=== PATIENT | male | born 1945 | race Caucasian/White ===

== ENCOUNTER 2016-10-24 17:18 | Inpatient (IN) | payer MEDICARE, BC ==
--- NOTE | 2016-10-24 18:08 | ED ---
Skin/Abscess/FB HPI - General Source: patient, RN notes reviewed Mode of arrival: wheelchair Limitations: no limitations <Mayito Bowser - Last Filed: 10/24/16 19:24> <Boris Mccoy - Last Filed: 11/11/16 09:13> - General Chief complaint: Skin/Abscess/Foreign Body Stated complaint: foot pain Time Seen by Provider: 10/24/16 17:33 - History of Present Illness Initial comments: 71-year-old male presents emergency Department with chief complaint of left leg swelling, redness and drainage. Patient states his started approximately one week ago and has been getting much worse. He states is a large amount of weeping drainage from his leg and foot. Patient states he is diabetic and does not know his blood sugar. Patient states his heart beating it and he states that he just gas is how much insulin he should give himself. Patient states she 's had a prior amputation to his right leg for some her problems. Patient states he has noticed that his toenail has fallen off. Patient states it is painful to walk on his left foot. Patient states he does have some shortness of breath which is normal for him though he does have a history of CHF. Patient denies any known fever. (Mayito Bowser) - Related Data Home Medications Medication Instructions Recorded Confirmed Aspirin 325 mg PO DAILY 08/28/14 11/01/16 Montelukast [Singulair] 10 mg PO HS 08/28/14 11/01/16 Omeprazole [PriLOSEC] 20 mg PO DAILY 08/28/14 11/01/16 hydrALAZINE HCL [Apresoline] 50 mg PO TID 08/28/14 11/01/16 Carvedilol 12.5 mg PO DAILY 08/23/15 11/01/16 Albuterol Nebulized [Ventolin 2.5 mg INHALATION RT-QID 02/04/16 11/01/16 Nebulized] DULoxetine HCL [Cymbalta] 20 mg PO BID 02/04/16 11/01/16 Arformoterol Tartrate [Brovana] 15 mcg INHALATION RT-BID 10/25/16 11/01/16 Budesonide [Pulmicort] 0.5 mg INHALATION RT-BID 10/25/16 11/01/16 Insulin Aspart [NovoLOG] 5 unit SQ AC-TID 10/25/16 11/01/16 Ipratropium-Albuterol Nebulize 3 ml INHALATION RT-QID PRN 11/01/16 11/01/16 [Duoneb 0.5 mg-3 mg/3 ml Soln] Previous Rx's Medication Instructions Recorded Insulin Glargine [Lantus] 12 unit SQ DAILY #0 08/29/15 Furosemide [Lasix] 40 mg PO BID@0900,1600 #60 tab 02/08/16 Cephalexin [Keflex] 500 mg PO Q12HR #20 cap 10/28/16 INSULIN LISPRO (HumaLOG) [humaLOG] 0 unit SQ ACHS #1 vial 10/28/16 Sodium Bicarbonate Tab 650 mg PO BID tab 10/28/16 amLODIPine [Norvasc] 10 mg PO DAILY #0 11/05/16 traMADol HCL [Ultram] 50 mg PO BID PRN #20 tablet 11/05/16 Allergies Allergy/AdvReac Type Severity Reaction Status Date / Time milk Allergy Rash/Hives Verified 11/01/16 13:38 Penicillins Allergy Rash/Hives Verified 11/01/16 13:38 Review of Systems ROS Other: All systems not noted in ROS Statement are negative. <Mayito Bowser - Last Filed: 10/24/16 19:24> ROS Other: All systems not noted in ROS Statement are negative. <Boris Mccoy - Last Filed: 11/11/16 09:13> ROS Statement: Those systems with pertinent positive or pertinent negative responses have been documented in the HPI. 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 He denies any medical marijuana, marijuana, street drug use. He does drink 2 beers daily. He is currently living alone since his passed in April 2014. There are no pets in the home. He has had no recent travel. 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 Past Drug Use History: None Reported - Past Family History Mother Family Medical History: Cancer Brother(s) Family Medical History: Coronary Artery Disease (CAD) Father Family Medical History: Coronary Artery Disease (CAD) Sister(s) Family Medical History: Cancer Additional Family Medical History / Comment(s): stomach <Mayito Bowser - Last Filed: 10/24/16 19:24> General Exam Limitations: no limitations General appearance: alert, in no apparent distress Head exam: Present: atraumatic, normocephalic, normal inspection Neck exam: Present: normal inspection. Absent: tenderness, meningismus, lymphadenopathy Respiratory exam: Present: normal lung sounds bilaterally. Absent: respiratory distress, wheezes, rales, rhonchi, stridor Cardiovascular Exam: Present: regular rate, normal rhythm, normal heart sounds. Absent: systolic murmur, diastolic murmur, rubs, gallop, clicks Extremities exam: Present: other (Extensive swelling noted the left lower leg with ulcerations, weeping drainage noted there is missing nail the first digit there is warmth and erythema there are faint palpable pulses of the left lower extremity right leg has prior amputation) <Mayito Bowser - Last Filed: 10/24/16 19:24> Medical Decision Making - Lab Data Result diagrams: 10/24/16 18:00 10/24/16 18:00 <Mayito Bowser - Last Filed: 10/24/16 19:24> - Lab Data Result diagrams: 10/28/16 07:51 10/28/16 07:51 <Boris Mccoy - Last Filed: 11/11/16 09:13> - Medical Decision Making I saw this patient in conjunction with the physician materials assistant. I performed independent history and physical exam. Agree with case management. (Boris Mccoy) - Lab Data Lab Results 10/24/16 10/24/16 10/24/16 Range/Units 18:00 18:00 18:00 WBC 5.1 (3.8-10.6) k/uL RBC 3.23 L (4.30-5.90) m/uL Hgb 9.4 L (13.0-17.5) gm/dL Hct 30.1 L (39.0-53.0) % MCV 92.9 (80.0-100.0) fL MCH 29.1 (25.0-35.0) pg MCHC 31.3 (31.0-37.0) g/dL RDW 14.5 (11.5-15.5) % Plt Count 200 (150-450) k/uL Neutrophils % 61 % Lymphocytes % 21 % Monocytes % 8 % Eosinophils % 7 % Basophils % 1 % Neutrophils # 3.1 (1.3-7.7) k/uL Lymphocytes # 1.1 (1.0-4.8) k/uL Monocytes # 0.4 (0-1.0) k/uL Eosinophils # 0.4 (0-0.7) k/uL Basophils # 0.0 (0-0.2) k/uL Hypochromasia Slight Sodium 145 (137-145) mmol/L Potassium 6.1 H (3.5-5.1) mmol/L Chloride 112 H (98-107) mmol/L Carbon Dioxide 19 L (22-30) mmol/L Anion Gap 14 mmol/L BUN 66 H (9-20) mg/dL Creatinine 4.70 H (0.66-1.25) mg/dL Est GFR (MDRD) Af Amer 15 (>60 ml/min/1.73 sqM) Est GFR (MDRD) Non-Af 12 (>60 ml/min/1.73 sqM) Glucose 115 H (74-99) mg/dL Plasma Lactic Acid Rashel (0.7-2.0) mmol/L Calcium 8.1 L (8.4-10.2) mg/dL Total Bilirubin 0.3 (0.2-1.3) mg/dL AST 12 L (17-59) U/L ALT 21 (21-72) U/L Alkaline Phosphatase 82 (38-126) U/L C-Reactive Protein <5.0 (<10.0) mg/L NT-Pro-B Natriuret Pep 8440 pg/mL Total Protein 6.6 (6.3-8.2) g/dL Albumin 3.2 L (3.5-5.0) g/dL 10/24/16 Range/Units 18:00 WBC (3.8-10.6) k/uL RBC (4.30-5.90) m/uL Hgb (13.0-17.5) gm/dL Hct (39.0-53.0) % MCV (80.0-100.0) fL MCH (25.0-35.0) pg MCHC (31.0-37.0) g/dL RDW (11.5-15.5) % Plt Count (150-450) k/uL Neutrophils % % Lymphocytes % % Monocytes % % Eosinophils % % Basophils % % Neutrophils # (1.3-7.7) k/uL Lymphocytes # (1.0-4.8) k/uL Monocytes # (0-1.0) k/uL Eosinophils # (0-0.7) k/uL Basophils # (0-0.2) k/uL Hypochromasia Sodium (137-145) mmol/L Potassium (3.5-5.1) mmol/L Chloride (98-107) mmol/L Carbon Dioxide (22-30) mmol/L Anion Gap mmol/L BUN (9-20) mg/dL Creatinine (0.66-1.25) mg/dL Est GFR (MDRD) Af Amer (>60 ml/min/1.73 sqM) Est GFR (MDRD) Non-Af (>60 ml/min/1.73 sqM) Glucose (74-99) mg/dL Plasma Lactic Acid Rashel 0.8 (0.7-2.0) mmol/L Calcium (8.4-10.2) mg/dL Total Bilirubin (0.2-1.3) mg/dL AST (17-59) U/L ALT (21-72) U/L Alkaline Phosphatase (38-126) U/L C-Reactive Protein (<10.0) mg/L NT-Pro-B Natriuret Pep pg/mL Total Protein (6.3-8.2) g/dL Albumin (3.5-5.0) g/dL 10/24/16 19:23 EKG performed at 19:14 sinus bradycardia with rate of 56, MO 170, QRS duration 86, QT/QTc 464/447 there is no peaked T waves noted (Dedoe,Mayito M) Disposition <Mayito Bowser - Last Filed: 10/24/16 19:24> <Boris Mccoy - Last Filed: 11/11/16 09:13> Clinical Impression: Renal failure, Congestive heart failure, Diabetes mellitus, Pleural effusion, Left leg cellulitis, Foot ulcer, left Disposition: ADMITTED IP TO THIS HOSP Condition: Stable
[2016-10-24 18:24] LABS: Basophils % (A) 1 %; CH 28.8; CHCM 31.1; Eosinophils # (A) 0.4 k/uL (0-0.7); Eosinophils % (A) 7 %; HCT 30.1 % (39.0-53.0); HDW 2.69; HGB 9.4 gm/dL (13.0-17.5); Hypochromasia Slight; Luc # (Auto) 0.13; Luc % (Auto) 3; Lymphocytes # (A) 1.1 k/uL (1.0-4.8); Lymphocytes % (A) 21 %; MCH 29.1 pg (25.0-35.0); MCHC 31.3 g/dL (31.0-37.0); MCV 92.9 fL (80.0-100.0); Mean Platelet Volume 7.5; Monocytes # (A) 0.4 k/uL (0-1.0); Monocytes % (A) 8 %; Neutrophils # (A) 3.1 k/uL (1.3-7.7); Neutrophils % (A) 61 %; RBC 3.23 m/uL (4.30-5.90); RDW 14.5 % (11.5-15.5); WBC 5.1 k/uL (3.8-10.6); WBC (Perox) 5.05
[2016-10-24 18:31] LABS: ALT 21 U/L (21-72); AST 12 U/L (17-59); Alkaline Phosphatase 82 U/L (38-126); Anion Gap 14 mmol/L; Blood Urea Nitrogen 66 mg/dL (9-20); C Reactive Protein <5.0 mg/L (<10.0); Calcium 8.1 mg/dL (8.4-10.2); Carbon Dioxide 19 mmol/L (22-30); Chloride 112 mmol/L (98-107); Glucose 115 mg/dL (74-99); Potassium 6.1 mmol/L (3.5-5.1); Sodium 145 mmol/L (137-145); Total Bilirubin 0.3 mg/dL (0.2-1.3); Total Protein 6.6 g/dL (6.3-8.2)
[2016-10-24 18:46] LABS: Non-African American GFR(MDRD) 12 (>60 ml/min/1.73 sqM)
--- NOTE | 2016-10-24 18:49 | XR ---
EXAMINATION TYPE: XR foot complete LT DATE OF EXAM: 10/24/2016 6:43 PM COMPARISON: NONE HISTORY: Leg and foot weeping bruising and pain TECHNIQUE: 3 view left foot FINDINGS: There is prominent soft tissue swelling. Plantar calcaneal heel spur is present. Structures are osteopenic. Osteopenia makes identification of osteomyelitis more difficult. No obvious destruct key osteomyelitis is not identified. IMPRESSION: 1. Osteopenia. 2. Soft tissue swelling. 3. Obvious osteomyelitis is not identified. 3 phase bone scan can be performed for sufficient clinica l suspicion.
--- NOTE | 2016-10-24 18:50 | XR ---
EXAMINATION TYPE: XR chest 2V DATE OF EXAM: 10/24/2016 6:43 PM COMPARISON: 02/04/2016 INDICATION: Pain, shortness of breath TECHNIQUE: Single frontal view of the chest is obtained. FINDINGS: The heart size is normal. The pulmonary vasculature is prominent. Bilateral pleural effusions are present slightly greater on the right than the left. IMPRESSION: 1. Small bilateral pleural effusions. 2. Prominent pulmonary vascular markings. Consider pulmonary edema within the differential.
[2016-10-24] MEDS ORDERED: SODIUM POLYSTYRENE SULFONATE 15 GM/60 ML BOTTLE PO STA (18:53)
[2016-10-24] MEDS ORDERED: INSULIN REGULAR 100 UNIT/ML VIAL IV ONE (18:53)
[2016-10-24] MEDS ORDERED: FUROSEMIDE 10 MG/ML 4 ML VIAL IV STA (18:54)
[2016-10-24] MEDS ORDERED: SODIUM BICARB 8.4% 50 ML SYR (1 MEQ/ML) IV STA (18:54)
[2016-10-24] MEDS ORDERED: IV VANCOMYCIN PER PHARMACY 1 EACH MISC MISCELLANE PRN (19:02)
[2016-10-24] MEDS ORDERED: MORPHINE SULFATE 4 MG/ML SYRINGE IV PRN (19:25)
[2016-10-24] MEDS ORDERED: NALOXONE 0.4 MG/ML 1 ML VIAL IV PRN (19:25)
[2016-10-24] MEDS ORDERED: ACETAMINOPHEN TAB 325 MG TAB PO PRN (19:25)
[2016-10-24] MEDS ORDERED: ONDANSETRON 4 MG/2 ML VIAL IVP PRN (19:25)
[2016-10-24] MEDS: DEXTROSE 50%-WATER 50 ML SYRINGE IVP STA ×2 (19:53→21:43)
[2016-10-24] MEDS ORDERED: VANCOMYCIN 2,000 MG in SODIUM CHLORIDE 0.9% 500 ML IVPB ONE (20:00)
[2016-10-24] MEDS ORDERED: ALBUTEROL NEBULIZED 2.5 MG/3 ML INHALATION SCH (20:00)
[2016-10-24] MEDS ORDERED: ALBUTEROL NEBULIZED 2.5 MG/3 ML INHALATION PRN (20:18)
[2016-10-24] MEDS: BUDESONIDE 0.5 MG/2 ML NEBU INHALATION SCH (20:35)
[2016-10-24] MEDS: INSULIN LISPRO (humaLOG) 300 UNIT/3 ML VIAL SQ SCH (21:40)
[2016-10-24 21:42] LABS: Glucose,Whole Blood 28 mg/dL (75-99)
--- NOTE | 2016-10-24 21:47 | US ---
EXAMINATION TYPE: US venous doppler duplex LE LT DATE OF EXAM: 10/24/2016 7:56 PM COMPARISON: on PACS CLINICAL HISTORY: Pain. let leg cellulitis/foot ulcer, hyperkalemia, DM, poor historian SIDE PERFORMED: Left VESSELS IMAGED: External Iliac Vein (EIV) Common Femoral Vein Deep Femoral Vein Greater Saphenous Vein * Femoral Vein Popliteal Vein Small Saphenous Vein * Proximal Calf Veins (* superficial vessels) TECHNOLOGIST IMPRESSION: Left Leg: Appears negative for DVT IMPRESSION: 1. Left lower extremity negative for deep venous thrombosis.
[2016-10-24] MEDS: MONTELUKAST 10 MG TAB PO SCH (22:05)
[2016-10-24] MEDS: traMADol 50 MG TAB PO SCH ×2 (22:05→22:28)
[2016-10-24] MEDS: hydrALAZINE HCL 50 MG TAB PO SCH (22:05)
[2016-10-24] MEDS: DULoxetine HCL 20 MG CAPSULE.DR PO SCH (22:05)
[2016-10-24 22:25] LABS: Glucose,Whole Blood 77 mg/dL (75-99)
[2016-10-24 22:26] VITALS: BMI 31.5
[2016-10-25] MEDS: ALPRAZolam 0.25 MG TAB PO SCH ×4 (00:05→22:12)
[2016-10-25 00:25] LABS: Appearance,Urine Clear (Clear); Bilirubin,Urine Negative (Negative); Glucose,Urine (UA) Negative (Negative); Ketones,Urine Negative (Negative); Leukocyte Esterase,Urine Negative (Negative); Mucus,Urine Rare /hpf; Nitrite,Urine Negative (Negative); Particle Count 1321; Protein,Urine 1+ (Negative); RBC,Urine <1 /hpf (0-5); Specific Gravity,Urine 1.006 (1.001-1.035); UA Billing (MACRO vs. MICRO) MICRO; Urobilinogen,Urine <2.0 mg/dL (<2.0); WBC,Urine <1 /hpf (0-5)
[2016-10-25 02:30] LABS: Glucose,Whole Blood 145 mg/dL (75-99)
[2016-10-25 06:37] LABS: Basophils # (A) 0.1 k/uL (0-0.2); Basophils % (A) 1 %; CH 28.3; CHCM 29.5; Eosinophils # (A) 0.2 k/uL (0-0.7); Eosinophils % (A) 3 %; HCT 29.4 % (39.0-53.0); HDW 2.66; HGB 8.9 gm/dL (13.0-17.5); Hypochromasia Marked; Luc # (Auto) 0.12; Luc % (Auto) 2; Lymphocytes # (A) 0.7 k/uL (1.0-4.8); Lymphocytes % (A) 13 %; MCH 29.3 pg (25.0-35.0); MCHC 30.3 g/dL (31.0-37.0); MCV 96.6 fL (80.0-100.0); Mean Platelet Volume 7.4; Monocytes # (A) 0.5 k/uL (0-1.0); Monocytes % (A) 9 %; Neutrophils # (A) 4.1 k/uL (1.3-7.7); Neutrophils % (A) 73 %; RBC 3.04 m/uL (4.30-5.90); RDW 14.6 % (11.5-15.5); WBC 5.6 k/uL (3.8-10.6); WBC (Perox) 6.08
[2016-10-25 06:56] LABS: Calcium 8.1 mg/dL (8.4-10.2); Potassium 5.6 mmol/L (3.5-5.1)
[2016-10-25] MEDS: CARVEDILOL 12.5 MG TAB PO SCH (06:58)
[2016-10-25] MEDS: PANTOPRAZOLE 40 MG TABLET PO SCH (06:58)
[2016-10-25] MEDS: INSULIN LISPRO (humaLOG) 300 UNIT/3 ML VIAL SQ SCH ×4 (07:00→22:07)
[2016-10-25 07:04] LABS: Glucose,Whole Blood 145 mg/dL (75-99)
[2016-10-25] MEDS: ASPIRIN 325 MG TAB PO SCH (08:05)
[2016-10-25] MEDS: INSULIN GLARGINE 100 UNIT/ML 10 ML VIAL SQ SCH (08:05)
[2016-10-25] MEDS: DULoxetine HCL 20 MG CAPSULE.DR PO SCH ×2 (08:05→22:07)
[2016-10-25] MEDS: hydrALAZINE HCL 50 MG TAB PO SCH ×3 (08:05→22:08)
[2016-10-25] MEDS: amLODIPine 5 MG TAB PO SCH (08:06)
[2016-10-25] MEDS: traMADol 50 MG TAB PO SCH ×2 (08:09→22:12)
[2016-10-25] MEDS ORDERED: FUROSEMIDE 40 MG TAB PO SCH (09:00)
[2016-10-25] MEDS: ALBUTEROL NEBULIZED 2.5 MG/3 ML INHALATION SCH ×4 (11:25→20:19)
[2016-10-25] MEDS: BUDESONIDE 0.5 MG/2 ML NEBU INHALATION SCH ×2 (11:25→20:19)
[2016-10-25] MEDS ORDERED: SODIUM POLYSTYRENE SULFONATE 15 GM/60 ML BOTTLE PO STA (11:29)
[2016-10-25 11:34] LABS: Glucose,Whole Blood 73 mg/dL (75-99)
[2016-10-25 13:58] LABS: Hemoglobin A1C 5.3 % (4.2-6.1)
[2016-10-25] MEDS ORDERED: IV VANCOMYCIN PER PHARMACY 1 EACH MISC MISCELLANE PRN (14:38)
--- NOTE | 2016-10-25 15:14 | CONS ---
DATE OF CONSULTATION: 10/25/2016 REASON FOR CONSULT: Renal failure. HISTORY OF PRESENT ILLNESS: Patient is a 71-year-old white male who was admitted to the hospital with complaints of increased left leg swelling. He has had wounds ( ) with weeping and drainage. Patient denies any fever. He denies any nausea or vomiting. He did complain of shortness of breath. He denies any prior history of kidney diseases. PAST MEDICAL HISTORY: Asthma, COPD, type 2 diabetes, hyperlipidemia, hypertension, peripheral vascular disease. CKD is mentioned in his H&P. Medications at home included Lasix, insulin, Norvasc, Cymbalta, Xanax, Singulair, Prilosec, hydralazine, Coreg, aspirin. Allergies include PENICILLIN. PAST SURGICAL HISTORY: Right BKA. Social history is negative for smoking. No history of drug abuse. REVIEW OF SYSTEMS: As per HPI. Other systems negative. On examination, patient is comfortable, awake. He is not in any acute distress. Blood pressure is 148/60, heart rate 70 per minute. He is afebrile. HEENT: Atraumatic, normocephalic. Pupils are equal, round. JVP is not elevated. Lymph nodes are not palpable. Thyroid is not enlarged. Examination of the heart, S1 and S2. Examination of the lung, bilateral breath sounds are heard. Abdomen is soft, nontender. Examination of lower extremities shows significant edema, swelling up to left leg with drainage noted from wounds and patient also has a right BKA. 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 Labs reveal sodium 144, potassium 5.6, BUN 68, serum creatinine 4.6. Hemoglobin at 8.9 g/dL UA shows 1+ protein, otherwise completely unremarkable ASSESSMENT: 1. Chronic kidney disease, NKF stage IV to V, currently with serum creatinine not far from baseline. Etiology is diabetic nephropathy. Patient is supposed to follow up as outpatient. He has been talked to regarding renal replacement therapy which he had declined on his last admission. There is evidence of volume overload. We will continue to diurese him. He does not appear to be significantly uremic at this time. 2. Hyperkalemia associated with advanced renal failure. We will repeat another dose of Kayexalate. 3. Volume overload, switch Lasix to IV. 4. Cellulitis and drainage from wounds on the left lower extremity, maintained on vancomycin. 5. Type 2 diabetes. 6. Hypertension, currently with good control. PLAN: Change Lasix to IV, Kayexalate x1 today, IV diuresis will also help with the hyperkalemia. Repeat labs in the a.m. Continue antibiotics. Thank you for this consultation. Will continue to follow the patient with you during his hospitalization.
[2016-10-25 16:39] LABS: Glucose,Whole Blood 60 mg/dL (75-99)
[2016-10-25 17:13] LABS: Glucose,Whole Blood 70 mg/dL (75-99)
--- NOTE | 2016-10-25 17:24 | HP ---
DATE OF ADMISSION: 10/24/2016 CHIEF COMPLAINT: Left lower extremity cellulitis and oozing. HISTORY OF PRESENT ILLNESS: This is a 71-year-old gentleman who has multiple medical conditions including type 2 diabetes, chronic kidney disease stage IV to V, peripheral vascular disease and hypertension comes in the hospital with recent onset worsening of his left lower extremity wound. Patient stated that over the last few days, patient noted that he had increased swelling, erythema and tenderness in that area. Patient also noted significant oozing and some blood discharge from that wound. Of note, the patient has had a history of a right BKA in the past. The patient denies having any fevers, chills, nausea, vomiting. Patient does complain of some difficulty in breathing. Patient apparently has been offered renal replacement therapy in the past. However, declined it. Past medical history includes asthma, COPD, type 2 diabetes, hypertension, dyslipidemia, CKD stage IV. MEDICATIONS INCLUDE: 1. Lasix. 2. Insulin. 3. Norvasc. 4. Cymbalta. 5. Xanax. 6. Singulair. 7. Prilosec. 8. Hydralazine. 9. Coreg. 10. Aspirin. Medication doses were appropriately reviewed and reconciled on admission. ALLERGIES: PENICILLIN. PAST SURGICAL HISTORY: Right BKA. SOCIAL HISTORY: Denies alcohol, illicit drug use, smoking history. REVIEW OF SYSTEMS: Fourteen-point review of system was done; none pertinent other than was mentioned in HPI. FAMILY HISTORY: Not pertinent to the current admission. PHYSICAL EXAM: Vital signs include a temperature 97.5, heart rate 60, respiratory rate 17, blood pressure 126/66, saturating 95% on 2 liters supplemental oxygen. GENERAL: Alert, oriented x3. Neck is supple. No JVD. LUNGS: Good air movement, trace crackles at the bases. HEART: S1, S2 are regular rate and rhythm. No murmurs appreciated. ABDOMEN: Soft, nontender, no organomegaly. Lower extremities: BKA is noted on the right, on the left there is some edema with associated erythema and multiple open sores with serosanguineous discharge below the knee. Neurologic exam no focal motor or sensory deficits noted. Laboratory data include hemoglobin 8.9, hematocrit 29.4, white count 5.6, platelets of 176. Sodium 144, potassium 5.6, chloride 113, bicarb 20. BUN 68, creatinine of 4.60. ASSESSMENT AND PLAN: 1. Left lower extremity cellulitis. 2. Hyperkalemia. 3. Chronic kidney disease stage IV to V. 4. Non-anion gap metabolic acidosis secondary to above. 5. Diabetes mellitus, type II. 6. Anemia of chronic disease. 7. Hypertension. 8. Peripheral arterial disease. 9. Chronic asthma. 10. Peripheral neuropathy. PLAN: Patient was evaluated by nephrology. Patient's blood pressure is appropriate. Medication reconciled. We will have infectious disease on consult as patient may need a chronic wound care on discharge. Vancomycin will be continued. A Doppler study was ordered by my recommendation on admission. The patient appears to be negative for it. Continue ongoing care including Lasix 40 mg IV 12 hours. Monitor urine output. DVT prophylaxis with heparin subcu 5000 q.12 hours will be started.
[2016-10-25] MEDS: HEPARIN SODIUM,PORCINE 5,000 UNIT/ML 1 ML VIAL SQ SCH ×2 (17:34→23:21)
[2016-10-25 20:28] LABS: Glucose,Whole Blood 91 mg/dL (75-99)
[2016-10-25] MEDS: FORMOTEROL FUMARATE 20 MCG/2 ML NEBU INHALATION SCH (22:06)
[2016-10-25] MEDS: MONTELUKAST 10 MG TAB PO SCH (22:08)
[2016-10-25] MEDS: FUROSEMIDE 10 MG/ML 4 ML VIAL IV SCH (22:13)
[2016-10-26] MEDS: FORMOTEROL FUMARATE 20 MCG/2 ML NEBU INHALATION SCH ×2 (04:52→11:11)
[2016-10-26 05:50] LABS: Glucose,Whole Blood 60 mg/dL (75-99)
[2016-10-26] MEDS ORDERED: VANCOMYCIN TROUGH DUE 1 EACH MISC MISCELLANE ONE (06:00)
[2016-10-26 06:20] LABS: Glucose,Whole Blood 76 mg/dL (75-99)
[2016-10-26] MEDS: INSULIN LISPRO (humaLOG) 300 UNIT/3 ML VIAL SQ SCH ×4 (06:49→21:32)
[2016-10-26] MEDS: PANTOPRAZOLE 40 MG TABLET PO SCH (06:50)
[2016-10-26] MEDS: CARVEDILOL 12.5 MG TAB PO SCH (06:50)
[2016-10-26] MEDS: BUDESONIDE 0.5 MG/2 ML NEBU INHALATION SCH ×2 (07:18→19:13)
[2016-10-26] MEDS: ALBUTEROL NEBULIZED 2.5 MG/3 ML INHALATION SCH ×4 (07:18→19:13)
[2016-10-26 07:25] LABS: Basophils # (A) 0.1 k/uL (0-0.2); Basophils % (A) 1 %; CH 28.7; CHCM 30.1; Eosinophils # (A) 0.3 k/uL (0-0.7); Eosinophils % (A) 7 %; HCT 28.3 % (39.0-53.0); HDW 2.75; HGB 8.5 gm/dL (13.0-17.5); Hypochromasia Marked; Luc # (Auto) 0.07; Luc % (Auto) 1; Lymphocytes % (A) 19 %; MCH 28.9 pg (25.0-35.0); MCHC 30.1 g/dL (31.0-37.0); MCV 96.2 fL (80.0-100.0); Mean Platelet Volume 8.5; Monocytes # (A) 0.4 k/uL (0-1.0); Monocytes % (A) 9 %; Neutrophils # (A) 3.1 k/uL (1.3-7.7); Neutrophils % (A) 63 %; RBC 2.94 m/uL (4.30-5.90); RDW 14.7 % (11.5-15.5); WBC 4.9 k/uL (3.8-10.6); WBC (Perox) 5.18
[2016-10-26 07:41] LABS: Calcium 8.1 mg/dL (8.4-10.2); Potassium 4.6 mmol/L (3.5-5.1); Total Bilirubin 0.3 mg/dL (0.2-1.3); Total Protein 6.1 g/dL (6.3-8.2)
[2016-10-26] MEDS: FUROSEMIDE 10 MG/ML 4 ML VIAL IV SCH ×2 (08:45→21:19)
[2016-10-26] MEDS: HEPARIN SODIUM,PORCINE 5,000 UNIT/ML 1 ML VIAL SQ SCH ×3 (08:51→17:10)
[2016-10-26] MEDS: amLODIPine 5 MG TAB PO SCH (08:52)
[2016-10-26] MEDS: DULoxetine HCL 20 MG CAPSULE.DR PO SCH ×2 (08:52→21:18)
[2016-10-26] MEDS: hydrALAZINE HCL 50 MG TAB PO SCH ×3 (08:52→21:18)
[2016-10-26] MEDS: ASPIRIN 325 MG TAB PO SCH (08:52)
[2016-10-26] MEDS: INSULIN GLARGINE 100 UNIT/ML 10 ML VIAL SQ SCH (08:53)
[2016-10-26] MEDS: traMADol 50 MG TAB PO SCH ×2 (08:54→21:18)
[2016-10-26] MEDS ORDERED: VANCOMYCIN 2,000 MG in SODIUM CHLORIDE 0.9% 500 ML IVPB ONE (09:30)
[2016-10-26] MEDS: ALPRAZolam 0.25 MG TAB PO SCH ×3 (10:00→21:10)
[2016-10-26 11:58] LABS: Glucose,Whole Blood 90 mg/dL (75-99)
[2016-10-26] MEDS ORDERED: SILVER sulfADIAZINE Cream 400 GM 1 APPLIC APPLIC TOPICAL SCH (12:45)
[2016-10-26] MEDS: ceFAZolin 2 GM in SODIUM CHLORIDE 0.9% 100 ML IVPB SCH (14:46)
--- NOTE | 2016-10-26 16:20 | P.PN ---
Subjective 71-year-old is low for cellulitis and worsening pain with an MRI of the lower extremity. Patient has a history of stage IV to 5 chronic kidney disease. Patient apparently was offered a renal replacement therapy in the past, and refused at that time. Patient comes in the hospital was started on IV antibiotics. Patient is somewhat improved. Does have any chest pain, dizziness, nausea, vomiting. Objective - Vital Signs Vital signs: Vital Signs Temp 96.1 F L 10/26/16 15:00 Pulse 64 10/26/16 15:23 Resp 20 10/26/16 15:00 BP 152/70 10/26/16 15:00 Pulse Ox 96 10/26/16 15:00 Intake & Output 10/25/16 10/26/16 10/26/16 18:59 06:59 18:59 Intake Total 440 100 480 Output Total 600 150 Balance -160 -50 480 Weight 105.5 kg 106 kg Intake: IV 100 0.9 @10 mls/hr 100 Oral 440 480 Output: Urine 600 150 Other: Voiding Method Urinal Urinal Bedpan Urinal - Exam Gen. appearance patient is lying alert to time and place Lungs good air entry clear to auscultation Heart S1-S2 heard regular rate Abdomen is soft nontender no organomegaly Lower extremities left lower extremity appears slightly improved. Does have associated erythema however there is multiple areas with the previous bullae better option. Right BKA noted. Neurologically no deficits noted from baseline. - Labs CBC & Chem 7: 10/26/16 06:49 10/26/16 06:49 Labs: Abnormal Lab Results - Last 24 Hours (Table) 10/25/16 10/25/16 10/26/16 Range/Units 16:35 16:52 05:49 RBC (4.30-5.90) m/uL Hgb (13.0-17.5) gm/dL Hct (39.0-53.0) % MCHC (31.0-37.0) g/dL Chloride (98-107) mmol/L BUN (9-20) mg/dL Creatinine (0.66-1.25) mg/dL POC Glucose (mg/dL) 60 L 70 L 60 L (75-99) mg/dL Calcium (8.4-10.2) mg/dL AST (17-59) U/L Total Protein (6.3-8.2) g/dL Albumin (3.5-5.0) g/dL 10/26/16 10/26/16 Range/Units 06:49 06:49 RBC 2.94 L (4.30-5.90) m/uL Hgb 8.5 L (13.0-17.5) gm/dL Hct 28.3 L (39.0-53.0) % MCHC 30.1 L (31.0-37.0) g/dL Chloride 110 H (98-107) mmol/L BUN 64 H (9-20) mg/dL Creatinine 4.82 H (0.66-1.25) mg/dL POC Glucose (mg/dL) (75-99) mg/dL Calcium 8.1 L (8.4-10.2) mg/dL AST 10 L (17-59) U/L Total Protein 6.1 L (6.3-8.2) g/dL Albumin 2.8 L (3.5-5.0) g/dL Assessment and Plan Plan: #1 left lower x-ray cellulitis #2 hyperkalemia that is improved #3 CK D stage IV #4 non-anion gap metabolic acidosis #5 diabetes mellitus type 2 #6. Arterial disease #7 history of hypertension #8 anemia of chronic disease #9 peripheral neuropathy Plan Continue ongoing care. Continue IV vancomycin. Appreciate ID recommendations. Recommended Aquasol and thereafter to wrap the leg. Silvadene could be used on the base ulcer at the foot.
[2016-10-26 17:03] LABS: Glucose,Whole Blood 64 mg/dL (75-99)
[2016-10-26 17:23] LABS: Glucose,Whole Blood 70 mg/dL (75-99)
--- NOTE | 2016-10-26 17:29 | CONS ---
DATE OF CONSULTATION: 10/26/2016 REASON FOR CONSULTATION: Left leg wound and cellulitis. HISTORY OF PRESENT ILLNESS: The patient is a 71-year-old male who presented to the [facility] ER on 10/24/2016 with chief complaints of the left leg swelling and redness and drainage, apparently has been going on for about a week and has been getting worse, therefore, he presented to the hospital. The patient has been complaining of some dull pain to which 2 to 3 out of 10 and no radiation. The patient did have an open wound and drainage from it. The patient denies any significant high-grade fever, rigors or chills. Subsequently, has been evaluated by the ER physician. The patient did have a left lower extremity Doppler that was negative for DVT. The patient has been diagnosed with left lower extremity cellulitis. He was started on vancomycin. However, the patient did have a chronic renal insufficiency with a Stage IV with a creatinine clearance of about 15. I was asked to see the patient for further recommendation regarding antibiotic therapy. REVIEW OF SYSTEMS: CONSTITUTIONAL: Positive for weakness. EYES: No complaint. ENT: No complaint. RESPIRATORY: Some shortness of breath. CARDIOVASCULAR: No complaint. GENITOURINARY: No complaint. GASTROINTESTINAL: Complaint. MUSCULOSKELETAL: No complaint. INTEGUMENTARY: As per HPI. PSYCHOLOGICAL: No complaint. ENDOCRINE: No complaint. NEUROLOGIC: No complaint. Past medical history significant for: Asthma and COPD, type 2 diabetes mellitus, hypertension, hyperlipidemia, chronic renal insufficiency, stage IV, PAD. PAST SURGICAL HISTORY: Right BKA. SOCIAL HISTORY: Denies smoking, drinking or drug use. FAMILY HISTORY: No pertinent findings noticed. ALLERGIC TO PENICILLIN WITH A RASH. No history of anaphylaxis. That was a long time ago when he was young. Medications currently include the patient is on: 1. Tylenol. 2. Ventolin. 3. Xanax. 4. Norvasc. 5. Aspirin. 6. Pulmicort. 7. Coreg. 8. Cymbalta. 9. Lasix. 10. Heparin. 11. Hydralazine. 12. Lantus. 13. Humalog. 14. Singulair. 15. Morphine sulfate. 16. Narcan. 17. Zofran. 18. Protonix. 19. Ultram. On examination, blood pressure is 147/52 with a pulse of 55, temperature 96.7. He is 97% on 2 liters nasal cannula. General description is an elderly male, lying in bed in no distress. No tachypnea or accessory muscle of respiration use. HEENT examination shows pallor. There is no scleral icterus. Oral mucosa membranes dry. NECK: Trachea central. There is no thyromegaly. LUNGS: Unlabored breathing. Clear to auscultation anteriorly. No wheeze or crackle. HEART: S1, S2 regular rate and rhythm. ABDOMEN: Soft. No tenderness. No guarding or rigidity. EXTREMITIES: Left leg with superficial ulceration and some minimal erythema. No foul smelling drainage was noticed. NEUROLOGICAL: The patient is awake, alert, oriented x3. Mood and affect normal. LABS: Hemoglobin is 8.5, white count 4.9 with a BUN of 54, creatinine 4.82. Vanco level is 13.5. Blood cultures obtained currently negative. DIAGNOSTIC IMPRESSION AND PLAN: Patient with acute left lower extremity cellulitis and patient did have evidence of fluid overload with diffuse swelling and redness likely streptococcal disease in a patient who did have a chronic renal insufficiency and high risk of nephrotoxicity. Clinical suspicion is low for MRSA infection as the patient has not been on any antibiotics in the recent past. PLAN: 1. Discontinue the vancomycin. 2. Start the patient cefazolin 2 grams x1 and 1 gram q.12. Dose adjusted per his kidney function. 3. Aquacel dressing to the open area followed by light princess wrap. 4. Will follow up on the clinical condition and cultures to further adjust the medication if needed. Thank you for this consultation. We will follow this patient along with you.
[2016-10-26 20:43] LABS: Glucose,Whole Blood 121 mg/dL (75-99)
[2016-10-26] MEDS ORDERED: DARBEPOETIN ALFA 40 MCG/0.4 ML SYRINGE SQ SCH (21:00)
--- NOTE | 2016-10-26 21:14 | PN ---
Patient is seen for follow-up for acute kidney injury. He was admitted to the hospital with cellulitis and draining wound in his left leg. 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 Previously in January 2016 his serum creatinine had also been about 3.8 to 4.5. Patient has been talked to regarding renal replacement therapy previously and he has not been too keen on it. On this admission patient was also volume overloaded and is maintained on Lasix. His swelling seems to have improved. Patient is also maintained on antibiotics. He has had good urine output. He is currently voiding in a urinal. Serum creatinine is at 4.8. He was at 4.7 mg/dL on initial admission. On examination, blood pressure is 152/70, heart rate 62 per minute. He is afebrile. Examination of the heart S1 and S2. Examination of the lungs, bilateral breath sounds are heard. ABDOMEN: Soft, nontender. Examination of lower extremities shows erythema. Chronic skin changes and edema left lower extremity which seems to be better than yesterday. Patient also has a right BKA. Labs show sodium 145, potassium 4.6, BUN 64, serum creatinine 4.8, albumin 2.8. Hemoglobin at 8.5 g/dL. ASSESSMENT: 1. Chronic kidney disease stage IV to V. Patient has previously declined renal replacement therapy. At this time he does not need to be dialyzed, however, if his renal function continues to worsen he may to start this admission. He continues to void and he has had an improvement in his volume status. I will decrease the Lasix to 40 mg IV daily starting from tomorrow. 2. Hypertension, partly volume sensitive. Currently improved. 3. Anemia with previous iron saturation in January of 18%. I will reorder iron profile and patient will be started on Aranesp. 4. Diabetes. 5. Lower extremity wound, status post vancomycin, currently maintained on cefazolin. PLAN: Check iron studies and repeat labs in a.m. We will readdress renal replacement therapy if renal function continues to worsen.
[2016-10-26] MEDS: MONTELUKAST 10 MG TAB PO SCH (21:18)
[2016-10-26] MEDS ORDERED: IPRATROPIUM-ALBUTEROL 3 ML NEB INHALATION PRN (23:58)
[2016-10-27] MEDS: ceFAZolin 2 GM in SODIUM CHLORIDE 0.9% 100 ML IVPB SCH ×2 (00:17→08:03)
[2016-10-27] MEDS: HEPARIN SODIUM,PORCINE 5,000 UNIT/ML 1 ML VIAL SQ SCH ×4 (00:18→23:32)
[2016-10-27 02:05] LABS: Glucose,Whole Blood 134 mg/dL (75-99)
[2016-10-27 07:08] LABS: Glucose,Whole Blood 114 mg/dL (75-99)
[2016-10-27] MEDS: INSULIN LISPRO (humaLOG) 300 UNIT/3 ML VIAL SQ SCH ×4 (07:19→20:57)
[2016-10-27] MEDS: BUDESONIDE 0.5 MG/2 ML NEBU INHALATION SCH ×2 (07:34→19:25)
[2016-10-27] MEDS: IPRATROPIUM-ALBUTEROL 3 ML NEB INHALATION SCH ×5 (07:34→19:25)
[2016-10-27] MEDS: ASPIRIN 325 MG TAB PO SCH (07:57)
[2016-10-27] MEDS: DULoxetine HCL 20 MG CAPSULE.DR PO SCH ×2 (07:57→21:02)
[2016-10-27] MEDS: CARVEDILOL 12.5 MG TAB PO SCH (07:57)
[2016-10-27] MEDS: PANTOPRAZOLE 40 MG TABLET PO SCH (07:57)
[2016-10-27] MEDS: hydrALAZINE HCL 50 MG TAB PO SCH ×3 (07:57→21:02)
[2016-10-27] MEDS: FUROSEMIDE 10 MG/ML 4 ML VIAL IV SCH ×2 (07:57→21:02)
[2016-10-27] MEDS: INSULIN GLARGINE 100 UNIT/ML 10 ML VIAL SQ SCH (07:58)
[2016-10-27] MEDS: amLODIPine 5 MG TAB PO SCH (07:58)
[2016-10-27] MEDS: ALPRAZolam 0.25 MG TAB PO SCH ×2 (08:02→14:39)
[2016-10-27] MEDS: traMADol 50 MG TAB PO SCH ×2 (08:06→21:02)
[2016-10-27] MEDS: FORMOTEROL FUMARATE 20 MCG/2 ML NEBU INHALATION SCH ×2 (08:10→12:00)
[2016-10-27 08:47] LABS: Calcium 7.7 mg/dL (8.4-10.2); Potassium 5.2 mmol/L (3.5-5.1)
[2016-10-27 12:34] LABS: % Iron Saturation 13.6 % (20-50)
[2016-10-27 12:44] LABS: Glucose,Whole Blood 102 mg/dL (75-99)
[2016-10-27 13:59] LABS: Glucose,Whole Blood 104 mg/dL (75-99)
[2016-10-27] MEDS ORDERED: METOCLOPRAMIDE 5 MG/ML 2 ML VIAL IVP PRN (14:49)
[2016-10-27] MEDS ORDERED: ALPRAZolam 0.25 MG TAB PO PRN (15:14)
--- NOTE | 2016-10-27 15:32 | CDI ---
Airam Stockett [address] [facility] [place] [address] Documentation Clarification Form Date: 10/27/2016 From: JOSE Santillan, CCDS Admit Date: 10/24/2016 Patient Name: Edil Marroquin Visit Number: [id number] Dr Gal Diop, History of CHF is documented in the ED note. Patient has evidence of Volume Overload is documented in your last progress note and by Nephro. History/Risk Factors: CKD stage 4-5 Hypertension Diabetes Mellitus Clinical Indicators: BNP: not available Echocardiogram Results 02/05/2016: ef 50-55%, moderate left ventricular hypertrophy Chest X Ray on 10/24/2016: small bilateral pleural effusions, consider pulmonary edema Treatment: PO Lasix changed to IV Consult: ID, Nephrology In your professional opinion, can you please clarify the acuity and type of CHF if known? Acute Chronic Acute on Chronic AND Systolic Diastolic Systolic and Diastolic Unable to determine Other, please specify Please document in your progress notes and discharge summary in order to capture severity of illness and risk of mortality. Include clinical findings that support your diagnosis. FYI: Press F11 to launch patient chart. _x, no chf____ Place X here if this finding has no clinical significance, is not applicable or if you are not able to provide any additional documentation. NANCY
--- NOTE | 2016-10-27 17:09 | P.PN ---
Subjective 71-year-old is low for cellulitis and worsening pain with an MRI of the lower extremity. Patient has a history of stage IV to 5 chronic kidney disease. Patient apparently was offered a renal replacement therapy in the past, and refused at that time. Patient comes in the hospital was started on IV antibiotics. Patient is somewhat improved. Does have any chest pain, dizziness, nausea, vomiting. 10/27/2016 States that he is slightly having a hard time with abdominal pain and some nausea after a meal. Objective - Vital Signs Vital signs: Vital Signs Temp 97.1 F L 10/27/16 15:00 Pulse 62 10/27/16 15:00 Resp 20 10/27/16 15:00 BP 103/47 10/27/16 15:00 Pulse Ox 92 L 10/27/16 15:00 Intake & Output 10/26/16 10/27/16 10/27/16 18:59 06:59 18:59 Intake Total 480 210 Output Total 150 200 Balance 330 10 Weight 106 kg 106 kg Intake: IV 110 0.9 @10 mls/hr 110 Intake, IV Titration 100 Amount ceFAZolin 2 gm In Sodium 100 Chloride 0.9% 100 ml @ 100 mls/hr IV[facility] Q[facility] Rx#:[id number] Oral 480 Output: Urine 150 200 Other: Voiding Method Bedpan Urinal Urinal Urinal # Voids 1 2 2 # Bowel Movements 0 - Exam Gen. appearance patient is lying alert to time and place Lungs good air entry clear to auscultation no rhonchi or wheezing Heart S1-S2 heard regular rate no murmurs appreciated Abdomen tender to palpation in epigastric region no organomegaly bowel sounds are intact Lower extremities left lower extremity appears slightly improved. Does have associated erythema however there is multiple areas with the previous bullae better option. Right BKA noted. Neurologically no deficits noted from baseline. - Labs CBC & Chem 7: 10/26/16 06:49 10/27/16 08:15 Labs: Abnormal Lab Results - Last 24 Hours (Table) 10/26/16 10/26/16 10/27/16 Range/Units 17:22 20:41 01:59 Potassium (3.5-5.1) mmol/L Chloride (98-107) mmol/L Carbon Dioxide (22-30) mmol/L BUN (9-20) mg/dL Creatinine (0.66-1.25) mg/dL Glucose (74-99) mg/dL POC Glucose (mg/dL) 70 L 121 H 134 H (75-99) mg/dL Calcium (8.4-10.2) mg/dL Iron (49-181) ug/dL TIBC (261-462) ug/dL % Saturation (20-50) % 10/27/16 10/27/16 10/27/16 Range/Units 07:07 08:15 12:43 Potassium 5.2 H (3.5-5.1) mmol/L Chloride 110 H (98-107) mmol/L Carbon Dioxide 21 L (22-30) mmol/L BUN 73 H (9-20) mg/dL Creatinine 4.96 H (0.66-1.25) mg/dL Glucose 102 H (74-99) mg/dL POC Glucose (mg/dL) 114 H 102 H (75-99) mg/dL Calcium 7.7 L (8.4-10.2) mg/dL Iron 30 L (49-181) ug/dL TIBC 220 L (261-462) ug/dL % Saturation 13.6 L (20-50) % 10/27/16 Range/Units 13:48 Potassium (3.5-5.1) mmol/L Chloride (98-107) mmol/L Carbon Dioxide (22-30) mmol/L BUN (9-20) mg/dL Creatinine (0.66-1.25) mg/dL Glucose (74-99) mg/dL POC Glucose (mg/dL) 104 H (75-99) mg/dL Calcium (8.4-10.2) mg/dL Iron (49-181) ug/dL TIBC (261-462) ug/dL % Saturation (20-50) % Assessment and Plan Plan: #1 left lower x-ray cellulitis #2 hyperkalemia that is improved #3 CK D stage IV, 5 #4 non-anion gap metabolic acidosis #5 diabetes mellitus type 2 #6. Arterial disease #7 history of hypertension #8 anemia of chronic disease #9 peripheral neuropathy Plan Continue ongoing care. Appreciate ID recommendations. Continue wound care. Patient's nausea vomiting is likely secondary to some degree of gastroparesis. Patient be given IV Reglan 5 mg. Patient does not have an exacerbation of congestive heart failure is likely secondary to renal failure. Patient has an EF of 55-60% fluid overload secondary to CK D stage V.
[2016-10-27 17:14] LABS: Glucose,Whole Blood 131 mg/dL (75-99)
[2016-10-27 20:45] LABS: Glucose,Whole Blood 129 mg/dL (75-99)
[2016-10-27] MEDS: MONTELUKAST 10 MG TAB PO SCH (21:01)
[2016-10-27] MEDS: ceFAZolin 1,000 MG in DEXTROSE/WATER 1 50ML.BAG IVPB SCH (21:02)
--- NOTE | 2016-10-27 21:48 | PN ---
Patient is seen for follow-up for chronic kidney disease. He is admitted to the hospital with cellulitis of his left lower extremity and fluid overload. He is maintained on Lasix. He has had good urine output. Serum creatinine is at about the same. It is at 4.9 now from 4.7 on initial admission. Patient has been talked to regarding renal replacement therapy previously and he has declined it. This morning when I talked to him he is agreeable to start dialysis if indicated. On examination, blood pressure is 103/47, heart rate 62 per minute. The patient is afebrile. Examination of the heart S1 and S2. Examination of the lungs: Bilateral breath sounds are heard crackles are in the bases. ABDOMEN: Soft, nontender. Examination of lower extremities shows right BKA and chronic skin changes, edema and erythema noted in his left leg which seems to be improving. Some wrinkling of the skin is noted on the left leg as well. Labs show sodium 144, potassium 5.2, serum creatinine 4.9. Iron saturation was at 13.6. ASSESSMENT: 1. Chronic kidney disease stage V, patient is now agreeable to renal replacement therapy if indicated. 2. Mild hyperkalemia. 3. Cellulitis and wound left lower extremity maintained on antibiotics. 4. Anemia with severe iron deficiency. PLAN: IV iron. Continue antibiotics. Continue the Lasix. Continue Aranesp. As mentioned patient has agreed for renal replacement therapy if indicated during this admission.
--- NOTE | 2016-10-27 22:12 | PN ---
DATE OF SERVICE: 10/27/2016 REASON FOR FOLLOWUP: Left lower extremity wound and cellulitis. INTERVAL HISTORY: The patient is afebrile. He is breathing comfortably. Denies any significant chest pain. No shortness of breath or cough. No abdominal pain or any worsening pain in the left leg area. On examination, blood pressure is 103/47 with a pulse of 62, temperature 97.1. He is 92% on 4 L nasal cannula. General description is an elderly male lying in bed in no distress. RESPIRATORY SYSTEM: Unlabored breathing. Clear to auscultation anteriorly. HEART: S1, S2. Regular rate and rhythm. ABDOMEN: Soft. No tenderness. Left leg and redness have slightly improved with minimal drainage on the dressing. LABS: BUN is 73 with a creatinine of 4.96. DIAGNOSTIC IMPRESSION AND PLAN: Patient with left lower extremity wound with secondary cellulitis. Patient at this time is showing improvement on the cefazolin. That will be continued along with Aquacel Silver dressing and light Osmany wrap. Reevaluate the patient wound tomorrow. Continue supportive care.
[2016-10-28 07:05] LABS: Glucose,Whole Blood 108 mg/dL (75-99)
[2016-10-28 07:33] VITALS: BP 138/62; RESP 18; TEMP 97.7
[2016-10-28] MEDS: IPRATROPIUM-ALBUTEROL 3 ML NEB INHALATION SCH (08:13)
[2016-10-28] MEDS: BUDESONIDE 0.5 MG/2 ML NEBU INHALATION SCH (08:14)
[2016-10-28 08:52] LABS: Calcium 7.9 mg/dL (8.4-10.2); Potassium 5.1 mmol/L (3.5-5.1); Total Bilirubin 0.3 mg/dL (0.2-1.3); Total Protein 6.1 g/dL (6.3-8.2)
[2016-10-28 08:54] LABS: Basophils % (A) 1 %; CH 28.4; CHCM 29.5; Eosinophils # (A) 0.2 k/uL (0-0.7); Eosinophils % (A) 4 %; HCT 28.4 % (39.0-53.0); HDW 2.71; HGB 8.7 gm/dL (13.0-17.5); Hypochromasia Marked; Luc % (Auto) 2; Lymphocytes # (A) 0.7 k/uL (1.0-4.8); Lymphocytes % (A) 16 %; MCH 29.5 pg (25.0-35.0); MCHC 30.5 g/dL (31.0-37.0); MCV 96.7 fL (80.0-100.0); Mean Platelet Volume 7.5; Monocytes # (A) 0.4 k/uL (0-1.0); Monocytes % (A) 9 %; Neutrophils % (A) 69 %; RBC 2.94 m/uL (4.30-5.90); RDW 14.7 % (11.5-15.5); WBC 4.3 k/uL (3.8-10.6); WBC (Perox) 4.32
[2016-10-28] MEDS: ceFAZolin 1,000 MG in DEXTROSE/WATER 1 50ML.BAG IVPB SCH (08:57)
[2016-10-28] MEDS: HEPARIN SODIUM,PORCINE 5,000 UNIT/ML 1 ML VIAL SQ SCH (08:58)
[2016-10-28] MEDS: ASPIRIN 325 MG TAB PO SCH (08:58)
[2016-10-28] MEDS: amLODIPine 5 MG TAB PO SCH (08:58)
[2016-10-28] MEDS: PANTOPRAZOLE 40 MG TABLET PO SCH (08:58)
[2016-10-28] MEDS: hydrALAZINE HCL 50 MG TAB PO SCH (08:58)
[2016-10-28] MEDS: FUROSEMIDE 10 MG/ML 4 ML VIAL IV SCH (08:58)
[2016-10-28] MEDS: CARVEDILOL 12.5 MG TAB PO SCH (08:59)
[2016-10-28] MEDS: DULoxetine HCL 20 MG CAPSULE.DR PO SCH (08:59)
[2016-10-28] MEDS ORDERED: SODIUM FERRIC GLUCONAT-SUCROSE 125 MG in SODIUM CHLORIDE 0.9% 100 ML IVPB SCH (09:00)
[2016-10-28] MEDS: FORMOTEROL FUMARATE 20 MCG/2 ML NEBU INHALATION SCH (09:00)
[2016-10-28] MEDS: INSULIN LISPRO (humaLOG) 300 UNIT/3 ML VIAL SQ SCH ×2 (09:13→13:22)
[2016-10-28] MEDS: traMADol 50 MG TAB PO SCH (09:20)
[2016-10-28] MEDS: INSULIN GLARGINE 100 UNIT/ML 10 ML VIAL SQ SCH (09:20)
[2016-10-28] MEDS ORDERED: SODIUM BICARBONATE TAB 650 MG TAB PO SCH (11:00)
--- NOTE | 2016-10-28 11:01 | P.PN ---
Subjective Patient is seen in follow-up for chronic kidney disease. He has chronic kidney disease stage V secondary to diabetic kidney disease. His creatinine is up to 5.73 today. Currently resting in bed. Admits to good urine output. No vomiting or diarrhea. Appetite is fair. Vital signs are stable. General: The patient appeared well nourished and normally developed. HEENT: Head exam is unremarkable. Neck is without jugular venous distension. LUNGS: Lungs are clear to auscultation and percussion. Breath sounds decreased. HEART: Rate and Rhythm are regular. First and second heart sounds normal. No murmurs, rubs or gallops. ABDOMEN: Abdominal exam reveals normal bowel sounds. Non-tender and non- distended. No evidence of peritonitis. EXTREMITITES: No pitting edema. Wound dressing clean and dry with no obvious drainage. Objective - Vital Signs Vital signs: Vital Signs Temp 97.7 F 10/28/16 07:00 Pulse 72 10/28/16 08:28 Resp 18 10/28/16 07:00 BP 138/62 10/28/16 07:00 Pulse Ox 91 L 10/28/16 07:00 Intake & Output 10/27/16 10/28/16 10/28/16 18:59 06:59 18:59 Intake Total 200 Output Total 200 Balance -200 200 Weight 106 kg Intake: Oral 200 Output: Urine 200 Other: Voiding Method Urinal Urinal Urinal # Voids 2 1 # Bowel Movements 0 - Labs CBC & Chem 7: 10/28/16 07:51 10/28/16 07:51 Labs: Abnormal Lab Results - Last 24 Hours (Table) 10/27/16 10/27/16 10/27/16 Range/Units 08:15 12:43 13:48 RBC (4.30-5.90) m/uL Hgb (13.0-17.5) gm/dL Hct (39.0-53.0) % MCHC (31.0-37.0) g/dL Lymphocytes # (1.0-4.8) k/uL Potassium 5.2 H (3.5-5.1) mmol/L Chloride 110 H (98-107) mmol/L Carbon Dioxide 21 L (22-30) mmol/L BUN 73 H (9-20) mg/dL Creatinine 4.96 H (0.66-1.25) mg/dL Glucose 102 H (74-99) mg/dL POC Glucose (mg/dL) 102 H 104 H (75-99) mg/dL Calcium 7.7 L (8.4-10.2) mg/dL Iron 30 L (49-181) ug/dL TIBC 220 L (261-462) ug/dL % Saturation 13.6 L (20-50) % AST (17-59) U/L Total Protein (6.3-8.2) g/dL Albumin (3.5-5.0) g/dL 10/27/16 10/27/16 10/28/16 Range/Units 17:12 20:44 06:53 RBC (4.30-5.90) m/uL Hgb (13.0-17.5) gm/dL Hct (39.0-53.0) % MCHC (31.0-37.0) g/dL Lymphocytes # (1.0-4.8) k/uL Potassium (3.5-5.1) mmol/L Chloride (98-107) mmol/L Carbon Dioxide (22-30) mmol/L BUN (9-20) mg/dL Creatinine (0.66-1.25) mg/dL Glucose (74-99) mg/dL POC Glucose (mg/dL) 131 H 129 H 108 H (75-99) mg/dL Calcium (8.4-10.2) mg/dL Iron (49-181) ug/dL TIBC (261-462) ug/dL % Saturation (20-50) % AST (17-59) U/L Total Protein (6.3-8.2) g/dL Albumin (3.5-5.0) g/dL 10/28/16 10/28/16 Range/Units 07:51 07:51 RBC 2.94 L (4.30-5.90) m/uL Hgb 8.7 L (13.0-17.5) gm/dL Hct 28.4 L (39.0-53.0) % MCHC 30.5 L (31.0-37.0) g/dL Lymphocytes # 0.7 L (1.0-4.8) k/uL Potassium (3.5-5.1) mmol/L Chloride 109 H (98-107) mmol/L Carbon Dioxide 20 L (22-30) mmol/L BUN 77 H (9-20) mg/dL Creatinine 5.73 H* (0.66-1.25) mg/dL Glucose 101 H (74-99) mg/dL POC Glucose (mg/dL) (75-99) mg/dL Calcium 7.9 L (8.4-10.2) mg/dL Iron (49-181) ug/dL TIBC (261-462) ug/dL % Saturation (20-50) % AST 10 L (17-59) U/L Total Protein 6.1 L (6.3-8.2) g/dL Albumin 2.8 L (3.5-5.0) g/dL Assessment and Plan Plan: Assessment: #1. Chronic kidney disease stage V secondary to diabetic kidney disease. #2. Anemia of chronic kidney disease. Iron deficiency present. #3. Left lower extremity cellulitis. #4. Volume overload. Improved. #5. Metabolic acidosis secondary to chronic kidney disease. #6. Insulin-dependent diabetes mellitus. Plan: Start oral sodium bicarbonate supplementation. Continue IV iron. Maintain urinalysis. Check phosphorus level. I had a detailed discussion with the patient regarding the need to start renal replacement therapy. At this time he is refusing and wants to proceed with conservative measures only. Stable to be discharged to [facility] from nephrology standpoint. He will need close monitoring of his electrolytes and will need to follow-up as an outpatient in the next 1 week. Will continue to discuss renal replacement therapy as an outpatient.
[2016-10-28 11:07] VITALS: PULSE 76
[2016-10-28 11:48] LABS: Glucose,Whole Blood 135 mg/dL (75-99)
--- NOTE | 2016-10-28 12:04 | P.DS ---
Providers Date of admission: 10/24/16 19:25 Attending physician: Gal Diop MD Consults: 10/25/16 10:04 Consult Physician Routine Consulting Provider: Marycarmen Evans Consult Reason/Comments: Renal failure, elevated potassium Do you want consulting provider notified?: Yes 10/25/16 14:37 Consult Physician Urgent Consulting Provider: Beatrice Farias Consult Reason/Comments: cellulitis. Do you want consulting provider notified?: Yes Primary care physician: Jeannette Do Hospital Course: 71-year-old is low for cellulitis and worsening pain with an MRI of the lower extremity. Patient has a history of stage IV to 5 chronic kidney disease. Patient apparently was offered a renal replacement therapy in the past, and refused at that time. Patient comes in the hospital was started on IV antibiotics. Patient is somewhat improved. Does have any chest pain, dizziness, nausea, vomiting. 10/27/2016 States that he is slightly having a hard time with abdominal pain and some nausea after a meal. 10/28/2001 No new events. Patient states to be in good . Patient apparently lives alone and hence is not a candidate to be discharged home. Gen. appearance patient is lying alert to time and place Lungs good air entry clear to auscultation no rhonchi or wheezing Heart S1-S2 heard regular rate no murmurs appreciated Abdomen tender to palpation in epigastric region no organomegaly bowel sounds are intact Lower extremities left lower extremity appears slightly improved. Does have associated erythema however there is multiple areas with the previous bullae better option. Right BKA noted. Neurologically no deficits noted from baseline. Assessment and Plan Plan: #1 left lower extremity cellulitis #2 hyperkalemia that is improved #3 CK D stage IV, 5 #4 non-anion gap metabolic acidosis #5 diabetes mellitus type 2 #6. 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 Wound care. Antibiotic therapy to continue. Patient may need to be discharged to an assisted living facility thereafter. Patient Condition at Discharge: Stable Plan - Discharge Summary New Discharge Prescriptions: ALPRAZolam [Xanax] 0.25 mg PO DAILY PRN #5 tab PRN Reason: Agitation Or Acute Anxiety INSULIN LISPRO (HumaLOG) [humaLOG] 0 unit SQ ACHS #1 vial Discharge Medication List Aspirin 325 mg PO DAILY 08/28/14 [History] Montelukast [Singulair] 10 mg PO HS 08/28/14 [History] Omeprazole [PriLOSEC] 20 mg PO DAILY 08/28/14 [History] hydrALAZINE HCL [Apresoline] 50 mg PO TID 08/28/14 [History] Carvedilol 12.5 mg PO DAILY 08/23/15 [History] Insulin Glargine [Lantus] 12 unit SQ DAILY #0 08/29/15 [Rx] Albuterol Nebulized [Ventolin Nebulized] 2.5 mg INHALATION RT-Q6H 02/04/16 [ History] DULoxetine HCL [Cymbalta] 20 mg PO BID 02/04/16 [History] amLODIPine [Norvasc] 5 mg PO DAILY 02/04/16 [History] Furosemide [Lasix] 40 mg PO BID@0900,1600 #60 tab 02/08/16 [Rx] Arformoterol Tartrate [Brovana] 15 mcg INHALATION RT-BID 10/25/16 [History] Budesonide [Pulmicort] 0.5 mg INHALATION RT-BID 10/25/16 [History] Insulin Aspart [NovoLOG] 5 unit SQ AC-TID 10/25/16 [History] ALPRAZolam [Xanax] 0.25 mg PO DAILY PRN #5 tab 10/28/16 [Rx] INSULIN LISPRO (HumaLOG) [humaLOG] 0 unit SQ ACHS #1 vial 10/28/16 [Rx] Ipratropium-Albuterol Nebulize [Duoneb 0.5 mg-3 mg/3 ml Soln] 3 ml INHALATION Q4H PRN #0 ampul.neb 10/28/16 [Rx] Ipratropium-Albuterol Nebulize [Duoneb 0.5 mg-3 mg/3 ml Soln] 3 ml INHALATION RT -QID ampul.neb 10/28/16 [Rx] Sodium Bicarbonate Tab 650 mg PO BID tab 10/28/16 [Rx] traMADol HCL [Ultram] 50 mg PO BID #20 10/28/16 [Rx] Follow up Appointment(s)/Referral(s): Marycarmen Evans MD [STAFF PHYSICIAN] - 1 Week Jeannette Do MD [Primary Care Provider] - 1 Week Beatrice Farias MD [STAFF PHYSICIAN] - 1 Week Patient Instructions/Handouts: Heart Failure (DC), Acute Kidney Injury (DC), Cellulitis (DC) Activity/Diet/Wound Care/Special Instructions: [facility] Cardiac, diabetic diet. Diabetic folder given. accu checks achs 3L oxygen via nasal cannula cbc,bmp in 3 days Discharge Disposition: TRANSFER TO SNF/F
--- NOTE | 2016-10-28 14:35 | PN ---
DATE OF SERVICE: 10/28/2016 REASON FOR FOLLOW-UP: Lower extremity wound and cellulitis. INTERVAL HISTORY: The patient is afebrile, has been breathing comfortably. Denies significant chest pain or shortness of breath or cough. No abdominal pain. pain in the left leg area. On examination, blood pressure 138/62 with a pulse of 67, temperature 98.7, he is 91% on 4 L nasal cannula. General description is an elderly male lying in bed in no distress. RESPIRATORY SYSTEM: Unlabored breathing. Clear to auscultation anteriorly. HEART: S1, S2 regular rate and rhythm. ABDOMEN: Soft, no tenderness. Left leg overall swelling and redness has improved. No drainage. LABS: Hemoglobin 8.7, white count 4.3, BUN of 77, creatinine 5.73. DIAGNOSTIC IMPRESSION AND PLAN: Patient with left leg wound with secondary cellulitis. PLAN: To finish therapy with p.o. Keflex 500 mg b.i.d. for about 10 days along with Aquacel dressing to the leg wound and light princess wrap. Continue supportive care. MTDD
--- NOTE | 2016-11-02 09:57 | CDI ---
Date: 11/02/2016 9:47:00 AM From: Carolynn Carvalho Phone: Admit Date: 10/24/2016 7:25:00 PM Patient Name: Edil Marroquin Visit Number: [id number] Discharge Date: Dr. Gal Diop Patient presented with cellulitis of the left lower extremity. He has diabetes with multiple complications including, CKD, PVD and gastroparesis. For appropriate coding assignment: In your professional opinion, can you please clarify? Cellulitis is related to the diabetes Cellulitis is NOT related to the diabetes. Other Unable to determine Please document in your progress notes and discharge summary in order to capture severity of illness and risk of mortality. Include clinical findings that support your diagnosis. FYI: Press F11 to launch patient chart. Place X here if this finding has no clinical significance, is not applicable or if you are not able to provide any additional documentation. MTDD
== END 2016-10-28 14:20 | DRG 638 ==
LOC: EC 17:18 → 6SEL 19:25 → 4MS4W 10-26 11:04
PROVIDERS: ADMIT Internal Medicine; ATTEND Internal Medicine
DX: E11.628 Type 2 diabetes mellitus with other skin complications (principal); L03.116 Cellulitis of left lower limb; L97.529 Non-pressure chronic ulcer of other part of left foot with unspecified severity; I13.2 Hypertensive heart and chronic kidney disease with heart failure and with stage 5 chronic kidney disease, or end stage renal disease; N17.9 Acute kidney failure, unspecified; K31.84 Gastroparesis; E11.621 Type 2 diabetes mellitus with foot ulcer; E87.2 Acidosis; E11.21 Type 2 diabetes mellitus with diabetic nephropathy; E11.40 Type 2 diabetes mellitus with diabetic neuropathy, unspecified; E11.51 Type 2 diabetes mellitus with diabetic peripheral angiopathy without gangrene; E11.43 Type 2 diabetes mellitus with diabetic autonomic (poly)neuropathy; N18.5 Chronic kidney disease, stage 5; D63.1 Anemia in chronic kidney disease; D50.9 Iron deficiency anemia, unspecified; E11.22 Type 2 diabetes mellitus with diabetic chronic kidney disease; Z79.4 Long term (current) use of insulin; E78.5 Hyperlipidemia, unspecified; E87.5 Hyperkalemia; H54.8 Legal blindness, as defined in USA; I50.9 Heart failure, unspecified; J44.9 Chronic obstructive pulmonary disease, unspecified; J45.909 Unspecified asthma, uncomplicated; Z79.82 Long term (current) use of aspirin; Z82.49 Family history of ischemic heart disease and other diseases of the circulatory system; Z88.0 Allergy status to penicillin; Z89.511 Acquired absence of right leg below knee; Z79.899 Other long term (current) drug therapy; Z91.14 Patient's other noncompliance with medication regimen
CPT/HCPCS: 36415; 71020; 80048; 80053; 80202; 81001; 83036; 83540; 83550; 83605; 83880; 84100; 85025; 86140; 87040; 93005; 94640; 94760; 96374; 96375; 99285

== ENCOUNTER 2016-11-01 12:37 | Inpatient (IN) | payer MEDICARE, BC ==
[2016-11-01] MEDS ORDERED: SODIUM CHLORIDE 0.9% 1,000 ML IV STA ×2 (13:07)
--- NOTE | 2016-11-01 13:16 | ED ---
General Adult HPI - General Chief complaint: Shortness of Breath Stated complaint: renal failure Time Seen by Provider: 11/01/16 13:02 Source: patient, EMS, RN notes reviewed, old records reviewed Mode of arrival: EMS Limitations: no limitations - History of Present Illness Initial comments: This is a 71-year-old male the ER for reevaluation weakness lethargy and abnormal lab values. Patient's increasing renal failure. Patient is known kidney disease, high blood pressure cholesterol diabetes and multiple medical comorbidities. Patient is pending dialysis. Patient today has no fevers no chest pain but does complain of decreased weakness and decreased activity level. - Related Data Home Medications Medication Instructions Recorded Confirmed Aspirin 325 mg PO DAILY 08/28/14 11/01/16 Montelukast [Singulair] 10 mg PO HS 08/28/14 11/01/16 Omeprazole [PriLOSEC] 20 mg PO DAILY 08/28/14 11/01/16 hydrALAZINE HCL [Apresoline] 50 mg PO TID 08/28/14 11/01/16 Carvedilol 12.5 mg PO DAILY 08/23/15 11/01/16 Albuterol Nebulized [Ventolin 2.5 mg INHALATION RT-QID 02/04/16 11/01/16 Nebulized] DULoxetine HCL [Cymbalta] 20 mg PO BID 02/04/16 11/01/16 amLODIPine [Norvasc] 5 mg PO DAILY 02/04/16 11/01/16 Arformoterol Tartrate [Brovana] 15 mcg INHALATION RT-BID 10/25/16 11/01/16 Budesonide [Pulmicort] 0.5 mg INHALATION RT-BID 10/25/16 11/01/16 Insulin Aspart [NovoLOG] 5 unit SQ AC-TID 10/25/16 11/01/16 Ipratropium-Albuterol Nebulize 3 ml INHALATION RT-QID PRN 11/01/16 11/01/16 [Duoneb 0.5 mg-3 mg/3 ml Soln] Previous Rx's Medication Instructions Recorded Insulin Glargine [Lantus] 12 unit SQ DAILY #0 08/29/15 Furosemide [Lasix] 40 mg PO BID@0900,1600 #60 tab 02/08/16 ALPRAZolam [Xanax] 0.25 mg PO DAILY PRN #5 tab 10/28/16 Cephalexin [Keflex] 500 mg PO Q12HR #20 cap 10/28/16 INSULIN LISPRO (HumaLOG) [humaLOG] 0 unit SQ ACHS #1 vial 10/28/16 Sodium Bicarbonate Tab 650 mg PO BID tab 10/28/16 traMADol HCL [Ultram] 50 mg PO BID #20 10/28/16 Allergies Allergy/AdvReac Type Severity Reaction Status Date / Time milk Allergy Rash/Hives Verified 11/01/16 13:38 Penicillins Allergy Rash/Hives Verified 11/01/16 13:38 Review of Systems ROS Statement: Those systems with pertinent positive or pertinent negative responses have been documented in the HPI. ROS Other: All systems not noted in ROS Statement are negative. 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 He denies any medical marijuana, marijuana, street drug use. He does drink 2 beers daily. He is currently living alone since his passed in April 2014. There are no pets in the home. He has had no recent travel. 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 Past Drug Use History: None Reported - Past Family History Mother Family Medical History: Cancer Brother(s) Family Medical History: Coronary Artery Disease (CAD) Father Family Medical History: Coronary Artery Disease (CAD) Sister(s) Family Medical History: Cancer Additional Family Medical History / Comment(s): stomach General Exam Limitations: no limitations General appearance: alert, in no apparent distress Head exam: Present: atraumatic, normocephalic, normal inspection Eye exam: Present: normal appearance, PERRL, EOMI. Absent: scleral icterus, conjunctival injection, periorbital swelling ENT exam: Present: normal exam, mucous membranes moist Neck exam: Present: normal inspection. Absent: tenderness, meningismus, lymphadenopathy Respiratory exam: Present: normal lung sounds bilaterally. Absent: respiratory distress, wheezes, rales, rhonchi, stridor Cardiovascular Exam: Present: regular rate, normal rhythm, normal heart sounds. Absent: systolic murmur, diastolic murmur, rubs, gallop, clicks GI/Abdominal exam: Present: soft, normal bowel sounds. Absent: distended, tenderness, guarding, rebound, rigid Extremities exam: Present: normal inspection, full ROM, normal capillary refill. Absent: tenderness, pedal edema, joint swelling, calf tenderness Back exam: Present: normal inspection Neurological exam: Present: alert, oriented X3, CN II-XII intact Psychiatric exam: Present: normal affect, normal mood Skin exam: Present: warm, dry, intact, normal color. Absent: rash Course Vital Signs 11/01/16 11/01/16 11/01/16 12:43 13:58 14:26 Temperature 98.7 F Pulse Rate 72 96 86 Respiratory 20 18 Rate Blood Pressure 163/70 164/67 O2 Sat by Pulse 93 L 94 L Oximetry 11/01/16 11/01/16 14:38 15:21 Temperature Pulse Rate 81 71 Respiratory 18 Rate Blood Pressure 158/92 O2 Sat by Pulse 97 Oximetry - Reevaluation(s) Reevaluation #1: 11/01/16 15:41 Patient's breathing appears to be improved, still feels weak, sick EKG Findings - EKG Comments: EKG Findings:: EKG shows normal sinus rhythm at 75, MS 152, QRS 90, QTC 448 Medical Decision Making - Medical Decision Making 31 male here with multiple medical complaints, not feeling well, acute on chronic renal failure and severe bronchitis with CHF and fluid overload. Patient will be admitted for evaluation by nephrology continue breathing treatments and therapy - Lab Data Result diagrams: 11/01/16 12:40 11/01/16 12:40 Lab Results 11/01/16 11/01/16 11/01/16 Range/Units 12:40 12:40 12:40 WBC 4.9 (3.8-10.6) k/uL RBC 3.02 L (4.30-5.90) m/uL Hgb 8.9 L (13.0-17.5) gm/dL Hct 28.6 L (39.0-53.0) % MCV 94.7 (80.0-100.0) fL MCH 29.3 (25.0-35.0) pg MCHC 31.0 (31.0-37.0) g/dL RDW 15.2 (11.5-15.5) % Plt Count 236 (150-450) k/uL Neutrophils % 58 % Lymphocytes % 20 % Monocytes % 8 % Eosinophils % 9 % Basophils % 1 % Neutrophils # 2.9 (1.3-7.7) k/uL Lymphocytes # 1.0 (1.0-4.8) k/uL Monocytes # 0.4 (0-1.0) k/uL Eosinophils # 0.4 (0-0.7) k/uL Basophils # 0.1 (0-0.2) k/uL Hypochromasia Moderate PT (9.0-12.0) sec INR (<1.1) APTT (22.0-30.0) sec Sodium 147 H (137-145) mmol/L Potassium 5.0 (3.5-5.1) mmol/L Chloride 111 H (98-107) mmol/L Carbon Dioxide 23 (22-30) mmol/L Anion Gap 13 mmol/L BUN 82 H* (9-20) mg/dL Creatinine 5.20 H* (0.66-1.25) mg/dL Est GFR (MDRD) Af Amer 13 (>60 ml/min/1.73 sqM) Est GFR (MDRD) Non-Af 11 (>60 ml/min/1.73 sqM) Glucose 89 (74-99) mg/dL Calcium 8.4 (8.4-10.2) mg/dL Phosphorus 6.2 H (2.5-4.5) mg/dL Magnesium 2.3 (1.6-2.3) mg/dL Total Bilirubin 0.3 (0.2-1.3) mg/dL AST 12 L (17-59) U/L ALT 18 L (21-72) U/L Alkaline Phosphatase 87 (38-126) U/L Total Creatine Kinase 61 (55-170) U/L CK-MB (CK-2) 0.7 (0.0-2.4) ng/mL CK-MB (CK-2) Rel Index 1.1 Troponin I 0.089 H* (0.000-0.034) ng/mL Total Protein 6.4 (6.3-8.2) g/dL Albumin 3.1 L (3.5-5.0) g/dL 11/01/16 Range/Units 12:40 WBC (3.8-10.6) k/uL RBC (4.30-5.90) m/uL Hgb (13.0-17.5) gm/dL Hct (39.0-53.0) % MCV (80.0-100.0) fL MCH (25.0-35.0) pg MCHC (31.0-37.0) g/dL RDW (11.5-15.5) % Plt Count (150-450) k/uL Neutrophils % % Lymphocytes % % Monocytes % % Eosinophils % % Basophils % % Neutrophils # (1.3-7.7) k/uL Lymphocytes # (1.0-4.8) k/uL Monocytes # (0-1.0) k/uL Eosinophils # (0-0.7) k/uL Basophils # (0-0.2) k/uL Hypochromasia PT 10.2 (9.0-12.0) sec INR 1.0 (<1.1) APTT 27.2 (22.0-30.0) sec Sodium (137-145) mmol/L Potassium (3.5-5.1) mmol/L Chloride (98-107) mmol/L Carbon Dioxide (22-30) mmol/L Anion Gap mmol/L BUN (9-20) mg/dL Creatinine (0.66-1.25) mg/dL Est GFR (MDRD) Af Amer (>60 ml/min/1.73 sqM) Est GFR (MDRD) Non-Af (>60 ml/min/1.73 sqM) Glucose (74-99) mg/dL Calcium (8.4-10.2) mg/dL Phosphorus (2.5-4.5) mg/dL Magnesium (1.6-2.3) mg/dL Total Bilirubin (0.2-1.3) mg/dL AST (17-59) U/L ALT (21-72) U/L Alkaline Phosphatase (38-126) U/L Total Creatine Kinase (55-170) U/L CK-MB (CK-2) (0.0-2.4) ng/mL CK-MB (CK-2) Rel Index Troponin I (0.000-0.034) ng/mL Total Protein (6.3-8.2) g/dL Albumin (3.5-5.0) g/dL - Radiology Data Radiology results: report reviewed (Chest x-ray does show positive effusion), image reviewed Disposition Clinical Impression: Renal failure, Diastolic CHF, acute on chronic, CHF exacerbation, Acute exacerbation of chronic obstructive airways disease Disposition: ADMITTED IP TO THIS HOSP Condition: Fair
[2016-11-01 13:22] LABS: Basophils # (A) 0.1 k/uL (0-0.2); Basophils % (A) 1 %; CH 28.8; CHCM 30.6; Eosinophils # (A) 0.4 k/uL (0-0.7); Eosinophils % (A) 9 %; HCT 28.6 % (39.0-53.0); HDW 2.73; HGB 8.9 gm/dL (13.0-17.5); Hypochromasia Moderate; Luc # (Auto) 0.19; Luc % (Auto) 4; Lymphocytes % (A) 20 %; MCH 29.3 pg (25.0-35.0); MCV 94.7 fL (80.0-100.0); Mean Platelet Volume 7.6; Monocytes # (A) 0.4 k/uL (0-1.0); Monocytes % (A) 8 %; Neutrophils # (A) 2.9 k/uL (1.3-7.7); Neutrophils % (A) 58 %; RBC 3.02 m/uL (4.30-5.90); RDW 15.2 % (11.5-15.5); WBC 4.9 k/uL (3.8-10.6)
[2016-11-01 13:26] LABS: Partial Thromboplastin Time 27.2 sec (22.0-30.0); Prothrombin Time 10.2 sec (9.0-12.0)
[2016-11-01 13:28] LABS: Calcium 8.4 mg/dL (8.4-10.2); Magnesium 2.3 mg/dL (1.6-2.3); Phosphorous 6.2 mg/dL (2.5-4.5); Total Bilirubin 0.3 mg/dL (0.2-1.3); Total Protein 6.4 g/dL (6.3-8.2)
--- NOTE | 2016-11-01 13:54 | XR ---
EXAMINATION TYPE: XR chest 2V DATE OF EXAM: 11/01/2016 1:47 PM COMPARISON: Prior chest x-ray 24 October 2016 HISTORY: Shortness of breath, congestive heart failure TECHNIQUE: Frontal and lateral views of the chest are obtained. FINDINGS: Similar findings to previous exam. Heart is enlarged. There are bibasilar effusions. Centr al vascularity and interstitium are increased. No evident pneumothorax. IMPRESSION: Findings suggest congestive heart failure with basilar effusions. Follow-up recommended.
[2016-11-01 14:05] LABS: Creatine Kinase MB 0.7 ng/mL (0.0-2.4)
[2016-11-01 14:06] LABS: Troponin I 0.089 ng/mL (0.000-0.034)
[2016-11-01] MEDS ORDERED: IPRATROPIUM-ALBUTEROL 3 ML NEB INHALATION STA (14:17)
[2016-11-01] MEDS ORDERED: traMADol 50 MG TAB PO STA (15:30)
[2016-11-01] MEDS: IPRATROPIUM-ALBUTEROL 3 ML NEB INHALATION SCH (16:11)
[2016-11-01] MEDS: SODIUM CHLORIDE 0.9% 1,000 ML IV SCH (17:06)
[2016-11-01] MEDS: INSULIN LISPRO (humaLOG) 300 UNIT/3 ML VIAL SQ SCH ×2 (18:04→22:33)
[2016-11-01] MEDS ORDERED: ALPRAZolam 0.25 MG TAB PO PRN (18:29)
[2016-11-01] MEDS ORDERED: HYDROmorphone 1 MG/ML 1 ML SYRINGE IVP PRN (18:31)
[2016-11-01] MEDS ORDERED: HYDROcodone/APAP 5-325MG 1 EACH TAB PO PRN (18:31)
[2016-11-01] MEDS ORDERED: ACETAMINOPHEN TAB 500 MG TAB PO PRN (18:31)
[2016-11-01 20:25] LABS: Hemoglobin A1C 5.2 % (4.2-6.1)
[2016-11-01 20:26] LABS: Amorphous Sediment,Urine Rare /hpf; Appearance,Urine Clear (Clear); Bacteria,Urine Rare /hpf; Bilirubin,Urine Negative (Negative); Glucose,Urine (UA) Negative (Negative); Ketones,Urine Negative (Negative); Leukocyte Esterase,Urine Negative (Negative); Mucus,Urine Rare /hpf; Nitrite,Urine Negative (Negative); Particle Count 1705; Protein,Urine 1+ (Negative); RBC,Urine 1 /hpf (0-5); Specific Gravity,Urine 1.007 (1.001-1.035); Squamous Epithelial Cell,Urine <1 /hpf (0-4); UA Billing (MACRO vs. MICRO) MICRO; Urobilinogen,Urine <2.0 mg/dL (<2.0); WBC,Urine <1 /hpf (0-5)
[2016-11-01 21:03] LABS: Glucose,Whole Blood 59 mg/dL (75-99)
[2016-11-01 21:19] LABS: Glucose,Whole Blood 54 mg/dL (75-99)
[2016-11-01 21:35] LABS: Glucose,Whole Blood 58 mg/dL (75-99)
[2016-11-01] MEDS ORDERED: DEXTROSE 50%-WATER 50 ML SYRINGE IVP ONE (21:39)
[2016-11-01 22:10] LABS: Glucose,Whole Blood 124 mg/dL (75-99)
[2016-11-01] MEDS: traMADol 50 MG TAB PO SCH (22:32)
[2016-11-01] MEDS: hydrALAZINE HCL 50 MG TAB PO SCH (22:32)
[2016-11-01] MEDS: SODIUM BICARBONATE TAB 650 MG TAB PO SCH (22:33)
[2016-11-01] MEDS: CEPHALEXIN 500 MG CAP PO SCH (22:33)
[2016-11-01] MEDS: DULoxetine HCL 20 MG CAPSULE.DR PO SCH (22:33)
[2016-11-01] MEDS: MONTELUKAST 10 MG TAB PO SCH (22:33)
[2016-11-01] MEDS: HEPARIN SODIUM,PORCINE 5,000 UNIT/ML 1 ML VIAL SQ SCH (22:33)
[2016-11-02] MEDS: BUDESONIDE 0.5 MG/2 ML NEBU INHALATION SCH ×3 (00:05→20:43)
[2016-11-02] MEDS: IPRATROPIUM-ALBUTEROL 3 ML NEB INHALATION SCH ×5 (00:05→20:43)
[2016-11-02 02:27] LABS: Glucose,Whole Blood 143 mg/dL (75-99)
[2016-11-02] MEDS: MELATONIN 3 MG TABLET PO SCH ×2 (04:35→21:37)
[2016-11-02 06:09] LABS: Glucose,Whole Blood 147 mg/dL (75-99)
[2016-11-02 06:37] LABS: Basophils # (A) 0.1 k/uL (0-0.2); Basophils % (A) 1 %; CH 28.5; CHCM 29.2; Eosinophils # (A) 0.4 k/uL (0-0.7); Eosinophils % (A) 9 %; HDW 2.75; HGB 8.8 gm/dL (13.0-17.5); Hypochromasia Marked; Luc # (Auto) 0.16; Luc % (Auto) 4; Lymphocytes # (A) 0.8 k/uL (1.0-4.8); Lymphocytes % (A) 20 %; MCH 29.7 pg (25.0-35.0); MCHC 30.2 g/dL (31.0-37.0); MCV 98.4 fL (80.0-100.0); Macrocytosis Slight; Mean Platelet Volume 7.5; Monocytes # (A) 0.3 k/uL (0-1.0); Monocytes % (A) 8 %; Neutrophils # (A) 2.4 k/uL (1.3-7.7); Neutrophils % (A) 59 %; RBC 2.95 m/uL (4.30-5.90); RDW 15.2 % (11.5-15.5); WBC 4.1 k/uL (3.8-10.6); WBC (Perox) 4.44
[2016-11-02 06:57] LABS: Calcium 8.4 mg/dL (8.4-10.2); Potassium 5.2 mmol/L (3.5-5.1)
[2016-11-02] MEDS: CARVEDILOL 12.5 MG TAB PO SCH (07:02)
[2016-11-02] MEDS: PANTOPRAZOLE 40 MG TABLET PO SCH (07:02)
[2016-11-02] MEDS: INSULIN LISPRO (humaLOG) 300 UNIT/3 ML VIAL SQ SCH ×7 (07:05→21:40)
[2016-11-02] MEDS ORDERED: FUROSEMIDE 10 MG/ML 4 ML VIAL IV STA (07:58)
--- NOTE | 2016-11-02 08:16 | HP ---
DATE OF ADMISSION: CHIEF COMPLAINT: Generalized weakness and shortness of breath HISTORY OF PRESENT ILLNESS: This 71-year-old gentleman with a past medical history of multiple medical problems including chronic renal disease stage V, history of congestive heart failure, history of asthma, chronic obstructive pulmonary disease, history of diabetes mellitus, hypertension, hyperlipidemia, history of renal disease, history of anxiety and depression being followed by Dr. Do in the outpatient setting recently admitted with left leg cellulitis. The patient was sent to [facility] for rehabilitation. At [facility] patient complaining of progressive shortness of breath and as well as generalized tiredness and weakness and patient was sent to [facility] for further evaluation and treatment. The patient has stage V kidney disease. The patient was on renal replacement at one time but refused most recently. The chest x-ray showed bilateral pleural effusions and pulmonary congestion also. Lab-brock hemoglobin is 8.9, creatinine also elevated at 5.20, troponin 0.089. Influenza negative. There is no history of fever, chills. No history of headache, loss of consciousness or seizures. PAST MEDICAL HISTORY: History of chronic renal failure, history of asthma, chronic obstructive pulmonary disease, history of CHF, diabetes, hypertension, hyperlipidemia, chronic kidney disease, history of diabetic neuropathy, history of gangrene of the right lower extremity and below-knee amputation, left toe infection as well and recent cellulitis. Anxiety and depression, not otherwise specified. Medications prior to admission include home medications are: 1. Albuterol 2.5 q.i.d. 2. Singulair 10 mg q.h.s. 3. DuoNeb q.i.d. and p.r.n. 4. Ultram 50 mg p.o. b.i.d. 5. Apresoline 50 mg p.o. daily. 6. Norvasc 5 mg p.o. daily. 7. Sodium bicarb 650 p.o. b.i.d. 8. Prilosec 20 mg p.o. daily. 9. Lantus 12 units subcu daily. 10. NovoLog 5 units a.c. t.i.d. 11. Lasix 40 mg p.o. b.i.d. 12. Cymbalta 20 mg p.o. b.i.d. 13. Keflex 500 mg p.o. b.i.d. 14. Coreg 12.5 mg p.o. daily. 15. Pulmicort 0.5 mg b.i.d. 16. Aspirin 325 mg p.o. daily. 17. Brovana 15 mcg b.i.d. 18. Xanax 0.5 daily p.r.n. ALLERGIES: MILK AND PENICILLIN. FAMILY HISTORY: History of coronary artery disease and stomach cancer. SOCIAL HISTORY: No history of smoking, no history of alcohol intake. REVIEW OF SYSTEMS: ENT: Diminished hearing, diminished vision. CARDIOVASCULAR: No angina, otherwise As mentioned earlier. RESPIRATORY: As mentioned earlier. GI: No nausea. : As mentioned earlier. NERVOUS SYSTEM: No numbness or weakness. ALLERGY/IMMUNOLOGY: History of asthma. MUSCULOSKELETAL: As mentioned earlier. HEMATOLOGY: No history of anemia. ENDOCRINE: History of diabetes. CONSTITUTIONAL: As mentioned earlier. DERMATOLOGY: Negative. RHEUMATOLOGY: Negative. PSYCHIATRY: As mentioned earlier. PHYSICAL EXAMINATION: Alert and oriented x3. Pulse 70, blood pressure 140/62, respirations 18, temperature 97.4, pulse ox 94% on 3 L. HEENT: Conjunctivae normal. Oral mucosa moist. NECK: No jugular venous distention. No carotid bruit. No lymph node enlargement. CARDIOVASCULAR: S1, S2. No S3, no S4. RESPIRATORY: Breath sounds diminished at the bases. A few scattered rhonchi and crackles. ABDOMEN: Soft, obese, nontender. LEGS: Leg edema, left leg cellulitis also present. NERVOUS SYSTEM: Higher function as mentioned. Moves all limbs. Mild diffuse weakness. LYMPHATIC: No lymph node palpable in the neck, axillae or groin. SKIN: As mentioned earlier. JOINTS: No active deforming arthropathy. LABS: WBC 4.9, hemoglobin is 8.7, sodium 147, creatinine is 5.20, troponin 0.089. ASSESSMENT: 1. Acute on chronic kidney disease with prerenal factors. 2. Chronic kidney disease, stage V. 3. Bilateral pleural effusion, right more than left. 4. Anemia, normocytic. 5. Left leg cellulitis. 6. Hypernatremia. 7. Troponin 0.089 of indeterminate origin. 8. History of asthma, chronic obstructive pulmonary disease. 9. History of congestive heart failure. 10. Diabetes mellitus type 2. 11. Hypertension. 12. Hyperlipidemia. 13. Peripheral vascular disease. 14. Right below knee amputation. 15. Diabetic peripheral neuropathy. 16. Degenerative joint disease. 17. History of anxiety and depression, not otherwise specified. 18. Congestive heart failure with chronic diastolic dysfunction, ejection fraction of 50 to 60%. 19. FULL CODE. RECOMMENDATIONS AND DISCUSSION: This 71-year-old gentleman who presented with multiple complex medical issues, we will monitor the patient closely, continue the current medications and symptomatic treatment. Otherwise, at this time, recommend resume the home medications. Monitor fluid electrolyte balance closely. The patient has multiple complex medical issues as mentioned earlier. Nephrology will be consulted. Also recommend Pulmonary to evaluate the issues of renal replacement therapy as well. The prognosis is guarded because of multiple complex medical issues. Further recommendations to follow. See orders for details. MTDD
[2016-11-02] MEDS: traMADol 50 MG TAB PO SCH ×2 (08:34→21:38)
[2016-11-02] MEDS: HEPARIN SODIUM,PORCINE 5,000 UNIT/ML 1 ML VIAL SQ SCH ×2 (08:34→21:40)
--- NOTE | 2016-11-02 08:41 | P.CRDCN ---
History of Present Illness Consult date: 11/02/16 Requesting physician: Galilea Chan Consult reason: congestive heart failure Chief complaint: Weakness and shortness of breath History of present illness: This is a 71-year-old gentleman with known history of hypertension, diabetes, renal failure, hyperlipidemia, COPD, peripheral vascular disease status post right below the knee amputation. The patient was admitted to the hospital on this occasion with symptoms of progressive weakness and associated shortness of breath. He was seen this morning in consultation by Dr. Evans and is scheduled today to undergo dialysis catheter placement. S2 x-ray on admission revealed congestive cardiac failure with bilateral effusions. EKG shows normal sinus rhythm with no acute changes. Laboratory data was reviewed, hemoglobin 8.8, potassium 5.2, BUN 76, creatinine 4.6. AST 12, ALT 18, troponin 0.089, 0.079. Negative influenza. Pressure 166/72 with a heart rate in the 90s. Patient was seen and examined this morning, feels extremely weak, short of breath. 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 He denies any medical marijuana, marijuana, street drug use. He WAS DRINKING 2 12C OUNCE beers daily UNTIL ADMISSION 10/24/16 THEN WENT TO [facility]. His passed in April 2014. He has had no recent travel. 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 Past Drug Use History: None Reported - Past Family History Mother Family Medical History: Cancer Brother(s) Family Medical History: Coronary Artery Disease (CAD) Father Family Medical History: Coronary Artery Disease (CAD) Sister(s) Family Medical History: Cancer Additional Family Medical History / Comment(s): stomach Medications and Allergies Home Medications Medication Instructions Recorded Confirmed Type Aspirin 325 mg PO DAILY 08/28/14 11/01/16 History Montelukast [Singulair] 10 mg PO HS 08/28/14 11/01/16 History Omeprazole [PriLOSEC] 20 mg PO DAILY 08/28/14 11/01/16 History hydrALAZINE HCL [Apresoline] 50 mg PO TID 08/28/14 11/01/16 History Carvedilol 12.5 mg PO DAILY 08/23/15 11/01/16 History Albuterol Nebulized [Ventolin 2.5 mg INHALATION RT-QID 02/04/16 11/01/16 History Nebulized] DULoxetine HCL [Cymbalta] 20 mg PO BID 02/04/16 11/01/16 History amLODIPine [Norvasc] 5 mg PO DAILY 02/04/16 11/01/16 History Arformoterol Tartrate [Brovana] 15 mcg INHALATION RT-BID 10/25/16 11/01/16 History Budesonide [Pulmicort] 0.5 mg INHALATION RT-BID 10/25/16 11/01/16 History Insulin Aspart [NovoLOG] 5 unit SQ AC-TID 10/25/16 11/01/16 History Ipratropium-Albuterol Nebulize 3 ml INHALATION RT-QID PRN 11/01/16 11/01/16 History [Duoneb 0.5 mg-3 mg/3 ml Soln] Allergies Allergy/AdvReac Type Severity Reaction Status Date / Time milk Allergy Rash/Hives Verified 11/01/16 13:38 Penicillins Allergy Rash/Hives Verified 11/01/16 13:38 Physical Exam Vitals: Vital Signs Temp Pulse Pulse Resp BP BP Pulse Ox 11/02/16 08:19 94 11/02/16 08:07 94 11/02/16 03:00 97.0 F L 65 18 166/73 93 L 11/01/16 23:00 96.9 F L 63 18 152/67 92 L 11/01/16 19:57 97.3 F L 64 18 167/71 94 L 11/01/16 17:15 70 18 11/01/16 17:14 97.4 F L 70 18 144/68 95 11/01/16 16:28 98.5 F 75 18 167/72 97 11/01/16 16:19 97 11/01/16 16:11 73 Intake and Output 11/01/16 11/02/16 11/02/16 22:59 06:59 14:59 Intake Total 800 200 240 Output Total 50 Balance 750 200 240 Intake: Oral 800 200 240 Output: Urine 50 Other: Voiding Method Urinal Diaper Diaper Incontinent Incontinent # Voids 2 1 Weight 104 kg PHYSICAL EXAMINATION: HEENT: Head is atraumatic, normocephalic. Pupils equal, round. Neck is supple. There is elevated jugular venous pressure. HEART EXAMINATION: Heart S1 and S2 systolic murmur is heard. CHEST EXAMINATION: Lungs reveal diminished air entry bilaterally with scattered wheezing throughout. ABDOMEN: Soft, nontender. Bowel sounds are heard. No organomegaly noted. EXTREMITIES: One plus peripheral pulses left lower extremity with 1+ edema and evidence of ulcerations, patient has a right below the knee amputation with evidence of edema as well.. NEUROLOGIC patient is awake, alert and oriented -3. . Results 11/02/16 06:04 11/02/16 06:04 Cardiac Enzymes 11/01/16 Range/Units 22:07 Troponin I 0.079 H* (0.000-0.034) ng/mL CBC 11/02/16 Range/Units 06:04 WBC 4.1 (3.8-10.6) k/uL RBC 2.95 L (4.30-5.90) m/uL Hgb 8.8 L (13.0-17.5) gm/dL Hct 29.0 L (39.0-53.0) % Plt Count 221 (150-450) k/uL Comprehensive Metabolic Panel 11/02/16 Range/Units 06:04 Sodium 146 H (137-145) mmol/L Potassium 5.2 H (3.5-5.1) mmol/L Chloride 110 H (98-107) mmol/L Carbon Dioxide 25 (22-30) mmol/L BUN 76 H (9-20) mg/dL Creatinine 4.60 H (0.66-1.25) mg/dL Glucose 149 H (74-99) mg/dL Calcium 8.4 (8.4-10.2) mg/dL Current Medications Generic Name Dose Route Start Last Admin Trade Name Freq PRN Reason Stop Dose Admin Acetaminophen 500 mg 11/01/16 18:31 Tylenol Tab PO Q6HR PRN Fever and/ or Pain Acetaminophen/Hydrocodone Bitart 1 each 11/01/16 18:31 Vassar 5-325 PO Q6HR PRN Pain Albuterol Sulfate 2.5 mg 11/01/16 20:00 Ventolin Nebulized INHALATION RT-BID [facility] Albuterol/Ipratropium 3 ml 11/01/16 16:00 11/02/16 08:07 Duoneb 0.5 Mg-3 Mg/3 Ml Soln INHALATION 3 ml RT-QID [facility] Administration Alprazolam 0.25 mg 11/01/16 18:29 Xanax PO DAILY PRN Agitation or Acute Anxiety Amlodipine Besylate 5 mg 11/02/16 09:00 Norvasc PO DAILY [facility] Aspirin 325 mg 11/02/16 09:00 Aspirin PO DAILY [facility] Budesonide 0.5 mg 11/01/16 20:00 11/02/16 08:07 Pulmicort INHALATION 0.5 mg RT-BID [facility] Administration Carvedilol 12.5 mg 11/02/16 07:30 11/02/16 07:02 Coreg PO 12.5 mg W/BRKFST [facility] Administration Cephalexin 500 mg 11/01/16 21:00 11/01/16 22:33 Keflex PO 500 mg Q12HR [facility] Administration Duloxetine HCl 20 mg 11/01/16 21:00 11/01/16 22:33 Cymbalta PO 20 mg BID [facility] Administration Folic Acid 1 mg 11/02/16 12:00 Folic Acid PO DAILY@1200 [facility] Furosemide 40 mg 11/02/16 09:00 Lasix PO BID@0900,1600 [facility] Heparin Sodium (Porcine) 5,000 unit 11/01/16 21:00 11/01/16 22:33 Heparin SQ 5,000 unit Q12HR [facility] Administration Hydralazine HCl 50 mg 11/01/16 22:00 11/01/16 22:32 Apresoline PO 50 mg TID [facility] Administration Hydromorphone HCl 0.5 mg 11/01/16 18:31 Dilaudid IVP Q6HR PRN Severe Pain Sodium Chloride 1,000 mls @ 20 mls/hr 11/01/16 15:45 11/01/16 17:06 Saline 0.9% IV Not Given .Q24H [facility] Insulin Glargine 12 unit 11/02/16 09:00 Lantus SQ DAILY [facility] Insulin Human Lispro 0 unit 11/01/16 17:30 11/02/16 07:05 Humalog SQ 1 unit ACHS [facility] Administration Protocol Insulin Human Lispro 5 unit 11/02/16 07:30 11/02/16 07:05 Humalog SQ 5 unit AC-TID [facility] Administration Melatonin 3 mg 11/01/16 21:00 11/02/16 04:35 Melatonin PO Not Given HS [facility] Montelukast Sodium 10 mg 11/01/16 21:00 11/01/16 22:33 Singulair PO 10 mg HS [facility] Administration Multivitamins 1 each 11/02/16 12:00 Theragran PO DAILY@1200 [facility] Pantoprazole Sodium 40 mg 11/02/16 07:30 11/02/16 07:02 Protonix PO 40 mg AC-BRKFST [facility] Administration Sodium Bicarbonate 650 mg 11/01/16 21:00 11/01/16 22:33 Sodium Bicarbonate Tab PO 650 mg BID [facility] Administration Thiamine HCl 100 mg 11/02/16 12:00 Vitamin B-1 PO DAILY@1200 [facility] Tramadol HCl 50 mg 11/01/16 21:00 11/01/16 22:32 Ultram PO 50 mg BID [facility] Administration Intake and Output 11/01/16 11/02/16 11/02/16 22:59 06:59 14:59 Intake Total 800 200 240 Output Total 50 Balance 750 200 240 Intake: Oral 800 200 240 Output: Urine 50 Other: Voiding Method Urinal Diaper Diaper Incontinent Incontinent # Voids 2 1 Weight 104 kg 11/02/16 06:04 11/02/16 06:04 EKG Interpretations (text) EKG shows normal sinus rhythm with no acute changes. Assessment and Plan Plan: Assessment and plan #1 diastolic congestive heart failure acute on chronic most recent echocardiogram with Doppler study was performed in January of last year which revealed an ejection fraction of 50-55% #2 end-stage renal disease, patient scheduled today for dialysis catheter placement #3 hypertension #4 diabetes #5 hyperlipidemia #6 peripheral vascular disease with right below the knee amputation Plan We'll discontinue the by mouth Lasix and initiate IV Lasix. Patient is scheduled today for dialysis catheter placement. Continue Coreg, decrease aspirin 81 mg daily, repeat echo with Doppler study will be obtained. Patient not currently on VICKY inhibitor because of renal function. Further recommendations will be based on these findings and the patient's clinical course. DNP note has been reviewed, I agree with a documented findings and plan of care. Patient was seen and examined.
[2016-11-02] MEDS: ASPIRIN 325 MG TAB PO SCH (08:45)
[2016-11-02] MEDS: INSULIN GLARGINE 100 UNIT/ML 10 ML VIAL SQ SCH (08:51)
[2016-11-02] MEDS: FUROSEMIDE 10 MG/ML 10 ML VIAL IV SCH ×2 (08:51→21:39)
[2016-11-02] MEDS ORDERED: NON-FORMULARY DRUG (Omeprazole [Prilosec] 20 MG) PO SCH (09:00)
[2016-11-02] MEDS ORDERED: FUROSEMIDE 40 MG TAB PO SCH (09:00)
[2016-11-02] MEDS ORDERED: ENOXAPARIN 40 MG/0.4 ML SYRINGE SQ SCH (09:00)
--- NOTE | 2016-11-02 10:29 | P.PN ---
Progress Note - Text This is an addendum to the dictated cardiology consultation. The patient has a known history of end-stage renal failure, history of peripheral vascular disease who presented with progressive dyspnea and cellulitis of the left lower extremity. He has prior history of congestive heart failure with diastolic dysfunction. He denies any symptoms of chest pain, dizziness or palpitations. He is scheduled to start hemodialysis. He has no evidence of tachycardia or bradycardia arrhythmia. On his physical examination he is in sinus mechanism, status post right sided amputation and significant cellulitis on the left lower extremity with chronic changes. The patient presents with worsening dyspnea most likely related to the worsening renal failure and fluid overload with an element of congestive heart failure on the basis of diastolic dysfunction. There is no evidence to suggest an ischemic event. We will await the input of the nephrology service to start dialysis and depending on his progress further recommendations will be made. Thank you for this consult we will follow with you.
[2016-11-02] MEDS: DULoxetine HCL 20 MG CAPSULE.DR PO SCH ×2 (11:08→21:38)
[2016-11-02] MEDS: hydrALAZINE HCL 50 MG TAB PO SCH ×3 (11:08→21:38)
[2016-11-02] MEDS: CEPHALEXIN 500 MG CAP PO SCH ×2 (11:09→21:38)
[2016-11-02] MEDS: THIAMINE 100 MG TAB PO SCH (11:09)
[2016-11-02] MEDS: MULTIVITAMINS, THERA 1 EACH TAB PO SCH (11:09)
[2016-11-02] MEDS: FOLIC ACID 1 MG TAB PO SCH (11:09)
--- NOTE | 2016-11-02 11:43 | ECHOF ---
Referral Reason:chf MEASUREMENTS -------- HEIGHT: 182.9 cm WEIGHT: 103.9 kg BP: 166/73 RVIDd: 2.8 cm (< 3.3) IVSd: 1.6 cm (0.6 - 1.1) LVIDd: 5.0 cm (3.9 - 5.3) LVPWd: 1.3 cm (0.6 - 1.1) IVSs: 2.2 cm LVIDs: 3.3 cm LVPWs: 1.6 cm LAESV Index (A-L): 38.77 ml/m Ao Diam: 3.7 cm (2.0 - 3.7) AV Cusp: 1.1 cm (1.5 - 2.6) LA Diam: 4.5 cm (2.7 - 3.8) MV EXCURSION: 17.310 mm (> 18.000) MV EF SLOPE: 62 mm/s (70 - 150) EPSS: 0.5 cm MV E Carlos: 1.10 m/s MV DecT: 185 ms MV A Carlos: 0.79 m/s MV E/A Ratio: 1.40 RAP: 5.00 mmHg RVSP: 54.99 mmHg FINDINGS -------- Sinus rhythm. This was a technically adequate study. There is moderate concentric left ventricular hypertrophy. Overall left ventricular systolic function is low-normal with, an EF between 50 - 55 %. Restrictive LV filling pattern, consistent with elevated LA pressure 36.05. The right ventricle is normal in size. LA is moderately dilated 34-39 ml/m2 The right atrial size is normal. There is mild aortic valve sclerosis. There is no evidence of aortic regurgitation. Mild mitral annular calcification present. Mild mitral regurgitation is present. Mild tricuspid regurgitation present. There is moderate pulmonary hypertension. The right ventricular systolic pressure, as measured by Doppler, is 54.99mmHg. There is no pulmonic regurgitation present. The aortic root size is normal. There is no pericardial effusion. CONCLUSIONS -------- 1. There is moderate concentric left ventricular hypertrophy. 2. The right ventricular systolic pressure, as measured by Doppler, is 54.99mmHg. 3. Overall left ventricular systolic function is low-normal with, an EF between 50 - 55 %. 4. Restrictive LV filling pattern, consistent with elevated LA pressure 36.05. 5. LA is moderately dilated 34-39 ml/m2 6. There is mild aortic valve sclerosis. 7. Mild mitral annular calcification present. 8. Mild mitral regurgitation is present. 9. Mild tricuspid regurgitation present. 10. There is moderate pulmonary hypertension. [employer] ACCOUNT[employer] MANAGER: Cece Graff RDCS
[2016-11-02 12:00] LABS: Glucose,Whole Blood 65 mg/dL (75-99)
[2016-11-02] MEDS ORDERED: DEXTROSE 50%-WATER 50 ML SYRINGE IVP ONE (12:02)
--- NOTE | 2016-11-02 12:06 | P.CNPUL ---
History of Present Illness Consult date: 11/02/16 Requesting physician: Galilea Chan Reason for consult: pleural effusion Chief complaint: Shortness of shortness of breath and generalized weakness History of present illness: This patient is a 71-year-old gentleman with a past medical histories including chronic renal disease stage V, CHF, anemia, COPD diabetes mellitus, hypertension , hyperlipidemia, anxiety and depression. The patient is a primary care patient of Dr. Paulson. Patient was recently admitted with left leg cellulitis and was sent to [facility] for rehab. While at [facility] the patient had progressive worsening shortness of breath as well as generalized weakness and was sent to [facility] for further evaluation and treatment. Chest x-ray was reviewed and showed bilateral pleural effusions and pulmonary congestion. The patient denies any fevers chills headache or loss of consciousness. Review of Systems Constitutional denies any significant weight gain or weight loss HEENT: Denies recent visual changes or hearing loss. Cardiac: Denies chest pain palpitations or syncopal episodes. Vascular: Denies claudication or significant edema. Respiratory: Positive for shortness of breath and cough as well as congestion. Denies chills or night sweats. Denies hemoptysis GI: Denies nausea vomiting diarrhea. : Denies hematuria. Neurologic denies recent memory loss or seizure activity. Psychiatric: Positive for depression/anxiety. Endocrine: No goiters or tremors. Musculoskeletal: Significant for chronic lumbar back pain. Dermatologic left lower leg cellulitits Past Medical History Past Medical History: Asthma, Heart Failure, COPD, Diabetes Mellitus, Hyperlipidemia, Hypertension, Renal Disease Additional Past Medical History / Comment(s): Chronic kidney disease stage IV , diabetic neuropathy, gangrene of the right lower extremity status post amputation, ARTHRITIS History of Any Multi-Drug Resistant Organisms: None Reported Additional Past Surgical History / Comment(s): november 26 2013 below the knee amputation Past Anesthesia/Blood Transfusion Reactions: No Reported Reaction Past Psychological History: Anxiety, Depression Additional Psychological History / Comment(s): depression related to of in april 2014 Smoking Status: Never smoker Past Alcohol Use History: Daily Additional Past Alcohol Use History / Comment(s): PT states he is a lifelong nonsmoker. He denies any medical marijuana, marijuana, street drug use. He WAS DRINKING 2 12C OUNCE beers daily UNTIL ADMISSION 10/24/16 THEN WENT TO [facility]. His passed in April 2014. He has had no recent travel. 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 Past Drug Use History: None Reported - Past Family History Mother Family Medical History: Cancer Brother(s) Family Medical History: Coronary Artery Disease (CAD) Father Family Medical History: Coronary Artery Disease (CAD) Sister(s) Family Medical History: Cancer Additional Family Medical History / Comment(s): stomach Medications and Allergies Home Medications Medication Instructions Recorded Confirmed Type Aspirin 325 mg PO DAILY 08/28/14 11/01/16 History Montelukast [Singulair] 10 mg PO HS 08/28/14 11/01/16 History Omeprazole [PriLOSEC] 20 mg PO DAILY 08/28/14 11/01/16 History hydrALAZINE HCL [Apresoline] 50 mg PO TID 08/28/14 11/01/16 History Carvedilol 12.5 mg PO DAILY 08/23/15 11/01/16 History Albuterol Nebulized [Ventolin 2.5 mg INHALATION RT-QID 02/04/16 11/01/16 History Nebulized] DULoxetine HCL [Cymbalta] 20 mg PO BID 02/04/16 11/01/16 History amLODIPine [Norvasc] 5 mg PO DAILY 02/04/16 11/01/16 History Arformoterol Tartrate [Brovana] 15 mcg INHALATION RT-BID 10/25/16 11/01/16 History Budesonide [Pulmicort] 0.5 mg INHALATION RT-BID 10/25/16 11/01/16 History Insulin Aspart [NovoLOG] 5 unit SQ AC-TID 10/25/16 11/01/16 History Ipratropium-Albuterol Nebulize 3 ml INHALATION RT-QID PRN 11/01/16 11/01/16 History [Duoneb 0.5 mg-3 mg/3 ml Soln] Allergies Allergy/AdvReac Type Severity Reaction Status Date / Time milk Allergy Rash/Hives Verified 11/01/16 13:38 Penicillins Allergy Rash/Hives Verified 11/01/16 13:38 Physical Exam Vitals: Vital Signs Temp Pulse Pulse Resp BP BP Pulse Ox 11/02/16 11:19 94 11/02/16 11:12 63 19 133/65 93 L 11/02/16 08:19 94 11/02/16 08:07 94 11/02/16 08:00 97 F L 66 19 146/65 92 L 11/02/16 03:00 97.0 F L 65 18 166/73 93 L 11/01/16 23:00 96.9 F L 63 18 152/67 92 L 11/01/16 19:57 97.3 F L 64 18 167/71 94 L 11/01/16 17:15 70 18 11/01/16 17:14 97.4 F L 70 18 144/68 95 11/01/16 16:28 98.5 F 75 18 167/72 97 11/01/16 16:19 97 11/01/16 16:11 73 Intake and Output 11/01/16 11/02/16 11/02/16 22:59 06:59 14:59 Intake Total 800 200 240 Output Total 50 Balance 750 200 240 Intake: Oral 800 200 240 Output: Urine 50 Other: Voiding Method Urinal Diaper Diaper Diaper Incontinent Incontinent Incontinent # Voids 2 1 Weight 104 kg GENERAL EXAM: Alert, active, comfortable in no apparent distress. HEAD: Normocephalic. EYES: Normal reaction of pupils, equal size. NOSE: Clear with pink turbinates. THROAT: No erythema or exudates. NECK: No masses, no JVD. CHEST: No chest wall deformity. LUNGS: Lungs are clear however diminished at the bases. Very few scattered rhonchi appreciated. CVS: S1 and S2 normal with no audible mumurs, regular rhythm. ABDOMEN: No hepatosplenomegaly, normal bowel sounds, no guarding or rigidity. SPINE: No scoliosis or deformity SKIN: Left lower leg cellulitis CENTRAL NERVOUS SYSTEM: No focal deficits, tone is normal in all 4 extremities. Results - Laboratory Findings CBC and BMP: 11/02/16 06:04 11/02/16 06:04 PT/INR, D-dimer PT 10.2 sec (9.0-12.0) 11/01/16 12:40 INR 1.0 (<1.1) 11/01/16 12:40 Abnormal lab findings: Abnormal Labs 02/20/17 02/20/17 02/20/17 20:15 21:01 21:17 RBC Hgb Hct MCHC Lymphocytes # Sodium Potassium Chloride BUN Creatinine Glucose POC Glucose (mg/dL) 59 L 54 L Troponin I Urine Protein 1+ H Amorphous Sediment Rare H Urine Bacteria Rare H Urine Mucus Rare H 11/01/16 11/01/16 11/01/16 21:34 22:07 22:07 RBC Hgb Hct MCHC Lymphocytes # Sodium Potassium Chloride BUN Creatinine Glucose POC Glucose (mg/dL) 58 L 124 H Troponin I 0.079 H* Urine Protein Amorphous Sediment Urine Bacteria Urine Mucus 11/02/16 11/02/16 11/02/16 02:26 06:04 06:04 RBC 2.95 L Hgb 8.8 L Hct 29.0 L MCHC 30.2 L Lymphocytes # 0.8 L Sodium 146 H Potassium 5.2 H Chloride 110 H BUN 76 H Creatinine 4.60 H Glucose 149 H POC Glucose (mg/dL) 143 H Troponin I Urine Protein Amorphous Sediment Urine Bacteria Urine Mucus 11/02/16 06:07 RBC Hgb Hct MCHC Lymphocytes # Sodium Potassium Chloride BUN Creatinine Glucose POC Glucose (mg/dL) 147 H Troponin I Urine Protein Amorphous Sediment Urine Bacteria Urine Mucus - Diagnostic Findings Chest x-ray: report reviewed, image reviewed Assessment and Plan Plan: Assessment #1 bilateral pleural effusion right more so than the left #2 acute on chronic kidney disease #3 anemia normocytic #4 left leg cellulitis #5 hypernatremia #6 troponin 0.089 of indeterminate origin #7 history of asthma and COPD #8 history of CHF with a chronic diastolic dysfunction, ejection fraction of 50- 55% #9 diabetes mellitus type 2 #10 peripheral vascular disease #11 right below the knee amputation #12 diabetic peripheral neuropathy #13 history of anxiety and depression We will continue with the current medication and symptomatic treatment at this time. We will continue the patient on nebulizer treatments and oxygen to keep sats above 92%. Continue with GI and DVT prophylaxis. We will monitor labs and fluid balance. The patient has many comorbidities therefore prognosis is guarded. Cardiology and Nephrology is also following the patient. I performed an examination of the patient and discussed their management with the nurse practitioner. I have reviewed the nurse practitioner's note and agree with the documented findings and plan of care.
[2016-11-02] MEDS ORDERED: DARBEPOETIN ALFA 25 MCG/0.42 ML SYRINGE SQ SCH (12:15)
[2016-11-02 12:20] LABS: Glucose,Whole Blood 65 mg/dL (75-99)
--- NOTE | 2016-11-02 12:25 | P.GSCN ---
History of Present Illness History of present illness: 71 old white male, reason for consultation is placement of a dialysis catheter, patient has history of chronic or failure, history of hypertension, congestive heart failure, diabetes mellitus,. His potassium is 5, albumin is 82, Rhett is 5.2, History nonsmoker Surgical history no major surgical intervention Neck examination neck is supple no bruit appreciated Chest pulses second sound normal good entry both lungs Abdomen soft nontender femoral pulses are present Impression is acute chronic failure with high BUN/creatinine Plan is placement of a dialysis catheter risk and complication discussed infection bleeding thrombosis Past Medical History Past Medical History: Asthma, Heart Failure, COPD, Diabetes Mellitus, Hyperlipidemia, Hypertension, Renal Disease Additional Past Medical History / Comment(s): Chronic kidney disease stage IV , diabetic neuropathy, gangrene of the right lower extremity status post amputation, ARTHRITIS History of Any Multi-Drug Resistant Organisms: None Reported Additional Past Surgical History / Comment(s): november 26 2013 below the knee amputation Past Anesthesia/Blood Transfusion Reactions: No Reported Reaction Past Psychological History: Anxiety, Depression Additional Psychological History / Comment(s): depression related to of in april 2014 Smoking Status: Never smoker Past Alcohol Use History: Daily Additional Past Alcohol Use History / Comment(s): PT states he is a lifelong nonsmoker. He denies any medical marijuana, marijuana, street drug use. He WAS DRINKING 2 12C OUNCE beers daily UNTIL ADMISSION 10/24/16 THEN WENT TO [facility]. His passed in April 2014. He has had no recent travel. 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 Past Drug Use History: None Reported - Past Family History Mother Family Medical History: Cancer Brother(s) Family Medical History: Coronary Artery Disease (CAD) Father Family Medical History: Coronary Artery Disease (CAD) Sister(s) Family Medical History: Cancer Additional Family Medical History / Comment(s): stomach Medications and Allergies Home Medications Medication Instructions Recorded Confirmed Type Aspirin 325 mg PO DAILY 08/28/14 11/01/16 History Montelukast [Singulair] 10 mg PO HS 08/28/14 11/01/16 History Omeprazole [PriLOSEC] 20 mg PO DAILY 08/28/14 11/01/16 History hydrALAZINE HCL [Apresoline] 50 mg PO TID 08/28/14 11/01/16 History Carvedilol 12.5 mg PO DAILY 08/23/15 11/01/16 History Albuterol Nebulized [Ventolin 2.5 mg INHALATION RT-QID 02/04/16 11/01/16 History Nebulized] DULoxetine HCL [Cymbalta] 20 mg PO BID 02/04/16 11/01/16 History amLODIPine [Norvasc] 5 mg PO DAILY 02/04/16 11/01/16 History Arformoterol Tartrate [Brovana] 15 mcg INHALATION RT-BID 10/25/16 11/01/16 History Budesonide [Pulmicort] 0.5 mg INHALATION RT-BID 10/25/16 11/01/16 History Insulin Aspart [NovoLOG] 5 unit SQ AC-TID 10/25/16 11/01/16 History Ipratropium-Albuterol Nebulize 3 ml INHALATION RT-QID PRN 11/01/16 11/01/16 History [Duoneb 0.5 mg-3 mg/3 ml Soln] Allergies Allergy/AdvReac Type Severity Reaction Status Date / Time milk Allergy Rash/Hives Verified 11/01/16 13:38 Penicillins Allergy Rash/Hives Verified 11/01/16 13:38 Surgical - Exam Vital Signs Temp Pulse Resp BP Pulse Ox 98.7 F 72 20 163/70 93 L 11/01/16 12:43 11/01/16 12:43 11/01/16 12:43 11/01/16 12:43 11/01/16 12:43 Results - Labs 11/02/16 06:04 11/02/16 06:04 Abnormal Lab Results - Last 24 Hours (Table) 11/01/16 11/01/16 11/01/16 Range/Units 20:15 21:01 21:17 RBC (4.30-5.90) m/uL Hgb (13.0-17.5) gm/dL Hct (39.0-53.0) % MCHC (31.0-37.0) g/dL Lymphocytes # (1.0-4.8) k/uL Sodium (137-145) mmol/L Potassium (3.5-5.1) mmol/L Chloride (98-107) mmol/L BUN (9-20) mg/dL Creatinine (0.66-1.25) mg/dL Glucose (74-99) mg/dL POC Glucose (mg/dL) 59 L 54 L (75-99) mg/dL Troponin I (0.000-0.034) ng/mL Urine Protein 1+ H (Negative) Amorphous Sediment Rare H (None) /hpf Urine Bacteria Rare H (None) /hpf Urine Mucus Rare H (None) /hpf 11/01/16 11/01/16 11/01/16 Range/Units 21:34 22:07 22:07 RBC (4.30-5.90) m/uL Hgb (13.0-17.5) gm/dL Hct (39.0-53.0) % MCHC (31.0-37.0) g/dL Lymphocytes # (1.0-4.8) k/uL Sodium (137-145) mmol/L Potassium (3.5-5.1) mmol/L Chloride (98-107) mmol/L BUN (9-20) mg/dL Creatinine (0.66-1.25) mg/dL Glucose (74-99) mg/dL POC Glucose (mg/dL) 58 L 124 H (75-99) mg/dL Troponin I 0.079 H* (0.000-0.034) ng/mL Urine Protein (Negative) Amorphous Sediment (None) /hpf Urine Bacteria (None) /hpf Urine Mucus (None) /hpf 11/02/16 11/02/16 11/02/16 Range/Units 02:26 06:04 06:04 RBC 2.95 L (4.30-5.90) m/uL Hgb 8.8 L (13.0-17.5) gm/dL Hct 29.0 L (39.0-53.0) % MCHC 30.2 L (31.0-37.0) g/dL Lymphocytes # 0.8 L (1.0-4.8) k/uL Sodium 146 H (137-145) mmol/L Potassium 5.2 H (3.5-5.1) mmol/L Chloride 110 H (98-107) mmol/L BUN 76 H (9-20) mg/dL Creatinine 4.60 H (0.66-1.25) mg/dL Glucose 149 H (74-99) mg/dL POC Glucose (mg/dL) 143 H (75-99) mg/dL Troponin I (0.000-0.034) ng/mL Urine Protein (Negative) Amorphous Sediment (None) /hpf Urine Bacteria (None) /hpf Urine Mucus (None) /hpf 11/02/16 11/02/16 11/02/16 Range/Units 06:07 11:42 12:00 RBC (4.30-5.90) m/uL Hgb (13.0-17.5) gm/dL Hct (39.0-53.0) % MCHC (31.0-37.0) g/dL Lymphocytes # (1.0-4.8) k/uL Sodium (137-145) mmol/L Potassium (3.5-5.1) mmol/L Chloride (98-107) mmol/L BUN (9-20) mg/dL Creatinine (0.66-1.25) mg/dL Glucose (74-99) mg/dL POC Glucose (mg/dL) 147 H 65 L 65 L (75-99) mg/dL Troponin I (0.000-0.034) ng/mL Urine Protein (Negative) Amorphous Sediment (None) /hpf Urine Bacteria (None) /hpf Urine Mucus (None) /hpf Microbiology - Last 24 Hours (Table) 11/01/16 20:15 Urine Culture - Preliminary Urine,Voided Diabetes panel 11/02/16 Range/Units 06:04 Sodium 146 H (137-145) mmol/L Potassium 5.2 H (3.5-5.1) mmol/L Chloride 110 H (98-107) mmol/L Carbon Dioxide 25 (22-30) mmol/L BUN 76 H (9-20) mg/dL Creatinine 4.60 H (0.66-1.25) mg/dL Glucose 149 H (74-99) mg/dL Calcium 8.4 (8.4-10.2) mg/dL Calcium panel 11/02/16 Range/Units 06:04 Calcium 8.4 (8.4-10.2) mg/dL Pituitary panel 11/02/16 Range/Units 06:04 Sodium 146 H (137-145) mmol/L Potassium 5.2 H (3.5-5.1) mmol/L Chloride 110 H (98-107) mmol/L Carbon Dioxide 25 (22-30) mmol/L BUN 76 H (9-20) mg/dL Creatinine 4.60 H (0.66-1.25) mg/dL Glucose 149 H (74-99) mg/dL Calcium 8.4 (8.4-10.2) mg/dL Adrenal panel 11/02/16 Range/Units 06:04 Sodium 146 H (137-145) mmol/L Potassium 5.2 H (3.5-5.1) mmol/L Chloride 110 H (98-107) mmol/L Carbon Dioxide 25 (22-30) mmol/L BUN 76 H (9-20) mg/dL Creatinine 4.60 H (0.66-1.25) mg/dL Glucose 149 H (74-99) mg/dL Calcium 8.4 (8.4-10.2) mg/dL
[2016-11-02 12:35] LABS: Glucose,Whole Blood 121 mg/dL (75-99)
--- NOTE | 2016-11-02 12:40 | CONS ---
DATE OF CONSULTATION: REASON FOR CONSULTATION: Renal failure. HISTORY OF PRESENT ILLNESS: Patient is a 71-year-old man male with a history of chronic kidney disease, NKF stage V. He was admitted to the hospital with complaints of weakness, not feeling well. He was also short of breath. Previously patient had declined dialysis; however, he has agreed now. He also has underlying cellulitis and wound on his left lower extremity for which he was treated with antibiotics on his last admission. He has been short of breath. He denies any chest pains. No fever. PAST MEDICAL HISTORY: Chronic kidney disease stage V, hypertension, peripheral vascular disease, Gastroesophageal reflux disease, type 2 diabetes, metabolic acidosis, COPD, hyperlipidemia, hypertension, diabetic neuropathy. PAST SURGICAL HISTORY: Right BKA. SOCIAL HISTORY: Negative for smoking, drug abuse or alcohol abuse. Medications at home included: 1. Pulmicort. 2. Insulin. 3. Duoneb. 4. Prilosec. 5. Singulair. 6. Aspirin. 7. Hydralazine. 8. Coreg. 9. Cymbalta. 10. Norvasc. 11. Brovana. 12. Ultram. 13. Xanax. 14. Lasix. 15. Keflex. Allergies include penicillin, which causes a rash and hives. REVIEW OF SYSTEMS: As per HPI. Other systems negative. Patient did admit to decreased oral intake. No obvious nausea or vomiting or diarrhea noted at this time. On examination, patient is mildly short of breath. He is not in any acute distress. Blood pressure is 133/65, heart rate 94 per minute. The patient is afebrile. Examination of the heart S1 and S2. Examination of the lungs: Bilateral breath sounds are heard. ABDOMEN: Soft, nontender. Examination of lower extremities shows chronic skin changes, chronic wounds and discoloration in his left leg and foot and patient has a right BKA. Labs show sodium 146, potassium 5.2, BUN 76, serum creatinine 4.6. Hemoglobin 8.8 g/dL. ASSESSMENT: 1. Chronic kidney disease, stage V, patient needs to start dialysis. He has agreed and we will consult vascular surgery for PermCath placement. 2. Volume overload. We will give Lasix x1 and plan ( ). 3. Anemia with history of iron deficiency, currently anemia of chronic disease as well with probably some degree of resistance to Aranesp secondary to chronic inflammation. 4. Mild hyperkalemia associated with advanced renal failure. 5. Chronic kidney disease, bone mineral disorder. Check a phosphorus level with labs in a.m. PLAN: Consult vascular surgery for PermCath placement and initiation of dialysis. Lasix x1 and first treatment of hemodialysis in a.m. Thank you for this consultation. Will continue to follow the patient with you during his hospitalization.
[2016-11-02 13:21] LABS: Hepatitis B Core IgM Index 0.06
[2016-11-02 13:33] LABS: Hepatitis C Virus IgG Index 0.02
[2016-11-02 13:40] LABS: Hepatitis C Virus IgG Ab Negative (Negative)
[2016-11-02] MEDS ORDERED: HEPARIN SODIUM 1,000 UNIT/ML VIAL ONE (13:59)
[2016-11-02] MEDS ORDERED: fentaNYL (PF) 50 MCG/ML 2 ML AMP ONE (13:59)
[2016-11-02] MEDS ORDERED: LIDOCAINE 2% INJ 20 MG/ML (20 ML MDV) ONE (13:59)
[2016-11-02] MEDS ORDERED: fentaNYL (PF) 50 MCG/ML 2 ML AMP IV ONE (14:05)
[2016-11-02] MEDS ORDERED: LIDOCAINE 2% INJ 20 MG/ML SQ ONE (14:10)
[2016-11-02] MEDS ORDERED: SODIUM CHLORIDE 0.9% 500 ML IV ONE (14:12)
--- NOTE | 2016-11-02 14:42 | P.PCN ---
Description of Procedure: Preoperative diagnoses is acute chronic renal failure Placement of 28 cm dialysis catheter ultrasound-guided right internal jugular vein Patient was brought to the [employer], right side of neck and chest was prepped and draped applied in the usual sterile manner 1% lidocaine for infected neck and chest area ultrasound-guided micropuncture was entered used to the right internal jugular vein micropuncture guidewire was passed and then replaced a 4- Tamazight dilator on the top of the guidewire checking under the fluoroscopy the guide was inferior vena cava and then the tunnel was created through the terminal be brought 28 cm dialysis catheter sheath was advanced on the top of the guidewire through the sheath and the introducer dialysis catheter the tip of the catheter was accessed. A vena cava and atrium flushed with heparin saline and Hep-Lock incision was closed and secured with 3-0 nylon and Vicryl dressing applied patient tolerated the procedure well
[2016-11-02] MEDS: SODIUM BICARBONATE TAB 650 MG TAB PO SCH ×2 (15:03→21:38)
[2016-11-02] MEDS: amLODIPine 5 MG TAB PO SCH (15:04)
[2016-11-02 15:08] VITALS: BMI 31.1
--- NOTE | 2016-11-02 15:21 | IR ---
Fluoroscopy HISTORY: Pain 0.7 minutes fluoroscopy time supplied to the referring clinician. 170 intraoperative C-arm images do cument the procedure. See dictated report from vascular surgery.
[2016-11-02] MEDS: SODIUM CHLORIDE 0.9% 1,000 ML IV SCH (17:00)
[2016-11-02 17:07] LABS: Glucose,Whole Blood 107 mg/dL (75-99)
--- NOTE | 2016-11-02 17:12 | XR ---
EXAMINATION TYPE: XR chest 1V confirm line plcmt DATE OF EXAM: 11/02/2016 4:42 PM COMPARISON: 11/01/2016 HISTORY: 71-year-old male line placement TECHNIQUE: Single frontal view of the chest is obtained. FINDINGS: Right-sided hemodialysis catheter has been placed with tips in the upper right atrium. There is kypho tic positioning limiting the exam. Redemonstrated is cardiomegaly with increasing patchy mid and lower lung airspace opacity with contin ued moderate right greater than left pleural effusions. IMPRESSION: 1. Correlate for CHF or fluid overload with worsening pulmonary edema. 2. Moderate right greater than left pleural effusions with adjacent atelectasis and/or consolidation.
--- NOTE | 2016-11-02 17:14 | US ---
EXAMINATION TYPE: US chest DATE OF EXAM: 11/02/2016 4:32 PM COMPARISON: Radiograph same day CLINICAL HISTORY: 71-year-old male with bilateral plural effusions. TECHNIQUE: Multiple sonographic images of the posterior lower hemithoraces were obtained for assessme nt of pleural effusions. FINDINGS: EXAM MEASUREMENTS: Right Pleural Effusion fluid pocket: 12.9 cm Right skin surface to fluid distance: 3.8 cm Left Pleural Effusion fluid pocket: 2.2 cm Left skin surface to fluid distance: 2.8 cm Right side marked for possible thoracentesis outside the dept. Left side marked for possible thoracentesis outside the dept. Pulmonologists are able to review the images in the patient?s EMR. IMPRESSIONS: Moderate right and small left pleural effusions with adjacent atelectasis. Markings performed for pos sible thoracentesis.
--- NOTE | 2016-11-02 18:24 | CONS ---
DATE OF CONSULTATION: REASON FOR CONSULTATION: Lower extremity wound and cellulitis. HISTORY OF PRESENT ILLNESS: The patient is an elderly 71 male who was just evaluated at this facility for a left lower extremity wound and cellulitis along with worsening renal failure. However, the patient refused dialysis at that time. He was treated with IV cefazolin and subsequently discharged to the [facility] with oral Keflex in addition to the local wound care with Aquacel Silver. The patient has been sent to the [facility] ER yesterday with chief complaints of worsening renal failure. The patient complaining of weakness and lethargy and no energy. Denies significant chest pain. No cough. No abdominal pain. Denies any worsening pain to the left leg area. I was asked to see the patient for further evaluation of the left leg wound and antibiotic recommendation. Patient also noticed to have no significant fever on this admission. White count has been normal REVIEW OF SYSTEMS: CONSTITUTIONAL: Positive for weakness. No high-grade fever. EYES: No complaint. ENT: No complaint. RESPIRATORY: As per HPI. CARDIOVASCULAR: No complaint. GENITOURINARY: As per HPI. GASTROINTESTINAL: No complaint. MUSCULOSKELETAL: No complaint. INTEGUMENT: As per history of present illness. PSYCHOLOGICAL: No complaint. ENDOCRINE: No complaint. NEUROLOGICAL: No complaint. Past medical history significant for asthma, COPD, Type 2 diabetes mellitus, hypertension, hyperlipidemia, chronic renal insufficiency, PAD. PAST SURGICAL HISTORY: Right below knee amputation. SOCIAL HISTORY: Denies smoking, drinking or drug use. FAMILY HISTORY: No pertinent findings were noticed. ALLERGIES: PENICILLIN WITH A RASH, However, no history of anaphylaxis and tolerated Keflex without any problem. Medications currently include the patient is on: 1. Tylenol. 2. Winlock. 3. Ventolin. 4. DuoNeb. 5. Xanax. 6. Norvasc. 7. Aspirin. 8. Pulmicort. 9. Coreg. 10. Keflex 500 mg p.o. q12 hours. 12. Cymbalta. 13. Folic acid. 14. Lasix. 15. Heparin. 16. Hydralazine. 17. Dilaudid. 18. Lantus. 19. Humalog. 20. Singulair. 21. Theragran. 22. Protonix. 23. Thiamine. 24. Ultram. On examination, blood pressure is 133/65 with a pulse of 94, temperature 98. He is 93% on 2 liters nasal cannula. General description is an elderly male, lying in bed in no distress. No tachypnea or accessory muscle of respiration use. HEENT EXAMINATION: Pallor. No scleral icterus. Oral mucous membranes dry. NECK: Trachea central. There is no thyromegaly. LUNGS: Unlabored breathing. Clear to auscultation anteriorly. HEART: S1, S2. Regular rate and rhythm. ABDOMEN: Soft. No tenderness. EXTREMITIES: Left leg with some superficial ulceration but no significant redness. He did have significant dry skin. No drainage was noticed. NEUROLOGICAL: The patient is awake, alert, oriented x3. Mood and affect normal. LABS: Hemoglobin is 8.8, white count 4.1 with a BUN of 40, creatinine 4.6. Urine has been negative. Influenza PCR was negative. Hepatitis B, and C negative. DIAGNOSTIC IMPRESSION AND PLAN: Patient with left leg wound with secondary cellulitis. The patient overall cellulitis is clinically improving. No evidence of any fluctuation or induration or suspicious for an abscess. Recommend local wound care with an oral antibiotic therapy. PLAN: 1. We will be apply Eucerin to the dry scaly skin. 2. To the open area we will apply Aquacel Silver. 3. Keflex 500 mg p.o. q.12 hours dose adjusted for Cr clearance. 4. Will follow up with clinical condition to further adjust the medication if needed. Thank you for this consultation. Will follow this patient along with you. NANCY
--- NOTE | 2016-11-02 20:48 | PN ---
DATE OF SERVICE: 11/02/2016 This 71-year-old gentleman who was admitted with acute on chronic kidney disease also had bilateral pleural effusion. The patient is noncompliant with medication. Patient was on renal replacement therapy previously. Patient also had diastolic dysfunction. Two-D echo showed ejection fraction about 50% to 55%. Cardiology and Pulmonology are following the patient closely. Vascular Surgery has seen the patient and is planning a dialysis access catheter Perm-A-Cath for initiation of dialysis. No chest pain. No palpitation. Past medical history reviewed. REVIEW OF SYSTEMS: CARDIOVASCULAR SYSTEM: As mentioned earlier. RESPIRATORY SYSTEM: As mentioned earlier. GI: No nausea. : As mentioned earlier. Current medications are reviewed and include: 1. Tylenol 500 mg q.6 p.r.n. 2. [place] 5 mg q.6. 3. DuoNeb q.i.d. and p.r.n. 4. Xanax 0.25 t.i.d. 5. Norvasc 5 mg daily. 6. Aspirin 325 mg. 7. Pulmicort 0.5 b.i.d. 8. Coreg 12.5 mg b.i.d. 9. Keflex 500 mg b.i.d. 10. Aranesp. 11. Cymbalta. 12. Folic acid. 13. Lasix. 14. Heparin. 15. Apresoline. 16. Lantus. 17. Singulair. 18. Eucerin. 19. Protonix. 20. Vitamin B1. 21. Ultram. PHYSICAL EXAMINATION: Patient is alert and oriented x2. Pulse 65. Blood pressure 153/88, respiration 19, temperature 97.2, pulse ox 91% on 2 L. HEENT: Conjunctivae normal. Oral mucosa moist. NECK: No jugular venous distention. No carotid bruit. No lymph node enlargement. CARDIOVASCULAR SYSTEM: S1, S2 muffled. No S3. No S4. RESPIRATORY SYSTEM: Breath sounds diminished at the bases. Scattered rhonchi and crackles. ABDOMEN: Soft, nontender. No mass palpable. LEGS: No edema. No swelling. Bilateral leg cellulitis. NERVOUS SYSTEM: Higher function as mentioned earlier. Moves all 4 limbs. No focal deficit. LABS: Hemoglobin 8.8. Sodium 146, potassium 5.2. Creatinine is 4.60. Hepatitis panel is negative. ASSESSMENT: 1. Acute on chronic kidney disease with prerenal factors and acute tubular necrosis. 2. Chronic kidney disease, stage V. 3. Bilateral pleural effusion, right more than the left. 4. Anemia, normocytic. 5. Left leg cellulitis. 6. Hypernatremia. 7. Troponin 0.08, indeterminate origin. 8. History of congestive heart failure with chronic diastolic dysfunction; ejection 50% to 60%. 9. History of asthma, chronic obstructive pulmonary disease. 10. Diabetes mellitus, type 2. 11. Essential hypertension. 12. Hyperlipidemia. 13. Peripheral vascular disease. 14. Right below-knee amputation. 15. Diabetic peripheral neuropathy. 16. Degenerative joint disease. 17. History of anxiety, depression not otherwise specified. 18. Congestive heart failure with chronic diastolic dysfunction; ejection fraction 50% to 60%. 19. Hypoglycemia. 20. FULL CODE. RECOMMENDATIONS AND DISCUSSION: In this 71-year-old gentleman who presented with multiple complex medical issues, we will monitor the patient closely, continue the current medication, continue with symptomatic treatment. Hemodialysis. Otherwise, I would recommend continuing the rest of the medications. Perm-A-Cath insertion by Dr. Stewart. Repeat labs. Empiric antibiotics. The patient is also mildly hypoglycemic. We will cut down the 5-unit pre-meal insulin to 2 units. Further recommendations to follow.
[2016-11-02] MEDS ORDERED: MINERAL OIL-WHITE PETROLATUM CREAM 454 GM JAR TOPICAL SCH (21:00)
[2016-11-02 21:22] LABS: Glucose,Whole Blood 88 mg/dL (75-99)
[2016-11-02] MEDS: MONTELUKAST 10 MG TAB PO SCH (21:38)
[2016-11-02] MEDS: MINERAL OIL-WHITE PETROLATUM 120 GM JAR TOPICAL SCH (21:40)
[2016-11-03 06:32] LABS: Basophils # (A) 0.1 k/uL (0-0.2); Basophils % (A) 2 %; CHCM 28.9; Eosinophils # (A) 0.3 k/uL (0-0.7); Eosinophils % (A) 7 %; HCT 30.4 % (39.0-53.0); HGB 8.7 gm/dL (13.0-17.5); Hypochromasia Marked; Luc # (Auto) 0.14; Luc % (Auto) 3; Lymphocytes # (A) 0.8 k/uL (1.0-4.8); Lymphocytes % (A) 18 %; MCH 28.9 pg (25.0-35.0); MCHC 28.6 g/dL (31.0-37.0); MCV 101.2 fL (80.0-100.0); Macrocytosis Slight; Mean Platelet Volume 8.1; Monocytes # (A) 0.3 k/uL (0-1.0); Monocytes % (A) 7 %; Neutrophils # (A) 2.9 k/uL (1.3-7.7); Neutrophils % (A) 64 %; RDW 15.3 % (11.5-15.5); WBC 4.5 k/uL (3.8-10.6); WBC (Perox) 4.96
[2016-11-03 06:48] LABS: Calcium 8.6 mg/dL (8.4-10.2); Potassium 5.7 mmol/L (3.5-5.1)
[2016-11-03 06:48] LABS: Glucose,Whole Blood 129 mg/dL (75-99)
[2016-11-03] MEDS: CARVEDILOL 12.5 MG TAB PO SCH (07:04)
[2016-11-03] MEDS: PANTOPRAZOLE 40 MG TABLET PO SCH (07:04)
[2016-11-03] MEDS: INSULIN LISPRO (humaLOG) 300 UNIT/3 ML VIAL SQ SCH ×6 (07:04→17:08)
[2016-11-03] MEDS: IPRATROPIUM-ALBUTEROL 3 ML NEB INHALATION SCH ×5 (08:20→21:11)
[2016-11-03] MEDS: BUDESONIDE 0.5 MG/2 ML NEBU INHALATION SCH ×2 (08:22→21:11)
[2016-11-03] MEDS: DULoxetine HCL 20 MG CAPSULE.DR PO SCH (08:56)
[2016-11-03] MEDS: CEPHALEXIN 500 MG CAP PO SCH (08:56)
[2016-11-03] MEDS: THIAMINE 100 MG TAB PO SCH (08:56)
[2016-11-03] MEDS: FOLIC ACID 1 MG TAB PO SCH (08:56)
[2016-11-03] MEDS: SODIUM BICARBONATE TAB 650 MG TAB PO SCH (08:56)
[2016-11-03] MEDS: MULTIVITAMINS, THERA 1 EACH TAB PO SCH (08:56)
[2016-11-03] MEDS: HEPARIN SODIUM,PORCINE 5,000 UNIT/ML 1 ML VIAL SQ SCH (08:56)
[2016-11-03] MEDS: ASPIRIN 325 MG TAB PO SCH (08:56)
[2016-11-03] MEDS: hydrALAZINE HCL 50 MG TAB PO SCH ×2 (08:57→17:07)
[2016-11-03] MEDS: FUROSEMIDE 10 MG/ML 10 ML VIAL IV SCH (08:57)
[2016-11-03] MEDS: INSULIN GLARGINE 100 UNIT/ML 10 ML VIAL SQ SCH (09:01)
[2016-11-03] MEDS ORDERED: DEXTROSE 50%-WATER 50 ML SYRINGE IVP ONE (12:00)
[2016-11-03] MEDS: ALBUTEROL NEBULIZED 2.5 MG/3 ML INHALATION SCH (12:05)
[2016-11-03] MEDS ORDERED: LEVOFLOXACIN 500MG-D5W PMX 500 MG in DEXTROSE/WATER 1 100ML.BAG IVPB SCH (12:30)
[2016-11-03 12:44] LABS: Glucose,Whole Blood 38 mg/dL (75-99)
[2016-11-03 12:44] LABS: Glucose,Whole Blood 47 mg/dL (75-99)
[2016-11-03 12:44] LABS: Glucose,Whole Blood 129 mg/dL (75-99)
--- NOTE | 2016-11-03 14:11 | P.PN ---
Subjective Principal diagnosis: CHF This is a 71-year-old gentleman with known history of hypertension, diabetes, renal failure, hyperlipidemia, COPD, peripheral vascular disease status post right below the knee amputation. The patient was admitted to the hospital on this occasion with symptoms of progressive weakness and associated shortness of breath. Patient underwent dialysis catheter placement yesterday. Again scheduled for dialysis today. Somewhat lethargic at the time of her examination today, blood sugars in the 30 range. Blood pressure 131/60 with heart rate in the 50s. Potassium 5.7, BUN 77, creatinine 4.8. Objective - Vital Signs Vital signs: Vital Signs Temp 97.5 F L 11/03/16 08:00 Pulse 70 11/03/16 12:25 Resp 16 11/03/16 12:00 BP 131/60 11/03/16 12:00 Pulse Ox 92 L 11/03/16 12:00 Intake & Output 11/02/16 11/03/16 11/03/16 18:59 06:59 18:59 Intake Total 330 Balance 330 Weight 104 kg 102 kg Intake: Oral 330 Other: Voiding Method Diaper Diaper Diaper Incontinent Incontinent Incontinent # Voids 1 1 # Bowel Movements 0 - Exam PHYSICAL EXAMINATION: HEENT: Head is atraumatic, normocephalic. Pupils equal, round. Neck is supple. There is elevated jugular venous pressure. HEART EXAMINATION: Heart S1 and S2 systolic murmur is heard. CHEST EXAMINATION: Lungs reveal diminished air entry bilaterally with scattered wheezing throughout. ABDOMEN: Soft, nontender. Bowel sounds are heard. No organomegaly noted. EXTREMITIES: One plus peripheral pulses left lower extremity with 1+ edema and evidence of ulcerations, patient has a right below the knee amputation with evidence of edema as well.. NEUROLOGIC patient is awake, mildly lethargic . . - Labs CBC & Chem 7: 11/03/16 05:59 11/03/16 05:59 Labs: Abnormal Lab Results - Last 24 Hours (Table) 11/02/16 11/03/16 11/03/16 Range/Units 16:45 05:59 05:59 RBC 3.00 L (4.30-5.90) m/uL Hgb 8.7 L (13.0-17.5) gm/dL Hct 30.4 L (39.0-53.0) % MCV 101.2 H (80.0-100.0) fL MCHC 28.6 L (31.0-37.0) g/dL Lymphocytes # 0.8 L (1.0-4.8) k/uL Sodium 148 H (137-145) mmol/L Potassium 5.7 H (3.5-5.1) mmol/L Chloride 111 H (98-107) mmol/L BUN 77 H (9-20) mg/dL Creatinine 4.82 H (0.66-1.25) mg/dL Glucose 131 H (74-99) mg/dL POC Glucose (mg/dL) 107 H (75-99) mg/dL 11/03/16 11/03/16 11/03/16 Range/Units 06:39 11:51 11:54 RBC (4.30-5.90) m/uL Hgb (13.0-17.5) gm/dL Hct (39.0-53.0) % MCV (80.0-100.0) fL MCHC (31.0-37.0) g/dL Lymphocytes # (1.0-4.8) k/uL Sodium (137-145) mmol/L Potassium (3.5-5.1) mmol/L Chloride (98-107) mmol/L BUN (9-20) mg/dL Creatinine (0.66-1.25) mg/dL Glucose (74-99) mg/dL POC Glucose (mg/dL) 129 H 47 L 38 L (75-99) mg/dL 11/03/16 Range/Units 12:23 RBC (4.30-5.90) m/uL Hgb (13.0-17.5) gm/dL Hct (39.0-53.0) % MCV (80.0-100.0) fL MCHC (31.0-37.0) g/dL Lymphocytes # (1.0-4.8) k/uL Sodium (137-145) mmol/L Potassium (3.5-5.1) mmol/L Chloride (98-107) mmol/L BUN (9-20) mg/dL Creatinine (0.66-1.25) mg/dL Glucose (74-99) mg/dL POC Glucose (mg/dL) 129 H (75-99) mg/dL Microbiology - Last 24 Hours (Table) 11/01/16 20:15 Urine Culture - Preliminary Urine,Voided Gram Neg Bacilli 11/01/16 18:58 Blood Culture - Preliminary Blood No Growth after 24 hours Assessment and Plan Plan: Assessment and plan #1 diastolic congestive heart failure acute on chronic most recent echocardiogram with Doppler study was performed in January of last year which revealed an ejection fraction of 50-55% #2 end-stage renal disease, dialysis catheter placed yesterday. #3 hypertension #4 diabetes #5 hyperlipidemia #6 peripheral vascular disease with right below the knee amputation Plan Patient will receive dialysis today, we will continue current dose of IV Lasix. DNP note has been reviewed, I agree with a documented findings and plan of care. Patient was seen and examined.
--- NOTE | 2016-11-03 14:21 | P.PN ---
Subjective Interval history: Patient is being followed up with, evaluated and examined for pulmonary services. Patient had ultrasound of the chest yesterday that revealed bilateral pleural effusions. The right side was noted to have a fluid pocket of 12.9 cm, and in the left side a fluid pocket of 2.2 cm. Also the patient underwent dialysis cath insertion and is scheduled to have dialysis today. Upon examination the patient is noted to have some confusion and lethargy, per the nursing staff of the patient's blood sugar was just in the 30s to 40s, however after treatment per hypoglycemia protocol the patient's blood sugar is back up over 100 and they are monitoring closely. The nursing staff is trying to get the patient to eat and drink however he is reluctant. He was also refusing his pills. Dr. Encarnacion at bedside encouraging the patient to consume food and drink and take his medications. The risk with not eating and hypoglycemia were discussed with the patient as well as the risk of not taking his medications. Objective - Vital Signs Vital signs: Vital Signs Temp 97.5 F L 11/03/16 08:00 Pulse 70 11/03/16 12:25 Resp 16 11/03/16 12:00 BP 131/60 11/03/16 12:00 Pulse Ox 92 L 11/03/16 12:00 Intake & Output 11/02/16 11/03/16 11/03/16 18:59 06:59 18:59 Intake Total 330 Balance 330 Weight 104 kg 102 kg Intake: Oral 330 Other: Voiding Method Diaper Diaper Diaper Incontinent Incontinent Incontinent # Voids 1 1 # Bowel Movements 0 - Exam GENERAL EXAM: Alert, active, comfortable in no apparent distress. HEAD: Normocephalic. EYES: Normal reaction of pupils, equal size. NOSE: Clear with pink turbinates. THROAT: No erythema or exudates. NECK: No masses, no JVD. CHEST: No chest wall deformity. LUNGS: Lungs are clear however diminished at the bases. Very few scattered rhonchi are appreciated CVS: S1 and S2 normal with no audible mumurs, regular rhythm. ABDOMEN: No hepatosplenomegaly, normal bowel sounds, no guarding or rigidity. SPINE: No scoliosis or deformity SKIN: No rashes CENTRAL NERVOUS SYSTEM: No focal deficits, tone is normal in all 4 extremities. - Labs CBC & Chem 7: 11/03/16 05:59 11/03/16 05:59 Labs: Abnormal Lab Results - Last 24 Hours (Table) 11/02/16 11/03/16 11/03/16 Range/Units 16:45 05:59 05:59 RBC 3.00 L (4.30-5.90) m/uL Hgb 8.7 L (13.0-17.5) gm/dL Hct 30.4 L (39.0-53.0) % MCV 101.2 H (80.0-100.0) fL MCHC 28.6 L (31.0-37.0) g/dL Lymphocytes # 0.8 L (1.0-4.8) k/uL Sodium 148 H (137-145) mmol/L Potassium 5.7 H (3.5-5.1) mmol/L Chloride 111 H (98-107) mmol/L BUN 77 H (9-20) mg/dL Creatinine 4.82 H (0.66-1.25) mg/dL Glucose 131 H (74-99) mg/dL POC Glucose (mg/dL) 107 H (75-99) mg/dL 11/03/16 11/03/16 11/03/16 Range/Units 06:39 11:51 11:54 RBC (4.30-5.90) m/uL Hgb (13.0-17.5) gm/dL Hct (39.0-53.0) % MCV (80.0-100.0) fL MCHC (31.0-37.0) g/dL Lymphocytes # (1.0-4.8) k/uL Sodium (137-145) mmol/L Potassium (3.5-5.1) mmol/L Chloride (98-107) mmol/L BUN (9-20) mg/dL Creatinine (0.66-1.25) mg/dL Glucose (74-99) mg/dL POC Glucose (mg/dL) 129 H 47 L 38 L (75-99) mg/dL 11/03/16 Range/Units 12:23 RBC (4.30-5.90) m/uL Hgb (13.0-17.5) gm/dL Hct (39.0-53.0) % MCV (80.0-100.0) fL MCHC (31.0-37.0) g/dL Lymphocytes # (1.0-4.8) k/uL Sodium (137-145) mmol/L Potassium (3.5-5.1) mmol/L Chloride (98-107) mmol/L BUN (9-20) mg/dL Creatinine (0.66-1.25) mg/dL Glucose (74-99) mg/dL POC Glucose (mg/dL) 129 H (75-99) mg/dL Microbiology - Last 24 Hours (Table) 11/01/16 20:15 Urine Culture - Preliminary Urine,Voided Gram Neg Bacilli 11/01/16 18:58 Blood Culture - Preliminary Blood No Growth after 24 hours - Imaging and Cardiology Chest x-ray: report reviewed, image reviewed Ultrasound of the chest reviewed Assessment and Plan Plan: Assessment #1 altered mental status and confusion related to hypoglycemia which has improved #2 bilateral pleural effusion right more so than the left, related to renal failure #3 acute on chronic kidney disease #4 anemia normocytic #5 left leg cellulitis #6 hypernatremia #7 troponin 0.089 of indeterminate origin #8 history of asthma and COPD #9 history of CHF with a chronic diastolic dysfunction, ejection fraction of 50- 55% #10 diabetes mellitus type 2 #11 peripheral vascular disease #12 right below the knee amputation #13 diabetic peripheral neuropathy #14 history of anxiety and depression We will continue with the current medication and symptomatic treatment at this time. Due to his hypoglycemia we will discontinue the Lantus at this time. We will not proceed with a thoracentesis at this time, we will wait until the patient has successfully had dialysis to see if some of the fluid decreased from that procedure. If the fluid remains we will then proceed with a thoracentesis, however if it does decrease in size we will make recommendations at that time. We will continue the patient on nebulizer treatments and oxygen to keep sats above 92%. Continue with GI and DVT prophylaxis. We will monitor labs and fluid balance. The patient has many comorbidities therefore prognosis is guarded. Cardiology and Nephrology is also following the patient. I performed an examination of the patient and discussed their management with the nurse practitioner. I have reviewed the nurse practitioner's note and agree with the documented findings and plan of care.
[2016-11-03 14:26] LABS: Glucose,Whole Blood 71 mg/dL (75-99)
--- NOTE | 2016-11-03 14:56 | CDI ---
In responding to this query, please exercise your independent professional judgment. The [facility] Coding Staff and Clinical Documentation Specialists appreciate your assistance in clarifying documentation, maintaining compliance with coding guidelines, accurately documenting patients condition and capturing severity of illness. The fact that a question is asked does not imply that any particular answer is desired or expected. Communication forms are a method of clarifying documentation and are not made part of the Legal Health Record. Thank you in advance for your clarification. Last Revision, November 2015 Airam Pedersen [address] [facility] [address] Documentation Clarification Form Date: 11/03/2016 2:36:00 PM From: Cuca Maria Admit Date: 11/01/2016 3:46:00 PM Patient Name: Edil Marroquin Visit Number: [id number] Discharge Date: Dr. Robert Encarnacion/Kadie Hayden [facility] Asthma is documented in the H&P and your consult. Patient history/risk factors: COPD, Asthma, Diastolic heart failure, Diabetic peripheral neuropathy Diabetes Mellitus type 2, Stage V Kidney disease Clinical Indicators: Shortness of breath and generalized weakness. CXR: bilateral pleural effusion and pulmonary congestion Vital Signs: Respiratory: Positive for shortness of breath, cough and congestion Lungs: Lungs are clear however diminished at the bases. Very few scattered rhonchi appreciated Treatment: Nebulizer treatments Oxygen to keep sat above 92 % Monitor labs and fluid balance Other Treatment: In your professional opinion, can you please further specify Asthma if known? With Acute Exacerbation Status asthmaticus Acute lower respiratory infection COPD (specify with or without exacerbation) Chronic obstructive bronchitis Other, please specify Unable to determine Severity Mild intermittent Mild persistent Moderate persistent Severe persistent Other, please specify Unable to determine Form or Type Cough variant Childhood Exercise induced bronchospasm Extrinsic allergic Idiosyncratic Intrinsic nonallergic Late-onset Mixed Other, please specify Unable to determine Please document in your progress note in order to capture severity of illness and risk of mortality. Include clinical findings that support your diagnosis. FYI: Press F11 to launch patient chart. Place X here if this finding has no clinical significance, is not applicable or if you are not able to provide any additional documentation. MTDD
[2016-11-03] MEDS: traMADol 50 MG TAB PO SCH (16:37)
[2016-11-03] MEDS: SODIUM CHLORIDE 0.9% 1,000 ML IV SCH (17:07)
[2016-11-03 17:26] LABS: Glucose,Whole Blood 83 mg/dL (75-99)
--- NOTE | 2016-11-03 18:18 | PN ---
The patient is seen for follow-up for chronic kidney disease Stage V with progressive renal failure. At this time he agreed for renal replacement therapy and has had an IJ Perm-A-Cath placed. We will dialyze him today for his first treatment. He will be dialyzed again tomorrow. He was admitted to the hospital with weakness, altered mentation. He also had shortness of breath from volume overload and left lower extremity cellulitis and wound infection. On examination, blood pressure is 131/60, heart rate 72 per minute. He is afebrile. Examination of the heart S1 and S2. Examination of the lungs: Bilateral breath sounds are heard. Decreased breath sounds in bases. ABDOMEN: Soft, obese, nontender. Examination of lower extremities shows right BKA, left lower extremity is currently wrapped. Chronic skin changes are noted with erythema noted in the leg as well. Labs show sodium of 148, potassium 5.7. Hemoglobin 8.7 g/dL. ASSESSMENT: 1. Chronic kidney disease now end-stage renal disease; started dialysis. Patient will receive his first treatment today. He will be dialyzed again tomorrow. 2. Anemia with evidence of iron deficiency, status post IV iron, maintained on Aranesp. 3. Hypertension, partly volume sensitive. Blood pressure fairly well controlled. 4. Left lower extremity cellulitis maintained on antibiotics. 5. Chronic diastolic heart failure and volume overloaded with ejection fraction 50% to 60%. 6. Mild hyperkalemia associated with advanced renal failure. PLAN: Hemodialysis today as well as tomorrow. Continue Aranesp, IV iron if patient did not receive recently.
[2016-11-03] MEDS: amLODIPine 5 MG TAB PO SCH (19:40)
--- NOTE | 2016-11-03 21:57 | PN ---
DATE OF SERVICE: 11/03/2016 This 71-year-old gentleman was admitted with acute on chronic kidney disease and bilateral pleural effusion. Nephrology is planning hemodialysis at this time. No chest pain. No palpitation. No fever. On exam, alert and oriented x2. Pulse 72, blood pressure 131/60, respiration 16, temperature normal, pulse ox 92% on nasal cannula. HEENT: Conjunctivae normal. Oral mucosa moist. NECK: No jugular venous distention. No carotid bruit. No lymph node enlargement. CARDIOVASCULAR SYSTEM: S1, S2 muffled. RESPIRATORY SYSTEM: Breath sounds diminished at the bases. A few scattered rhonchi. ABDOMEN: Soft, non-tender. LEGS: No edema. No swelling. NERVOUS SYSTEM: No focal deficit. LABS: WBC 4.5, hemoglobin 8.7. Sodium 148, potassium 5.7. Creatinine 4.82. Accu-Cheks noted. ASSESSMENT: 1. Acute on chronic kidney disease with prerenal factors. 2. Chronic kidney disease, stage V. 3. Planned hemodialysis. 4. Perm-A-Cath on the right chest. 5. Bilateral pleural effusion, right more than the left. 6. Anemia, normocytic. 7. Hypoglycemia with diminished oral intake. 8. Left leg cellulitis. 9. Hypernatremia. 10. Troponin 0.08, indeterminate origin. 11. History of congestive heart failure with chronic diastolic dysfunction, ejection fraction 50% to 60%. 12. History of asthma, chronic obstructive pulmonary disease. 13. Diabetes mellitus, type 2. 14. Essential hypertension. 15. Hyperlipidemia. 16. Peripheral vascular disease. 17. Right below-knee amputation. 18. Diabetic peripheral neuropathy. 19. Degenerative joint disease. 20. History of anxiety, depression not otherwise specified. 21. Congestive heart failure with chronic diastolic dysfunction, ejection fraction 50% to 60%. 22. FULL CODE. RECOMMENDATIONS AND DISCUSSION: I recommend to continue with the current medications, continue with the monitoring, symptomatic treatment. Continue with hemodialysis. Repeat electrolytes. Otherwise, encourage p.o. food. Guarded prognosis because of multiple complex medical issues. Further recommendations to follow.
[2016-11-04] MEDS: hydrALAZINE HCL 50 MG TAB PO SCH ×4 (02:01→22:07)
[2016-11-04] MEDS: INSULIN LISPRO (humaLOG) 300 UNIT/3 ML VIAL SQ SCH ×8 (02:01→20:55)
[2016-11-04] MEDS: traMADol 50 MG TAB PO SCH ×3 (02:17→20:51)
[2016-11-04] MEDS: MINERAL OIL-WHITE PETROLATUM 120 GM JAR TOPICAL SCH ×2 (02:18→20:55)
[2016-11-04] MEDS: DULoxetine HCL 20 MG CAPSULE.DR PO SCH ×3 (02:18→20:54)
[2016-11-04] MEDS: SODIUM BICARBONATE TAB 650 MG TAB PO SCH ×3 (02:18→20:54)
[2016-11-04] MEDS: CEPHALEXIN 500 MG CAP PO SCH ×3 (02:18→20:54)
[2016-11-04] MEDS: HEPARIN SODIUM,PORCINE 5,000 UNIT/ML 1 ML VIAL SQ SCH ×3 (02:18→20:54)
[2016-11-04] MEDS: MELATONIN 3 MG TABLET PO SCH ×2 (02:18→20:54)
[2016-11-04] MEDS: FUROSEMIDE 10 MG/ML 10 ML VIAL IV SCH ×3 (02:18→20:52)
[2016-11-04] MEDS: MONTELUKAST 10 MG TAB PO SCH ×2 (02:18→20:54)
[2016-11-04] MEDS: diphenhydrAMINE 50 MG/ML 1 ML VIAL IVP PRN (02:19)
[2016-11-04 05:51] LABS: Glucose,Whole Blood 49 mg/dL (75-99)
[2016-11-04] MEDS ORDERED: DEXTROSE 50%-WATER 50 ML SYRINGE IVP ONE (05:51)
[2016-11-04 06:07] LABS: Glucose,Whole Blood 141 mg/dL (75-99)
--- NOTE | 2016-11-04 07:15 | PN ---
DATE OF SERVICE: 11/03/2016 Reason for follow-up is left leg wound and cellulitis. INTERVAL HISTORY: The patient is afebrile. He did get his PermCath this morning. Patient tolerated the procedure. Denies significant chest pain or cough. No abdominal pain or any pain in the leg area. On examination, blood pressure is 139/53 with a pulse of 80, temperature 98. He is 95% on 3-liters nasal cannula. General description is an elderly male, lying in bed in no distress. RESPIRATORY SYSTEM: Unlabored breathing. Clear to auscultation anteriorly. HEART: S1, S2. Regular rate and rhythm. ABDOMEN: Soft, no tenderness. LEFT LEG: Overall swelling and redness have improved. No drainage. LABS: Hemoglobin 8.7, white count 4.5. DIAGNOSTIC IMPRESSION AND PLAN: Patient with left leg wounds with cellulitis. Patient to continue with Aquacel Silver dressing and oral Keflex. Re-evaluate the patient tomorrow. Continue supportive care.
[2016-11-04 07:28] LABS: Glucose,Whole Blood 91 mg/dL (75-99)
[2016-11-04 07:51] LABS: Basophils % (A) 1 %; CH 28.3; CHCM 29.4; Eosinophils # (A) 0.3 k/uL (0-0.7); Eosinophils % (A) 8 %; HCT 29.6 % (39.0-53.0); HDW 2.77; HGB 8.9 gm/dL (13.0-17.5); Hypochromasia Marked; Luc # (Auto) 0.13; Luc % (Auto) 3; Lymphocytes # (A) 0.9 k/uL (1.0-4.8); Lymphocytes % (A) 22 %; MCH 29.2 pg (25.0-35.0); MCHC 30.1 g/dL (31.0-37.0); MCV 96.9 fL (80.0-100.0); Mean Platelet Volume 7.2; Monocytes # (A) 0.3 k/uL (0-1.0); Monocytes % (A) 7 %; Neutrophils # (A) 2.4 k/uL (1.3-7.7); Neutrophils % (A) 59 %; RBC 3.06 m/uL (4.30-5.90); WBC (Perox) 4.15
[2016-11-04] MEDS: CARVEDILOL 12.5 MG TAB PO SCH (07:51)
[2016-11-04] MEDS: PANTOPRAZOLE 40 MG TABLET PO SCH (07:52)
[2016-11-04] MEDS: ASPIRIN 325 MG TAB PO SCH (07:53)
[2016-11-04] MEDS: ALBUTEROL NEBULIZED 2.5 MG/3 ML INHALATION SCH ×2 (08:08→08:09)
[2016-11-04 08:18] LABS: Calcium 7.3 mg/dL (8.4-10.2)
[2016-11-04 08:24] LABS: Potassium 4.9 mmol/L (3.5-5.1)
[2016-11-04] MEDS: BUDESONIDE 0.5 MG/2 ML NEBU INHALATION SCH ×2 (09:08→20:13)
[2016-11-04] MEDS: IPRATROPIUM-ALBUTEROL 3 ML NEB INHALATION SCH ×4 (09:08→20:13)
--- NOTE | 2016-11-04 10:20 | P.PN ---
Subjective Interval history since last pulmonary progress note: Patient is being followed up with, evaluated and examined for pulmonary services. Patient had ultrasound of the chest that revealed bilateral pleural effusions. The right side was noted to have a fluid pocket of 12.9 cm, and in the left side a fluid pocket of 2.2 cm. Also the patient underwent dialysis cath insertion and received dialysis yesterday 1.5 L of fluid was pulled off. Per the nursing staff the goal was to pull off 2 L of fluid however they had to stop at 1-1/2 L due to low blood pressures. His blood pressures stabilized quickly and has been stable all day as well. The patient also had a hypoglycemic episode again this morning, the hypoglycemia protocol was initiated and the patients blood sugar normalized. The nursing staff is trying to get the patient to eat and drink however he is still reluctant. Objective - Vital Signs Vital signs: Vital Signs Temp 98.4 F 11/04/16 08:40 Pulse 76 11/04/16 09:20 Resp 20 11/04/16 08:40 BP 150/65 11/04/16 08:40 Pulse Ox 91 L 11/04/16 09:11 Intake & Output 11/03/16 11/04/16 11/04/16 18:59 06:59 18:59 Intake Total 200 100 Balance 200 100 Weight 103.5 kg 103.5 kg Intake: Oral 200 100 Other: Voiding Method Diaper Diaper Diaper Incontinent Incontinent Incontinent # Voids 2 2 # Bowel Movements 0 - Exam GENERAL EXAM: Alert, active, comfortable in no apparent distress. HEAD: Normocephalic. EYES: Normal reaction of pupils, equal size. NOSE: Clear with pink turbinates. THROAT: No erythema or exudates. NECK: No masses, no JVD. CHEST: No chest wall deformity. LUNGS: Lungs are clear however diminished at the bases. Very few scattered rhonchi are appreciated CVS: S1 and S2 normal with no audible mumurs, regular rhythm. ABDOMEN: No hepatosplenomegaly, normal bowel sounds, no guarding or rigidity. SPINE: No scoliosis or deformity SKIN: No rashes CENTRAL NERVOUS SYSTEM: No focal deficits, tone is normal in all 4 extremities. - Labs CBC & Chem 7: 11/04/16 07:42 11/04/16 07:42 Labs: Abnormal Lab Results - Last 24 Hours (Table) 02/11/03/16 11/03/16 Range/Units 11:51 11:54 12:23 RBC (4.30-5.90) m/uL Hgb (13.0-17.5) gm/dL Hct (39.0-53.0) % MCHC (31.0-37.0) g/dL Lymphocytes # (1.0-4.8) k/uL Sodium (137-145) mmol/L Chloride (98-107) mmol/L BUN (9-20) mg/dL Creatinine (0.66-1.25) mg/dL POC Glucose (mg/dL) 47 L 38 L 129 H (75-99) mg/dL Calcium (8.4-10.2) mg/dL 11/03/16 11/04/16 11/04/16 Range/Units 14:15 05:49 06:06 RBC (4.30-5.90) m/uL Hgb (13.0-17.5) gm/dL Hct (39.0-53.0) % MCHC (31.0-37.0) g/dL Lymphocytes # (1.0-4.8) k/uL Sodium (137-145) mmol/L Chloride (98-107) mmol/L BUN (9-20) mg/dL Creatinine (0.66-1.25) mg/dL POC Glucose (mg/dL) 71 L 49 L 141 H (75-99) mg/dL Calcium (8.4-10.2) mg/dL 11/04/16 11/04/16 Range/Units 07:42 07:42 RBC 3.06 L (4.30-5.90) m/uL Hgb 8.9 L (13.0-17.5) gm/dL Hct 29.6 L (39.0-53.0) % MCHC 30.1 L (31.0-37.0) g/dL Lymphocytes # 0.9 L (1.0-4.8) k/uL Sodium 146 H (137-145) mmol/L Chloride 108 H (98-107) mmol/L BUN 64 H (9-20) mg/dL Creatinine 3.70 H (0.66-1.25) mg/dL POC Glucose (mg/dL) (75-99) mg/dL Calcium 7.3 L (8.4-10.2) mg/dL Microbiology - Last 24 Hours (Table) 11/01/16 18:58 Blood Culture - Preliminary Blood No Growth after 48 hours Assessment and Plan Plan: Assessment #1 altered mental status and confusion related to hypoglycemia which has improved #2 bilateral pleural effusion right more so than the left, related to renal failure #3 acute on chronic kidney disease #4 anemia normocytic #5 left leg cellulitis #6 hypernatremia #7 troponin 0.089 of indeterminate origin #8 history of chronic persistant asthma and COPD #9 history of CHF with a chronic diastolic dysfunction, ejection fraction of 50- 55% #10 diabetes mellitus type 2 #11 peripheral vascular disease #12 right below the knee amputation #13 diabetic peripheral neuropathy #14 history of anxiety and depression We will continue with the current medication and symptomatic treatment at this time. We will still hold on the thoracentesis until we see the patient responds to the dialysis. We will continue the patient on nebulizer treatments and oxygen to keep sats above 92%. Continue with GI and DVT prophylaxis. We will monitor labs and fluid balance. The patient has many comorbidities therefore prognosis is guarded. Cardiology and Nephrology is also following the patient. I performed an examination of the patient and discussed their management with the nurse practitioner. I have reviewed the nurse practitioner's note and agree with the documented findings and plan of care.
[2016-11-04 11:29] LABS: Glucose,Whole Blood 127 mg/dL (75-99)
--- NOTE | 2016-11-04 12:24 | PN ---
Patient is admitted with hypoxic respiratory failure secondary to bilateral pleural effusion, secondary to either diastolic dysfunction, heart failure or pulmonary edema secondary to kidney disease, endstage renal disease. Patient was initiated on hemodialysis. Patient will undergo hemodialysis today. Patient is still short of breath and on 3 L of oxygen today. Patient apparently does not have any oxygen home. REVIEW OF SYSTEMS: CARDIOVASCULAR: No chest pain, no orthopnea, no PND, no palpitations. PULMONARY: As described in HPI. GASTROINTESTINAL: No diarrhea, nausea or vomiting. No abdominal pain. Normoactive bowel sounds. NEUROLOGIC: No headaches, no weakness, no numbness. Medications were reviewed. PHYSICAL EXAMINATION: Temperature 98.4, pulse of 74, respiratory rate of 20, blood pressure 150/65. Saturating at 91% on 2 L of O2 by nasal cannula. GENERAL: The patient is alert and oriented x3, not in any acute distress. Well developed, well nourished. RESPIRATORY: Mildly decreased breath sounds in bilateral lower lung ray, posteriorly mostly. EXTREMITIES: Patient has multiple ulcers, wounds and cellulitis of the left lower limb and patient has an amputation procedure in that limb. HEENT: Pupils are round and equally reacting to light. EOMI. No scleral icterus. No conjunctival pallor. Normocephalic, atraumatic. No pharyngeal erythema. No thyromegaly. CARDIOVASCULAR: S1 and S2 present. No murmurs, rubs, or gallops. ABDOMEN: Soft, nontender, nondistended, normoactive bowel sounds. No palpable organomegaly. MUSCULOSKELETAL: No joint swelling or deformity. NEUROLOGICAL: Gross neurological examination did not reveal any focal deficits. SKIN: No rashes. LABORATORY DATA: CBC, CMP are abnormal for elevated BUN and creatinine of 64 and 3.70 and patient is end-stage renal disease. Patient's hemoglobin fairly stable at 8.9. ASSESSMENT AND PLAN: 1. Acute on chronic kidney disease. Patient may have a component of prerenal azotemia. Patient has an endstage renal disease, hemodialysis-dependent. Patient is also getting Lasix, is able to make a little bit of urine which will be continued and hemodialysis will be continued and management as per Nephrology regarding hemodialysis. 2. Bilateral pleural effusion secondary to chronic diastolic dysfunction with acute exacerbation and there is a possibility that this is secondary to renal dysfunction. 3. Normocytic anemia, anemia of chronic kidney disease for which patient will receive iron first down the line. If needed, patient will be started on colony stimulating factor ( ). Management as per Nephrology. 4. Hyperglycemia. 5. Metabolic bone disease. 6. Left leg cellulitis. 7. Elevated troponin secondary to endstage renal disease. 8. Type 2 diabetes mellitus. 9. Diabetic nephropathy. 10. Essential hypertension. 11. Hyperlipidemia. 12. Peripheral vascular disease. 13. Left below-knee amputation and diabetic peripheral neuropathy. PLAN: As mentioned above.
[2016-11-04] MEDS: amLODIPine 5 MG TAB PO SCH (12:35)
[2016-11-04] MEDS: MULTIVITAMINS, THERA 1 EACH TAB PO SCH (12:36)
[2016-11-04] MEDS: FOLIC ACID 1 MG TAB PO SCH (12:36)
[2016-11-04] MEDS: THIAMINE 100 MG TAB PO SCH (12:37)
--- NOTE | 2016-11-04 15:24 | PN ---
Patient is seen for follow-up for end-stage renal disease. He had his first treatment of dialysis yesterday, we were able to get about 1800 mL. Patient states he is feeling slightly better. On examination, blood pressure is 150/65, heart rate 74 per minute. He is afebrile. Examination of the heart S1 and S2. Examination of the lungs: Bilateral breath sounds are heard. Decreased breath sounds in bases. Basal crackles are heard as well. Abdomen is soft, nontender. Examination of lower extremities shows right BKA, left leg is currently dressed, but there has been significant edema and erythema previously. Labs show sodium 146, potassium 4.9. Hemoglobin 8.9 g/dL. ASSESSMENT: 1. End-stage renal disease, currently on hemodialysis. Patient was dialyzed yesterday for his first treatment. He will receive his second treatment today and we will dialyze him again tomorrow. 2. Anemia, maintained on Aranesp. 3. Hypertension, better controlled. 4. Left lower extremity cellulitis, maintained on antibiotics. 5. Chronic diastolic heart failure volume overload with ejection fraction of 50% to 60%. PLAN: Hemodialysis today as well as in a.m. continue with Lasix in the meantime, will try to increase UF as tolerated. Outpatient discharge planning is looking [facility], [facility] [place].
[2016-11-04 17:16] LABS: Glucose,Whole Blood 127 mg/dL (75-99)
[2016-11-04 20:54] LABS: Glucose,Whole Blood 129 mg/dL (75-99)
[2016-11-05] MEDS: SODIUM CHLORIDE 0.9% 1,000 ML IV SCH ×2 (01:38→12:01)
[2016-11-05 04:16] VITALS: RESP 20
[2016-11-05 07:16] LABS: Glucose,Whole Blood 126 mg/dL (75-99)
[2016-11-05] MEDS: IPRATROPIUM-ALBUTEROL 3 ML NEB INHALATION SCH ×2 (07:19→10:52)
[2016-11-05] MEDS: BUDESONIDE 0.5 MG/2 ML NEBU INHALATION SCH (07:19)
[2016-11-05] MEDS: INSULIN LISPRO (humaLOG) 300 UNIT/3 ML VIAL SQ SCH ×4 (07:40→11:59)
--- NOTE | 2016-11-05 08:12 | PN ---
DATE OF SERVICE: 11/04/2016 REASON FOR FOLLOWUP: 1. Left leg wound and cellulitis. 2. Positive urine culture. INTERVAL HISTORY: The patient is afebrile. Has been breathing comfortably. Denies significant chest pain, shortness of breath or cough. No abdominal pain or any pain in the left leg area. On examination, blood pressure is 160/74 with a pulse of 73, temperature 97.8. He is 92% on 3 L nasal cannula. General description is an elderly male, lying in bed in no distress. RESPIRATORY SYSTEM: Unlabored breathing. Clear to auscultation anteriorly. HEART: S1, S2. Regular rate and rhythm. ABDOMEN: Soft, no tenderness. Left leg overall swelling and redness has improved. LABS: Hemoglobin is 8.9, white count is 4.0 with a BUN of 64 and creatinine 3.70. Urine did show Proteus, corresponding UA was negative and the culture colony count was 10,000 to 49,000. DIAGNOSTIC IMPRESSION AND PLAN: 1. Patient with left leg wound with cellulitis , Osmany wrap along with oral Keflex. 2. Positive urine culture, more likely contamination. The corresponding UA was negative. No need for antibiotic therapy for the same. MTDD
[2016-11-05] MEDS: HEPARIN SODIUM,PORCINE 5,000 UNIT/ML 1 ML VIAL SQ SCH (08:17)
[2016-11-05] MEDS: hydrALAZINE HCL 50 MG TAB PO SCH (08:17)
[2016-11-05] MEDS: ASPIRIN 325 MG TAB PO SCH (08:17)
[2016-11-05] MEDS: CEPHALEXIN 500 MG CAP PO SCH (08:17)
[2016-11-05] MEDS: CARVEDILOL 12.5 MG TAB PO SCH (08:18)
[2016-11-05] MEDS: FUROSEMIDE 10 MG/ML 10 ML VIAL IV SCH (08:18)
[2016-11-05] MEDS: PANTOPRAZOLE 40 MG TABLET PO SCH (08:18)
[2016-11-05] MEDS: DULoxetine HCL 20 MG CAPSULE.DR PO SCH (08:19)
[2016-11-05] MEDS: amLODIPine 5 MG TAB PO SCH (08:19)
[2016-11-05] MEDS: SODIUM BICARBONATE TAB 650 MG TAB PO SCH (08:20)
[2016-11-05] MEDS: traMADol 50 MG TAB PO SCH (08:20)
[2016-11-05 08:57] LABS: Potassium 4.6 mmol/L (3.5-5.1)
[2016-11-05 08:58] LABS: Basophils # (A) 0.1 k/uL (0-0.2); Basophils % (A) 1 %; CH 28.7; CHCM 30.1; Eosinophils # (A) 0.4 k/uL (0-0.7); Eosinophils % (A) 9 %; HCT 29.1 % (39.0-53.0); HDW 2.82; Hypochromasia Marked; Luc # (Auto) 0.15; Luc % (Auto) 4; Lymphocytes # (A) 0.9 k/uL (1.0-4.8); Lymphocytes % (A) 23 %; MCH 29.8 pg (25.0-35.0); MCHC 31.1 g/dL (31.0-37.0); MCV 95.9 fL (80.0-100.0); Mean Platelet Volume 8.4; Monocytes # (A) 0.3 k/uL (0-1.0); Monocytes % (A) 8 %; Neutrophils # (A) 2.2 k/uL (1.3-7.7); Neutrophils % (A) 56 %; RBC 3.03 m/uL (4.30-5.90); RDW 14.9 % (11.5-15.5); WBC (Perox) 4.02
--- NOTE | 2016-11-05 10:12 | P.PN ---
Subjective Interval history since last pulmonary progress note: Patient is being followed up with, evaluated and examined for pulmonary services. Patient had ultrasound of the chest that revealed bilateral pleural effusions. The right side was noted to have a fluid pocket of 12.9 cm, and in the left side a fluid pocket of 2.2 cm. Also the patient underwent dialysis cath insertion and received dialysis on 11/03/2016 1.5 L of fluid was pulled off yesterday on 11/04/2016 1 L of fluid was pulled off. The patient will undergo another round of dialysis treatment today. The patient's blood sugars have stabilized and he has had no more episodes of hypoglycemia. The patient is doing better with consuming foods and fluids. Objective - Vital Signs Vital signs: Vital Signs Temp 98.6 F 11/05/16 08:05 Pulse 80 11/05/16 08:05 Resp 20 11/05/16 08:05 BP 178/86 11/05/16 08:05 Pulse Ox 92 L 11/05/16 08:05 Intake & Output 11/04/16 11/05/16 11/05/16 18:59 06:59 18:59 Intake Total 250 120 Output Total 50 300 Balance 200 120 -300 Weight 103.5 kg Intake: IV 0 Levofloxacin 500Mg-D5w 0 Pmx 500 mg In Dextrose/ Water 1 100ml.bag @ 100 mls/hr IVPB Q24H [facility] Rx#: [id number] Oral 250 120 Output: Urine 50 300 Other: Voiding Method Diaper Diaper Diaper Incontinent Incontinent Incontinent # Voids 1 # Bowel Movements 0 0 - Exam GENERAL EXAM: Alert, active, comfortable in no apparent distress. HEAD: Normocephalic. EYES: Normal reaction of pupils, equal size. NOSE: Clear with pink turbinates. THROAT: No erythema or exudates. NECK: No masses, no JVD. CHEST: No chest wall deformity. LUNGS: Lungs are clear however diminished at the bases. Very few scattered rhonchi are appreciated CVS: S1 and S2 normal with no audible mumurs, regular rhythm. ABDOMEN: No hepatosplenomegaly, normal bowel sounds, no guarding or rigidity. SPINE: No scoliosis or deformity SKIN: No rashes CENTRAL NERVOUS SYSTEM: No focal deficits, tone is normal in all 4 extremities. - Labs CBC & Chem 7: 11/05/16 08:01 11/05/16 08:01 Labs: Abnormal Lab Results - Last 24 Hours (Table) 11/04/16 11/04/16 11/04/16 Range/Units 11:13 17:14 20:51 RBC (4.30-5.90) m/uL Hgb (13.0-17.5) gm/dL Hct (39.0-53.0) % Lymphocytes # (1.0-4.8) k/uL BUN (9-20) mg/dL Creatinine (0.66-1.25) mg/dL Glucose (74-99) mg/dL POC Glucose (mg/dL) 127 H 127 H 129 H (75-99) mg/dL Calcium (8.4-10.2) mg/dL 11/05/16 11/05/16 11/05/16 Range/Units 07:14 08:01 08:01 RBC 3.03 L (4.30-5.90) m/uL Hgb 9.0 L (13.0-17.5) gm/dL Hct 29.1 L (39.0-53.0) % Lymphocytes # 0.9 L (1.0-4.8) k/uL BUN 36 H (9-20) mg/dL Creatinine 2.70 H (0.66-1.25) mg/dL Glucose 137 H (74-99) mg/dL POC Glucose (mg/dL) 126 H (75-99) mg/dL Calcium 8.0 L (8.4-10.2) mg/dL Microbiology - Last 24 Hours (Table) 11/01/16 18:58 Blood Culture - Preliminary Blood No Growth after 72 hours 11/01/16 20:15 Urine Culture - Final Urine,Voided Proteus penneri Assessment and Plan Plan: Assessment #1 altered mental status and confusion related to hypoglycemia which has improved #2 bilateral pleural effusion right more so than the left, related to renal failure #3 acute on chronic kidney disease #4 anemia normocytic #5 left leg cellulitis #6 hypernatremia #7 troponin 0.089 of indeterminate origin #8 history of chronic persistant asthma and COPD #9 history of CHF with a chronic diastolic dysfunction, ejection fraction of 50- 55% #10 diabetes mellitus type 2 #11 peripheral vascular disease #12 right below the knee amputation #13 diabetic peripheral neuropathy #14 history of anxiety and depression We will continue with the current medication and symptomatic treatment at this time. We will still hold on the thoracentesis until we see the patient responds to the dialysis. We will continue the patient on nebulizer treatments and oxygen to keep sats above 92%. Continue with GI and DVT prophylaxis. We will monitor labs and fluid balance. A repeat chest X ray has been ordered for today. The patient has many comorbidities therefore prognosis is guarded. Cardiology and Nephrology is also following the patient. I performed an examination of the patient and discussed their management with the nurse practitioner. I have reviewed the nurse practitioner's note and agree with the documented findings and plan of care.
[2016-11-05 11:10] LABS: Glucose,Whole Blood 136 mg/dL (75-99)
[2016-11-05] MEDS: diphenhydrAMINE 50 MG/ML 1 ML VIAL IVP PRN (11:11)
[2016-11-05] MEDS: THIAMINE 100 MG TAB PO SCH (12:00)
[2016-11-05] MEDS: MULTIVITAMINS, THERA 1 EACH TAB PO SCH (12:00)
[2016-11-05] MEDS: FOLIC ACID 1 MG TAB PO SCH (12:01)
--- NOTE | 2016-11-05 13:28 | PN ---
Patient is seen for followup for end-stage renal disease. Today, we will be his third treatment of dialysis. He is currently doing much better with improved mentation and volume status. Patient also states that he did eat a little bit more. On examination, blood pressure is 178/86, heart rate of 80 per minute. He is afebrile. EXAMINATION OF THE HEART: S1 and S2. EXAMINATION OF THE LUNGS: Bilateral breath sounds are heard. ABDOMEN: Soft, nontender. Examination of lower extremities shows a right BKA. Left lower extremity is currently wrapped. It had been significantly edematous and erythematous. [employer] exam is grossly intact. Labs show sodium 140, potassium 4.6. Hemoglobin 9.0 g/dL. ASSESSMENT: 1. End-stage renal disease, maintained on dialysis. Patient will be getting discharged to [facility] where he will continue with his dialysis at the [place] ( ) unit. 2. Left lower extremity cellulitis, maintained on antibiotics. 3. Anemia of chronic disease. 4. Hypertension. It had been better controlled. Blood pressure is again high today, expect further improvement after dialysis. 5. Chronic diastolic heart failure and volume overload with ejection fraction 50% to 60%. PLAN: Hemodialysis today. The patient is stable for discharge from nephrology standpoint if cleared by ID.
--- NOTE | 2016-11-05 13:31 | XR ---
EXAMINATION TYPE: XR chest 1V portable DATE OF EXAM: 11/05/2016 1:21 PM Comparison: 11/02/2016 Clinical History: 71 year-old male shortness of Breath Findings: Heart is mildly enlarged. Aortic descent is obscured. Pulmonary vasculature appears cephalized. There is some improving aeration in the upper to mid lungs though a persistent moderate right and small to moderate left pleural effusions with adjacent opacities. Right-sided double-lumen hemodialysis catheter with tips in the upper right atrium. Impression: Findings suggest improving CHF/pulmonary edema though with persistent moderate right and [id number] erate left pleural effusions with adjacent atelectasis and/or consolidation.
[2016-11-05] MEDS ORDERED: HEPARIN SODIUM,PORCINE 5,000 UNIT/ML 1 ML VIAL ONE (14:00)
--- NOTE | 2016-11-05 14:04 | DS ---
This is discharge summary. Patient is admitted with acute hypoxic respiratory failure and bilateral pleural effusion secondary to end-stage renal disease hemodialysis dependent, diastolic dysfunction. Patient is undergoing chest x-ray possibility of thoracocentesis. After the thoracocentesis, patient probably will be discharged and patient will need to undergo hemodialysis again today as well. Patient will taper down oxygen and hopefully if he undergoes hemodialysis, he will not require oxygen at home. Patient is also being evaluated for subacute rehabilitation although patient is feeling well. REVIEW OF SYSTEMS: CARDIOVASCULAR: No chest pain, no orthopnea, no PND, no palpitations. RESPIRATORY; As described in HPI. GASTROINTESTINAL: No diarrhea, nausea or vomiting. No abdominal pain. Normoactive bowel sounds. NEUROLOGIC: No headaches, no weakness, no numbness. Medications were reviewed. PHYSICAL EXAMINATION: Temperature 98.6, pulse of 80, respiratory rate of 20, blood pressure 178/86, saturating at 92% on 3 L of O2 by nasal cannula. GENERAL: The patient is alert and oriented x3, not in any acute distress. Well developed, well nourished. RESPIRATORY: Mildly decreased breath sounds in bilateral lower lung ray, posteriorly mostly. EXTREMITIES: Patient has multiple ulcers, wounds and cellulitis of the left lower limb and patient has an amputation procedure in that limb. HEENT: Pupils are round and equally reacting to light. EOMI. No scleral icterus. No conjunctival pallor. Normocephalic, atraumatic. No pharyngeal erythema. No thyromegaly. CARDIOVASCULAR: S1 and S2 present. No murmurs, rubs, or gallops. ABDOMEN: Soft, nontender, nondistended, normoactive bowel sounds. No palpable organomegaly. MUSCULOSKELETAL: No joint swelling or deformity. NEUROLOGICAL: Gross neurological examination did not reveal any focal deficits. SKIN: No rashes. ( ) LABORATORY DATA: Significant for improvement in BUN and creatinine to 36 and 2.70. Creatinine has come down from 3.70. ASSESSMENT AND PLAN: 1. Acute on chronic kidney disease. Patient is end-stage renal disease. Patient also had prerenal azotemia from heart failure. Patient is being continued on Lasix and patient is also being continued on hemodialysis. 2. Bilateral pleural effusion, left more than right. Patient may undergo therapeutic thoracocentesis. 3. Acute hypoxic respiratory failure secondary to bilateral pleural effusion which is again secondary to mostly from end-stage renal disease. 4. Normocytic anemia. 5. Metabolic bone disease. 6. Type 2 diabetes mellitus, fairly controlled blood sugars with present regimen. 7. Elevated troponin secondary to end-stage renal disease. 8. Diabetic nephropathy. 9. Essential hypertension. 10. Cellulitis of the left lower limb and below-knee amputation of the right lower limb. 11. Peripheral vascular disease. 12. Hyperlipidemia. Patient is being continued on antibiotics in the form of ceftriaxone. Patient probably will be discharged on Keflex upon discharge. MTDD
[2016-11-05] MEDS ORDERED: LEVOFLOXACIN 250MG-D5W PMX 250 MG in DEXTROSE/WATER 1 50ML.BAG IVPB SCH (15:00)
[2016-11-05 15:35] VITALS: BP 171/73; PULSE 65; TEMP 96.2
--- NOTE | 2016-11-05 17:18 | PN ---
DATE OF SERVICE: 11/05/2016 Reason for follow-up is left lower extremity wound and cellulitis. INTERVAL HISTORY: The patient is afebrile. He has been breathing comfortably. Denies any significant chest pain, no shortness of breath, cough. No abdominal pain or any pain in his left leg area. On examination, blood pressure is 151/73 with a pulse of 65, temperature 96.2. He is 94% on 3 liters nasal cannula. General description is an elderly male, up in the bed in no distress. RESPIRATORY SYSTEM: Unlabored breathing. Clear to auscultation anteriorly. HEART: S1, S2 regular rate and rhythm. ABDOMEN: Soft, no tenderness. Left leg overall swelling and redness improved. LABS: Hemoglobin is 9, white count 4.0. DIAGNOSTIC IMPRESSION AND PLAN: 1. Patient with left lower extremity wound and cellulitis. Continue local wound care with Aquacel Silver and oral Keflex for about a week. 2. Positive urine culture with Proteus, more likely contamination as the corresponding urinalysis was negative and the colony count is only 10,000. No need for antibiotic therapy for the same.
== END 2016-11-05 16:30 | DRG 291 ==
LOC: EC 12:37 → 6SEL 15:46 → 5ONC 11-04 06:42
PROVIDERS: ADMIT Hospitalist; ATTEND Hospitalist
PROC: 02H633Z Insertion of Infusion Device into Right Atrium, Percutaneous Approach (ICD-10-PCS; principal; 2016-11-02 14:00)
PROC: B244YZZ Ultrasonography of Right Heart using Other Contrast (ICD-10-PCS; 2016-11-02 14:00)
PROC: 5A1D60Z (ICD-10-PCS; 2016-11-03)
DX: I13.2 Hypertensive heart and chronic kidney disease with heart failure and with stage 5 chronic kidney disease, or end stage renal disease (principal); I50.33 Acute on chronic diastolic (congestive) heart failure; N17.0 Acute kidney failure with tubular necrosis; J96.01 Acute respiratory failure with hypoxia; E87.0 Hyperosmolality and hypernatremia; N18.6 End stage renal disease; L03.116 Cellulitis of left lower limb; E88.89 Other specified metabolic disorders; J44.1 Chronic obstructive pulmonary disease with (acute) exacerbation; E11.21 Type 2 diabetes mellitus with diabetic nephropathy; E11.42 Type 2 diabetes mellitus with diabetic polyneuropathy; E11.51 Type 2 diabetes mellitus with diabetic peripheral angiopathy without gangrene; E11.22 Type 2 diabetes mellitus with diabetic chronic kidney disease; E11.649 Type 2 diabetes mellitus with hypoglycemia without coma; E11.65 Type 2 diabetes mellitus with hyperglycemia; E87.5 Hyperkalemia; S81.802A Unspecified open wound, left lower leg, initial encounter; D63.1 Anemia in chronic kidney disease; F32.9 Major depressive disorder, single episode, unspecified; J45.909 Unspecified asthma, uncomplicated; E78.5 Hyperlipidemia, unspecified; F41.9 Anxiety disorder, unspecified; M19.90 Unspecified osteoarthritis, unspecified site; D50.9 Iron deficiency anemia, unspecified; K21.9 Gastro-esophageal reflux disease without esophagitis; E66.9 Obesity, unspecified; Z71.3 Dietary counseling and surveillance; Z91.14 Patient's other noncompliance with medication regimen; Z99.2 Dependence on renal dialysis; Z88.0 Allergy status to penicillin; Z68.30 Body mass index [BMI] 30.0-30.9, adult; Z89.511 Acquired absence of right leg below knee; Z79.82 Long term (current) use of aspirin; Z79.4 Long term (current) use of insulin; Z79.51 Long term (current) use of inhaled steroids; Z79.899 Other long term (current) drug therapy; Z82.49 Family history of ischemic heart disease and other diseases of the circulatory system
CPT/HCPCS: 36415; 36558; 71010; 71020; 76604; 76937; 77001; 80048; 80053; 80074; 81001; 82550; 82553; 83036; 83735; 84100; 84484; 85025; 85610; 85730; 87040; 87077; 87086; 87186; 87502; 90935; 93005; 93306; 94640; 94760; 96360; 96361; 99285

== ENCOUNTER 2017-12-22 06:40 | Day surgery (SDC) | payer MEDICARE, BC ==
[2017-12-19 13:32] VITALS: BMI 34.0
[~2017-12-22 06:40] MED LIST: LACTATED RINGERS 1,000 ML IV SCH; LIDOCAINE 1% 20 ML VIAL (10MG/ML) FOR IV START INTRADERMA PRN; ONDANSETRON 4 MG/2 ML VIAL IVP ONE; ceFAZolin IN SWFI 2 GM/20 ML SYRINGE IVP ONE; fentaNYL (PF) 50 MCG/ML 2 ML AMP IV PRN
[2017-12-22] MEDS ORDERED: SODIUM CHLORIDE 0.9% 500 ML IV ONE (08:32)
[2017-12-22 08:37] LABS: Glucose,Whole Blood 188 mg/dL (75-99)
[2017-12-22] MEDS ORDERED: PROPOFOL 10 MG/ML 20 ML VIAL IV ONE (08:49)
[2017-12-22] MEDS ORDERED: HEPARIN SODIUM,PORCINE 5,000 UNIT/ML 1 ML VIAL ONE (08:49)
[2017-12-22] MEDS ORDERED: fentaNYL (PF) 50 MCG/ML 2 ML AMP ONE (08:49)
[2017-12-22] MEDS ORDERED: MIDAZOLAM 2 MG/2 ML VIAL ONE (08:49)
[2017-12-22] MEDS ORDERED: LIDOCAINE 1% INJ 10MG/ML (20 ML MDV) SQ ONE ×2 (09:21)
[2017-12-22] MEDS ORDERED: BUPIVACAINE (PF) 0.5% 30 ML VIAL SQ ONE ×2 (09:21)
[2017-12-22] MEDS ORDERED: SODIUM CHLORIDE 0.9% 500 ML with HEPARIN SODIUM,PORCINE 5,000 UNIT IV ONE ×2 (09:37)
[2017-12-22 10:45] VITALS: TEMP 97
[2017-12-22 12:05] VITALS: BP 156/70; PULSE 59; RESP 16
--- NOTE | 2017-12-27 20:25 | P.OP ---
Date of Procedure: 12/22/17 Preoperative Diagnosis: Chronic kidney disease stage V. Postoperative Diagnosis: Same. Procedure(s) Performed: Creation of a Pita fistula on the radial artery to cephalic vein Anesthesia: MAC Surgeon: Arturo Miranda Estimated Blood Loss (ml): 10 Pathology: none sent Condition: stable Disposition: same day Indications for Procedure: Patient is a 72-year-old male who suffers from chronic kidney disease stage V. He is currently being dialyzed via a tunneled hemodialysis catheter placed via the right internal jugular vein approach. He was referred for evaluation to obtain fistula/graft. He ago vein mapping. The cephalic vein the left upper extremity was not felt to be of adequate quality. The right cephalic vein was felt to be reasonable for attempt at Pita fistula creation. Patient is now offered AV fistula creation. AV graft versus fistula in preparation for surgery. Description of Procedure: Patient was brought the upper and placed in supine position and administered attended anesthesia delivered by the department of anesthesiology. The patient had received intravenously administered prophylactic antibiotics in the perioperative phase. The right upper extremity was sterilely prepped and draped in usual manner. A 1:1 mixture of 0.25% Marcaine and 1% Xylocaine was utilized for local anesthesia of the soft tissues at the radial artery/cephalic vein level of. Through this anesthetized area skin incision was made carried down through the subcutaneous tissues. Hemostasis was achieved using electrocautery. The cephalic vein was identified. The vein appeared adequate in eyes/character for dialysis purposes. The vein was so mobilized. Attention was turned to the radial artery. The artery was dissected free of investing tissues and encircled vessel loops. The patient was systemically heparinized. The cephalic vein was clipped distally and free of investing tissues. It easily reach the radial artery. Care was taken to avoid any twisting of the vessel. The vein was spatulated. Vessel loops surrounding the radial artery drawn closed arteriotomy was made with a surgical blade and extended with Smith scissors to a length of about 5 mm. Backbleeding and forward bleeding was evident. The vein was anastomosed to the artery in a and to side fashion utilizing 6-0 Prolene placed in running fashion. Just prior to completion of the anastomotic line the artery was 4 bled and backbled and no thrombus was retrieved. The anastomotic line was completed and flow was restored through the artery. The vein was noted to dilate appropriately. Palpable pulse was noted in the radial artery distal to the anastomotic line. Side branches were searched for and none were identified. The wound was irrigated. Hemostasis was judged to be adequate. Deep tissues were closed with 3-0 Vicryl. Dermis was closed with 4-0 Monocryl placed in running intradermal fashion. Steri-Strips and appropriate dressings were applied. Patient tolerated procedure well and was taken the recovery area satisfactory and stable condition.
== END 2017-12-22 12:21 | disposition home or self-care (01) ==
LOC: OR 06:40
PROVIDERS: ATTEND Surgery
DX: I13.2 Hypertensive heart and chronic kidney disease with heart failure and with stage 5 chronic kidney disease, or end stage renal disease (principal); E11.22 Type 2 diabetes mellitus with diabetic chronic kidney disease; N18.5 Chronic kidney disease, stage 5; I50.9 Heart failure, unspecified; Z99.2 Dependence on renal dialysis; Z79.4 Long term (current) use of insulin; I25.10 Atherosclerotic heart disease of native coronary artery without angina pectoris; J44.9 Chronic obstructive pulmonary disease, unspecified; Z79.82 Long term (current) use of aspirin; Z79.891 Long term (current) use of opiate analgesic; Z79.899 Other long term (current) drug therapy; Z88.0 Allergy status to penicillin; Z91.041 Radiographic dye allergy status
CPT/HCPCS: 84132; 36821; J2250; J1644; J2001; J3010; J2704; J0690

== ENCOUNTER 2018-03-16 05:33 | Day surgery (SDC) | payer MEDICARE, BC ==
[2018-03-09 15:48] VITALS: BMI 34.4
[~2018-03-16 05:33] MED LIST changes: -LACTATED RINGERS 1,000 ML IV SCH; -LIDOCAINE 1% 20 ML VIAL (10MG/ML) FOR IV START INTRADERMA PRN; -ONDANSETRON 4 MG/2 ML VIAL IVP ONE; +SODIUM CHLORIDE 0.9% 500 ML IV SCH; -ceFAZolin IN SWFI 2 GM/20 ML SYRINGE IVP ONE; -fentaNYL (PF) 50 MCG/ML 2 ML AMP IV PRN
[2018-03-16 06:56] VITALS: RESP 16; TEMP 98.2
[2018-03-16 07:19] LABS: Glucose,Whole Blood 193 mg/dL (75-99)
[2018-03-16] MEDS ORDERED: methylPREDNISolone SOD SUCCI 125 MG/2 ML VIAL IV ONE (07:38)
[2018-03-16] MEDS: MORPHINE SULFATE 4 MG/ML SYRINGE IV ONE ×2 (07:42→08:08)
[2018-03-16] MEDS ORDERED: LIDOCAINE 2% SYG (PF) 100 MG/5 ML MISCELLANE ONE (07:44)
[2018-03-16] MEDS ORDERED: SODIUM CHLORIDE 0.9% 500 ML IV ONE (07:45)
[2018-03-16] MEDS: MIDAZOLAM 2 MG/2 ML VIAL IV ONE ×2 (07:50→08:08)
[2018-03-16] MEDS ORDERED: IOPAMIDOL-250 100ML BTL IV ONE (08:15)
[2018-03-16 10:26] VITALS: BP 146/78; PULSE 57
--- NOTE | 2018-03-16 12:25 | P.OP ---
Date of Procedure: 03/16/18 Preoperative Diagnosis: Hemodynamically severe stenosis right upper extremity AV fistula Postoperative Diagnosis: Same. Procedure(s) Performed: #1 ultrasound-guided cannulation right upper extremity AV fistula. #2 fistulogram. #3 balloon dilation right upper extremity AV fistula. Anesthesia: local (With IV sedation.) Surgeon: Arturo Miranda Estimated Blood Loss (ml): 10 Pathology: none sent Condition: stable Disposition: same day Indications for Procedure: Renal failure with poorly functional right extremity AV fistula Operative Findings: High-grade stenosis AV fistula anastomotic line. Description of Procedure: Patient was brought to the special procedure suite. His right upper extremity sterilely prepped and draped in usual manner. Patient received initially 2 mg of Versed and 2 mg of morphine intravenously for conscious sedation purposes. Additional doses were given as appropriate during the procedure. Utilizing ultrasound the fistula in the upper forearm area was identified. 1% Xylocaine was utilized for local anesthesia of the tissues overlying this identified portion of the fistula. Through this anesthetized area a micropuncture needle was utilized to cannulate the fistula. Once cannulated soft guidewires were advanced into the fistula. The needle was withdrawn and eventually a 6-Northern Irish sheath was placed. A 0.035 inch Glidewire was utilized to attempt to cross the stenotic area. This was unsuccessful however utilizing a 0.018 wire the lesion was crossed. A fistulogram through the sheath was performed. The stenosis is identified and a 5 mm drug-eluting balloon was advanced over the guidewire and utilized to balloon dilate the stenosis. Once this was completed fistulogram With the was performed and the previously identified stenosis was completely relieved. With the above findings noted the sheath and guidewire and catheter were withdrawn. The puncture wound was closed with 3-0 nylon suture. Proper dressings were applied. Patient tolerated the procedure well and was taken to the outpatient surgical area in satisfactory and stable condition.
--- NOTE | 2018-03-20 12:46 | IR ---
Fluoroscopy HISTORY: Fistula stenosis 2.1 minutes fluoroscopy time supplied to the referring clinician. 295 intraoperative C-arm images do cument the procedure. See dictated report from vascular surgery.
== END 2018-03-16 11:15 ==
LOC: OR 05:33
PROVIDERS: ATTEND Surgery
DX: T82.858A Stenosis of other vascular prosthetic devices, implants and grafts, initial encounter (principal); I13.11 Hypertensive heart and chronic kidney disease without heart failure, with stage 5 chronic kidney disease, or end stage renal disease; E11.22 Type 2 diabetes mellitus with diabetic chronic kidney disease; N18.5 Chronic kidney disease, stage 5; F41.9 Anxiety disorder, unspecified; H26.9 Unspecified cataract; J44.9 Chronic obstructive pulmonary disease, unspecified; F32.9 Major depressive disorder, single episode, unspecified; I73.9 Peripheral vascular disease, unspecified; J81.1 Chronic pulmonary edema; Z99.2 Dependence on renal dialysis; Z79.82 Long term (current) use of aspirin; Z79.891 Long term (current) use of opiate analgesic; Z79.51 Long term (current) use of inhaled steroids; Z79.899 Other long term (current) drug therapy; Z91.011 Allergy to milk products; Z88.0 Allergy status to penicillin; Z91.09 Other allergy status, other than to drugs and biological substances
CPT/HCPCS: 36902; C1894 ×3; C1769 ×4; C2623; J2250; J2270; J2930; J2001; Q9966

== ENCOUNTER 2018-04-17 13:39 | Observation (INO) | payer MEDICARE, BC ==
--- NOTE | 2018-04-17 15:30 | ED ---
General Adult HPI - General Chief complaint: Recheck/Abnormal Lab/Rx Stated complaint: clogged port Time Seen by Provider: 04/17/18 15:07 Source: patient, RN notes reviewed Mode of arrival: wheelchair Limitations: no limitations - History of Present Illness Initial comments: Patient is a pleasant 73-year-old male presenting to the emergency Department with clogged dialysis port. Patient was at dialysis this morning however was only able to get approximately one hour of dialysis in. Port became clogged. Patient does have port right anterior chest. Patient has no pain or complaints otherwise. Patient does state his left eye is red. Patient denies any visual change or any discomfort of the left eye. No trauma. Patient states it is been like this for a week. - Related Data Home Medications Medication Instructions Recorded Confirmed Aspirin 325 mg PO DAILY 08/28/14 03/16/18 hydrALAZINE HCL [Apresoline] 50 mg PO TID 08/28/14 03/16/18 Carvedilol 12.5 mg PO BID 08/23/15 03/16/18 DULoxetine HCL [Cymbalta] 20 mg PO BID 02/04/16 03/16/18 Insulin Aspart [NovoLOG 7 unit SQ AC-TID 10/25/16 03/16/18 (formulary)] Insulin Glargine [Lantus] 15 unit SQ DAILY 12/19/17 03/16/18 Lanthanum Carbonate 1,000 mg PO TID 12/19/17 03/16/18 Lisinopril [Zestril] 10 mg PO HS 12/19/17 03/16/18 Loperamide [Imodium] 4 mg PO ONCE PRN 12/19/17 03/09/18 Midodrine HCl [ProAmatine] 5 mg PO MOWEFR 12/19/17 03/16/18 Nephrovite 0.8 mg PO QAM 12/19/17 03/16/18 Nitroglycerin Sl Tabs [Nitrostat] 0.4 mg SUBLINGUAL Q5M PRN 12/19/17 03/09/18 Sevelamer [Renvela] 800 mg PO AC-TID 12/19/17 03/16/18 Ammonlum Lactate(Unknown Dose) 1 applic TOPICAL HS 03/09/18 03/16/18 Dermephor Ointment(Unknowndose 1 applic TOPICAL DAILY 03/09/18 03/16/18 Lisinopril [Zestril] 10 mg PO DAILY 03/09/18 03/16/18 Previous Rx's Medication Instructions Recorded Furosemide [Lasix] 40 mg PO BID@0900,1600 #60 tab 02/08/16 INSULIN LISPRO (HumaLOG) [humaLOG] 0 unit SQ ACHS #1 vial 10/28/16 Sodium Bicarbonate Tab 650 mg PO BID tab 10/28/16 amLODIPine [Norvasc] 10 mg PO DAILY #0 11/05/16 traMADol HCL [Ultram] 50 mg PO BID PRN #20 tablet 11/05/16 Allergies Allergy/AdvReac Type Severity Reaction Status Date / Time Iodinated Contrast- Oral and Allergy Unknown Verified 04/17/18 15:50 IV Dye milk Allergy Rash/Hives Verified 04/17/18 15:50 Penicillins Allergy Rash/Hives Verified 04/17/18 15:50 Review of Systems ROS Statement: Those systems with pertinent positive or pertinent negative responses have been documented in the HPI. ROS Other: All systems not noted in ROS Statement are negative. Constitutional: Denies: fever Eyes: Denies: eye pain, eye discharge, vision change ENT: Denies: ear pain Respiratory: Denies: cough Cardiovascular: Denies: chest pain Endocrine: Denies: fatigue Gastrointestinal: Denies: abdominal pain Genitourinary: Denies: dysuria Musculoskeletal: Denies: back pain Skin: Denies: rash Neurological: Denies: weakness Past Medical History Past Medical History: Asthma, Heart Failure, COPD, Diabetes Mellitus, Hyperlipidemia, Hypertension, Renal Disease, Vascular Disorder Additional Past Medical History / Comment(s): Chronic kidney disease stage V , diabetic neuropathy, PVD, R below the knee amp. Dialysis M-W-F. Wears oxygen at 2 L per nc. History of Any Multi-Drug Resistant Organisms: None Reported Additional Past Surgical History / Comment(s): AV FISTULA UPPER RT ARM, november 26 2013 below the knee amputation Past Anesthesia/Blood Transfusion Reactions: No Reported Reaction Past Psychological History: Anxiety, Depression Smoking Status: Former smoker Past Alcohol Use History: None Reported Past Drug Use History: None Reported - Past Family History Mother Family Medical History: Cancer Brother(s) Family Medical History: Coronary Artery Disease (CAD) Father Family Medical History: Coronary Artery Disease (CAD) Sister(s) Family Medical History: Cancer Additional Family Medical History / Comment(s): stomach General Exam Limitations: no limitations General appearance: alert, in no apparent distress Head exam: Present: atraumatic Eye exam: Present: PERRL, EOMI, other (Subconjunctival hemorrhage on the left). Absent: nystagmus Pupils: Present: other (Flurosyn stain without uptake.) Expanded Eyelids: Normal Inspection: Bilateral Pupils: Regular, Round: Bilateral, Reactive: Bilateral Sclera/Conjunctival: Hemorrhage: Left IOP (L) in mmH ENT exam: Present: normal oropharynx Neck exam: Present: normal inspection Respiratory exam: Present: normal lung sounds bilaterally, other (Right upper chest with dialysis catheter.) Cardiovascular Exam: Present: regular rate, normal rhythm GI/Abdominal exam: Present: soft. Absent: tenderness Extremities exam: Present: normal inspection Neurological exam: Present: alert Psychiatric exam: Present: normal affect, normal mood Skin exam: Present: normal color Course Vital Signs 04/17/18 14:07 Temperature 98.3 F Pulse Rate 67 Respiratory 20 Rate Blood Pressure 133/69 O2 Sat by Pulse 98 Oximetry Medical Decision Making - Medical Decision Making Case was discussed with Dr. Evans who will consult. She does want dialysis catheter exchange. Case was also discussed with Dr. Stewart, who will exchange catheter and recommends admission. Case was also discussed in detail with Dr. douglas, who will admit for Dr. Goodson. Disposition Clinical Impression: Dialysis catheter clot or failure Disposition: ADMITTED IP TO THIS HOSP Is patient prescribed a controlled substance at d/c from ED?: No Referrals: Talon Goodson MD [Primary Care Provider] - 1-2 days Decision Time: 15:59
[2018-04-17] MEDS ORDERED: NALOXONE 0.4 MG/ML 1 ML VIAL IV PRN (16:01)
[2018-04-17 16:51] LABS: Basophils # (A) 0.1 k/uL (0-0.2); Basophils % (A) 1 %; Eosinophils # (A) 0.5 k/uL (0-0.7); Eosinophils % (A) 7 %; HCT 33.4 % (39.0-53.0); HGB 10.5 gm/dL (13.0-17.5); Lymphocytes % (A) 16 %; MCH 28.2 pg (25.0-35.0); MCHC 31.5 g/dL (31.0-37.0); MCV 89.7 fL (80.0-100.0); Mean Platelet Volume 7.7; Monocytes # (A) 0.4 k/uL (0-1.0); Monocytes % (A) 6 %; Neutrophils # (A) 4.2 k/uL (1.3-7.7); Neutrophils % (A) 67 %; Platelet Count 178 k/uL (150-450); RBC 3.72 m/uL (4.30-5.90); RDW 14.4 % (11.5-15.5); WBC 6.3 k/uL (3.8-10.6)
[2018-04-17 16:59] LABS: Glucose,Whole Blood 119 mg/dL (75-99)
[2018-04-17 17:06] LABS: Partial Thromboplastin Time 23.2 sec (22.0-30.0); Prothrombin Time 9.5 sec (9.0-12.0)
[2018-04-17 17:11] LABS: Calcium 8.3 mg/dL (8.4-10.2); Magnesium 2.1 mg/dL (1.6-2.3); Phosphorus 7.1 mg/dL (2.5-4.5); Potassium 5.7 mmol/L (3.5-5.1); Total Bilirubin 0.4 mg/dL (0.2-1.3); Total Protein 6.9 g/dL (6.3-8.2)
--- NOTE | 2018-04-17 18:47 | CONS ---
CONSULTATION This is a 73-year-old gentleman who has been admitted with malfunctioning dialysis catheter. According to the patient, this patient had this catheter for more than a year, and it was changed in about December. Today he went for dialysis. The catheter is plugged and non-functioning. MEDICAL HISTORY: 1. History of diabetes. 2. Hypertension. 3. Peripheral vascular disease. 4. Chronic renal failure. PERSONAL HISTORY: There is a questionable ALLERGY TO IODINE. PHYSICAL EXAMINATION: NECK: Supple. Patient has a dialysis catheter, right internal jugular approach. CHEST: Clear on auscultation. ABDOMEN: Soft. Femoral pulses are present. Patient has a fistula in the right arm which has not been used. PLAN: Change the dialysis catheter on the right side. Most likely there is some fibrous sheath formation noted along the catheter. If this fibrous sheath is obstructing the catheter, we may consider placing it on the left side. Discussed with the patient. Risks and complications discussed. MMODL / IJN: [id number] /
[2018-04-17] MEDS ORDERED: LOPERAMIDE 2 MG CAP PO PRN (18:52)
[2018-04-17] MEDS ORDERED: NITROGLYCERIN SL TABS 0.4 MG TAB SUBLINGUAL PRN (18:52)
[2018-04-17] MEDS: SODIUM CHLORIDE 0.9% 1,000 ML IV SCH (19:35)
[2018-04-17] MEDS: traMADol 50 MG TAB PO PRN (19:35)
[2018-04-17 20:25] LABS: Glucose,Whole Blood 126 mg/dL (75-99)
[2018-04-17] MEDS: LISINOPRIL 10 MG TAB PO SCH (20:40)
[2018-04-17] MEDS: FUROSEMIDE 40 MG TAB PO SCH (20:40)
[2018-04-17] MEDS: hydrALAZINE HCL 50 MG TAB PO SCH (20:40)
[2018-04-17] MEDS: SODIUM BICARBONATE TAB 650 MG TAB PO SCH (20:40)
[2018-04-17] MEDS: CARVEDILOL 12.5 MG TAB PO SCH (20:40)
--- NOTE | 2018-04-17 22:41 | HP ---
HISTORY AND PHYSICAL DATE OF ADMISSION: 04/17/2018 DATE OF SERVICE: 04/17/2018 PRESENTING COMPLAINT: Clogged hemodialysis catheter. HISTORY OF PRESENTING COMPLAINT: This is a 73-year-old patient who is currently a resident of [facility], being followed by Dr. Goodson. Patient's chronic stable medical conditions include congestive heart failure, diabetes, hyperlipidemia, hypertension, end-stage kidney disease, on hemodialysis, diabetic neuropathy, peripheral arterial disease with right below-knee amputation. Dialysis is on Mondays, Wednesdays and Fridays. He wears oxygen 2 L normally with hemodialysis. Normally he uses a prosthesis for the right leg. Patient during dialysis was found to have a clogged dialysis catheter after he had gone through one hour. Hence patient was admitted for the same. Patient was seen by Vascular Surgery, who will try to declot or replace the catheter tomorrow. Otherwise patient is able to tolerate a diet. No fever or chills. No tenderness of the catheter site. Patient does make urine. REVIEW OF SYSTEMS: CONSTITUTIONAL: Tired. HEENT: Subconjunctival hemorrhage on the left eye. RESPIRATORY: Some baseline shortness of breath. CARDIOVASCULAR: None. GASTROINTESTINAL: None. GENITOURINARY: None. MUSCULOSKELETAL: None. DERMATOLOGICAL: None. HEMATOLOGICAL: None. LYMPHATICS: None. PSYCHIATRY: None. NEUROLOGICAL: Numbness peripherally. PHYSICAL EXAMINATION: EYES: Left subconjunctival hemorrhage. EXTREMITIES: Right below-knee amputation. INVESTIGATIONS: White count 6.3, hemoglobin 10.5, potassium 5.7, BUN 71, creatinine 7.73, phosphorus 7.1. ASSESSMENT: 1. Clogged hemodialysis catheter in the right chest wall, to be replaced. 2. Hyperkalemia due to renal failure. 3. End-stage kidney disease, on hemodialysis Mondays, Wednesdays and Fridays. 4. Diabetes mellitus, type 2, chronically on insulin. 5. Hyperlipidemia. 6. Essential hypertension. 7. Congestive heart failure, ejection fraction not known. 8. Diabetic neuropathy, peripheral neuropathy. 9. Peripheral arterial disease with right below-knee amputation. 10.Obesity; body mass index 33.9. PLAN: Home medications are resumed. Accu-Cheks will be followed. Dr. Stewart was consulted and so was Nephrology. He is going to replace the catheter tomorrow. Care was discussed with the patient. Questions were answered. MMODL / IJN: [id number] /
[2018-04-18] MEDS ORDERED: diphenhydrAMINE 25 MG CAP PO STA (06:33)
[2018-04-18] MEDS ORDERED: predniSONE 50 MG TAB PO STA (06:33)
[2018-04-18] MEDS ORDERED: FAMOTIDINE 20 MG TAB PO STA (06:33)
[2018-04-18 07:03] LABS: Glucose,Whole Blood 122 mg/dL (75-99)
[2018-04-18] MEDS: INSULIN ASPART 100 UNIT/ML 1 ML 10 ML VIAL SQ SCH ×3 (07:42→17:55)
[2018-04-18] MEDS: ASPIRIN 325 MG TAB PO SCH (08:25)
[2018-04-18] MEDS: hydrALAZINE HCL 50 MG TAB PO SCH ×2 (08:25→21:39)
[2018-04-18] MEDS: CARVEDILOL 12.5 MG TAB PO SCH ×2 (08:25→21:39)
[2018-04-18] MEDS: INSULIN DETEMIR 100 UNIT/ML 10 ML VIAL SQ SCH (08:26)
[2018-04-18] MEDS: amLODIPine 10 MG TAB PO SCH (08:26)
[2018-04-18] MEDS: FUROSEMIDE 40 MG TAB PO SCH ×2 (08:26→21:39)
[2018-04-18] MEDS: SODIUM BICARBONATE TAB 650 MG TAB PO SCH ×2 (08:27→21:39)
[2018-04-18] MEDS: SEVELAMER 800 MG TAB PO SCH ×3 (08:27→17:55)
[2018-04-18 11:45] LABS: Glucose,Whole Blood 142 mg/dL (75-99)
[2018-04-18] MEDS ORDERED: predniSONE 50 MG TAB PO ONE (13:00)
[2018-04-18] MEDS ORDERED: CLINDAMYCIN 300 MG in DEXTROSE 5% IN WATER 50 ML IVPB STA ×2 (13:43)
[2018-04-18] MEDS ORDERED: LIDOCAINE 1% INJ 10MG/ML (20 ML MDV) SQ ONE ×3 (14:35→15:11)
[2018-04-18] MEDS ORDERED: diphenhydrAMINE 50 MG/ML 1 ML VIAL IVP ONE (14:49)
[2018-04-18] MEDS ORDERED: methylPREDNISolone SOD SUCCI 125 MG/2 ML VIAL IV ONE (14:49)
[2018-04-18] MEDS ORDERED: fentaNYL (PF) 50 MCG/ML 2 ML AMP IV ONE (14:50)
[2018-04-18] MEDS ORDERED: SODIUM CHLORIDE 0.9% 250 ML IV ONE (14:50)
[2018-04-18] MEDS ORDERED: MIDAZOLAM 2 MG/2 ML VIAL IV ONE (15:04)
[2018-04-18] MEDS ORDERED: IOPAMIDOL-370 50ML BTL INJ ONE (15:09)
--- NOTE | 2018-04-18 16:03 | IR ---
Fluoroscopy HISTORY: Hemodialysis catheter placement 2.3 minutes fluoroscopy time supplied to the referring clinician. 23 intraoperative C-arm images doc ument the procedure. See dictated report from vascular surgery.
[2018-04-18] MEDS: SODIUM CHLORIDE 0.9% 1,000 ML IV SCH (16:41)
[2018-04-18 17:28] LABS: Glucose,Whole Blood 218 mg/dL (75-99)
--- NOTE | 2018-04-18 17:51 | XR ---
EXAMINATION: XR chest 1V portable DATE AND TIME: 04/18/2018 5:16 PM ORDERING PROVIDER: Albert Stewart CLINICAL INDICATION: CVC placement TECHNIQUE: Portable AP upright COMPARISON: 11/05/2016 DESCRIPTION: Left IJ dual-lumen catheter tip superimposed over the distal SVC. Large right pleural effusion is present, small left pleural effusion is present. Associated complete osseous atelectasis of the right lower lobe, near-complete right middle lobe passive atelectasis, and partial left lower lobe passive atelectasis is noted. The right upper and midlung zone are well-expanded and clear. The left upper mid and most of the lower lung zone is well expanded and clear. Moderately enlarged cardiac silhouette noted. No pneumothorax. IMPRESSION: LARGE BILATERAL PLEURAL EFFUSIONS AND BIBASILAR AIRLESSNESS, PARTICULARLY ON THE RIGHT.
[2018-04-18 20:26] LABS: Glucose,Whole Blood 170 mg/dL (75-99)
[2018-04-18] MEDS: LISINOPRIL 10 MG TAB PO SCH (21:39)
--- NOTE | 2018-04-19 00:15 | PN ---
PROGRESS NOTE DATE OF SERVICE: April 18, 2018. PRESENTING COMPLAINT: Clogged hemodialysis catheter. INTERVAL HISTORY: This patient presented with a clogged hemodialysis catheter. The right chest wall catheter was removed and placed on the left side. The patient getting hemodialysis today. 2 L of fluids been removed. Otherwise patient is stable. Tolerating a diet. REVIEW OF SYSTEMS: Done for constitutional, cardiovascular, GI, pulmonary and relevant findings as above. CURRENT MEDICATIONS: Reviewed. PHYSICAL EXAMINATION: VITAL SIGNS: Temperature 97.6, pulse 73, respiratory 18, blood pressure 120/64. Pulse ox 96% on room air. GENERAL APPEARANCE: Sitting up, awake. Eyes left conjunctival hemorrhage. HEENT: External appearance of nose and ears normal. Oral cavity normal. NECK: JVD not raised. Mass not palpable. RESPIRATORY: Effort normal. LUNGS: Diminished breath sounds. CARDIOVASCULAR: 1st and 2nd sounds normal. No edema. ABDOMEN: Soft, nontender. Liver and spleen not palpable. Chest wall catheter on the left side anteriorly. EXTREMITIES: Right below-knee amputation. INVESTIGATIONS: Accu-Cheks are noted. ASSESSMENT: 1. Clogged hemodialysis catheter that was removed and a new 1 placed on the left chest. 2. Hyperkalemia due to renal failure. 3. End-stage kidney disease on hemodialysis Tuesday, Tuesday and Tuesday. The patient getting dialyzed today. 4. Diabetes mellitus type 2, chronically on insulin. 5. Hyperlipidemia. 6. Essential hypertension. 7. Congestive heart failure EF not known. 8. Diabetic peripheral neuropathy. 9. Peripheral artery disease, right below-knee amputation. 10.Obesity; BMI 33.9. PLAN: Patient getting dialyzed today 2 L are being removed. The patient will also get dialyzed tomorrow and then the patient can be discharged. MMODL / IJN: [id number] /
--- NOTE | 2018-04-19 00:21 | HP ---
HISTORY AND PHYSICAL ADDENDUM: To history and physical on Edil Marroquin DATE OF ADMISSION: 04/17/2018 DATE OF SERVICE: 04/17/2018 EXAMINATION: VITAL SIGNS : Temperature 97.3, pulse 86, respiration 16, blood pressure 139/62 pulse ox 98% on room air. GENERAL APPEARANCE: Well built. BMI 34.9, sitting up. EYES: Pupils equal. Left conjunctival hemorrhage. HEENT: External appearance of nose and ears normal. Oral cavity normal. NECK: JVD unable to assess. Mass not palpable. RESPIRATORY: Effort normal. LUNGS: Slightly decreased breath sounds. CARDIOVASCULAR: 1st and 2nd sounds normal. No edema. ABDOMEN: Soft, nontender. Liver and spleen not palpable. LYMPHATICS: No lymph nodes palpable in the neck and axillae. PSYCHIATRY: Alert and oriented times three. Mood and affect normal. Anterior chest wall on the right side has got a hemodialysis catheter. EXTREMITIES: Right below-knee amputation. INVESTIGATIONS: White count 6.3, hemoglobin 10.5, potassium 5.7, BUN 31, creatinine 7.73. MMODL / IJN: [id number] /
[2018-04-19 01:41] LABS: Hepatitis B Surface AB- Quant 3.5 mIU/mL
[2018-04-19] MEDS: traMADol 50 MG TAB PO PRN (05:50)
[2018-04-19 07:07] LABS: Glucose,Whole Blood 430 mg/dL (75-99)
--- NOTE | 2018-04-19 07:13 | CONS ---
CONSULTATION REASON FOR CONSULT: End-stage renal disease. HISTORY OF PRESENT ILLNESS: Patient is a 73-year-old male with end-stage renal disease, on hemodialysis on a Tuesday, Tuesday, Tuesday schedule at the [facility]. Patient was admitted to the hospital as his PermCath was not working as outpatient. He is scheduled for new catheter placement this afternoon following which he will be dialyzed and then he can be discharged following his dialysis. At this time, patient denies any significant complaints. He has not had any chest pains or shortness of breath. PAST MEDICAL HISTORY: End-stage renal disease, on hemodialysis, CKD mineral bone disorder, hypertension, anemia of chronic disease, type 2 diabetes, hypertension with low blood pressure requiring midodrine on hemodialysis. PAST SURGICAL HISTORY: Right below-knee amputation, AV fistula right upper arm. SOCIAL HISTORY: Patient is a former smoker. No history of drug abuse or alcohol abuse. MEDICATIONS: Medications at home prior to admission included hydralazine, aspirin, Coreg, Cymbalta, insulin, Zestril, Imodium, midodrine, Renvela, sodium bicarb, Lasix Norvasc, Ultram. ALLERGIES: Allergies include PENICILLIN which causes rash and hives and IV DYE. PHYSICAL EXAMINATION: On examination, patient is currently comfortable, awake. He is not in any acute distress. Blood pressure was 139/62. EXAMINATION OF THE HEART: S1, S2. EXAMINATION OF THE LUNGS: Bilateral breath sounds are heard. Abdomen is soft, nontender. Examination of lower extremities shows no evidence of edema. The patient has a right BKA. 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 LABS: Labs show sodium 141, potassium 5.7, BUN 71, serum creatinine 7.73, phosphorus 7.1. ASSESSMENT: 1. End-stage renal disease, on hemodialysis on a Tuesday, Tuesday, Tuesday schedule. The patient will be dialyzed today after his new catheter is placed. 2. Hyperphosphatemia/chronic kidney disease mineral bone disorder. Maintain home phosphate binders. 3. Anemia of chronic disease. 4. Hypertension. PLAN: Hemodialysis today. The patient can be discharged post dialysis. If he is not discharged, we will dialyze him again tomorrow as tomorrow is his regular day. MMODL / IJN: [id number] /
[2018-04-19] MEDS: INSULIN ASPART 100 UNIT/ML 1 ML 10 ML VIAL SQ SCH ×3 (07:17→17:57)
--- NOTE | 2018-04-19 07:22 | OP ---
OPERATIVE REPORT PREOP DIAGNOSIS: Acute chronic failure, malfunctioning right IJ catheter. No venous access accessible for IV sedation. PROCEDURE PERFORMED: 1. Placement of a 5-Cambodian sheath to the right femoral vein for IV access. 2. Ultrasound-guided 28 cm dialysis catheter placed right internal jugular approach. 3. Removal of the old catheter right IJ. SEDATION: Sedation time is 55 minutes. PROCEDURE: This patient was brought to the laboratory technician. Right side of the neck and chest were prepped and drapes applied in the usual sterile manner. We tried to get the access to the arm, but there was no vein available. We decided to place a temporary sheath to the right femoral vein. Right groin was prepped and drapes applied in the usual sterile manner. 1% lidocaine was infiltrated. Micropuncture into the right femoral vein. Micropuncture guidewire was passed and 4-Cambodian dilator sheath advanced on top of the guidewire, flushed with heparin saline and hooked to the IV access. After that, attention paid to the placement of the dialysis catheter, left side of the neck was prepped and drapes applied in the usual sterile manner. 1% lidocaine were infiltrated into the neck and chest area. After that, micropuncture introduced to the left jugular vein and micropuncture guidewire was passed and 4-Cambodian dilator advanced off the guidewire. Then we injected dye to check the superior vena cava and dye was injected and superior vena cava and innominate vein was found to be patent and then we passed a regular guidewire which was parked in the inferior vena cava. A tunnel was created. Through the tunnel, we brought a 28 cm straight dialysis catheter and dilator was advanced on the top of the guidewire under fluoroscopy control and then we passed the sheath on the top of the guidewire. Through the sheath, we introduced the dialysis catheter. Tip of the catheter in superior vena cava and atrium flushed with heparin saline and hep-locked. Incision was closed with Vicryl and nylon. After that, we 4-0 nylon. Dressing applied. Patient tolerated the procedure well. MMODL / IJN: [id number] /
[2018-04-19] MEDS ORDERED: MIDODRINE 5 MG TAB PO SCH (09:00)
[2018-04-19] MEDS: INSULIN DETEMIR 100 UNIT/ML 10 ML VIAL SQ SCH (09:33)
[2018-04-19] MEDS: ASPIRIN 325 MG TAB PO SCH (09:34)
[2018-04-19] MEDS: amLODIPine 10 MG TAB PO SCH (09:34)
[2018-04-19] MEDS: hydrALAZINE HCL 50 MG TAB PO SCH (09:34)
[2018-04-19] MEDS: SODIUM BICARBONATE TAB 650 MG TAB PO SCH (09:34)
[2018-04-19] MEDS: SEVELAMER 800 MG TAB PO SCH ×3 (09:34→17:57)
[2018-04-19] MEDS: CARVEDILOL 12.5 MG TAB PO SCH (09:34)
[2018-04-19] MEDS: FUROSEMIDE 40 MG TAB PO SCH (09:34)
[2018-04-19 11:27] LABS: Glucose,Whole Blood 261 mg/dL (75-99)
--- NOTE | 2018-04-19 15:10 | PN ---
PROGRESS NOTE The patient is seen for followup for end-stage renal disease. The patient had his dialysis yesterday. He is scheduled for repeat hemodialysis today as today is his regular day. Plans are for discharge post dialysis. EXAMINATION: Blood pressure was 129/58, heart rate 67 per minute. He is afebrile. Examination of the heart: S1, S2. Examination of the lungs: Decreased breath sounds at bases. Abdomen is soft, nontender. Examination lower extremities shows chronic skin changes. The patient has a right BKA. LABS: Labs are not available from today. ASSESSMENT: 1. End-stage renal disease, on hemodialysis on Tuesday, Tuesday, Tuesday schedule. The patient will be dialyzed today and following which he can be discharged. 2. Hyperkalemia status post hemodialysis, expect improvement. 3. Malfunctioning PermCath, status post removal instead of new catheter. 4. Anemia of chronic disease. 5. CKD mineral bone disorder with elevated phosphorus at 7.1. 6. Hypertension, controlled. PLANS: Continue the Renvela. Hemodialysis today and patient can be discharged post dialysis. He needs to follow up as outpatient for his regular treatment on Tuesday. MMODL / IJN: [id number] /
[2018-04-19 15:15] VITALS: BP 119/56; PULSE 66; RESP 18; TEMP 96.1
[2018-04-19 16:14] LABS: Glucose,Whole Blood 121 mg/dL (75-99)
--- NOTE | 2018-04-19 16:31 | DS ---
DISCHARGE SUMMARY DATE OF ADMISSION: 04/17/2018 DATE OF DISCHARGE: April 19, 2018 FINAL DIAGNOSES: 1. Malfunctioning hemodialysis catheter in the right chest wall. 2. Hyperkalemia due to renal failure. 3. End-stage kidney disease on hemodialysis Tuesday, Tuesday and Tuesday. 4. Diabetes mellitus type 2, chronically on insulin. 5. Hyperlipidemia. 6. Essential hypertension. 7. Chronic congestive heart failure ejection fraction not known. 8. Diabetic peripheral neuropathy. 9. Peripheral artery disease with right below-knee amputation. 10.Obesity; BMI 33.9. CONSULTATION: Dr. Evans from Nephrology, Dr. Stewart from vascular surgery. HOSPITAL COURSE: This pleasant 73-year-old patient was admitted from [facility]. He was found to have a clogged dialysis catheter. The patient is seen by Dr. Stewart from vascular surgery who did replace the catheter, which is now functioning fine. The patient had dialysis after that. Doing better. PHYSICAL EXAMINATION: Temperature 96.1, pulse 56, respiratory 18, blood pressure 109/56, pulse ox 98% on room air. General appearance: Sitting up, comfortable. Lungs fair entry. Cardiovascular 1st and second sounds normal. DISCHARGE MEDICATIONS: 1. Aspirin 325 p.o. daily. 2. Hydralazine 50 mg p.o. b.i.d. 3. Coreg 12.5 p.o. b.i.d. 4. NovoLog 7 units subcu a.c. t.i.d. 5. Sodium bicarb 650 mg b.i.d. 6. Lantus 15 units subcu daily. 7. Zestril 10 mg p.o. at bedtime. 8. Imodium 4 mg p.o. q.i.d. p.r.n. 9. Primatene 5 mg p.o. Tuesday, Tuesday and Tuesday. 10.Nephro-Matheus 0.8 mg p.o. daily. 11.Nitrostat 0.4 sublingual q.5 p.r.n. Renvela 800 mg p.o. a.c. t.i.d. 12. 1000 mg a.c. t.i.d. 13.Lasix 40 mg p.o. b.i.d. 14.Humalog subcu a.c. q.h.s. 15.Norvasc 10 mg p.o. daily. 16.Ultram 50-100 mg q.12 p.r.n. for pain. DISPOSITION: [facility]. Follow up with Dr. Talon Goodson. Hemodialysis schedule to be maintained. Copy to Dr. Goodson. MMODL / IJN: [id number] /
[2018-04-19] MEDS: SODIUM CHLORIDE 0.9% 1,000 ML IV SCH (16:57)
== END 2018-04-19 18:00 ==
LOC: EC 13:39 → 5MS5E 16:15
PROVIDERS: ADMIT Hospitalist; ATTEND Hospitalist
DX: T82.41XA Breakdown (mechanical) of vascular dialysis catheter, initial encounter (principal); Y71.2 Prosthetic and other implants, materials and accessory cardiovascular devices associated with adverse incidents; I13.2 Hypertensive heart and chronic kidney disease with heart failure and with stage 5 chronic kidney disease, or end stage renal disease; N18.6 End stage renal disease; I50.9 Heart failure, unspecified; I11.0 Hypertensive heart disease with heart failure; E11.40 Type 2 diabetes mellitus with diabetic neuropathy, unspecified; E11.22 Type 2 diabetes mellitus with diabetic chronic kidney disease; J45.909 Unspecified asthma, uncomplicated; J44.9 Chronic obstructive pulmonary disease, unspecified; E78.5 Hyperlipidemia, unspecified; Z99.2 Dependence on renal dialysis; E87.5 Hyperkalemia; E11.42 Type 2 diabetes mellitus with diabetic polyneuropathy; F41.9 Anxiety disorder, unspecified; F32.9 Major depressive disorder, single episode, unspecified; Z68.33 Body mass index [BMI] 33.0-33.9, adult; E66.9 Obesity, unspecified; D63.8 Anemia in other chronic diseases classified elsewhere; M89.9 Disorder of bone, unspecified; E83.39 Other disorders of phosphorus metabolism; Z79.82 Long term (current) use of aspirin; Z79.899 Other long term (current) drug therapy; Z79.4 Long term (current) use of insulin; Z88.0 Allergy status to penicillin; Z91.041 Radiographic dye allergy status; Z91.011 Allergy to milk products; E11.51 Type 2 diabetes mellitus with diabetic peripheral angiopathy without gangrene; Z99.81 Dependence on supplemental oxygen; Z89.511 Acquired absence of right leg below knee; Z97.13 Presence of artificial right leg (complete) (partial); Z87.891 Personal history of nicotine dependence; Z82.49 Family history of ischemic heart disease and other diseases of the circulatory system; Z80.0 Family history of malignant neoplasm of digestive organs
CPT/HCPCS: 99284; 36556; 36558; 36589; 76937; 77001; 80053; 83735; 84100; 85025; 85610; 85730; 86706; 87340; 71045; G0378 ×3; C1769 ×4; C1894 ×2; C1750; J2250; J1200; J2930; J2001; J3010; J7512; Q9967; 90935

== ENCOUNTER 2018-08-19 13:08 | Emergency (ER) | payer MEDICARE, BC ==
--- NOTE | 2018-08-19 13:50 | ED ---
Recheck HPI - General Chief Complaint: Recheck/Abnormal Lab/Rx Stated Complaint: Tube is plugged Time Seen by Provider: 08/19/18 13:19 Source: patient, RN notes reviewed, old records reviewed Limitations: no limitations - History of Present Illness Initial Comments: This is a 73-year-old male the ER for evaluation patient resents today withcomplaints himself but was sent in from dialysis when she had yesterday was unable to get secondary to catheter failure. Patient again denies complaints at this time. No recent travel history or sick contacts. Patient denies shortness of breath, significant edema. Patient is a Tuesday dialysis patient, he was unable to get dialysis yesterday MD Complaint: abnormal lab -: days(s) (2) Returns Today for: wound recheck (dialysis catheter failure) Symptoms Since Prior Visit: no new symptoms Context: planned re-check Associated Symptoms: none - Related Data Home Medications Medication Instructions Recorded Confirmed Aspirin 325 mg PO DAILY 08/28/14 08/19/18 hydrALAZINE HCL [Apresoline] 50 mg PO BID 08/28/14 08/19/18 Carvedilol 12.5 mg PO BID 08/23/15 08/19/18 Insulin Aspart [NovoLOG 7 unit SQ TID@0800,1200,1730 10/25/16 08/19/18 (formulary)] Insulin Glargine [Lantus] 15 unit SQ DAILY@0900 12/19/17 08/19/18 Loperamide [Imodium] 4 mg PO QID PRN 12/19/17 08/19/18 Midodrine HCl [ProAmatine] 5 mg PO MOWEFR 12/19/17 08/19/18 Nephrovite 0.8 mg PO QAM 12/19/17 08/19/18 Nitroglycerin Sl Tabs [Nitrostat] 0.4 mg SUBLINGUAL Q5M PRN 12/19/17 08/19/18 Sevelamer [Renvela] 800 mg PO TID@0730,1130,1730 12/19/17 08/19/18 Fosrenl Chew 1000mg 1,000 mg PO TID@0800,1200,1800 04/17/18 08/19/18 Furosemide [Lasix] 40 mg PO BID 04/17/18 08/19/18 INSULIN LISPRO (HumaLOG) [humaLOG] See Protocol SQ ACHS 04/17/18 08/19/18 amLODIPine [Norvasc] 10 mg PO DAILY 04/17/18 08/19/18 Lidocaine-Prilocaine Cream [Emla 1 applic TOPICAL MOWEFR 08/19/18 08/19/18 Cream 2.5%/2.5%] Vancomycin 500 mg IVPB MOWEFR 08/19/18 08/19/18 Previous Rx's Medication Instructions Recorded Sodium Bicarbonate Tab 650 mg PO BID tab 10/28/16 traMADol HCL [Ultram] 50 - 100 mg PO Q12H PRN #4 tablet 04/19/18 Allergies Allergy/AdvReac Type Severity Reaction Status Date / Time Iodinated Contrast- Oral and Allergy Unknown Verified 08/19/18 13:53 IV Dye milk Allergy Rash/Hives Verified 08/19/18 13:53 Penicillins Allergy Rash/Hives Verified 08/19/18 13:53 Review of Systems ROS Statement: Those systems with pertinent positive or pertinent negative responses have been documented in the HPI. ROS Other: All systems not noted in ROS Statement are negative. Past Medical History Past Medical History: Asthma, Heart Failure, Diabetes Mellitus, Hyperlipidemia, Hypertension, Renal Disease, Vascular Disorder Additional Past Medical History / Comment(s): Chronic kidney disease stage V , diabetic neuropathy, PVD, R below the knee amp. Dialysis M-W-F. Wears oxygen at 2 L per nc only with dialysis History of Any Multi-Drug Resistant Organisms: None Reported Additional Past Surgical History / Comment(s): AV FISTULA UPPER RT ARM -pt stated not currently using it "has had some problems with it", november 26 2013 below the knee amputation, hemodialysis catheter Past Anesthesia/Blood Transfusion Reactions: No Reported Reaction Past Psychological History: Anxiety, Depression Smoking Status: Never smoker - Past Family History Mother Family Medical History: Cancer Brother(s) Family Medical History: Coronary Artery Disease (CAD) Father Family Medical History: Coronary Artery Disease (CAD) Sister(s) Family Medical History: Cancer Additional Family Medical History / Comment(s): stomach General Exam Limitations: no limitations General appearance: alert, in no apparent distress Head exam: Present: atraumatic, normocephalic, normal inspection Eye exam: Present: normal appearance, PERRL, EOMI. Absent: scleral icterus, conjunctival injection, periorbital swelling ENT exam: Present: normal exam, mucous membranes moist Neck exam: Present: normal inspection. Absent: tenderness, meningismus, lymphadenopathy Respiratory exam: Present: normal lung sounds bilaterally. Absent: respiratory distress, wheezes, rales, rhonchi, stridor Cardiovascular Exam: Present: regular rate, normal rhythm, normal heart sounds. Absent: systolic murmur, diastolic murmur, rubs, gallop, clicks GI/Abdominal exam: Present: soft, normal bowel sounds. Absent: distended, tenderness, guarding, rebound, rigid Extremities exam: Present: normal inspection, full ROM, normal capillary refill. Absent: tenderness, pedal edema, joint swelling, calf tenderness Back exam: Present: normal inspection Neurological exam: Present: alert, oriented X3, CN II-XII intact Psychiatric exam: Present: normal affect, normal mood Skin exam: Present: warm, dry, intact, normal color. Absent: rash Course Vital Signs 08/19/18 08/19/18 13:10 14:46 Temperature 97.5 F L Pulse Rate 62 62 Respiratory 18 16 Rate Blood Pressure 150/62 147/62 O2 Sat by Pulse 97 97 Oximetry - Reevaluation(s) Reevaluation #1: 08/19/18 16:39 Medical record is reviewed Reevaluation #2: 08/19/18 16:[address] Garcia, aware of patient and inability to have dialysis, we'll take patient for placement of catheter for dialysis Reevaluation #3: 08/19/18 16:39 Patient is asymptomatic, without complaint Medical Decision Making - Medical Decision Making 70 female the ER for evaluation regarding dialysis catheter failure. Patient be transferred to [facility] for resolution of issue bibasilar surgeon Dr. Garcia - Lab Data Result diagrams: 08/19/18 15:35 Lab Results 08/19/18 08/19/18 Range/Units 15:35 15:35 WBC 6.2 (3.8-10.6) k/uL RBC 3.49 L (4.30-5.90) m/uL Hgb 10.6 L (13.0-17.5) gm/dL Hct 33.8 L (39.0-53.0) % MCV 96.9 (80.0-100.0) fL MCH 30.4 (25.0-35.0) pg MCHC 31.4 (31.0-37.0) g/dL RDW 15.0 (11.5-15.5) % Plt Count 247 (150-450) k/uL Neutrophils % 62 % Lymphocytes % 19 % Monocytes % 5 % Eosinophils % 10 % Basophils % 1 % Neutrophils # 3.9 (1.3-7.7) k/uL Lymphocytes # 1.2 (1.0-4.8) k/uL Monocytes # 0.3 (0-1.0) k/uL Eosinophils # 0.6 (0-0.7) k/uL Basophils # 0.1 (0-0.2) k/uL PT 9.6 (9.0-12.0) sec INR 0.9 (<1.2) APTT 24.1 (22.0-30.0) sec - EKG Data -: EKG Interpreted by Me (EKG shows normal sinus rhythm rate of 63, AR 194, QRS 86, QTc 466) Disposition Clinical Impression: Dialysis catheter clot or failure Disposition: OTHER INSTITUTION NOT DEFINED Condition: Fair Is patient prescribed a controlled substance at d/c from ED?: No Referrals: Nonstaff,Physician [Primary Care Provider] - 1-2 days - Out of Hospital Transfer - Req. Specs Out of Hospital Transfer - Requested Specifics: Other Emergency Center ([facility])
[2018-08-19 15:59] LABS: Basophils # (A) 0.1 k/uL (0-0.2); Basophils % (A) 1 %; Eosinophils # (A) 0.6 k/uL (0-0.7); Eosinophils % (A) 10 %; HCT 33.8 % (39.0-53.0); HGB 10.6 gm/dL (13.0-17.5); Lymphocytes # (A) 1.2 k/uL (1.0-4.8); Lymphocytes % (A) 19 %; MCH 30.4 pg (25.0-35.0); MCHC 31.4 g/dL (31.0-37.0); MCV 96.9 fL (80.0-100.0); Mean Platelet Volume 7.3; Monocytes # (A) 0.3 k/uL (0-1.0); Monocytes % (A) 5 %; Neutrophils # (A) 3.9 k/uL (1.3-7.7); Neutrophils % (A) 62 %; Platelet Count 247 k/uL (150-450); RBC 3.49 m/uL (4.30-5.90); WBC 6.2 k/uL (3.8-10.6)
[2018-08-19 16:09] LABS: INR 0.9 (<1.2); Partial Thromboplastin Time 24.1 sec (22.0-30.0); Prothrombin Time 9.6 sec (9.0-12.0)
[2018-08-19 16:38] LABS: Creatine Kinase 48 U/L (55-170)
[2018-08-19 16:40] LABS: Albumin 3.5 g/dL (3.5-5.0); Calcium 8.2 mg/dL (8.4-10.2); Magnesium 2.5 mg/dL (1.6-2.3); Phosphorus 6.7 mg/dL (2.5-4.5); Potassium 5.9 mmol/L (3.5-5.1); Total Bilirubin 0.3 mg/dL (0.2-1.3); Total Protein 6.6 g/dL (6.3-8.2)
[2018-08-19 16:49] LABS: Creatine Kinase MB 1.3 ng/mL (0.0-2.4); Troponin I <0.012 ng/mL (0.000-0.034)
[2018-08-19 17:53] VITALS: BP 177/87; PULSE 67; RESP 18; TEMP 97.7
== END 2018-08-19 18:08 | disposition other institution (70) ==
LOC: EC 13:08
DX: T82.898A Other specified complication of vascular prosthetic devices, implants and grafts, initial encounter (principal); I13.2 Hypertensive heart and chronic kidney disease with heart failure and with stage 5 chronic kidney disease, or end stage renal disease; N18.5 Chronic kidney disease, stage 5; E11.22 Type 2 diabetes mellitus with diabetic chronic kidney disease; I50.9 Heart failure, unspecified; E11.40 Type 2 diabetes mellitus with diabetic neuropathy, unspecified; I73.9 Peripheral vascular disease, unspecified; E11.9 Type 2 diabetes mellitus without complications; E78.5 Hyperlipidemia, unspecified; Z99.2 Dependence on renal dialysis; Z79.82 Long term (current) use of aspirin; Z79.4 Long term (current) use of insulin; Z79.899 Other long term (current) drug therapy; Z91.041 Radiographic dye allergy status; Z91.011 Allergy to milk products; Z88.0 Allergy status to penicillin; Y84.1 Kidney dialysis as the cause of abnormal reaction of the patient, or of later complication, without mention of misadventure at the time of the procedure
CPT/HCPCS: 36415; 80053; 82550; 82553; 83735; 84100; 84484; 85025; 85610; 85730; 93005; 99285

== ENCOUNTER 2019-01-24 08:44 | Inpatient (IN) | payer MEDICARE, BC ==
[2019-01-24] MEDS ORDERED: IPRATROPIUM-ALBUTEROL 3 ML NEB INHALATION STA (09:03)
--- NOTE | 2019-01-24 09:07 | ED ---
General Adult HPI - General Chief complaint: Shortness of Breath Stated complaint: SHAHAB Time Seen by Provider: 01/24/19 08:47 Source: patient, EMS, RN notes reviewed Mode of arrival: EMS Limitations: no limitations - History of Present Illness Initial comments: Patient is a pleasant 73-year-old male presenting to the emergency Department with complaints of difficulty in breathing. Patient is a poor historian and offers very little information. Symptoms have been occurring for a couple of days. Patient does feel fatigued. Patient last had dialysis 5 days ago. They were unable to access patient's shunt again today. There is concerned that it may be clotted off. Patient has shunt right forearm. Patient has no chest pain. No cough. Patient does have some swelling of his left leg which he states is chronic. Patient has a false right leg. Patient states he does make a little bit of urine however is unclear how much. Patient is unable to see how many times a day he urinates. - Related Data Home Medications Medication Instructions Recorded Confirmed hydrALAZINE HCL [Apresoline] 50 mg PO BID 08/28/14 01/24/19 Carvedilol 12.5 mg PO BID 08/23/15 01/24/19 Insulin Glargine [Lantus] 15 unit SQ DAILY@0900 12/19/17 01/24/19 Loperamide [Imodium] 4 mg PO QID PRN 12/19/17 01/24/19 Midodrine HCl [ProAmatine] 5 mg PO MOWEFR 12/19/17 01/24/19 Nitroglycerin Sl Tabs [Nitrostat] 0.4 mg SUBLINGUAL Q5M PRN 12/19/17 01/24/19 Sevelamer [Renvela] 800 mg PO TID@0800,1200,1800 12/19/17 01/24/19 Furosemide [Lasix] 40 mg PO BID 04/17/18 01/24/19 amLODIPine [Norvasc] 10 mg PO DAILY 04/17/18 01/24/19 Lidocaine-Prilocaine Cream [Emla 1 applic TOPICAL MOWEFR 08/19/18 01/24/19 Cream 2.5%/2.5%] Acetaminophen 650 mg PO Q4H PRN 01/24/19 01/24/19 Aspirin [Barrow Aspirin EC] 81 mg PO DAILY 01/24/19 01/24/19 B Complex W-C No.20/Folic Acid 1 mg PO DAILY 01/24/19 01/24/19 [Renal Caps Softgel] Budesonide [Pulmicort] 0.5 mg INHALATION RT-BID 01/24/19 01/24/19 Ergocalciferol (Vitamin D2) 50,000 unit PO Q30D 01/24/19 01/24/19 [Drisdol] guaiFENesin-Coden 100-10MG/5ML 10 ml PO Q4H PRN 01/24/19 01/24/19 [Robitussin AC] Previous Rx's Medication Instructions Recorded Sodium Bicarbonate Tab 650 mg PO BID tab 10/28/16 traMADol HCL [Ultram] 50 - 100 mg PO Q12H PRN #4 tablet 04/19/18 Allergies Allergy/AdvReac Type Severity Reaction Status Date / Time Iodinated Contrast- Oral and Allergy Unknown Verified 08/19/18 13:53 IV Dye milk Allergy Rash/Hives Verified 08/19/18 13:53 Penicillins Allergy Rash/Hives Verified 08/19/18 13:53 vancomycin Allergy Unknown Verified 01/24/19 08:53 Review of Systems ROS Statement: Those systems with pertinent positive or pertinent negative responses have been documented in the HPI. ROS Other: All systems not noted in ROS Statement are negative. Constitutional: Denies: fever Eyes: Denies: eye pain ENT: Denies: ear pain Respiratory: Reports: dyspnea. Denies: cough Cardiovascular: Denies: chest pain Endocrine: Reports: fatigue Gastrointestinal: Denies: abdominal pain Genitourinary: Denies: dysuria Musculoskeletal: Denies: back pain Skin: Denies: rash Neurological: Denies: headache Past Medical History Past Medical History: Asthma, Heart Failure, Diabetes Mellitus, Hyperlipidemia, Hypertension, Renal Disease, Vascular Disorder Additional Past Medical History / Comment(s): Chronic kidney disease stage V , diabetic neuropathy, PVD, R below the knee amp. Dialysis M-W-F. Wears oxygen at 2 L per nc only with dialysis History of Any Multi-Drug Resistant Organisms: None Reported Additional Past Surgical History / Comment(s): AV FISTULA UPPER RT ARM -pt stated not currently using it "has had some problems with it", november 26 2013 below the knee amputation, hemodialysis catheter Past Anesthesia/Blood Transfusion Reactions: No Reported Reaction Past Psychological History: Anxiety, Depression Smoking Status: Never smoker - Past Family History Mother Family Medical History: Cancer Brother(s) Family Medical History: Coronary Artery Disease (CAD) Father Family Medical History: Coronary Artery Disease (CAD) Sister(s) Family Medical History: Cancer Additional Family Medical History / Comment(s): stomach General Exam Limitations: no limitations General appearance: alert, in no apparent distress Head exam: Present: atraumatic Eye exam: Present: normal appearance, PERRL ENT exam: Present: normal oropharynx Neck exam: Present: normal inspection Respiratory exam: Present: wheezes (Minimal expiratory wheeze) Cardiovascular Exam: Present: regular rate, normal rhythm GI/Abdominal exam: Present: soft. Absent: tenderness Extremities exam: Present: pedal edema (Left-sided), other (Right leg amputation) Neurological exam: Present: alert Psychiatric exam: Present: normal affect, normal mood Skin exam: Present: normal color Course Vital Signs 01/24/19 01/24/19 01/24/19 08:46 09:07 09:15 Temperature 97.7 F Pulse Rate 68 66 68 Respiratory 24 Rate Blood Pressure 141/72 O2 Sat by Pulse 97 Oximetry 01/24/19 09:55 Temperature Pulse Rate 61 Respiratory 22 Rate Blood Pressure 127/59 O2 Sat by Pulse 97 Oximetry EKG Findings - EKG Comments: EKG Findings:: Normal sinus rhythm at 67. QRS 84. QT 428. QTC 452. Normal axis. Normal QRS. No acute ST change. Medical Decision Making - Medical Decision Making Patient reevaluated and updated. Case was discussed in detail with Dr. Molina, covering for hospital call, who will admit. Case also discussed with Dr. Stewart who will consult and evaluate and probably need to place line. He does recommend keeping patient nothing by mouth. Nephrology will also be placed on consult. - Lab Data Result diagrams: 01/24/19 09:00 01/24/19 09:00 Lab Results 01/24/19 01/24/19 01/24/19 Range/Units 09:00 09:00 09:00 WBC 6.1 (3.8-10.6) k/uL RBC 3.10 L (4.30-5.90) m/uL Hgb 9.5 L (13.0-17.5) gm/dL Hct 29.1 L (39.0-53.0) % MCV 93.9 (80.0-100.0) fL MCH 30.5 (25.0-35.0) pg MCHC 32.5 (31.0-37.0) g/dL RDW 17.1 H (11.5-15.5) % Plt Count 172 (150-450) k/uL Neutrophils % 70 % Lymphocytes % 14 % Monocytes % 5 % Eosinophils % 8 % Basophils % 1 % Neutrophils # 4.3 (1.3-7.7) k/uL Lymphocytes # 0.9 L (1.0-4.8) k/uL Monocytes # 0.3 (0-1.0) k/uL Eosinophils # 0.5 (0-0.7) k/uL Basophils # 0.1 (0-0.2) k/uL Anisocytosis Slight PT (9.0-12.0) sec INR (<1.2) APTT (22.0-30.0) sec Sodium 144 (137-145) mmol/L Potassium 6.1 H* (3.5-5.1) mmol/L Chloride 107 (98-107) mmol/L Carbon Dioxide 24 (22-30) mmol/L Anion Gap 13 mmol/L BUN 89 H (9-20) mg/dL Creatinine 11.58 H* (0.66-1.25) mg/dL Est GFR (CKD-EPI)AfAm 4 (>60 ml/min/1.73 sqM) Est GFR (CKD-EPI)NonAf 4 (>60 ml/min/1.73 sqM) Glucose 116 H (74-99) mg/dL Calcium 7.4 L (8.4-10.2) mg/dL Total Bilirubin 0.5 (0.2-1.3) mg/dL AST 10 L (17-59) U/L ALT 18 L (21-72) U/L Alkaline Phosphatase 57 (38-126) U/L Troponin I (0.000-0.034) ng/mL NT-Pro-B Natriuret Pep 9540 pg/mL Total Protein 7.0 (6.3-8.2) g/dL Albumin 4.0 (3.5-5.0) g/dL 05/15/19 05/15/19 Range/Units 09:00 09:00 WBC (3.8-10.6) k/uL RBC (4.30-5.90) m/uL Hgb (13.0-17.5) gm/dL Hct (39.0-53.0) % MCV (80.0-100.0) fL MCH (25.0-35.0) pg MCHC (31.0-37.0) g/dL RDW (11.5-15.5) % Plt Count (150-450) k/uL Neutrophils % % Lymphocytes % % Monocytes % % Eosinophils % % Basophils % % Neutrophils # (1.3-7.7) k/uL Lymphocytes # (1.0-4.8) k/uL Monocytes # (0-1.0) k/uL Eosinophils # (0-0.7) k/uL Basophils # (0-0.2) k/uL Anisocytosis PT 10.1 (9.0-12.0) sec INR 0.9 (<1.2) APTT 25.6 (22.0-30.0) sec Sodium (137-145) mmol/L Potassium (3.5-5.1) mmol/L Chloride (98-107) mmol/L Carbon Dioxide (22-30) mmol/L Anion Gap mmol/L BUN (9-20) mg/dL Creatinine (0.66-1.25) mg/dL Est GFR (CKD-EPI)AfAm (>60 ml/min/1.73 sqM) Est GFR (CKD-EPI)NonAf (>60 ml/min/1.73 sqM) Glucose (74-99) mg/dL Calcium (8.4-10.2) mg/dL Total Bilirubin (0.2-1.3) mg/dL AST (17-59) U/L ALT (21-72) U/L Alkaline Phosphatase (38-126) U/L Troponin I <0.012 (0.000-0.034) ng/mL NT-Pro-B Natriuret Pep pg/mL Total Protein (6.3-8.2) g/dL Albumin (3.5-5.0) g/dL - Radiology Data Radiology results: image reviewed (This x-ray does show fluid overload) Disposition Clinical Impression: Acute pulmonary edema Disposition: ADMITTED IP TO THIS HOSP Is patient prescribed a controlled substance at d/c from ED?: No Referrals: Kash Taveras MD [Primary Care Provider] - 1-2 days Decision Time: 10:43
[2019-01-24 09:23] LABS: Anisocytosis Slight; Basophils # (A) 0.1 k/uL (0-0.2); Basophils % (A) 1 %; Eosinophils # (A) 0.5 k/uL (0-0.7); Eosinophils % (A) 8 %; HCT 29.1 % (39.0-53.0); HGB 9.5 gm/dL (13.0-17.5); Lymphocytes # (A) 0.9 k/uL (1.0-4.8); Lymphocytes % (A) 14 %; MCH 30.5 pg (25.0-35.0); MCHC 32.5 g/dL (31.0-37.0); MCV 93.9 fL (80.0-100.0); Mean Platelet Volume 8.7; Monocytes # (A) 0.3 k/uL (0-1.0); Monocytes % (A) 5 %; Neutrophils # (A) 4.3 k/uL (1.3-7.7); Neutrophils % (A) 70 %; Platelet Count 172 k/uL (150-450); RDW 17.1 % (11.5-15.5); WBC 6.1 k/uL (3.8-10.6)
[2019-01-24 09:27] LABS: INR 0.9 (<1.2); Partial Thromboplastin Time 25.6 sec (22.0-30.0); Prothrombin Time 10.1 sec (9.0-12.0)
[2019-01-24 09:31] LABS: Calcium 7.4 mg/dL (8.4-10.2); Total Bilirubin 0.5 mg/dL (0.2-1.3)
[2019-01-24 09:42] LABS: Potassium 6.1 mmol/L (3.5-5.1)
--- NOTE | 2019-01-24 09:56 | XR ---
EXAMINATION TYPE: XR chest 2V DATE OF EXAM: 01/24/2019 COMPARISON: Prior chest x-ray 04/18/2018 HISTORY: Difficulty breathing TECHNIQUE: Frontal and lateral views of the chest are obtained. FINDINGS: Central venous catheter has been removed, there are overlying cardiac leads. No evident pn eumothorax. The heart is enlarged. Bibasilar increased density persists. Central vascularity is promi nent. IMPRESSION: Correlate for volume overload, there are likely pleural effusions and associated atelect asis, correlate to exclude pneumonia.
[2019-01-24] MEDS ORDERED: NALOXONE 0.4 MG/ML 1 ML VIAL IV PRN (10:44)
[2019-01-24] MEDS ORDERED: FUROSEMIDE 10 MG/ML 4 ML VIAL IV STA (10:46)
[2019-01-24] MEDS ORDERED: CALCIUM GLUCONATE 1 GM in SODIUM CHLORIDE 0.9% 100 ML IVPB ONE (11:00)
[2019-01-24] MEDS: SODIUM CHLORIDE 0.9% 1,000 ML IV SCH (11:24)
[2019-01-24] MEDS ORDERED: IPRATROPIUM-ALBUTEROL 3 ML NEB INHALATION PRN (11:26)
[2019-01-24] MEDS: IPRATROPIUM-ALBUTEROL 3 ML NEB INHALATION SCH ×3 (11:42→20:18)
[2019-01-24 12:17] LABS: Glucose,Whole Blood 117 mg/dL (75-99)
[2019-01-24 16:51] LABS: Glucose,Whole Blood 132 mg/dL (75-99)
[2019-01-24] MEDS ORDERED: ACETAMINOPHEN TAB 325 MG TAB PO PRN (17:00)
[2019-01-24] MEDS: INSULIN ASPART (NovoLOG) 100 UNIT/ML VIAL SQ SCH ×2 (17:09→23:20)
[2019-01-24] MEDS: SEVELAMER 800 MG TAB PO SCH (17:10)
[2019-01-24] MEDS: CARVEDILOL 12.5 MG TAB PO SCH (17:13)
[2019-01-24] MEDS: FUROSEMIDE 40 MG TAB PO SCH (17:13)
--- NOTE | 2019-01-24 17:24 | P.HPIM ---
History of Present Illness H&P Date: 01/24/19 Chief Complaint: Shortness of breath 73-year-old male with PMH of asthma, diastolic CHF, diabetes mellitus, hypertension, peripheral vascular disease post right BKA, ESRD on dialysis Tuesday presents to the ED for shortness of breath. Patient appears quite dyspneic and is unable to provide a lot of history. Patient reports his last dialysis session tibial Tuesday. He missed Tuesday's dialysis session due to the fact that his right upper extremity fistula was not working. Patient reports shortness of breath that has been gradually getting worse over the last few days. Shortness of breath exists with exertion and at rest. He denies any orthopnea. Patient denies any headache, lower extremity edema, nausea, vomiting, fever, chills, cough, chest pain, palpitations, changes in urination or bowel habits. No changes in appetite or weight. Patient does report that he urinates a couple times daily, unable to describe how much urine. Patient states that he has been on dialysis since 2016. Patient denies any smoking cigarettes or drinking of alcohol. In the ED, patient was noted to be saturating low 90s on 4 L nasal cannula. CBC showed anemia with hemoglobin of 9.5. CMP showed a potassium of 6.1, creatinine of 11.58. Troponin was less than 0.012, EKG showing low voltage QRS and accelerated junctional rhythm. BNP was 9540, with chest x-ray showing some signs of fluid overload and pleural effusion. Patient is admitted for pulmonary edema, vascular surgery consulted for emergent access and nephrology consulted for emergent dialysis. Review of Systems Pertinent positives and negatives as discussed in HPI, a complete review of systems was performed and all other systems are negative. Past Medical History Past Medical History: Asthma, Heart Failure, Diabetes Mellitus, Hyperlipidemia, Hypertension, Renal Disease, Vascular Disorder Additional Past Medical History / Comment(s): Chronic kidney disease stage V , diabetic neuropathy, PVD, R below the knee amp. Dialysis M-W-F. Wears oxygen at 2 L per nc only with dialysis History of Any Multi-Drug Resistant Organisms: None Reported Additional Past Surgical History / Comment(s): AV FISTULA UPPER RT ARM -pt stated not currently using it "has had some problems with it", november 26 2013 below the knee amputation, hemodialysis catheter Past Anesthesia/Blood Transfusion Reactions: No Reported Reaction Past Psychological History: Anxiety, Depression Additional Psychological History / Comment(s): depression related to of in april 2014. pt currently lives at [facility]. has rt leg prothesis, uses w/c to get around and is able to transfer self. Smoking Status: Never smoker Past Alcohol Use History: None Reported Additional Past Alcohol Use History / Comment(s): PT states he is a lifelong nonsmoker. He denies any medical marijuana, street drug use. He WAS DRINKING 2 12C OUNCE beers daily going to [facility] and more recently-pt stated he consumed 3/4 of a fifth of whiskey and 6 beer between 04-12-18 and 04-16-18 until he got caught. stated he was celebrating his birthday. His passed in April 2014. He has had no recent travel. He worked in the past doing [employer] to [employer] and [facility]. Currently at [facility]. Past Drug Use History: None Reported - Past Family History Mother Family Medical History: Cancer Brother(s) Family Medical History: Coronary Artery Disease (CAD) Father Family Medical History: Coronary Artery Disease (CAD) Sister(s) Family Medical History: Cancer Additional Family Medical History / Comment(s): stomach Medications and Allergies Home Medications Medication Instructions Recorded Confirmed Type hydrALAZINE HCL [Apresoline] 50 mg PO BID 08/28/14 01/24/19 History Carvedilol 12.5 mg PO BID 08/23/15 01/24/19 History Sodium Bicarbonate Tab 650 mg PO BID tab 10/28/16 01/24/19 Rx Insulin Glargine [Lantus] 15 unit SQ DAILY@0900 12/19/17 01/24/19 History Loperamide [Imodium] 4 mg PO QID PRN 12/19/17 01/24/19 History Midodrine HCl [ProAmatine] 5 mg PO MOWEFR 12/19/17 01/24/19 History Nitroglycerin Sl Tabs [Nitrostat] 0.4 mg SUBLINGUAL Q5M PRN 12/19/17 01/24/19 History Sevelamer [Renvela] 800 mg PO TID@0800,1200,1800 12/19/17 01/24/19 History Furosemide [Lasix] 40 mg PO BID 04/17/18 01/24/19 History amLODIPine [Norvasc] 10 mg PO DAILY 04/17/18 01/24/19 History traMADol HCL [Ultram] 50 - 100 mg PO Q12H PRN #4 tablet 04/19/18 01/24/19 Rx Lidocaine-Prilocaine Cream [Emla 1 applic TOPICAL MOWEFR 08/19/18 01/24/19 History Cream 2.5%/2.5%] Acetaminophen 650 mg PO Q4H PRN 01/24/19 01/24/19 History Aspirin [Merrick Aspirin EC] 81 mg PO DAILY 01/24/19 01/24/19 History B Complex W-C No.20/Folic Acid 1 mg PO DAILY 01/24/19 01/24/19 History [Renal Caps Softgel] Budesonide [Pulmicort] 0.5 mg INHALATION RT-BID 01/24/19 01/24/19 History Ergocalciferol (Vitamin D2) 50,000 unit PO Q30D 01/24/19 01/24/19 History [Drisdol] guaiFENesin-Coden 100-10MG/5ML 10 ml PO Q4H PRN 01/24/19 01/24/19 History [Robitussin AC] Allergies Allergy/AdvReac Type Severity Reaction Status Date / Time Iodinated Contrast- Oral and Allergy Unknown Verified 08/19/18 13:53 IV Dye milk Allergy Rash/Hives Verified 08/19/18 13:53 Penicillins Allergy Rash/Hives Verified 08/19/18 13:53 vancomycin Allergy Unknown Verified 01/24/19 08:53 Physical Exam Vitals: Vital Signs Temp Pulse Pulse Resp BP BP Pulse Ox 01/24/19 15:53 97.6 F 75 21 129/77 91 L 01/24/19 15:25 76 01/24/19 15:13 75 01/24/19 12:00 97.7 F 72 20 147/68 93 L 01/24/19 11:54 64 01/24/19 11:44 68 01/24/19 11:26 66 18 134/61 94 L 01/24/19 09:55 61 22 127/59 97 01/24/19 09:15 68 01/24/19 09:07 66 01/24/19 08:46 97.7 F 68 24 141/72 97 Intake and Output 01/24/19 01/24/19 01/24/19 06:59 14:59 22:59 Intake Total 100 Output Total 100 Balance 0 Intake: Intake, IV Titration 100 Amount Calcium Gluconate 1 gm In 100 Sodium Chloride 0.9% 100 ml @ 100 mls/hr IVPB ONCE ONE Rx#:[id number] Output: Urine 100 Other: Weight 120.202 kg General: [non toxic], [appears short of breath, 1-2 word sentences on 4 L NC], [appears at stated age] Derm: [warm], [dry] Head: [atraumatic], [normocephalic], [symmetric] Eyes: [EOMI], [no lid lag], [anicteric sclera] Mouth: [no lip lesion], [mucus membranes moist] Cardiovascular: [S1S2 reg], [no murmur], [faint DP pulses in the left lower extremity] Lungs: [Decreased breath sounds bilateral with poor inspiratory effort], [no rhonchi, no rales] , [no accessory muscle use] Abdominal: [soft], [ nontender to palpation], [no guarding], [no appreciable or ganomegaly] Ext: [no gross muscle atrophy], [no edema], [no contractures], [right upper extremity fistula], [right below-knee amputation], [erythema and chronic skin changes of the left lower extremity] Neuro: [no focal neuro deficits] Psych: [Alert], [oriented], [appropriate affect] Results CBC & Chem 7: 01/24/19 09:00 01/24/19 09:00 Labs: Abnormal Lab Results - Last 24 Hours (Table) 01/24/19 01/24/19 01/24/19 Range/Units 09:00 09:00 12:15 RBC 3.10 L (4.30-5.90) m/uL Hgb 9.5 L (13.0-17.5) gm/dL Hct 29.1 L (39.0-53.0) % RDW 17.1 H (11.5-15.5) % Lymphocytes # 0.9 L (1.0-4.8) k/uL Potassium 6.1 H* (3.5-5.1) mmol/L BUN 89 H (9-20) mg/dL Creatinine 11.58 H* (0.66-1.25) mg/dL Glucose 116 H (74-99) mg/dL POC Glucose (mg/dL) 117 H (75-99) mg/dL Calcium 7.4 L (8.4-10.2) mg/dL AST 10 L (17-59) U/L ALT 18 L (21-72) U/L 01/24/19 Range/Units 16:44 RBC (4.30-5.90) m/uL Hgb (13.0-17.5) gm/dL Hct (39.0-53.0) % RDW (11.5-15.5) % Lymphocytes # (1.0-4.8) k/uL Potassium (3.5-5.1) mmol/L BUN (9-20) mg/dL Creatinine (0.66-1.25) mg/dL Glucose (74-99) mg/dL POC Glucose (mg/dL) 132 H (75-99) mg/dL Calcium (8.4-10.2) mg/dL AST (17-59) U/L ALT (21-72) U/L Thrombosis Risk Factor Assmnt - Choose All That Apply Each Factor Represents 1 point: Abnormal pulmonary function (COPD) Each Risk Factor Represents 2 Points: Age 61-74 years Thrombosis Risk Factor Assessment Total Risk Factor Score: 3 Thrombosis Risk Factor Assessment Level: Moderate Risk Assessment and Plan Assessment: Assessment and Plan Pulmonary edema Hyperkalemia ESRD on dialysis Tuesday was a Tuesday Anemia CHF Asthma Diabetes mellitus Hypertension Peripheral vascular disease with right [id number] amputation Chest x-ray shows volume overload, pleural effusion and associated atelectasis. Missed dialysis on Tuesday due to unassessable site. Given 1 dose of Lasix IV in the ED. Plan: Discussed with Dr. Stewart, plans for temporary access today for urgent dialysis. Nephrology consulted for hemodialysis Tuesday schedule. Continue Lasix by mouth. DuoNeb as needed for shortness of breath and wheezing. O2 per NC to maintain O2 saturation greater than 92%. Potassium 6.1. Likely secondary to ESRD. Given calcium gluconate in the ED. Plan: Nephrology and vascular surgery consulted for emergent dialysis. Telemetry monitoring. Daily BMP. Creatinine 11.58. Missed dialysis on Tuesday. Plan: Nephrology and vascular surgery consulted for emergent dialysis. Monitor and replace electrolytes. Keep K > 4 and Mg > 2. Continue sodium bicarbonate. Continue sevelamer. Continue Midodrine. Hemoglobin 9.5. Normocytic. Iron studies in 2017 show iron deficiency anemia. Plan: Daily CBC. Transfuse if hemoglobin less than 7. BNP 9540. October 2016 echo shows EF 50-55% with concentric LVH. Chest x-ray showing signs of volume overload. Plan: Continue Lasix by mouth. Continue beta belem. Strict intake and output. Daily weights. Keep K > 4 and Mg > 2. Follow echocardiogram. Stable. Plan: DuoNeb as needed for shortness of breath and wheezing. Continue Pulmicort. Cefbf-lo-twep glucose 132. A1c 5.2 in October. Plan: Continue Lantus 15 units in the morning. Insulin sliding scale. Hypoglycemic precautions. Regular Accu-Cheks. BP 129/77. Plan: Continue hydralazine, carvedilol, amlodipine. Monitor vitals, adjust medications as necessary. Plan: Follow PT recommendations. DVT prophylaxis: [SCD boots] Discussed with: [Patient and daughter] Anticipated discharge: [1-2 days] Anticipated discharge place: [Home] A total of [45] minutes was spent on the care of this complex patient more than 50% of the time was spent in counseling and care coordination. Patient names his daughter Cassidy the decision maker in the case that he can't make decisions for himself. Patient elects to be full code at this time.
[2019-01-24 17:51] LABS: Glucose,Whole Blood 105 mg/dL (75-99)
[2019-01-24] MEDS ORDERED: LORazepam 2 MG/ML INJ IV STA (17:55)
[2019-01-24] MEDS ORDERED: HEPARIN SODIUM 1,000 UN/ML (10ML VL) ONE (18:08)
[2019-01-24] MEDS ORDERED: LIDOCAINE 1% INJ 10MG/ML (20 ML MDV) ONE (18:08)
[2019-01-24] MEDS: BUDESONIDE 0.5 MG/2 ML NEBU INHALATION SCH (20:18)
[2019-01-24] MEDS: traMADol 50 MG TAB PO PRN (21:15)
[2019-01-24] MEDS: SODIUM BICARBONATE TAB 650 MG TAB PO SCH (23:22)
[2019-01-24] MEDS: hydrALAZINE HCL 50 MG TAB PO SCH (23:22)
[2019-01-25 00:57] LABS: Hepatitis B Surface AB- Quant 3.5 mIU/mL
[2019-01-25 05:29] LABS: Anisocytosis Slight; Basophils # (A) 0.1 k/uL (0-0.2); Basophils % (A) 1 %; Eosinophils # (A) 0.3 k/uL (0-0.7); Eosinophils % (A) 7 %; HCT 28.9 % (39.0-53.0); HGB 9.1 gm/dL (13.0-17.5); Hypochromasia Slight; Lymphocytes # (A) 0.7 k/uL (1.0-4.8); Lymphocytes % (A) 16 %; MCH 29.7 pg (25.0-35.0); MCHC 31.3 g/dL (31.0-37.0); MCV 94.8 fL (80.0-100.0); Mean Platelet Volume 8.1; Monocytes # (A) 0.3 k/uL (0-1.0); Monocytes % (A) 6 %; Neutrophils # (A) 3.1 k/uL (1.3-7.7); Neutrophils % (A) 67 %; Platelet Count 146 k/uL (150-450); RBC 3.05 m/uL (4.30-5.90); RDW 16.9 % (11.5-15.5); WBC 4.7 k/uL (3.8-10.6)
[2019-01-25 05:51] LABS: Calcium 7.5 mg/dL (8.4-10.2); Magnesium 2.4 mg/dL (1.6-2.3); Potassium 5.4 mmol/L (3.5-5.1)
[2019-01-25] MEDS: IPRATROPIUM-ALBUTEROL 3 ML NEB INHALATION SCH ×4 (08:05→20:49)
[2019-01-25] MEDS: BUDESONIDE 0.5 MG/2 ML NEBU INHALATION SCH ×2 (08:05→20:48)
[2019-01-25] MEDS: INSULIN ASPART (NovoLOG) 100 UNIT/ML VIAL SQ SCH ×4 (08:31→21:30)
[2019-01-25 08:32] LABS: Glucose,Whole Blood 75 mg/dL (75-99)
[2019-01-25] MEDS: SEVELAMER 800 MG TAB PO SCH ×3 (08:47→17:31)
[2019-01-25] MEDS: SODIUM BICARBONATE TAB 650 MG TAB PO SCH ×2 (08:47→20:12)
[2019-01-25] MEDS: FUROSEMIDE 40 MG TAB PO SCH ×2 (08:47→17:31)
[2019-01-25] MEDS: ASPIRIN 81 MG PO SCH (08:47)
[2019-01-25] MEDS: CARVEDILOL 12.5 MG TAB PO SCH ×2 (08:48→17:31)
[2019-01-25] MEDS ORDERED: MIDODRINE 5 MG TAB PO STA (08:55)
--- NOTE | 2019-01-25 09:47 | P.NPCON ---
History of Present Illness - Reason for Consult end stage renal disease - History of Present Illness Reason for consultation: End-stage renal disease History of present illness: Patient is a 73-year-old male seen in renal consultation for end-stage renal disease. He is maintained on hemodialysis on a Tuesday schedule. Patient has a left upper extremity AV fistula which is quite small a nd has been difficult to cannulate. Patient had missed dialysis treatment prior to admission. He was noted to be dyspneic and fluid overload. He had a temporary catheter placed in the groin and underwent hemodialysis yesterday. He was seen today while undergoing hemodialysis. Dyspnea has improved. No fever or chills. No vomiting or diarrhea. Hemodynamically stable after blood pressure is on the lower side. He does take midodrine outpatient. Potassium level has improved postdialysis. He is scheduled to receive a permacath tomorrow. Vital signs are stable. General: The patient appeared well nourished and normally developed. HEENT: Head exam is unremarkable. Neck is without jugular venous distension. LUNGS: Lungs are clear to auscultation and percussion. Breath sounds decreased. HEART: Rate and Rhythm are regular. First and second heart sounds normal. No murmurs, rubs or gallops. ABDOMEN: Abdominal exam reveals normal bowel sounds. Non-tender and non- distended. No evidence of peritonitis. EXTREMITITES: Trace edema. Erythema noted. Right BKA noted. Past Medical History Past Medical History: Asthma, Heart Failure, Diabetes Mellitus, Hyperlipidemia, Hypertension, Renal Disease, Vascular Disorder Additional Past Medical History / Comment(s): Chronic kidney disease stage V , diabetic neuropathy, PVD, R below the knee amp. Dialysis M-W-F. Wears oxygen at 2 L per nc only with dialysis History of Any Multi-Drug Resistant Organisms: None Reported Additional Past Surgical History / Comment(s): AV FISTULA UPPER RT ARM -pt stated not currently using it "has had some problems with it", november 26 2013 below the knee amputation, hemodialysis catheter Past Anesthesia/Blood Transfusion Reactions: No Reported Reaction Past Psychological History: Anxiety, Depression Additional Psychological History / Comment(s): depression related to of in april 2014. pt currently lives at [facility]. has rt leg prothesis, uses w/c to get around and is able to transfer self. Smoking Status: Never smoker Past Alcohol Use History: None Reported Additional Past Alcohol Use History / Comment(s): PT states he is a lifelong nonsmoker. He denies any medical marijuana, street drug use. He WAS DRINKING 2 12C [place]UN[place] beers [facility] and more recently-pt stated he consumed 3/4 of a fifth of whiskey and 6 beer between 04-12-18 and 04-16-18 until he got caught. stated he was celebrating his birthday. His passed in April 2014. He has had no recent travel. He worked in the past doing long[employer] to [address] [place] [address] and [facility]. Currently at [facility]. Past Drug Use History: None Reported - Past Family History Mother Family Medical History: Cancer Brother(s) Family Medical History: Coronary Artery Disease (CAD) Father Family Medical History: Coronary Artery Disease (CAD) Sister(s) Family Medical History: Cancer Additional Family Medical History / Comment(s): stomach Medications and Allergies Home Medications Medication Instructions Recorded Confirmed Type hydrALAZINE HCL [Apresoline] 50 mg PO BID 08/28/14 01/24/19 History Carvedilol 12.5 mg PO BID 08/23/15 01/24/19 History Sodium Bicarbonate Tab 650 mg PO BID tab 10/28/16 01/24/19 Rx Insulin Glargine [Lantus] 15 unit SQ DAILY@0900 12/19/17 01/24/19 History Loperamide [Imodium] 4 mg PO QID PRN 12/19/17 01/24/19 History Midodrine HCl [ProAmatine] 5 mg PO MOWEFR 12/19/17 01/24/19 History Nitroglycerin Sl Tabs [Nitrostat] 0.4 mg SUBLINGUAL Q5M PRN 12/19/17 01/24/19 History Sevelamer [Renvela] 800 mg PO TID@0800,1200,1800 12/19/17 01/24/19 History Furosemide [Lasix] 40 mg PO BID 04/17/18 01/24/19 History amLODIPine [Norvasc] 10 mg PO DAILY 04/17/18 01/24/19 History traMADol HCL [Ultram] 50 - 100 mg PO Q12H PRN #4 tablet 04/19/18 01/24/19 Rx Lidocaine-Prilocaine Cream [Emla 1 applic TOPICAL MOWEFR 08/19/18 01/24/19 History Cream 2.5%/2.5%] Acetaminophen 650 mg PO Q4H PRN 01/24/19 01/24/19 History Aspirin [Grimes Aspirin EC] 81 mg PO DAILY 01/24/19 01/24/19 History B Complex W-C No.20/Folic Acid 1 mg PO DAILY 01/24/19 01/24/19 History [Renal Caps Softgel] Budesonide [Pulmicort] 0.5 mg INHALATION RT-BID 01/24/19 01/24/19 History Ergocalciferol (Vitamin D2) 50,000 unit PO Q30D 01/24/19 01/24/19 History [Drisdol] guaiFENesin-Coden 100-10MG/5ML 10 ml PO Q4H PRN 01/24/19 01/24/19 History [Robitussin AC] Allergies Allergy/AdvReac Type Severity Reaction Status Date / Time Iodinated Contrast- Oral and Allergy Unknown Verified 08/19/18 13:53 IV Dye milk Allergy Rash/Hives Verified 08/19/18 13:53 Penicillins Allergy Rash/Hives Verified 08/19/18 13:53 vancomycin Allergy Unknown Verified 01/24/19 08:53 Physical Exam Vitals: Vital Signs Temp Pulse Pulse Resp BP BP Pulse Ox 01/25/19 09:00 64 19 114/62 95 01/25/19 08:30 70 24 109/53 95 01/25/19 08:19 72 01/25/19 08:07 68 01/25/19 08:00 97.9 F 65 26 H 98 01/25/19 07:30 72 32 H 144/80 96 01/25/19 07:00 65 20 143/59 96 01/25/19 06:30 67 24 127/54 95 01/25/19 06:00 63 28 H 131/62 97 01/25/19 05:30 65 29 H 137/64 96 01/25/19 05:00 69 17 129/55 96 01/25/19 04:58 95 01/25/19 04:30 64 22 123/51 89 L 01/25/19 04:00 96.9 F L 64 29 H 139/61 87 L 01/25/19 03:30 66 31 H 131/65 94 L 01/25/19 03:00 63 26 H 126/57 93 L 01/25/19 02:30 64 31 H 134/63 94 L 01/25/19 02:00 64 36 H 119/66 93 L 01/25/19 01:30 62 23 121/63 93 L 01/25/19 01:00 63 25 H 120/59 94 L 01/25/19 00:30 96.8 F L 62 25 H 122/61 95 01/25/19 00:00 96.9 F L 67 28 H 135/68 94 L 01/24/19 23:30 67 25 H 149/66 95 01/24/19 23:15 70 30 H 142/70 94 L 01/24/19 23:00 69 29 H 139/72 94 L 01/24/19 22:45 69 29 H 147/104 96 01/24/19 22:30 63 28 H 134/72 95 01/24/19 22:15 61 22 135/68 96 01/24/19 22:00 59 L 24 133/101 97 01/24/19 21:57 96.6 F L 60 20 134/77 01/24/19 21:45 60 29 H 134/77 95 01/24/19 21:30 66 27 H 101/62 90 L 01/24/19 21:15 96.6 F L 60 25 H 107/60 92 L 01/24/19 21:00 60 23 99/61 94 L 01/24/19 20:45 59 L 23 101/67 94 L 01/24/19 20:31 60 01/24/19 20:30 60 23 108/64 96 01/24/19 20:22 68 01/24/19 20:15 61 29 H 101/54 92 L 01/24/19 20:00 58 L 22 108/76 94 L 01/24/19 19:45 61 22 145/66 94 L 01/24/19 19:30 67 28 H 130/63 91 L 01/24/19 19:15 68 37 H 117/56 93 L 01/24/19 15:53 97.6 F 75 21 129/77 91 L 01/24/19 15:25 76 01/24/19 15:13 75 01/24/19 12:00 97.7 F 72 20 147/68 93 L 01/24/19 11:54 64 01/24/19 11:44 68 01/24/19 11:26 66 18 134/61 94 L 01/24/19 09:55 61 22 127/59 97 Intake and Output 01/24/19 01/25/19 01/25/19 22:59 06:59 14:59 Intake Total 420 160 60 Output Total 6365 102 40 Balance -5945 58 20 Intake: IV 60 160 60 Sodium Chloride 0.9% 1, 60 160 60 000 ml @ 20 mls/hr IV . Q24H DARIANA Rx#:[id number] Oral 60 Hemodialysis 300 Output: Urine 65 102 40 Hemodialysis 3300 Other 3000 Other: Voiding Method Indwelling Catheter Indwelling Catheter Indwelling Catheter Weight 123.5 kg 120.7 kg Results - Lab Results Most recent lab results Calcium 7.5 mg/dL (8.4-10.2) L 01/25/19 04:53 Magnesium 2.4 mg/dL (1.6-2.3) H 01/25/19 04:53 01/25/19 04:53 01/25/19 04:53 Assessment and Plan Plan: Assessment: 1. End-stage renal disease maintained on hemodialysis on a Tuesday schedule. Patient now has a temporary catheter and will receive a permacath tomorrow. The AV fistula is not working at this time. 2. Dyspnea/acute hypoxic respiratory failure secondary to fluid overload. 3. Insulin-dependent diabetes mellitus. 4. Chronic kidney disease mineral bone disease maintained on Renvela. 5. Hypertension with chronic kidney disease. Currently blood pressure on the lower side. He does receive midodrine prior to dialysis. 6. Peripheral vascular disease status post right BKA. 7. Anemia of chronic kidney disease. Rule out iron deficiency. Plan: Currently seen while undergoing hemodialysis. Next treatment tomorrow per his outpatient schedule. Scheduled for permacath placement tomorrow. He will need to follow-up with vascular surgery outpatient for another AV fistula. Check iron studies. Thank you for the consultation. I will continue to follow the patient with you during his hospital stay.
[2019-01-25] MEDS: INSULIN DETEMIR (LEVEMIR) 100 UNIT/ML SYR SQ SCH (09:52)
[2019-01-25] MEDS: traMADol 50 MG TAB PO PRN ×3 (10:12→23:53)
[2019-01-25] MEDS: amLODIPine 10 MG TAB PO SCH (10:15)
[2019-01-25] MEDS: hydrALAZINE HCL 50 MG TAB PO SCH ×2 (10:16→20:12)
--- NOTE | 2019-01-25 11:19 | CONS ---
DATE OF CONSULTATION: 01/24/2019 Mr. Marroquin was seen today through the emergency room today with shortness of breath. This is a 73-year-old gentleman, history of chronic renal failure. The patient had a fistula placed in the right wrist by Dr. Garcia at [facility] in the past. The patient had a intervention done at [place] recently. Today he came to the dialysis. They could not access the fistula. The patient has very short of breath and potassium is 6.1. He did had dialysis for the last few days. MEDICAL HISTORY: Patient has history of congestive heart failure, diabetes, hyperlipidemia, hypertension, chronic renal failure, vascular disorder. PHYSICAL EXAMINATION: Patient was seen in his room. He is very short of breath. NECK: Supple. CHEST: Has crackles bilateral. ABDOMEN: Protuberant. Femorals are 1+. Potassium is 6.1. PLAN: We will place a temporary dialysis catheter. Will need urgent dialysis catheter, then patient will be needing a permanent catheter and the fistula will be evaluated by doing a fistulogram. Discussed with Dr. Garcia about this case. MMODL / IJN: [id number] / MTDD
--- NOTE | 2019-01-25 11:28 | PCN ---
PROCEDURE NOTE PREOPERATIVE DIAGNOSIS: Malfunction of fistula with high potassium 6.1. PROCEDURE: Ultrasound-guided dialysis catheter right femoral approach. Patient was seen in the intensive care unit. Right groin was prepped and draped for usual sterile manner; 1% lidocaine for infecting the right groin area. Ultrasound- guided micropuncture into the right internal femoral vein. After that, we passed a micropuncture guidewire and 4-Stateless dilator on top of the guidewire. After that, we passed a regular guidewire and then passed a dilator and then placed 20 cm dialysis catheter on the top of the guidewire was flushed with heparin saline and hep-locked and secured with 3.0 nylon. Dressing applied. Patient tolerated the procedure well. EUGENIA / DANNIELLEN: [id number] /
--- NOTE | 2019-01-25 12:10 | CONS ---
CONSULTATION PULMONARY/CRITICAL CARE CONSULTATION: This is a 73-year-old gentleman who presented to the emergency department with complaints of difficulty breathing. Very poor historian. He apparently was admitted to the floor and then apparently developed worsening shortness of breath. He was also found to be hyperkalemic and Dr. Stewart was consulted for emergent hemodialysis. He called me to ask me whether not he could move the patient to the ICU and I said yes. The patient apparently developed shortness of breath and last had dialysis 5 days ago. Apparently they were unable to properly assess his shunt and that is why he had missed dialysis and was fluid overloaded and hyperkalemic. The patient is feeling much better now. The hemodialysis took place last night with a temporary hemodialysis placed catheter placed yesterday by Dr. Stewart. The patient had 3 L of fluid removed and his potassium went from 6.1 to 5.4. Currently, he is on O2 at 8 L/minute. He is getting a 0.9 IV at 20 mL an hour. He is feeling much better. Somewhat sleepy and lethargic. Not a particularly good historian. He denies any shortness of breath at this time and denies any pain or discomfort in his chest. MEDICATIONS: His home medications include Apresoline, Coreg, Lantus insulin, Imodium, midodrine, nitroglycerin tablets, Renvela, Lasix, Norvasc, EMLA cream, Tylenol, aspirin, B complex vitamins with folic acid, Pulmicort updrafts, vitamin D2, Robitussin AC, sodium bicarbonate tablets, and tramadol. ALLERGIES: Allergies include IVP DYE, MILK, PENICILLIN, and VANCOMYCIN. PAST MEDICAL HISTORY: His past medical history includes mild asthma, CHF, diabetes, hyperlipidemia, hypertension, chronic renal failure requiring hemodialysis, diabetic neuropathy, peripheral vascular disease, right callg-vkl-asqk amputation, and chronic oxygen therapy during dialysis. His dialysis days are Tuesday, Tuesday, Tuesday. SURGICAL HISTORY: Surgical history includes a right upper arm arteriovenous fistula which apparently they are having problems with and fdcql-oep-xmhs amputation on the right side. He has had some other minor procedures. He does apparently also suffer from some anxiety, depression. SOCIAL HISTORY: Social history is otherwise negative. He denies tobacco use. No illicit drug use or significant alcohol use. FAMILY HISTORY: Family history is positive for cardiac disease, cancer and stomach issues. REVIEW OF SYSTEMS: Difficult to obtain from this patient. But apparently he was short of breath when he came into the emergency department. Apparently, no other complaints. Today, he is not able to give me much additional history. He states he is feeling better. PHYSICAL EXAMINATION: Current vital signs are reviewed. His temperature is 96.9, heart rate 63, respiratory rate 20, blood pressure 143/59, mean 87, and saturations are mid to high 90s on 8 L O2. Appears in no acute distress. Lying on his left side. No respiratory distress. No conversational dyspnea. No use of accessory muscles. Poor historian and somewhat sleepy. HEENT: Examination is grossly unremarkable. Nasal O2 noted. NECK: Supple. Full range of motion. No adenopathy. Neck veins are flat. CARDIOVASCULAR: Examination reveals regular rhythm rate. Heart rate in the low 70s. S1, S2 normal. Heart sounds are distant. LUNGS: Reveal very minimal bibasilar crackles. No wheezes or rhonchi. Breath sounds are equal bilaterally. ABDOMEN: Obese. Bowel sounds are heard. No masses or tenderness. EXTREMITIES: Reveal some mild edema. No cyanosis or clubbing. He does have a right lower extremity amputation. NEUROLOGIC: Examination is difficult to assess. He does move all 4 extremities well. Microbiologic data is negative. Laboratory data today includes a white count of 4.7, hemoglobin 9.1, hematocrit 28.9, platelet count 146,000. Sodium 139, potassium 5.4, chloride 104 CO2 of 24. BUN and creatinine were 66 and 9.26. His initial N terminal proBNP was 9540. His troponin was negative. PT/INR and PTT were all normal. His chest x-ray on admission revealed significant fluid overload with cephalization fluid in the minor fissure and bilateral pleural effusions. Microbiologic studies are negative. Medications are reviewed. ASSESSMENT: 1. Hypoxemic respiratory failure secondary to fluid overload in a patient with chronic renal failure, who has missed a number of days of dialysis primarily because of nonfunctional AV shunt. 2. Status post temporary hemodialysis catheter placement with hemodialysis yesterday with fluid removal of 3 L and improvement in potassium from 6.1 to 5.4. 3. History of mild chronic bronchial asthma. 4. History of congestive heart failure. 5. History of diabetes mellitus with diabetic end organ involvement. 6. History of hyperlipidemia. 7. Benign essential hypertension. 8. Peripheral vascular disease. 9. Status post right hljqv-yig-mafl amputation. 10.Diabetic neuropathy. 11.Nonfunctional right upper extremity AV fistula. PLAN: The patient is doing well. The patient could be transferred back to [address] [place] [address]. No additional recommendations are made. We will continue with Tuesday, Tuesday, Tuesday dialysis. He has a temporary catheter in place. No additional recommendations are made. Prognosis is guarded. Potassium is much improved. Respiratory status and fluid status is much improved. MMODL / IJN: [id number] /
[2019-01-25 12:24] LABS: Glucose,Whole Blood 131 mg/dL (75-99)
[2019-01-25] MEDS: SODIUM CHLORIDE 0.9% 1,000 ML IV SCH (12:31)
--- NOTE | 2019-01-25 13:36 | P.PN ---
Subjective Progress Note Date: 01/25/19 Principal diagnosis: Shortness of breath Patient was seen and examined. No acute events overnight. Patient reports great improvement in his breathing since admission. States that he is 60% back to normal. He denies any nausea or vomiting. No fever or chills. He denies any chest pain or palpitations. Underwent dialysis this morning as well as yesterday. Objective - Vital Signs Vital signs: Vital Signs Temp 98.2 F 01/25/19 12:00 Pulse 60 01/25/19 12:00 Resp 40 H 01/25/19 12:00 BP 136/65 01/25/19 12:00 Pulse Ox 97 01/25/19 12:00 Intake & Output 01/24/19 01/25/19 01/25/19 18:59 06:59 18:59 Intake Total 100 580 120 Output Total 100 6467 2752 Balance 0 -3647 -8392 Weight 120.202 kg 120.7 kg Intake: IV 220 120 Sodium Chloride 0.9% 1, 220 120 000 ml @ 20 mls/hr IV . Q24H [facility] Rx#:[id number] Intake, IV Titration 100 Amount Calcium Gluconate 1 gm In 100 Sodium Chloride 0.9% 100 ml @ 100 mls/hr IVPB ONCE ONE Rx#:[id number] Oral 60 Hemodialysis 300 Output: Urine 100 167 45 Hemodialysis 3300 2707 Other 3000 Other: Voiding Method Indwelling Catheter Indwelling Catheter - Exam General: [non toxic], [no distress], [appears at stated age] Derm: [warm], [dry] Head: [atraumatic], [normocephalic], [symmetric] Eyes: [EOMI], [no lid lag], [anicteric sclera] Mouth: [no lip lesion], [mucus membranes moist] Cardiovascular: [S1S2 reg], [no murmur], [faint DP pulses in the left lower extremity] Lungs: [Decreased breath sounds bilateral, improved from yesterday], [no rhonchi, no rales] , [no accessory muscle use] Abdominal: [soft], [ nontender to palpation], [no guarding], [no appreciable organomegaly] Ext: [no gross muscle atrophy], [no edema], [no contractures], [right upper extremity fistula], [right below-knee amputation], [erythema and chronic skin changes of the left lower extremity] Neuro: [no focal neuro deficits] Psych: [Alert], [oriented], [appropriate affect] - Labs CBC & Chem 7: 01/25/19 04:53 01/25/19 04:53 Labs: Abnormal Lab Results - Last 24 Hours (Table) 01/24/19 01/24/19 01/24/19 Range/Units 16:44 17:37 23:19 RBC (4.30-5.90) m/uL Hgb (13.0-17.5) gm/dL Hct (39.0-53.0) % RDW (11.5-15.5) % Plt Count (150-450) k/uL Lymphocytes # (1.0-4.8) k/uL Potassium 5.4 H (3.5-5.1) mmol/L BUN (9-20) mg/dL Creatinine (0.66-1.25) mg/dL Glucose (74-99) mg/dL POC Glucose (mg/dL) 132 H 105 H (75-99) mg/dL Calcium (8.4-10.2) mg/dL Magnesium (1.6-2.3) mg/dL 01/25/19 01/25/19 01/25/19 Range/Units 04:53 04:53 12:21 RBC 3.05 L (4.30-5.90) m/uL Hgb 9.1 L (13.0-17.5) gm/dL Hct 28.9 L (39.0-53.0) % RDW 16.9 H (11.5-15.5) % Plt Count 146 L (150-450) k/uL Lymphocytes # 0.7 L (1.0-4.8) k/uL Potassium 5.4 H (3.5-5.1) mmol/L BUN 66 H (9-20) mg/dL Creatinine 9.26 H* (0.66-1.25) mg/dL Glucose 70 L (74-99) mg/dL POC Glucose (mg/dL) 131 H (75-99) mg/dL Calcium 7.5 L (8.4-10.2) mg/dL Magnesium 2.4 H (1.6-2.3) mg/dL Assessment and Plan Assessment: Assessment and Plan Pulmonary edema Hyperkalemia ESRD on dialysis Tuesday was a Tuesday Anemia CHF Asthma Diabetes mellitus Hypertension Peripheral vascular disease with right jtsio-paa-gqbf amputation Chest x-ray shows volume overload, pleural effusion and associated atelectasis. Missed dialysis on Tuesday due to unassessable site. Given 1 dose of Lasix IV in the ED. Plan: Right femoral dialysis catheter placed yesterday, underwent dialysis yesterday and today. Nephrology consulted for hemodialysis Tuesday schedule. Continue Lasix by mouth. DuoNeb as needed for shortness of breath and wheezing. O2 per NC to maintain O2 saturation greater than 92%. Potassium 6.1 to 5.4. Likely secondary to ESRD. Given calcium gluconate in the ED. Plan: Continue dialysis on a Tuesday schedule. Telemetry monitoring. Daily BMP. Creatinine 11.58 to 9.6. Missed dialysis on Tuesday. Plan: Continue dialysis on a Tuesday was a Tuesday schedule. Monitor and replace electrolytes. Keep K > 4 and Mg > 2. Continue sodium bicarbonate. Continue sevelamer. Continue Midodrine. Hemoglobin 9.5 to 9.1. Normocytic. Iron studies in 2017 show iron deficiency anemia. Plan: Daily CBC. Transfuse if hemoglobin less than 7. Follow-up studies. BNP 9540. October 2016 echo shows EF 50-55% with concentric LVH. Chest x-ray showing signs of volume overload. Plan: Continue Lasix by mouth. Continue beta belem. Strict intake and output. Daily weights. Keep K > 4 and Mg > 2. Follow echocardiogram. Stable. Plan: DuoNeb as needed for shortness of breath and wheezing. Continue Pulmicort. Kgtuy-wk-ksuo glucose 131. A1c 5.2 in October. Plan: Continue Lantus 15 units in the morning. Insulin sliding scale. Hypoglycemic precautions. Regular Accu-Cheks. BP 120/54. Plan: Continue hydralazine, carvedilol, amlodipine. Monitor vitals, adjust medications as necessary. Plan: Follow PT recommendations. Patient names his daughter Cassidy the decision maker in the case that he can't make decisions for himself. Patient elects to be full code at this time. Plans for permacath tomorrow. To undergo dialysis tomorrow as well. Likely DC in 1-2 days.
--- NOTE | 2019-01-25 14:16 | ECHOF ---
Referral Reason:SOB MEASUREMENTS -------- HEIGHT: 182.9 cm WEIGHT: 123.4 kg BP: 139/61 RVIDd: 2.5 cm (< 3.3) IVSd: 1.1 cm (0.6 - 1.1) LVIDd: 5.0 cm (3.9 - 5.3) LVPWd: 1.2 cm (0.6 - 1.1) IVSs: 1.5 cm LVIDs: 3.7 cm LVPWs: 1.6 cm Ao Diam: 2.8 cm (2.0 - 3.7) AV Cusp: 1.4 cm (1.5 - 2.6) LA Diam: 5.4 cm (2.7 - 3.8) MV EXCURSION: 19.371 mm (> 18.000) MV EF SLOPE: 96 mm/s (70 - 150) EPSS: 0.7 cm MV E Carlos: 0.99 m/s MV DecT: 210 ms MV A Carlos: 0.71 m/s MV E/A Ratio: 1.39 RAP: 5.00 mmHg RVSP: 12.14 mmHg FINDINGS -------- Sinus rhythm. This was a technically difficult study with suboptimal views. Pt. not compliant. The left ventricular size is normal. There is mild concentric left ventricular hypertrophy. Overa ll left ventricular systolic function is normal with, an EF between 55 - 60 %. The right ventricle is normal in size. The left atrial size is normal. The right atrial size is normal. 5.0mg OF Lumason UTLIZED: 2 OR MORE WALL SEGMENTS NOT VISUALIZED. Interatrial and interventricular septum intact. Aortic valve is trileaflet and is mildly thickened. The mitral valve leaflets are mildly thickened. Trace tricuspid regurgitation present. Unable to estimate RVSP due to inadequate TR jet spectral do ppler profile. Pulmonic valve appears structurally normal. The aortic root size is normal. IVC Not well visulized. Echo free space represents a pericardial fat pad. CONCLUSIONS -------- 1. Sinus rhythm. 2. This was a technically difficult study with suboptimal views. 3. Pt. not compliant. 4. The left ventricular size is normal. 5. There is mild concentric left ventricular hypertrophy. 6. Overall left ventricular systolic function is normal with, an EF between 55 - 60 %. 7. The right ventricle is normal in size. 8. The left atrial size is normal. 9. The right atrial size is normal. 10. 5.0mg OF [place] UTLIZED: 2 OR MORE WALL SEGMENTS NOT VISUALIZED. 11. Interatrial and interventricular septum intact. 12. Aortic valve is trileaflet and is mildly thickened. 13. The mitral valve leaflets are mildly thickened. 14. Trace tricuspid regurgitation present. 15. Unable to estimate RVSP due to inadequate TR jet spectral doppler profile. 16. Pulmonic valve appears structurally normal. 17. The aortic root size is normal. 18. IVC Not well visulized. 19. Echo free space represents a pericardial fat pad. HANG GLIDING INSTRUCTOR: Tere Lafleur RDCS
[2019-01-25 16:44] LABS: Iron Saturation 24.67 (15.00-50.00)
[2019-01-25 17:20] LABS: Glucose,Whole Blood 122 mg/dL (75-99)
[2019-01-25 20:56] LABS: Glucose,Whole Blood 184 mg/dL (75-99)
[2019-01-26] MEDS: CARVEDILOL 12.5 MG TAB PO SCH ×2 (06:48→17:18)
[2019-01-26 06:53] LABS: Glucose,Whole Blood 187 mg/dL (75-99)
[2019-01-26] MEDS: INSULIN ASPART (NovoLOG) 100 UNIT/ML VIAL SQ SCH ×4 (06:53→20:09)
[2019-01-26] MEDS: BUDESONIDE 0.5 MG/2 ML NEBU INHALATION SCH ×2 (07:10→19:23)
[2019-01-26] MEDS: IPRATROPIUM-ALBUTEROL 3 ML NEB INHALATION SCH ×4 (07:10→19:24)
[2019-01-26] MEDS ORDERED: MIDODRINE 5 MG TAB PO SCH (09:00)
[2019-01-26] MEDS: SEVELAMER 800 MG TAB PO SCH ×3 (09:01→17:18)
[2019-01-26] MEDS: INSULIN DETEMIR (LEVEMIR) 100 UNIT/ML SYR SQ SCH (09:11)
[2019-01-26] MEDS: traMADol 50 MG TAB PO PRN ×2 (10:25→17:19)
--- NOTE | 2019-01-26 10:54 | P.DS ---
Providers Date of admission: 01/24/19 10:44 Expected date of discharge: 01/26/19 Attending physician: Steve Kwok MD Consults: 01/24/19 10:44 Consult Physician Urgent Consulting Provider: Albert Stewart Consult Reason/Comments: Access for dialysis Do you want consulting provider notified?: Yes Consult Physician Urgent Consulting Provider: Marycarmen Evans Consult Reason/Comments: Dialysis, pulmonary edema Do you want consulting provider notified?: Yes 01/24/19 16:42 Consult Physician Routine Consulting Provider: Jerardo Thorne Consult Reason/Comments: needs ultrasound guided hemodialysis catheter placement, unable to do on 3S Do you want consulting provider notified?: Already Contacted Primary care physician: Kash Taveras MD Hospital Course: 73-year-old male with PMH of asthma, diastolic CHF, diabetes mellitus, hypertension, peripheral vascular disease post right BKA, ESRD on dialysis Tuesday presents to the ED for shortness of breath. Patient appears quite dyspneic and is unable to provide a lot of history. Patient reports his last dialysis session tibial Tuesday. He missed Tuesday's dialysis session due to the fact that his right upper extremity fistula was not working. Patient reports shortness of breath that has been gradually getting worse over the last few days. Shortness of breath exists with exertion and at rest. He denies any orthopnea. Patient denies any headache, lower extremity edema, nausea, vomiting, fever, chills, cough, chest pain, palpitations, changes in urination or bowel habits. No changes in appetite or weight. Patient does report that he urinates a couple times daily, unable to describe how much urine. Patient states that he has been on dialysis since 2016. Patient denies any smoking cigarettes or drinking of alcohol. In the ED, patient was noted to be saturating low 90s on 4 L nasal cannula. CBC showed anemia with hemoglobin of 9.5. CMP showed a potassium of 6.1, creatinine of 11.58. Troponin was less than 0.012, EKG showing low voltage QRS and accelerated junctional rhythm. BNP was 9540, with chest x-ray showing some signs of fluid overload and pleural effusion. Patient is admitted for pulmonary edema, vascular surgery consulted for emergent access and nephrology consulted for emergent dialysis. His pulmonary edema was thought to be secondary to fluid overload from missed dialysis session on Tuesday due to unassessable dialysis site. He was given 1 dose of IV Lasix in the ED. Vascular surgery was consulted and patient had a right femoral dialysis catheter placed and underwent dialysis on the same day of admission. Nephrology was consulted to resume hemodialysis schedule. Plans was for patient to get permacath on Tuesday. His potassium on admission was 6.1 which went down to 5.4 after dialysis. He was given calcium gluconate in the ED. Patient's hemoglobin was noted to be stable at 9.5. Iron studies were performed this admission which showed anemia of chronic disease. His BNP was elevated at 9540. Echocardiogram in October 2016 showed EF 50-55% with concentric LVH. Repeat echocardiogram was done which showed EF between 55 and 60% with mild concentric LVH. Patient was seen and examined prior to discharge. No acute events overnight. Patient reports significant improvement in his breathing since admission. Currently undergoing dialysis. He does complain of some fatigue. He denies any chest pain, shortness of breath or palpitations. Currently saturating high 90s on 3 L nasal cannula. He is on home O2 at 3 L. General: [non toxic], [no distress], [appears at stated age] Derm: [warm], [dry] Head: [atraumatic], [normocephalic], [symmetric] Eyes: [EOMI], [no lid lag], [anicteric sclera] Mouth: [no lip lesion], [mucus membranes moist] Cardiovascular: [S1S2 reg], [no murmur], [faint DP pulses in the left lower extremity] Lungs: [Decreased breath sounds bilateral, improved from yesterday], [no rhonchi, no rales] , [no accessory muscle use] Abdominal: [soft], [ nontender to palpation], [no guarding], [no appreciable organomegaly] Ext: [no gross muscle atrophy], [no edema], [no contractures], [right upper extremity fistula], [right below-knee amputation], [erythema and chronic skin changes of the left lower extremity] Neuro: [no focal neuro deficits] Psych: [Alert], [oriented], [appropriate affect] Assessment and Plan Pulmonary edema Hyperkalemia ESRD on dialysis Tuesday was a Tuesday Anemia CHF Asthma Diabetes mellitus Hypertension Peripheral vascular disease with right lpahx-eet-otfu amputation Chest x-ray shows volume overload, pleural effusion and associated atelectasis. Missed dialysis on Tuesday due to unassessable site. Given 1 dose of Lasix IV in the ED. Plan: Right femoral dialysis catheter placed yesterday, underwent dialysis yesterday and today. Nephrology consulted for hemodialysis Tuesday schedule. Continue Lasix by mouth. DuoNeb as needed for shortness of breath and wheezing. O2 per NC to maintain O2 saturation greater than 92%. Follow repeat chest x-ray. Potassium 6.1 to 5.4. Likely secondary to ESRD. Given calcium gluconate in the ED. Plan: Continue dialysis on a Tuesday schedule. Telemetry monitoring. Daily BMP. Creatinine 11.58 to 9.26. Missed dialysis on Tuesday. Plan: Continue dialysis on a Tuesday was a Tuesday schedule. Monitor and replace electrolytes. Keep K > 4 and Mg > 2. Continue sodium bicarbonate. Continue sevelamer. Continue Midodrine. Hemoglobin 9.5 to 9.1. Normocytic. Iron studies in 2017 show iron deficiency anemia. Plan: Daily CBC. Transfuse if hemoglobin less than 7. Follow-up studies. BNP 9540. October 2016 echo shows EF 50-55% with concentric LVH. Repeat echocardiogram shows EF 55-60% with concentric LVH. Chest x-ray showing signs of volume overload. Plan: Continue Lasix by mouth. Continue beta belem. Strict intake and output. Daily weights. Keep K > 4 and Mg > 2. Stable. Plan: DuoNeb as needed for shortness of breath and wheezing. Continue Pulmicort. Jdhml-kr-kqaa glucose 187. A1c 5.2 in October. Plan: Continue Lantus 15 units in the morning. Insulin sliding scale. Hypoglycemic precautions. Regular Accu-Cheks. BP 137/61. Plan: Continue hydralazine, carvedilol, amlodipine. Monitor vitals, adjust medications as necessary. Plan: Follow PT recommendations. Undergoing dialysis this morning. Plan to get permacath around 1 PM. Patient to likely be DC'd today after permacath and repeat BMP shows normal potassium. Pertinent Studies: Chest x-ray, echocardiogram Procedures: Right femoral dialysis catheter, permacath Patient Condition at Discharge: Stable Plan - Discharge Summary Discharge Rx Participant: No New Discharge Prescriptions: Continue RX: hydrALAZINE HCL [Apresoline] 50 mg PO BID RX: Carvedilol 12.5 mg PO BID RX: Sodium Bicarbonate Tab 650 mg PO BID tab RX: Sevelamer [Renvela] 800 mg PO TID@0800,1200,1800 RX: Nitroglycerin Sl Tabs [Nitrostat] 0.4 mg SUBLINGUAL Q5M PRN PRN Reason: Chest Pain RX: Loperamide [Imodium] 4 mg PO QID PRN PRN Reason: Diarrhea RX: Insulin Glargine [Lantus] 15 unit SQ DAILY@0900 RX: Midodrine HCl [ProAmatine] 5 mg PO MOWEFR RX: amLODIPine [Norvasc] 10 mg PO DAILY RX: Furosemide [Lasix] 40 mg PO BID RX: traMADol HCL [Ultram] 50 - 100 mg PO Q12H PRN #4 tablet PRN Reason: Pain RX: Lidocaine-Prilocaine Cream [Emla Cream 2.5%/2.5%] 1 applic TOPICAL MOWEFR RX: Acetaminophen 650 mg PO Q4H PRN PRN Reason: Pain RX: Budesonide [Pulmicort] 0.5 mg INHALATION RT-BID RX: Ergocalciferol (Vitamin D2) [Drisdol] 50,000 unit PO Q30D RX: B Complex W-C No.20/Folic Acid [Renal Caps Softgel] 1 mg PO DAILY RX: Aspirin [[place] Aspirin EC] 81 mg PO DAILY Discontinued RX: guaiFENesin-Coden 100-10MG/5ML [Robitussin AC] 10 ml PO Q4H PRN PRN Reason: Cough Discharge Medication List RX: hydrALAZINE HCL [Apresoline] 50 mg PO BID 08/28/14 [History] RX: Carvedilol 12.5 mg PO BID 08/23/15 [History] RX: Sodium Bicarbonate Tab 650 mg PO BID tab 10/28/16 [Rx] RX: Insulin Glargine [Lantus] 15 unit SQ DAILY@0900 12/19/17 [History] RX: Loperamide [Imodium] 4 mg PO QID PRN 12/19/17 [History] RX: Midodrine HCl [ProAmatine] 5 mg PO MOWEFR 12/19/17 [History] RX: Nitroglycerin Sl Tabs [Nitrostat] 0.4 mg SUBLINGUAL Q5M PRN 12/19/17 [History] RX: Sevelamer [Renvela] 800 mg PO TID@0800,1200,1800 12/19/17 [History] RX: Furosemide [Lasix] 40 mg PO BID 04/17/18 [History] RX: amLODIPine [Norvasc] 10 mg PO DAILY 04/17/18 [History] RX: traMADol HCL [Ultram] 50 - 100 mg PO Q12H PRN #4 tablet 04/19/18 [Rx] RX: Lidocaine-Prilocaine Cream [Emla Cream 2.5%/2.5%] 1 applic TOPICAL MOWEFR 08/19/18 [History] RX: Acetaminophen 650 mg PO Q4H PRN 01/24/19 [History] RX: Aspirin [[place] Aspirin EC] 81 mg PO DAILY 01/24/19 [History] RX: B Complex W-C No.20/Folic Acid [Renal Caps Softgel] 1 mg PO DAILY 01/24/19 [History] RX: Budesonide [Pulmicort] 0.5 mg INHALATION RT-BID 01/24/19 [History] RX: Ergocalciferol (Vitamin D2) [Drisdol] 50,000 unit PO Q30D 01/24/19 [History] Follow up Appointment(s)/Referral(s): Kash Taveras MD [Primary Care Provider] - 1-2 days Luciano Elliott DO [STAFF PHYSICIAN] - 1 Week Activity/Diet/Wound Care/Special Instructions: Diet: Renal Follow-up with PCP within 1-2 days of discharge. Follow-up with nephrology within 1 week of discharge. Take all medications as advised. Discharge Disposition: TRANSFER TO SNF/ECF
--- NOTE | 2019-01-26 11:30 | P.PN ---
Subjective Progress Note Date: 01/26/19 Principal diagnosis: Acute hypoxic rest or a failure secondary to fluid overload patient with end- stage renal disease On 01/26/2019 patient seen in follow-up on selective care unit, he is awake and alert, sitting up in the bed, in no acute distress, he is having his hemodialysi s treatment right now, as any specific complaints, no shortness of breath, remains on 3 L of oxygen with a pulse ox of 94-96%, afebrile, hemodynamically stable, no complaints of chest pain or palpitations, no nausea, no vomiting no fever or chills. No acute events overnight, reports significant improvement in his breathing. Echocardiogram was completed, showed mild concentric left ventricular hypertrophy, and preserved left ventricular systolic function with an EF of 55 to 60%. Patient is scheduled for permacath insertion today Dr. Stewart, and after which patient will probably be discharged home if remains stable Objective - Vital Signs Vital signs: Vital Signs Temp 98.0 F 01/26/19 08:00 Pulse 59 L 01/26/19 11:14 Resp 18 01/26/19 11:14 BP 118/52 01/26/19 11:00 Pulse Ox 94 L 01/26/19 11:00 Intake & Output 01/25/19 01/26/19 01/26/19 18:59 06:59 18:59 Intake Total 260 170 200 Output Total 2792 15 Balance -2532 155 200 Weight 113 kg Intake: IV 260 20 Sodium Chloride 0.9% 1, 260 20 000 ml @ 20 mls/hr IV . Q24H [facility] Rx#:[id number] Oral 150 200 Output: Urine 85 15 Hemodialysis 2707 Other: Voiding Method Indwelling Catheter Urinal Urinal - Exam GENERAL EXAM: Alert, pleasant, 73-year-old white male, comfortable in no apparent distress. HEAD: Normocephalic/atraumatic. EYES: Normal reaction of pupils, equal size. Conjunctiva pink, sclera white. NOSE: Clear with pink turbinates. THROAT: No erythema or exudates. NECK: No masses, no JVD, no thyroid enlargement, no adenopathy. CHEST: No chest wall deformity. Symmetrical expansion. LUNGS: Equal air entry with no crackles, wheeze, rhonchi or dullness. CVS: Regular rate and rhythm, normal S1 and S2, no gallops, no murmurs, no rubs ABDOMEN: Soft, nontender. No hepatosplenomegaly, normal bowel sounds, no guarding or rigidity. EXTREMITIES: No clubbing, no edema, no cyanosis, 2+ pulses and upper and lower extremities. MUSCULOSKELETAL: Muscle strength and tone normal. SPINE: No scoliosis or deformity SKIN: No rashes CENTRAL NERVOUS SYSTEM: Alert and oriented -3. No focal deficits, tone is normal in all 4 extremities. PSYCHIATRIC: Alert and oriented -3. Appropriate affect. Intact judgment and insight. - Labs CBC & Chem 7: 01/25/19 04:53 01/25/19 04:53 Labs: Abnormal Lab Results - Last 24 Hours (Table) 01/25/19 01/25/19 01/25/19 Range/Units 04:53 12:21 17:16 POC Glucose (mg/dL) 131 H 122 H (75-99) mg/dL Iron 56 L (65-175) ug/dL TIBC 227 L (228-460) ug/dL Ferritin 688.9 H (22.0-322.0) ng/mL 01/25/19 01/26/19 Range/Units 20:55 06:51 POC Glucose (mg/dL) 184 H 187 H (75-99) mg/dL Iron (65-175) ug/dL TIBC (228-460) ug/dL Ferritin (22.0-322.0) ng/mL Microbiology - Last 24 Hours (Table) 01/25/19 00:10 Urine Culture - Preliminary Urine,Catheterized Assessment and Plan Plan: Assessment: #1. Acute hypoxemic respiratory failure secondary to fluid overload, and the patient with ESRD on hemodialysis, and patient missed several hemodialysis treatments related to nonfunctional AV shunt #2. Status post temporary hemodialysis catheter placement with hemodialysis yesterday, and today, for fluid volume overload, and hypokalemia related to missed dialysis #3. End-stage renal disease patient is on hemodialysis on Tuesday schedule #4. History of congestive heart failure #5. History of diabetes mellitus with end-stage renal disease, diabetic neuropathy #6. Hyperlipidemia #7. Hypertension #8. PVD #9. Status post right below the knee amputation Plan: Patient is scheduled for permacath insertion sometime today, after which patient will probably be discharged home. He is breathing easier, no complaints of chest pain, vital signs are stable. We'll sign off and will follow on as-needed basis. I performed a history & physical examination of the patient and discussed their management with my nurse practitioner, Clari Sorensen. I reviewed the nurse practitioner's note and agree with the documented findings and plan of care. Lung sounds are positive for diminished sounds. The findings and the impression was discussed with the patient. I attest to the documentation by the nurse practitioner. Time with Patient: Less than 30
[2019-01-26 11:41] LABS: Glucose,Whole Blood 158 mg/dL (75-99)
[2019-01-26] MEDS ORDERED: SODIUM CHLORIDE 0.9% 250 ML IV ONE (13:10)
[2019-01-26] MEDS ORDERED: LIDOCAINE 1% INJ 10MG/ML (20 ML MDV) ONE ×2 (13:27→14:36)
[2019-01-26] MEDS ORDERED: HEPARIN SODIUM 1,000 UN/ML (10ML VL) ONE (13:27)
[2019-01-26] MEDS ORDERED: fentaNYL (PF) 50 MCG/ML 2 ML AMP ONE ×2 (13:40→14:50)
[2019-01-26] MEDS: fentaNYL (PF) 50 MCG/ML 2 ML AMP IV ONE ×2 (13:45→14:11)
[2019-01-26] MEDS ORDERED: LIDOCAINE 1% INJ 10MG/ML (20 ML MDV) SQ ONE ×3 (13:50→15:03)
[2019-01-26] MEDS: LIDOCAINE 1% INJ 10MG/ML (20 ML MDV) SQ ONE ×2 (14:10→14:53)
[2019-01-26] MEDS ORDERED: diphenhydrAMINE 50 MG/ML 1 ML VIAL ONE (14:12)
[2019-01-26] MEDS ORDERED: diphenhydrAMINE 50 MG/ML 1 ML VIAL IVP ONE ×2 (14:13→14:15)
[2019-01-26] MEDS ORDERED: methylPREDNISolone SOD SUCCI 125 MG/2 ML VIAL IV ONE ×2 (14:15→14:19)
[2019-01-26] MEDS ORDERED: methylPREDNISolone SOD SUCCI 125 MG/2 ML VIAL ONE (14:15)
[2019-01-26] MEDS ORDERED: IOPAMIDOL-250 50ML BTL IV ONE (14:24)
[2019-01-26] MEDS ORDERED: CLINDAMYCIN 600 MG in DEXTROSE 5% IN WATER 50 ML IVPB STA ×2 (14:34)
[2019-01-26] MEDS ORDERED: fentaNYL (PF) 50 MCG/ML 2 ML AMP IV ONE (14:56)
[2019-01-26] MEDS: FUROSEMIDE 40 MG TAB PO SCH ×2 (15:20→17:18)
[2019-01-26] MEDS: SODIUM CHLORIDE 0.9% 1,000 ML IV SCH (16:42)
[2019-01-26 16:44] LABS: Glucose,Whole Blood 152 mg/dL (75-99)
[2019-01-26] MEDS: amLODIPine 10 MG TAB PO SCH (17:17)
[2019-01-26] MEDS: hydrALAZINE HCL 50 MG TAB PO SCH ×2 (17:18→20:08)
[2019-01-26] MEDS: SODIUM BICARBONATE TAB 650 MG TAB PO SCH ×2 (17:18→20:08)
[2019-01-26] MEDS: ASPIRIN 81 MG PO SCH (17:18)
[2019-01-26 20:03] LABS: Glucose,Whole Blood 377 mg/dL (75-99)
--- NOTE | 2019-01-26 22:59 | PCN ---
PROCEDURE NOTE PREPROCEDURE DIAGNOSIS: Acute on chronic renal failure malfunctioning fistula to the right arm which was placed at [facility]. DESCRIPTION OF PROCEDURE: The patient came to the emergency room with a nonfunctioning fistula. The patient had a very high potassium and at that time, and very short of breath. We placed a right femoral catheter for temporary dialysis for dialysis. The patient needed a permanent dialysis catheter. He had multiple catheters placed on the right side and the left side in the past and also had a catheter placed in right and left groin in the past. The patient was brought to the operating room and placed in supine position. Right side of the neck was prepped and draped in the sterile manner. 1% lidocaine was infiltrated in the groin area with IV sedation was given. Ultrasound-guided micropuncture into the right common jugular vein and micropuncture guidewire was passed. After that, 4[place] dilator advanced on the top of the guidewire. The micropuncture was passed and after that we did the difficulty in passing the regular guidewire. At that time, we decided the superior vena cavogram and found to have a high-grade stenosis noted on the right side of a center vein most on the right side. At this point, we decided to place a catheter in the groin because patient had a multiple catheters placed in the past on the left side also. The left groin was prepped and drapes applied in the usual sterile manner. Ultrasound-guided micropuncture introduced right femoral vein. Micropuncture guidewire was passed and 4-[place] dilator advanced on top of the guidewire. We used about 10 mL of dye to inject to see patency of the iliac vein and vena cava. Because patient had multiple catheters placed in the past, found to be patent and then a tunnel was created. Through the tunnel we brought 43 cm dialysis catheter into the groin area and regular guidewire was passed and then dilator was advanced on the top of the guidewire. This patient had multiple catheters placed. There was scarring in the groin area. Finally, we passed the sheath on the top of the guidewire and through the sheath, we brought in 43 cm dialysis catheter. Through the sheath, we advanced and parked in the inferior vena cava. Flushed with heparin saline. There was free flow noted and then which we placed a Hep-Lock and secured with 3-0 Vicryl and nylon. Dressing applied. Patient tolerated the procedure well. After that, attention was paid to the right groin. was removed and right groin catheter was removed. Pressure was held. DIAGNOSES: 1. Acute on chronic renal failure with malfunctioning seminal fistula. 2. Placement of an attempted to pass the catheter through the right jugular vein, found to have patient has high-grade stenosis of the innominate vein. 3. Placement of a 43 cm dialysis catheter to the left femoral approach. 4. Removal of temporary dialysis catheter from the right side. Sedation time was 2 hours. Dressing applied. Patient was transferred to his room in satisfactory condition. MMODL / IJN: [id number] /
[2019-01-27 03:44] LABS: Glucose,Whole Blood 400 mg/dL (75-99)
[2019-01-27 05:59] LABS: Glucose,Whole Blood 393 mg/dL (75-99)
[2019-01-27] MEDS: INSULIN ASPART (NovoLOG) 100 UNIT/ML VIAL SQ SCH ×2 (06:34→12:49)
[2019-01-27] MEDS: CARVEDILOL 12.5 MG TAB PO SCH (06:34)
[2019-01-27] MEDS: BUDESONIDE 0.5 MG/2 ML NEBU INHALATION SCH (07:39)
[2019-01-27] MEDS: IPRATROPIUM-ALBUTEROL 3 ML NEB INHALATION SCH ×2 (07:40→11:09)
[2019-01-27 08:53] VITALS: TEMP 98.7
[2019-01-27] MEDS: SODIUM BICARBONATE TAB 650 MG TAB PO SCH (08:59)
[2019-01-27] MEDS: FUROSEMIDE 40 MG TAB PO SCH (08:59)
[2019-01-27] MEDS: SEVELAMER 800 MG TAB PO SCH ×2 (08:59→12:49)
[2019-01-27] MEDS: INSULIN DETEMIR (LEVEMIR) 100 UNIT/ML SYR SQ SCH (08:59)
[2019-01-27] MEDS: hydrALAZINE HCL 50 MG TAB PO SCH (08:59)
[2019-01-27] MEDS: amLODIPine 10 MG TAB PO SCH (08:59)
[2019-01-27] MEDS: ASPIRIN 81 MG PO SCH (08:59)
[2019-01-27] MEDS: SODIUM CHLORIDE 0.9% 1,000 ML IV SCH (09:03)
[2019-01-27 09:49] LABS: Anisocytosis Slight; HCT 27.9 % (39.0-53.0); HGB 8.8 gm/dL (13.0-17.5); MCH 29.7 pg (25.0-35.0); MCHC 31.7 g/dL (31.0-37.0); MCV 93.8 fL (80.0-100.0); Mean Platelet Volume 8.2; Platelet Count 136 k/uL (150-450); RBC 2.98 m/uL (4.30-5.90); RDW 16.1 % (11.5-15.5); WBC 5.6 k/uL (3.8-10.6)
[2019-01-27 09:54] LABS: Calcium 7.9 mg/dL (8.4-10.2); Potassium 5.5 mmol/L (3.5-5.1)
--- NOTE | 2019-01-27 10:22 | P.PN ---
Subjective Progress Note Date: 01/27/19 Principal diagnosis: ESRD, SOB Patient was seen and examined. No acute events overnight. Patient reports significant improvement in his breathing since admission, back to baseline. He denies chest pain, shortness of breath or palpitations. Looking forward to going home today. Went for permacath yesterday, unable to be placed in R jugular due to stenosis, instead placed in L femoral. Observed overnight as per Dr. Stewart recommendations. Objective - Vital Signs Vital signs: Vital Signs Temp 98.7 F 01/27/19 08:00 Pulse 69 01/27/19 08:00 Resp 16 01/27/19 08:00 BP 121/61 01/27/19 08:00 Pulse Ox 97 01/27/19 08:00 Intake & Output 01/26/19 01/27/19 01/27/19 18:59 06:59 18:59 Intake Total 518 240 Balance 518 240 Weight 116.5 kg Intake: IV 200 Oral 318 240 Other: Voiding Method Urinal Urinal - Exam General: [non toxic], [no distress], [appears at stated age] Derm: [warm], [dry] Head: [atraumatic], [normocephalic], [symmetric] Eyes: [EOMI], [no lid lag], [anicteric sclera] Mouth: [no lip lesion], [mucus membranes moist] Cardiovascular: [S1S2 reg], [no murmur], [faint DP pulses in the left lower extremity] Lungs: [Decreased breath sounds bilateral, improved from yesterday], [no rho nchi, no rales] , [no accessory muscle use] Abdominal: [soft], [ nontender to palpation], [no guarding], [no appreciable organomegaly] Ext: [no gross muscle atrophy], [no edema], [no contractures], [right upper extremity fistula], [right below-knee amputation], [erythema and chronic skin changes of the left lower extremity], [left femoral permacath, no hematoma] Neuro: [no focal neuro deficits] Psych: [Alert], [oriented], [appropriate affect] - Labs CBC & Chem 7: 01/27/19 08:56 01/27/19 08:56 Labs: Abnormal Lab Results - Last 24 Hours (Table) 0501/26/19 01/26/19 Range/Units 11:37 16:41 20:01 RBC (4.30-5.90) m/uL Hgb (13.0-17.5) gm/dL Hct (39.0-53.0) % RDW (11.5-15.5) % Plt Count (150-450) k/uL Sodium (137-145) mmol/L Potassium (3.5-5.1) mmol/L BUN (9-20) mg/dL Creatinine (0.66-1.25) mg/dL Glucose (74-99) mg/dL POC Glucose (mg/dL) 158 H 152 H 377 H (75-99) mg/dL Calcium (8.4-10.2) mg/dL 01/27/19 01/27/19 01/27/19 Range/Units 03:42 05:58 08:56 RBC 2.98 L (4.30-5.90) m/uL Hgb 8.8 L (13.0-17.5) gm/dL Hct 27.9 L (39.0-53.0) % RDW 16.1 H (11.5-15.5) % Plt Count 136 L (150-450) k/uL Sodium (137-145) mmol/L Potassium (3.5-5.1) mmol/L BUN (9-20) mg/dL Creatinine (0.66-1.25) mg/dL Glucose (74-99) mg/dL POC Glucose (mg/dL) 400 H 393 H (75-99) mg/dL Calcium (8.4-10.2) mg/dL 01/27/19 Range/Units 08:56 RBC (4.30-5.90) m/uL Hgb (13.0-17.5) gm/dL Hct (39.0-53.0) % RDW (11.5-15.5) % Plt Count (150-450) k/uL Sodium 136 L (137-145) mmol/L Potassium 5.5 H (3.5-5.1) mmol/L BUN 54 H (9-20) mg/dL Creatinine 6.86 H (0.66-1.25) mg/dL Glucose 316 H (74-99) mg/dL POC Glucose (mg/dL) (75-99) mg/dL Calcium 7.9 L (8.4-10.2) mg/dL Microbiology - Last 24 Hours (Table) 01/25/19 00:10 Urine Culture - Final Urine,Catheterized Assessment and Plan Assessment: Assessment and Plan Pulmonary edema Hyperkalemia ESRD on dialysis Tuesday was a Tuesday Anemia CHF Asthma Diabetes mellitus Hypertension Peripheral vascular disease with right [id number] amputation Chest x-ray shows volume overload, pleural effusion and associated atelectasis. Missed dialysis on Tuesday due to unassessable site. Given 1 dose of Lasix IV in the ED. Plan: Underwent dialysis over the last 3 days. Nephrology consulted for hemodialysis Tuesday schedule. Continue Lasix by mouth. DuoNeb as needed for shortness of breath and wheezing. O2 per NC to maintain O2 saturation greater than 92%. Potassium 6.1 to 5.5. Likely secondary to ESRD. Given calcium gluconate in the ED. Plan: Continue dialysis on a Tuesday schedule. Discussed with Dr. Elliott, plans for possible 2 hour dialysis prior to DC for hyperkalemia. Telemetry monitoring. Daily BMP. Creatinine 11.58 to 9.26 to 6.86. Missed dialysis on Tuesday. Plan: Continue dialysis on a Tuesday was a Tuesday schedule. Monitor and replace electrolytes. Keep K > 4 and Mg > 2. Continue sodium bicarbonate. Continue sevelamer. Continue Midodrine. Hemoglobin 9.5 to 8.8. Normocytic. Iron studies in 2017 show iron deficiency anemia. Iron studies during current admission shows AOCD. Plan: Daily CBC. Transfuse if hemoglobin less than 7. BNP 9540. October 2016 echo shows EF 50-55% with concentric LVH. Repeat echocardiogram shows EF 55-60% with concentric LVH. Chest x-ray showing signs of volume overload. Plan: Continue Lasix by mouth. Continue beta belem. Strict intake and output. Daily weights. Keep K > 4 and Mg > 2. Stable. Plan: DuoNeb as needed for shortness of breath and wheezing. Continue Pulmicort. [id number] glucose 316. A1c 5.2 in October. Refusing sliding scale. Plan: Continue Lantus 15 units in the morning. Insulin sliding scale. Hypoglycemic precautions. Regular Accu-Cheks. BP 121/61. Plan: Continue hydralazine, carvedilol, amlodipine. Monitor vitals, adjust medications as necessary. Plan: Follow PT recommendations. Got permacath in the L femoral. Discussed with Dr. Stewart, cleared for discharge. Discussed with Dr. Elliott, patient to be offered 2 hours of HD prior to DC due to hyperkalemia. Follow repeat K. DC after dialysis and K normalized.
[2019-01-27] MEDS ORDERED: INSULIN ASPART (NovoLOG) 100 UNIT/ML VIAL SQ ONE (10:38)
[2019-01-27] MEDS ORDERED: DEXTROSE 50% SYRINGE 50 ML IVP STA (10:39)
[2019-01-27] MEDS ORDERED: INSULIN REGULAR 100 UNIT/ML VIAL SQ ONE (10:45)
[2019-01-27] MEDS ORDERED: INSULIN REGULAR 100 UNIT/ML VIAL IV ONE (10:45)
--- NOTE | 2019-01-27 11:02 | P.PN ---
Subjective Patient is seen in follow-up for end-stage renal disease. He is maintained on hemodialysis on a Tuesday schedule. Patient had a groin catheter placed yesterday. His AV fistula was not functioning. No active complaints at this time. Potassium is slightly high which is due to hyperglycemia. Vital signs are stable. General: The patient appeared well nourished and normally developed. HEENT: Head exam is unremarkable. Neck is without jugular venous distension. LUNGS: Lungs are clear to auscultation and percussion. Breath sounds decreased. HEART: Rate and Rhythm are regular. First and second heart sounds normal. No murmurs, rubs or gallops. ABDOMEN: Abdominal exam reveals normal bowel sounds. Non-tender and non-distended. No evidence of peritonitis. EXTREMITITES: No clubbing, cyanosis, or edema. Chronic skin changes noted. Right BKA noted. Objective - Vital Signs Vital signs: Vital Signs Temp 98.7 F 01/27/19 08:00 Pulse 69 01/27/19 08:00 Resp 16 01/27/19 08:00 BP 121/61 01/27/19 08:00 Pulse Ox 97 01/27/19 08:00 Intake & Output 01/26/19 01/27/19 01/27/19 18:59 06:59 18:59 Intake Total 518 240 Balance 518 240 Weight 116.5 kg Intake: IV 200 Oral 318 240 Other: Voiding Method Urinal Urinal Urinal - Labs CBC & Chem 7: 01/27/19 08:56 01/27/19 08:56 Labs: Abnormal Lab Results - Last 24 Hours (Table) 01/26/19 01/26/19 01/26/19 Range/Units 11:37 16:41 20:01 RBC (4.30-5.90) m/uL Hgb (13.0-17.5) gm/dL Hct (39.0-53.0) % RDW (11.5-15.5) % Plt Count (150-450) k/uL Sodium (137-145) mmol/L Potassium (3.5-5.1) mmol/L BUN (9-20) mg/dL Creatinine (0.66-1.25) mg/dL Glucose (74-99) mg/dL POC Glucose (mg/dL) 158 H 152 H 377 H (75-99) mg/dL Calcium (8.4-10.2) mg/dL 01/27/19 01/27/19 01/27/19 Range/Units 03:42 05:58 08:56 RBC 2.98 L (4.30-5.90) m/uL Hgb 8.8 L (13.0-17.5) gm/dL Hct 27.9 L (39.0-53.0) % RDW 16.1 H (11.5-15.5) % Plt Count 136 L (150-450) k/uL Sodium (137-145) mmol/L Potassium (3.5-5.1) mmol/L BUN (9-20) mg/dL Creatinine (0.66-1.25) mg/dL Glucose (74-99) mg/dL POC Glucose (mg/dL) 400 H 393 H (75-99) mg/dL Calcium (8.4-10.2) mg/dL 01/27/19 Range/Units 08:56 RBC (4.30-5.90) m/uL Hgb (13.0-17.5) gm/dL Hct (39.0-53.0) % RDW (11.5-15.5) % Plt Count (150-450) k/uL Sodium 136 L (137-145) mmol/L Potassium 5.5 H (3.5-5.1) mmol/L BUN 54 H (9-20) mg/dL Creatinine 6.86 H (0.66-1.25) mg/dL Glucose 316 H (74-99) mg/dL POC Glucose (mg/dL) (75-99) mg/dL Calcium 7.9 L (8.4-10.2) mg/dL Microbiology - Last 24 Hours (Table) 01/25/19 00:10 Urine Culture - Final Urine,Catheterized Assessment and Plan Plan: Assessment: 1. End-stage renal disease maintained on hemodialysis on a Tuesday schedule. Patient now has a groin catheter. The AV fistula is not working at this time. 2. Dyspnea/acute hypoxic respiratory failure secondary to fluid overload. Better. 3. Insulin-dependent diabetes mellitus. 4. Chronic kidney disease mineral bone disease maintained on Renvela. 5. Hypertension with chronic kidney disease. Controlled. 6. Peripheral vascular disease status post right BKA. 7. Anemia of chronic kidney disease. Iron replete. 8. Hyperkalemia secondary to hyperglycemia. Plan: Next hemodialysis on Tuesday. He will need to follow-up with vascular surgery outpatient for another AV fistula - fistulogram next week. Add Aranesp. Patient to get IV insulin with an amp of D50. Repeat potassium level this afternoon. Okay to discharge if potassium level stable. Discussed with primary team.
[2019-01-27] MEDS ORDERED: DARBEPOETIN ALFA 40 MCG/0.4 ML SYRINGE SQ SCH (11:15)
[2019-01-27 11:33] VITALS: BP 125/59; PULSE 64; RESP 18
[2019-01-27 11:50] LABS: Glucose,Whole Blood 244 mg/dL (75-99)
--- NOTE | 2019-01-27 12:11 | XR ---
EXAMINATION TYPE: XR chest 2V DATE OF EXAM: 01/27/2019 HISTORY: Pulmonary edema. REFERENCE: Previous study dated 01/24/2019. FINDINGS: The heart is enlarged. There is bibasilar airspace disease. There are bilateral effusions. This is not changed appreciably from the previous study. IMPRESSION: NO SIGNIFICANT INTERVAL CHANGE IN THE APPEARANCE OF THE CHEST.
== END 2019-01-27 15:26 | DRG 314 ==
LOC: EC 08:44 → 3SCARD 10:44 → 2SICU 17:20 → 3SCARD 01-25 20:52
PROVIDERS: ADMIT Family Medicine; ATTEND Family Medicine
PROC: 06HY33Z Insertion of Infusion Device into Lower Vein, Percutaneous Approach (ICD-10-PCS; principal; 2019-01-24)
PROC: 5A1D70Z Performance of Urinary Filtration, Intermittent, Less than 6 Hours Per Day (ICD-10-PCS; 2019-01-24)
PROC: 5A1D70Z Performance of Urinary Filtration, Intermittent, Less than 6 Hours Per Day (ICD-10-PCS; 2019-01-25)
PROC: 5A1D70Z Performance of Urinary Filtration, Intermittent, Less than 6 Hours Per Day (ICD-10-PCS; 2019-01-26)
PROC: 06HY33Z Insertion of Infusion Device into Lower Vein, Percutaneous Approach (ICD-10-PCS; 2019-01-26 13:33)
DX: T82.858A Stenosis of other vascular prosthetic devices, implants and grafts, initial encounter (principal); N18.6 End stage renal disease; J96.01 Acute respiratory failure with hypoxia; I50.33 Acute on chronic diastolic (congestive) heart failure; I13.2 Hypertensive heart and chronic kidney disease with heart failure and with stage 5 chronic kidney disease, or end stage renal disease; J98.11 Atelectasis; N17.9 Acute kidney failure, unspecified; E11.22 Type 2 diabetes mellitus with diabetic chronic kidney disease; E11.40 Type 2 diabetes mellitus with diabetic neuropathy, unspecified; E11.51 Type 2 diabetes mellitus with diabetic peripheral angiopathy without gangrene; E87.5 Hyperkalemia; E11.65 Type 2 diabetes mellitus with hyperglycemia; E83.9 Disorder of mineral metabolism, unspecified; D63.1 Anemia in chronic kidney disease; D50.9 Iron deficiency anemia, unspecified; E78.5 Hyperlipidemia, unspecified; J45.909 Unspecified asthma, uncomplicated; Z99.81 Dependence on supplemental oxygen; Z99.2 Dependence on renal dialysis; Z79.82 Long term (current) use of aspirin; Z79.4 Long term (current) use of insulin; Z79.51 Long term (current) use of inhaled steroids; Z79.899 Other long term (current) drug therapy; Z89.511 Acquired absence of right leg below knee; Z86.59 Personal history of other mental and behavioral disorders; Z88.0 Allergy status to penicillin; Z88.1 Allergy status to other antibiotic agents; Z91.041 Radiographic dye allergy status; Z91.011 Allergy to milk products; Z82.49 Family history of ischemic heart disease and other diseases of the circulatory system; Z80.0 Family history of malignant neoplasm of digestive organs
CPT/HCPCS: 36415; 36571; 71046; 76937; 77001; 80048; 80053; 82728; 83540; 83550; 83735; 83880; 84132; 84484; 85025; 85027; 85610; 85730; 86704; 86706; 87086; 87340; 90935; 93005; 93306; 94640; 94760; 96374; 99285

== ENCOUNTER 2019-03-22 07:06 | Day surgery (SDC) | payer MEDICARE, BC ==
[~2019-03-22 07:06] MED LIST changes: +LACTATED RINGERS 1,000 ML IV SCH; +LIDOCAINE 1% 20 ML VIAL (10MG/ML) FOR IV START INTRADERMA PRN; +ONDANSETRON 4 MG/2 ML VIAL IVP ONE; +ONDANSETRON 4 MG/2 ML VIAL IVP PRN; -SODIUM CHLORIDE 0.9% 500 ML IV SCH; +ceFAZolin IN SWFI 2 GM/20 ML SYRINGE IVP ONE
[2019-03-22] MEDS ORDERED: SODIUM CHLORIDE 0.9% 500 ML 500 ML IV ONE (08:04)
[2019-03-22 08:13] LABS: Glucose,Whole Blood 130 mg/dL (75-99)
[2019-03-22] MEDS ORDERED: fentaNYL (PF) 50 MCG/ML 2 ML AMP ONE (08:43)
[2019-03-22] MEDS ORDERED: LIDOCAINE 1% INJ 10MG/ML (20 ML MDV) ONE (08:43)
[2019-03-22] MEDS ORDERED: MIDAZOLAM 2 MG/2 ML VIAL ONE (08:43)
[2019-03-22] MEDS ORDERED: HEPARIN SODIUM,PORCINE 5,000 UNIT/ML 1 ML VIAL ONE (08:43)
[2019-03-22] MEDS ORDERED: PROPOFOL 10 MG/ML 20 ML VIAL IV ONE (08:43)
[2019-03-22] MEDS ORDERED: ePHEDrine SULFATE/0.9% NACL/PF 50 MG/5 ML SYRINGE IV ONE (08:43)
[2019-03-22] MEDS ORDERED: SUCCINYLCHOLINE CHLORIDE 100 MG/5 ML SYR IV ONE (08:43)
[2019-03-22] MEDS ORDERED: ETOMIDATE 2 MG/ML 10 ML VIAL ONE (08:43)
[2019-03-22] MEDS ORDERED: GLYCOPYRROLATE 0.2 MG/ML 2 ML VIAL ONE (08:43)
[2019-03-22] MEDS ORDERED: HEPARIN SODIUM (1,000 UNIT/ML) 2,000 UNIT in SODIUM CHLORIDE 0.9% 1,000 ML IRRIGATION ONE (08:52)
[2019-03-22] MEDS ORDERED: ceFAZolin 2 GM, BACITRACIN 100,000 UNIT in SODIUM CHLORIDE 0.9% 500 ML 500 ML IRRIGATION ONE (08:52)
--- NOTE | 2019-03-22 11:16 | P.OP ---
Date of Procedure: 03/22/19 Preoperative Diagnosis: Chronic kidney diseasedialysis dependent Postoperative Diagnosis: Same Procedure(s) Performed: Creation of a right upper extremity arteriovenous dialysis graft. Anesthesia: JOSE MANUELA Surgeon: Arturo Miranda Estimated Blood Loss (ml): 25 Urine output (ml): 0 Pathology: none sent Condition: stable Disposition: PACU Indications for Procedure: Patient is a 70 through male with a long-standing history of chronic kidney disease and is analysis dependent. Approximately 1 year ago he had undergone creation of a right upper extremity Pita fistula and the cephalic vein to radial artery position. This fistula has failed to mature in spite of multiple attempts at balloon dilation. He is currently being dialyzed via a hemodialysis catheter, and is now offered dialysis graft. Procedure, risk and benefits were discussed with the patient. Patient wished to proceed. Operative Findings: Normal appearing brachial artery and venous segments. Description of Procedure: Patient brought the upper and placed in the supine position and Mr. general endotracheal anesthesia delivered by the department of anesthesiology. The patient received intravenously administered antibiotics in the perioperative phase for prophylactic purposes. Patient's right upper extremity was sterilely prepped and draped in usual manner. The previous fistula was patent and it was felt that this should be ligated to avoid steal syndrome. As such a skin incision was made over the cephalic vein fistula. The incision was deepened through the subcu change tissues. Hemostasis was achieved with electrocautery. The vein was identified doubly ligated with silk suture and transected. The wound was then closed with 3-0 Vicryl for subcutaneous tissues and the dermis was closed with 4-0 Monocryl. Attention was turned to the antecubital area. A transverse skin incision was made just below the crease and carried down through subcu change tissues. Hemostasis was achieved using electrocautery. The dissection was then carried down to the level of fascia. The fascia was incised and the brachial artery was identified. It was dissected free of investing tissues. There is a very high takeoff of the radial and ulnar arteries. The radial and ulnar arteries as well as the distal portion of the brachial artery were encircled with Vesseloops. The brachial vein was identified and was mobilized and encircled with Vesseloops. A 4 mm to 7 mm PTFE graft was selected and a counterincision was made in the midforearm level. The graft was tunneled between the counter incision and the main incision in a loop fashion. Patient was then systemically heparinized with 5000 units of heparin. After adequate circulation time vessel loops surrounding the brachial artery and radial and ulnar arteries were drawn closed. Arteriotomy was made in the distal brachial artery extending into the radial artery. This measured 5 mm in length. Excellent inflow and retrograde flow through both the radial and ulnar arteries was noted. The graft was spatulated to match arteriotomy and an end-to-side anastomosis was graded with 6-0 Prolene suture. Once completed flow was restored through the brachial artery into the graft and excellent pulsatile flow at the distal end of the graft was identified. The Vesseloops surrounding the radial ulnar segments were released. Hemostasis at the anastomotic line was adequate. Vessel loops surrounding the vein were drawn closed and a venotomy was made and extended with Pott Acevedo scissors. The graft was cut the appropriate length and spatulated to match the venotomy. End-to-side anastomosis between the graft and the vein was created with 6-0 Prolene suture. Just prior to completion of the anastomotic line the vein was backbled and the graft was flushed and no thrombus was retrieved in either situation. The anastomotic line was completed and flow was allowed to occur through the graft into the vein. Hemostasis at the venous anastomosis was adequate and excellent pulse was identified within the graft and a thrill was noted in the vein proximal to the venous anastomotic line. Both wounds were inspected for hemostasis. This was judged be adequate. Both wounds were then flushed with antibiotic containing solution. Both wounds were closed with 3-0 Vicryl for subcutaneous tissues and 4-0 Monocryl placed in a intradermal fashion. Skin glue was utilized to cover all 3 wounds. Patient tolerated procedure well. Palpable radial pulse and pulse in the graft was noted at completion of the procedure. Patient was taken to the recovery area in satisfactory and stable condition.
[2019-03-22] MEDS ORDERED: NITROGLYCERIN SL TABS 0.4 MG TAB SUBLINGUAL PRN (11:22)
[2019-03-22] MEDS ORDERED: LOPERAMIDE 2 MG CAP PO PRN (11:22)
[2019-03-22] MEDS ORDERED: ACETAMINOPHEN TAB 325 MG TAB PO PRN (11:22)
[2019-03-22 11:37] VITALS: TEMP 97
[2019-03-22] MEDS: HYDROmorphone 0.5 MG/0.5 ML SYRINGE IVP PRN ×4 (11:41→12:15)
[2019-03-22] MEDS ORDERED: SEVELAMER 800 MG TAB PO SCH (12:00)
[2019-03-22 12:18] LABS: Glucose,Whole Blood 111 mg/dL (75-99)
[2019-03-22 13:13] VITALS: RESP 16
[2019-03-22] MEDS ORDERED: HYDROcodone/APAP 5-325MG 1 EACH TAB PO ONE (13:29)
[2019-03-22 13:51] VITALS: BP 138/74; PULSE 57
[2019-03-22] MEDS ORDERED: BUDESONIDE 0.5 MG/2 ML NEBU INHALATION SCH (20:00)
[2019-03-22] MEDS ORDERED: hydrALAZINE HCL 50 MG TAB PO SCH (21:00)
[2019-03-22] MEDS ORDERED: FUROSEMIDE 40 MG TAB PO SCH (21:00)
[2019-03-22] MEDS ORDERED: SODIUM BICARBONATE TAB 650 MG TAB PO SCH (21:00)
[2019-03-22] MEDS ORDERED: CARVEDILOL 12.5 MG TAB PO SCH (21:00)
[2019-03-23] MEDS ORDERED: [UNRECOGNIZED DRUG - OTHER] TOPICAL SCH (09:00)
[2019-03-23] MEDS ORDERED: ASPIRIN 81 MG PO SCH (09:00)
[2019-03-23] MEDS ORDERED: FOLIC ACID-VIT B COMPLEX-VIT C 1 CAP PO SCH (09:00)
[2019-03-23] MEDS ORDERED: amLODIPine 10 MG TAB PO SCH (09:00)
[2019-03-23] MEDS ORDERED: MIDODRINE 5 MG TAB PO SCH (09:00)
[2019-03-23] MEDS ORDERED: INSULIN DETEMIR (LEVEMIR) 100 UNIT/ML SYR SQ SCH (09:00)
[2019-03-23] MEDS ORDERED: LIDOCAINE-PRILOCAINE 2.5-2.5% CREAM 5 GM TUBE TOPICAL SCH (11:22)
== END 2019-03-22 15:26 | disposition home or self-care (01) ==
LOC: OR 07:06
PROVIDERS: ATTEND Surgery
DX: E11.22 Type 2 diabetes mellitus with diabetic chronic kidney disease (principal); I13.2 Hypertensive heart and chronic kidney disease with heart failure and with stage 5 chronic kidney disease, or end stage renal disease; N18.6 End stage renal disease; I50.9 Heart failure, unspecified; F41.9 Anxiety disorder, unspecified; E11.51 Type 2 diabetes mellitus with diabetic peripheral angiopathy without gangrene; J44.9 Chronic obstructive pulmonary disease, unspecified; E78.5 Hyperlipidemia, unspecified; F32.9 Major depressive disorder, single episode, unspecified; Z99.2 Dependence on renal dialysis; Z79.82 Long term (current) use of aspirin; Z79.4 Long term (current) use of insulin; Z79.899 Other long term (current) drug therapy; Z88.0 Allergy status to penicillin; Z79.891 Long term (current) use of opiate analgesic; Z88.1 Allergy status to other antibiotic agents; Z91.041 Radiographic dye allergy status
CPT/HCPCS: 84132; 36830; 37607; L8670; J2250; J1644 ×2; J0690 ×2; J2405; J2001; J3010; J0330; J2704; J1170

== ENCOUNTER 2019-06-28 11:43 | Inpatient (IN) | payer MEDICARE, BC ==
[2019-06-28] MEDS ORDERED: methylPREDNISolone SOD SUCCI 125 MG/2 ML VIAL IV STA (11:49)
--- NOTE | 2019-06-28 11:58 | ED ---
SOB HPI - General Chief Complaint: Shortness of Breath Stated Complaint: Diff Breathing Time Seen by Provider: 06/28/19 11:44 Source: patient, EMS, RN notes reviewed Mode of arrival: EMS Limitations: no limitations - History of Present Illness Initial Comments: This is a 74-year-old male with a history of multiple medical problems including dialysis and COPD who became very short of breath this morning was so the usual he was transported to the hospital by EMS. The lower oxygen saturation showed improvement after treatment. It did improve while on nebulizer treatment but after he stopped however stopped improving he did decline again. Patient denies any chest pain fevers chills or sweats he did get dialysis yesterday. He purely was diagnosed with pneumonia and a recent x-ray No other modifying factors at this time MD Complaint: shortness of breath - Related Data Home Medications Medication Instructions Recorded Confirmed hydrALAZINE HCL [Apresoline] 50 mg PO BID@0800,1600 08/28/14 06/28/19 Carvedilol 12.5 mg PO BID 08/23/15 06/28/19 Insulin Glargine [Lantus] 15 unit SQ DAILY@0900 12/19/17 06/28/19 Loperamide [Imodium] 4 mg PO QID PRN 12/19/17 06/28/19 Midodrine HCl [ProAmatine] 5 mg PO MOWEFR 12/19/17 06/28/19 Nitroglycerin Sl Tabs [Nitrostat] 0.4 mg SUBLINGUAL Q5M PRN 12/19/17 06/28/19 Furosemide [Lasix] 40 mg PO BID@0800,1600 04/17/18 06/28/19 Lidocaine-Prilocaine Cream [Emla 1 applic TOPICAL MOWEFR 08/19/18 06/28/19 Cream 2.5%/2.5%] Aspirin [[place] Aspirin EC] 81 mg PO DAILY@0700 01/24/19 06/28/19 Budesonide [Pulmicort] 0.5 mg INHALATION RT-BID 03/21/19 06/28/19 Acetaminophen Tab [Tylenol Tab] 650 mg PO Q4H PRN 03/22/19 06/28/19 amLODIPine [Norvasc] 10 mg PO DAILY@0800 03/22/19 06/28/19 Azithromycin [Zithromax] 500 mg PO DAILY@0800 06/28/19 06/28/19 Calcitriol 1 mcg PO DAILY@0700 06/28/19 06/28/19 Calcium Acetate 2,001 mg PO TID-W/MEALS 06/28/19 06/28/19 Calcium Acetate 667 mg PO HS@2000 06/28/19 06/28/19 Calcium Carb-Vit D 500Mg-200Un 1 tab PO BID 06/28/19 06/28/19 [Oscal 500+D] Ipratropium-Albuterol Nebulize 3 ml INHALATION RT-Q6H PRN 06/28/19 06/28/19 [Duoneb 0.5 mg-3 mg/3 ml Soln] Midodrine [ProAmatine] 5 mg PO MOWEFR 06/28/19 06/28/19 Sodium Bicarbonate Tab 650 mg PO BID@0800,1600 06/28/19 06/28/19 diphenhydrAMINE HCL [Benadryl] 25 mg PO BID PRN 06/28/19 06/28/19 Previous Rx's Medication Instructions Recorded traMADol HCL [Ultram] 50 - 100 mg PO Q12H PRN #4 tablet 04/19/18 Allergies Allergy/AdvReac Type Severity Reaction Status Date / Time Iodinated Contrast Media Allergy Unknown Verified 06/28/19 12:05 [Iodinated Contrast- Oral and IV Dye] milk Allergy Rash/Hives Verified 06/28/19 12:05 Penicillins Allergy Rash/Hives Verified 06/28/19 12:05 vancomycin Allergy Unknown Verified 06/28/19 12:05 Review of Systems ROS Statement: Those systems with pertinent positive or pertinent negative responses have been documented in the HPI. ROS Other: All systems not noted in ROS Statement are negative. Past Medical History Past Medical History: Asthma, Heart Failure, Diabetes Mellitus, Hyperlipidemia, Hypertension, Renal Disease, Vascular Disorder Additional Past Medical History / Comment(s): Chronic kidney disease stage V , diabetic neuropathy, PVD, R below the knee amp. Dialysis M-W-F. Wears oxygen at 2 L per nc only with dialysis History of Any Multi-Drug Resistant Organisms: None Reported Additional Past Surgical History / Comment(s): AV FISTULA UPPER RT ARM -pt stated not currently using it "has had some problems with it", november 26 2013 below the knee amputation, hemodialysis catheter Past Anesthesia/Blood Transfusion Reactions: Unable to Obtain Past Psychological History: Anxiety, Depression Smoking Status: Never smoker Past Alcohol Use History: None Reported Past Drug Use History: None Reported - Past Family History Mother Family Medical History: Cancer Brother(s) Family Medical History: Coronary Artery Disease (CAD) Father Family Medical History: Coronary Artery Disease (CAD) Sister(s) Family Medical History: Cancer Additional Family Medical History / Comment(s): stomach General Exam - General Exam Comments Initial Comments: This is a well-developed well-nourished awake alert oriented times 3 male Limitations: no limitations General appearance: alert, anxious, in distress Head exam: Present: atraumatic, normocephalic, normal inspection Eye exam: Present: normal appearance, PERRL, EOMI. Absent: scleral icterus, conjunctival injection, periorbital swelling ENT exam: Present: normal exam, mucous membranes moist Neck exam: Present: normal inspection. Absent: tenderness, meningismus, lymphadenopathy Respiratory exam: Present: decreased breath sounds. Absent: respiratory distress, wheezes, rales, rhonchi, stridor Cardiovascular Exam: Present: regular rate, normal rhythm, normal heart sounds. Absent: systolic murmur, diastolic murmur, rubs, gallop, clicks GI/Abdominal exam: Present: soft, normal bowel sounds. Absent: distended, tenderness, guarding, rebound, rigid Extremities exam: Present: full ROM, normal capillary refill, other (Right below the knee" with prosthetic device in place). Absent: tenderness, pedal edema, joint swelling, calf tenderness Back exam: Present: normal inspection Neurological exam: Present: alert, oriented X3, CN II-XII intact Psychiatric exam: Present: normal affect, normal mood Skin exam: Present: warm, dry, intact, normal color. Absent: rash Course Vital Signs 06/28/19 06/28/19 06/28/19 11:46 11:49 12:00 Temperature 97.3 F L Pulse Rate 60 Respiratory 16 Rate Blood Pressure 132/56 132/56 O2 Sat by Pulse 95 97 94 L Oximetry 06/28/19 06/28/19 06/28/19 12:30 13:00 13:30 Temperature Pulse Rate 59 L 63 Respiratory 27 H 13 26 H Rate Blood Pressure 135/67 129/55 124/55 O2 Sat by Pulse Oximetry 06/28/19 06/28/19 06/28/19 13:44 14:00 14:30 Temperature Pulse Rate 64 67 Respiratory 16 13 9 L Rate Blood Pressure 139/69 141/82 O2 Sat by Pulse 96 Oximetry 06/28/19 15:00 Temperature Pulse Rate 60 Respiratory 24 Rate Blood Pressure 149/70 O2 Sat by Pulse 96 Oximetry - Reevaluation(s) Reevaluation #1: 06/28/19 15:21 Patient did get some improvement after the nebulizer treatment. Reevaluation #2: 06/28/19 15:24 Reevaluation patient revealed the treatment repeat treatments will be given IV Lasix and dialysis Medical Decision Making - Medical Decision Making Evaluation patient finds he is feeling somewhat improved but still dyspneic. I did discuss case with him as well as Dr. Torres patient will be admitted with consultation by Dr. Evans as well as cardiology. - Lab Data Result diagrams: 06/28/19 12:20 06/28/19 12:20 Lab Results 06/28/19 06/28/19 06/28/19 Range/Units 12:20 12:20 12:20 WBC 3.6 L (3.8-10.6) k/uL RBC 3.76 L (4.30-5.90) m/uL Hgb 11.0 L (13.0-17.5) gm/dL Hct 36.6 L (39.0-53.0) % MCV 97.1 (80.0-100.0) fL MCH 29.2 (25.0-35.0) pg MCHC 30.1 L (31.0-37.0) g/dL RDW 16.8 H (11.5-15.5) % Plt Count 150 (150-450) k/uL Neutrophils % 59 % Lymphocytes % 20 % Monocytes % 8 % Eosinophils % 8 % Basophils % 3 % Neutrophils # 2.1 (1.3-7.7) k/uL Lymphocytes # 0.7 L (1.0-4.8) k/uL Monocytes # 0.3 (0-1.0) k/uL Eosinophils # 0.3 (0-0.7) k/uL Basophils # 0.1 (0-0.2) k/uL Hypochromasia Marked Anisocytosis Slight Macrocytosis Slight PT (9.0-12.0) sec INR (<1.2) APTT (22.0-30.0) sec Sodium 136 L (137-145) mmol/L Potassium 3.7 (3.5-5.1) mmol/L Chloride 94 L (98-107) mmol/L Carbon Dioxide 33 H (22-30) mmol/L Anion Gap 9 mmol/L BUN 16 (9-20) mg/dL Creatinine 5.23 H (0.66-1.25) mg/dL Est GFR (CKD-EPI)AfAm 12 (>60 ml/min/1.73 sqM) Est GFR (CKD-EPI)NonAf 10 (>60 ml/min/1.73 sqM) Glucose 131 H (74-99) mg/dL Calcium 12.3 H (8.4-10.2) mg/dL Magnesium 2.0 (1.6-2.3) mg/dL Total Bilirubin 0.6 (0.2-1.3) mg/dL AST 12 L (17-59) U/L ALT 14 L (21-72) U/L Alkaline Phosphatase 66 (38-126) U/L Creatine Kinase 22 L (55-170) U/L Troponin I (0.000-0.034) ng/mL NT-Pro-B Natriuret Pep 47142 pg/mL Total Protein 6.9 (6.3-8.2) g/dL Albumin 3.5 (3.5-5.0) g/dL 06/28/19 06/28/19 Range/Units 12:20 12:20 WBC (3.8-10.6) k/uL RBC (4.30-5.90) m/uL Hgb (13.0-17.5) gm/dL Hct (39.0-53.0) % MCV (80.0-100.0) fL MCH (25.0-35.0) pg MCHC (31.0-37.0) g/dL RDW (11.5-15.5) % Plt Count (150-450) k/uL Neutrophils % % Lymphocytes % % Monocytes % % Eosinophils % % Basophils % % Neutrophils # (1.3-7.7) k/uL Lymphocytes # (1.0-4.8) k/uL Monocytes # (0-1.0) k/uL Eosinophils # (0-0.7) k/uL Basophils # (0-0.2) k/uL Hypochromasia Anisocytosis Macrocytosis PT 10.1 (9.0-12.0) sec INR 0.9 (<1.2) APTT 25.2 (22.0-30.0) sec Sodium (137-145) mmol/L Potassium (3.5-5.1) mmol/L Chloride (98-107) mmol/L Carbon Dioxide (22-30) mmol/L Anion Gap mmol/L BUN (9-20) mg/dL Creatinine (0.66-1.25) mg/dL Est GFR (CKD-EPI)AfAm (>60 ml/min/1.73 sqM) Est GFR (CKD-EPI)NonAf (>60 ml/min/1.73 sqM) Glucose (74-99) mg/dL Calcium (8.4-10.2) mg/dL Magnesium (1.6-2.3) mg/dL Total Bilirubin (0.2-1.3) mg/dL AST (17-59) U/L ALT (21-72) U/L Alkaline Phosphatase (38-126) U/L Creatine Kinase (55-170) U/L Troponin I 0.020 (0.000-0.034) ng/mL NT-Pro-B Natriuret Pep pg/mL Total Protein (6.3-8.2) g/dL Albumin (3.5-5.0) g/dL - EKG Data -: EKG Interpreted by Ut EKG shows normal: sinus rhythm (Sinus rhythm a 62 QRS 104 QT since QTC of 424/430) Critical Care Time Critical Care Time: Yes Critical Care Time: 31 minutes of critical care time which includes initial presentation with history physical labs x-rays discussed with paramedics upon arrival for reevaluation patient responsive therapy discuss with patient family discussion with the admitting physician admission orders documentation the above case was discussed with Dr. Torres Disposition Clinical Impression: Systolic congestive heart failure, Acute exacerbation of chronic obstructive pulmonary disease, Chronic renal failure, Pulmonary edema Disposition: ADMITTED IP TO THIS HOSP Condition: Serious Referrals: Harrison Bolivar MD [Primary Care Provider] - 1-2 days
[2019-06-28 12:35] LABS: Anisocytosis Slight; Basophils # (A) 0.1 k/uL (0-0.2); Basophils % (A) 3 %; Eosinophils # (A) 0.3 k/uL (0-0.7); Eosinophils % (A) 8 %; HCT 36.6 % (39.0-53.0); Hypochromasia Marked; Lymphocytes # (A) 0.7 k/uL (1.0-4.8); Lymphocytes % (A) 20 %; MCH 29.2 pg (25.0-35.0); MCHC 30.1 g/dL (31.0-37.0); MCV 97.1 fL (80.0-100.0); Macrocytosis Slight; Mean Platelet Volume 7.6; Monocytes # (A) 0.3 k/uL (0-1.0); Monocytes % (A) 8 %; Neutrophils # (A) 2.1 k/uL (1.3-7.7); Neutrophils % (A) 59 %; Platelet Count 150 k/uL (150-450); RBC 3.76 m/uL (4.30-5.90); RDW 16.8 % (11.5-15.5); WBC 3.6 k/uL (3.8-10.6)
[2019-06-28 12:48] LABS: Albumin 3.5 g/dL (3.5-5.0); Calcium 12.3 mg/dL (8.4-10.2); Potassium 3.7 mmol/L (3.5-5.1); Total Bilirubin 0.6 mg/dL (0.2-1.3); Total Protein 6.9 g/dL (6.3-8.2)
[2019-06-28 13:01] LABS: INR 0.9 (<1.2); Partial Thromboplastin Time 25.2 sec (22.0-30.0); Prothrombin Time 10.1 sec (9.0-12.0)
--- NOTE | 2019-06-28 14:14 | XR ---
EXAMINATION TYPE: XR chest 2V DATE OF EXAM: 06/28/2019 COMPARISON: TECHNIQUE: PA and lateral views submitted. HISTORY: DYSPNEA, SOB FINDINGS: Bilateral consolidation and pleural effusion. Diffuse interstitial pattern. Biapical pleural. Heart i s enlarged. Hypertrophic change of the spine. IMPRESSION: 1. Diffuse bilateral pleural-parenchymal changes correlate for CHF. Otherwise consider pneumonia.
[2019-06-28] MEDS ORDERED: FUROSEMIDE 10 MG/ML 4 ML VIAL IV STA (15:24)
[2019-06-28] MEDS ORDERED: IPRATROPIUM-ALBUTEROL 3 ML NEB INHALATION STA (15:24)
[2019-06-28] MEDS ORDERED: NITROGLYCERIN SL TABS 0.4 MG TAB SUBLINGUAL PRN (15:33)
[2019-06-28] MEDS ORDERED: diphenhydrAMINE 25 MG CAP PO PRN (15:33)
[2019-06-28] MEDS ORDERED: LOPERAMIDE 2 MG CAP PO PRN (15:33)
[2019-06-28 17:11] LABS: Glucose,Whole Blood 158 mg/dL (75-99)
[2019-06-28] MEDS: hydrALAZINE HCL 50 MG TAB PO SCH (17:14)
[2019-06-28] MEDS: SODIUM BICARBONATE TAB 650 MG TAB PO SCH (17:14)
[2019-06-28] MEDS: CARVEDILOL 12.5 MG TAB PO SCH (17:14)
[2019-06-28] MEDS: CALCIUM ACETATE 667 MG CAP PO SCH ×3 (17:15→21:50)
[2019-06-28] MEDS: methylPREDNISolone SOD SUCCI 125 MG/2 ML VIAL IV SCH ×2 (17:15→23:42)
[2019-06-28] MEDS: INSULIN ASPART (NovoLOG) 100 UNIT/ML VIAL SQ SCH ×2 (17:51→21:38)
[2019-06-28] MEDS: ACETAMINOPHEN TAB 325 MG TAB PO PRN (20:00)
[2019-06-28 20:49] LABS: Glucose,Whole Blood 143 mg/dL (75-99)
[2019-06-28] MEDS: IPRATROPIUM-ALBUTEROL 3 ML NEB INHALATION SCH (21:20)
[2019-06-28] MEDS: BUDESONIDE 0.5 MG/2 ML NEBU INHALATION SCH (21:20)
[2019-06-28] MEDS: CALCIUM CARB-VIT D 500MG-200UN 1 EACH TAB PO SCH ×2 (21:39→21:50)
[2019-06-28] MEDS: FUROSEMIDE 10 MG/ML 4 ML VIAL IV SCH (23:42)
[2019-06-28 23:47] LABS: Hepatitis B Surface AB- Quant 3.5 mIU/mL; Hepatitis B Surface Antibody Non-Reactive (Non-Reactive); Hepatitis B Surface Antigen Non-Reactive (Non-Reactive)
[2019-06-29] MEDS: IPRATROPIUM-ALBUTEROL 3 ML NEB INHALATION SCH ×4 (02:42→20:12)
[2019-06-29] MEDS: methylPREDNISolone SOD SUCCI 125 MG/2 ML VIAL IV SCH ×3 (05:21→17:50)
[2019-06-29] MEDS ORDERED: CALCITRIOL 0.25 MCG CAP PO SCH (07:00)
[2019-06-29 07:19] LABS: Glucose,Whole Blood 163 mg/dL (75-99)
[2019-06-29] MEDS: BUDESONIDE 0.5 MG/2 ML NEBU INHALATION SCH ×2 (07:55→20:12)
[2019-06-29] MEDS ORDERED: FUROSEMIDE 40 MG TAB PO SCH (08:00)
[2019-06-29] MEDS: FUROSEMIDE 10 MG/ML 4 ML VIAL IV SCH ×2 (08:30→17:05)
[2019-06-29] MEDS: CALCIUM ACETATE 667 MG CAP PO SCH ×4 (08:30→20:42)
[2019-06-29] MEDS: ASPIRIN 81 MG PO SCH (08:31)
[2019-06-29] MEDS: CALCIUM CARB-VIT D 500MG-200UN 1 EACH TAB PO SCH (08:31)
[2019-06-29] MEDS: MIDODRINE 5 MG TAB PO SCH ×2 (08:31→12:15)
[2019-06-29] MEDS: INSULIN DETEMIR (LEVEMIR) 100 UNIT/ML SYR SQ SCH (08:31)
[2019-06-29] MEDS: hydrALAZINE HCL 50 MG TAB PO SCH ×2 (08:31→17:05)
[2019-06-29] MEDS: amLODIPine 10 MG TAB PO SCH (08:31)
[2019-06-29] MEDS: SODIUM BICARBONATE TAB 650 MG TAB PO SCH ×2 (08:31→17:07)
[2019-06-29] MEDS: INSULIN ASPART (NovoLOG) 100 UNIT/ML VIAL SQ SCH ×4 (08:31→20:41)
[2019-06-29] MEDS: CARVEDILOL 12.5 MG TAB PO SCH ×2 (08:31→17:06)
[2019-06-29] MEDS: AZITHROMYCIN 500 MG TAB PO SCH (08:32)
[2019-06-29] MEDS ORDERED: MIDODRINE 5 MG TAB PO SCH (09:00)
--- NOTE | 2019-06-29 11:51 | US ---
EXAMINATION TYPE: US chest DATE OF EXAM: 06/29/2019 COMPARISON: x-ray 06/28/2019 CLINICAL HISTORY: b/l pleural effusion,fluid overload. TECHNIQUE: Targeted ultrasound of the posterior lower left and right chest EXAM MEASUREMENTS: Right Pleural Effusion pocket size: 3.6 cm Right skin surface to fluid distance: 4.1 cm Left Pleural Effusion pocket size: 7.4 cm Left skin surface to fluid distance: 5.0 cm Right side marked for possible thoracentesis outside the dept. Left side marked for possible thoracentesis outside the dept. Pulmonologists are able to review the images in the patient?s EMR. Limited scan. IMPRESSIONS: There are pleural effusions bilaterally.
[2019-06-29 11:59] LABS: Glucose,Whole Blood 198 mg/dL (75-99)
[2019-06-29 12:54] VITALS: BMI 33.3
--- NOTE | 2019-06-29 14:30 | P.NPCON ---
History of Present Illness - Reason for Consult end stage renal disease - History of Present Illness Reason for consultation: End-stage renal disease History of present illness: Patient is a 74-year-old male seen in consultation for end-stage renal disease. He is maintained on hemodialysis on Tuesday schedule. Patient presented to the hospital from an extended care facility due to dyspnea. Patient denies missing any hemodialysis treatments outpatient. He denies any significant cough. Denies fever. No vomiting or diarrhea. No abdominal pain. Chest x-ray was suggestive of pneumonia versus CHF. Chest ultrasound revealed bilateral pleural effusions. He underwent hemodialysis yesterday and is scheduled to undergo another treatment today. Hemodynamically stable. Overall the patient is feeling better. He has received nebulized treatments as well as IV steroids. Patient has chronic hypotension and is maintained on midodrine outpatient. He has history of right [id number] habitation. Blood sugar is controlled. Vital signs are stable. General: The patient appeared well nourished and normally developed. HEENT: Head exam is unremarkable. Neck is without jugular venous distension. LUNGS: Lungs are clear to auscultation and percussion. Breath sounds decreased. HEART: Rate and Rhythm are regular. First and second heart sounds normal. No murmurs, rubs or gallops. ABDOMEN: Abdominal exam reveals normal bowel sounds. Non-tender and non- distended. EXTREMITITES: Trace edema. Right BKA noted. Past Medical History Past Medical History: Asthma, Heart Failure, Diabetes Mellitus, Hyperlipidemia, Hypertension, Renal Disease, Vascular Disorder Additional Past Medical History / Comment(s): Chronic kidney disease stage V , diabetic neuropathy, PVD, R below the knee amp. Dialysis M-W-F. Wears oxygen at 2 L per nc only with dialysis History of Any Multi-Drug Resistant Organisms: None Reported Additional Past Surgical History / Comment(s): AV FISTULA UPPER RT ARM -pt stated not currently using it "has had some problems with it", november 26 2013 be low the knee amputation, hemodialysis catheter Past Anesthesia/Blood Transfusion Reactions: Unable to Obtain Past Psychological History: Anxiety, Depression Additional Psychological History / Comment(s): depression related to of in april 2014. pt currently lives at [facility]. has rt leg prothesis, uses w/c to get around and is able to transfer self. Smoking Status: Never smoker Past Alcohol Use History: None Reported Additional Past Alcohol Use History / Comment(s): PT states he is a lifelong nonsmoker. He denies any medical marijuana, street drug use. He WAS DRINKING 2 12C OUNCE beers daily going to [facility] and more recently-pt stated he consumed 3/4 of a fifth of whiskey and 6 beer between 04-12-18 and 04-16-18 until he got caught. stated he was celebrating his birthday. His passed in April 2014. He has had no recent travel. He worked in the past doing [employer] to [address] [place] [id number] and [facility]. Currently at [facility]. Past Drug Use History: None Reported - Past Family History Mother Family Medical History: Cancer Brother(s) Family Medical History: Coronary Artery Disease (CAD) Father Family Medical History: Coronary Artery Disease (CAD) Sister(s) Family Medical History: Cancer Additional Family Medical History / Comment(s): stomach Medications and Allergies Home Medications Medication Instructions Recorded Confirmed Type hydrALAZINE HCL [Apresoline] 50 mg PO BID@0800,1600 08/28/14 06/28/19 History Carvedilol 12.5 mg PO BID 08/23/15 06/28/19 History Insulin Glargine [Lantus] 15 unit SQ DAILY@0900 12/19/17 06/28/19 History Loperamide [Imodium] 4 mg PO QID PRN 12/19/17 06/28/19 History Midodrine HCl [ProAmatine] 5 mg PO MOWEFR 12/19/17 06/28/19 History Nitroglycerin Sl Tabs [Nitrostat] 0.4 mg SUBLINGUAL Q5M PRN 12/19/17 06/28/19 History Furosemide [Lasix] 40 mg PO BID@0800,1600 04/17/18 06/28/19 History traMADol HCL [Ultram] 50 - 100 mg PO Q12H PRN #4 tablet 04/19/18 06/28/19 Rx Lidocaine-Prilocaine Cream [Emla 1 applic TOPICAL MOWEFR 08/19/18 06/28/19 History Cream 2.5%/2.5%] Aspirin [[place] Aspirin EC] 81 mg PO DAILY@0700 01/24/19 06/28/19 History Budesonide [Pulmicort] 0.5 mg INHALATION RT-BID 03/21/19 06/28/19 History Acetaminophen Tab [Tylenol Tab] 650 mg PO Q4H PRN 03/22/19 06/28/19 History amLODIPine [Norvasc] 10 mg PO DAILY@0800 03/22/19 06/28/19 History Azithromycin [Zithromax] 500 mg PO DAILY@0800 06/28/19 06/28/19 History Calcitriol 1 mcg PO DAILY@0700 06/28/19 06/28/19 History Calcium Acetate 2,001 mg PO TID-W/MEALS 06/28/19 06/28/19 History Calcium Acetate 667 mg PO HS@199906/28/19 06/28/19 History Calcium Carb-Vit D 500Mg-200Un 1 tab PO BID 06/28/19 06/28/19 History [Oscal 500+D] Ipratropium-Albuterol Nebulize 3 ml INHALATION RT-Q6H PRN 06/28/19 06/28/19 History [Duoneb 0.5 mg-3 mg/3 ml Soln] Midodrine [ProAmatine] 5 mg PO MOWEFR 06/28/19 06/28/19 History Sodium Bicarbonate Tab 650 mg PO BID@0800,1600 06/28/19 06/28/19 History diphenhydrAMINE HCL [Benadryl] 25 mg PO BID PRN 06/28/19 06/28/19 History Allergies Allergy/AdvReac Type Severity Reaction Status Date / Time Iodinated Contrast Media Allergy Unknown Verified 06/28/19 12:05 [Iodinated Contrast- Oral and IV Dye] milk Allergy Rash/Hives Verified 06/28/19 12:05 Penicillins Allergy Rash/Hives Verified 06/28/19 12:05 vancomycin Allergy Unknown Verified 06/28/19 12:05 Physical Exam Vitals: Vital Signs Temp Pulse Pulse Pulse Resp BP BP 06/29/19 13:58 76 06/29/19 13:49 74 06/29/19 08:07 72 06/29/19 08:00 72 20 06/29/19 07:56 72 06/29/19 07:00 98.5 F 72 20 137/57 06/29/19 02:52 68 06/29/19 02:42 68 06/29/19 00:26 97.8 F 72 18 123/57 06/29/19 00:10 18 06/28/19 21:36 68 06/28/19 21:20 64 06/28/19 20:34 97.7 F 61 14 111/51 06/28/19 20:00 18 06/28/19 16:07 76 06/28/19 16:01 75 06/28/19 15:00 60 24 149/70 06/28/19 14:30 67 9 L 141/82 Pulse Ox 06/29/19 13:58 06/29/19 13:49 06/29/19 08:07 06/29/19 08:00 06/29/19 07:56 06/29/19 07:00 95 06/29/19 02:52 06/29/19 02:42 06/29/19 00:26 95 06/29/19 00:10 06/28/19 21:36 06/28/19 21:20 98 06/28/19 20:34 06/28/19 20:00 06/28/19 16:07 06/28/19 16:01 06/28/19 15:00 96 06/28/19 14:30 96 Intake and Output 06/28/19 06/29/19 06/29/19 22:59 06:59 14:59 Intake Total 500 Output Total 1400 Balance -900 Intake: Oral 100 Hemodialysis 400 Output: Hemodialysis 1400 Other: Voiding Method Diaper Diaper # Voids 0 Weight 111.5 kg 111.5 kg Results - Lab Results Most recent lab results Calcium 12.3 mg/dL (8.4-10.2) H 06/28/19 12:20 Magnesium 2.0 mg/dL (1.6-2.3) 06/28/19 12:20 06/28/19 12:20 06/28/19 12:20 Assessment and Plan Plan: Assessment: 1. ESRD on HD MWF. 2. Dyspnea secondary to volume overload and COPD exac. 3. HTN with CKD. Controlled. Does receive midodrine prior to HD. 4. IDDM. 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 6. Hypercalcemia secondary to calcium and vit d supplementation. Calcium was low recently outpatient. Plan: HD today. D/c sodium bicarb. D/c oscal-D and calcitriol. Repeat electrolytes in AM. Thank you for the consultation. I will continue to follow the patient with you during his hospital stay.
--- NOTE | 2019-06-29 14:58 | P.CRDCN ---
History of Present Illness History of present illness: This is a pleasant 74-year-old male past medical history significant for chronic renal failure on hemodialysis, hypertension, dyslipidemia, diabetes mellitus, s/p right BKA, chronic diastolic heart failure and history of alcohol abuse. He follows in the office with Dr. Rome. We have been asked to see him in consultation for history of CHF. He presented to the hospital yesterday with symptoms of shortness of breath. Per the patient he states he did undergo dialysis treatment yesterday and will likely have treatment today as well, nephrology is consulted. Chest x-ray reveals diffuse bilateral pleural parenchymal changes. On exam he did have dullness to percussion and bilateral chest ultrasound was requested revealing right pleural effusion pocket size 3.6 cm and a left pleural effusion pocket size of 7.4 cm. We have asked pulmonary to evaluate the patient for possible thoracentesis. Laboratory data reviewed, cardiac enzymes negative 3, WBC 3.6, hemoglobin 11, platelets 150, sodium 136, potassium 3.7, creatinine 5.23, magnesium 2.0, proBNP 16,700. EKG reveals sinus mechanism heart rate 62. No acute ST or T-wave abnormalities. He denies chest pain, dizziness, palpitations, cough or congestion. Current daily cardiac medications include aspirin 81 mg daily, amlodipine 10 mg daily, Miodrine 5 mg on days of dialysis MWF, carvedilol 12.5 mg twice a day, Lasix 40 mg by mouth twice a day and hydralazine 50 mg twice a day. Most recent echocardiogram obtained January 2019 reveals preserved LV systolic function with ejection fraction 55-60%. At the time of my exam: CONSTITUTIONAL: Denies fever. Denies chills. EYES: Denies blurred vision. Denies vision changes. Denies eye pain. EARS, NOSE, MOUTH & THROAT: Denies headache. Denies sore throat. Denies ear pain. CARDIOVASCULAR: Denies chest pain. Denies shortness of breath. Denies orthopnea. Denies PND. Denies palpitations. RESPIRATORY: Denies cough. GASTROINTESTINAL: Denies abdominal pain. Denies diarrhea. Denies constipation. Denies nausea. Denies vomiting. MUSCULOSKELETAL: Denies myalgias. INTEGUMENTARY: Denies pruitis. Denies rash. NEUROLOGIC: Denies numbness. Denies tingling. Denies weakness. PSYCHIATRIC: Denies anxiety. Denies depression. ENDOCRINE: Denies fatigue. Denies weight change. Denies polydipsia. Denies polyurina. GENITOURINARY: Denies burning, hematuria or urgency with micturation. HEMATOLOGIC: Denies history of anemia. Denies bleeding. Blood pressure 137/57 heart rate 72 afebrile maintaining oxygen saturation on nasal cannula GENERAL: This is a 74-year-old male in no apparent distress at the time of my examination. HEENT: Head is atraumatic, normocephalic. Pupils are equal, round. Sclerae anicteric. Conjunctivae are clear. Mucous membranes of the mouth are moist. Neck is supple. There is no jugular venous distention. No carotid bruit is heard. LUNGS: Bibasilar rales, worse on the left with dullness to percussion. No wheezes or rhonci. Diminished bilaterally. No chest wall tenderness is noted on palpation or with deep breathing. HEART: Regular rate and rhythm without murmurs, rubs or gallops. S1 and S2 heard. ABDOMEN: Soft, nontender. Bowel sounds are heard. No organomegaly noted. EXTREMITIES: No evidence of peripheral edema and no calf tenderness noted. VASCULAR: Radial and dorsalis pedis pulses palpated, no evidence of clubbing. NEUROLOGIC: Patient is awake, alert and oriented x3. ASSESSMENT Dyspnea secondary to fluid overload Acute on chronic diastolic heart failure Bilateral pleural effusion End stage renal failure on hemodialysis Hypertension Dyslipidemia Diabetes mellitus Right below the knee amputation History of alcohol abuse PLAN Chest ultrasound obtained, bilateral pleural effusions noted. Recommend pulmonary evaluation for possible thoracentesis. IV lasix initiated in ED however, he states he only makes minimal urine so this may not help. Hemodialysis per nephrology, likely will need additional treatment. Document daily weights. Thank you kindly for this consultation. Nurse Practitioner note has been reviewed, I agree with a documented findings and plan of care. Patient was seen and examined. Past Medical History Past Medical History: Asthma, Heart Failure, Diabetes Mellitus, Hyperlipidemia, Hypertension, Renal Disease, Vascular Disorder Additional Past Medical History / Comment(s): Chronic kidney disease stage V , diabetic neuropathy, PVD, R below the knee amp. Dialysis M-W-F. Wears oxygen at 2 L per nc only with dialysis History of Any Multi-Drug Resistant Organisms: None Reported Additional Past Surgical History / Comment(s): AV FISTULA UPPER RT ARM -pt stated not currently using it "has had some problems with it", november 26 2013 below the knee amputation, hemodialysis catheter Past Anesthesia/Blood Transfusion Reactions: Unable to Obtain Past Psychological History: Anxiety, Depression Additional Psychological History / Comment(s): depression related to of in april 2014. pt currently lives at [facility]. has rt leg prothesis, uses w/c to get around and is able to transfer self. Smoking Status: Never smoker Past Alcohol Use History: None Reported Additional Past Alcohol Use History / Comment(s): PT states he is a lifelong nonsmoker. He denies any medical marijuana, street drug use. He WAS DRINKING 2 12C OUNCE beers daily going to [facility] and more recently-pt stated he consumed 3/4 of a fifth of whiskey and 6 beer between 04-12-18 and 04-16-18 until he got caught. stated he was celebrating his birthday. His passed in April 2014. He has had no recent travel. He worked in the past doing long-[employer] to [address] [place] [address] and [facility]. Currently at [facility]. Past Drug Use History: None Reported - Past Family History Mother Family Medical History: Cancer Brother(s) Family Medical History: Coronary Artery Disease (CAD) Father Family Medical History: Coronary Artery Disease (CAD) Sister(s) Family Medical History: Cancer Additional Family Medical History / Comment(s): stomach Medications and Allergies Home Medications Medication Instructions Recorded Confirmed Type hydrALAZINE HCL [Apresoline] 50 mg PO BID@0800,1600 08/28/14 06/28/19 History Carvedilol 12.5 mg PO BID 08/23/15 06/28/19 History Insulin Glargine [Lantus] 15 unit SQ DAILY@0900 12/19/17 06/28/19 History Loperamide [Imodium] 4 mg PO QID PRN 12/19/17 06/28/19 History Midodrine HCl [ProAmatine] 5 mg PO MOWEFR 12/19/17 06/28/19 History Nitroglycerin Sl Tabs [Nitrostat] 0.4 mg SUBLINGUAL Q5M PRN 12/19/17 06/28/19 History Furosemide [Lasix] 40 mg PO BID@0800,1600 04/17/18 06/28/19 History traMADol HCL [Ultram] 50 - 100 mg PO Q12H PRN #4 tablet 04/19/18 06/28/19 Rx Lidocaine-Prilocaine Cream [Emla 1 applic TOPICAL MOWEFR 08/19/18 06/28/19 History Cream 2.5%/2.5%] Aspirin [[place] Aspirin EC] 81 mg PO DAILY@0700 01/24/19 06/28/19 History Budesonide [Pulmicort] 0.5 mg INHALATION RT-BID 03/21/19 06/28/19 History Acetaminophen Tab [Tylenol Tab] 650 mg PO Q4H PRN 03/22/19 06/28/19 History amLODIPine [Norvasc] 10 mg PO DAILY@0800 03/22/19 06/28/19 History Azithromycin [Zithromax] 500 mg PO DAILY@0800 06/28/19 06/28/19 History Calcitriol 1 mcg PO DAILY@0700 06/28/19 06/28/19 History Calcium Acetate 2,001 mg PO TID-W/MEALS 06/28/19 06/28/19 History Calcium Acetate 667 mg PO HS@2000 06/28/19 06/28/19 History Calcium Carb-Vit D 500Mg-200Un 1 tab PO BID 06/28/19 06/28/19 History [Oscal 500+D] Ipratropium-Albuterol Nebulize 3 ml INHALATION RT-Q6H PRN 06/28/19 06/28/19 History [Duoneb 0.5 mg-3 mg/3 ml Soln] Midodrine [ProAmatine] 5 mg PO MOWEFR 06/28/19 06/28/19 History Sodium Bicarbonate Tab 650 mg PO BID@0800,1600 06/28/19 06/28/19 History diphenhydrAMINE HCL [Benadryl] 25 mg PO BID PRN 06/28/19 06/28/19 History Allergies Allergy/AdvReac Type Severity Reaction Status Date / Time Iodinated Contrast Media Allergy Unknown Verified 06/28/19 12:05 [Iodinated Contrast- Oral and IV Dye] milk Allergy Rash/Hives Verified 06/28/19 12:05 Penicillins Allergy Rash/Hives Verified 06/28/19 12:05 vancomycin Allergy Unknown Verified 06/28/19 12:05 Physical Exam Vitals: Vital Signs Temp Pulse Pulse Pulse Resp BP BP 06/29/19 08:07 72 06/29/19 08:00 72 20 06/29/19 07:56 72 06/29/19 07:00 98.5 F 72 20 137/57 06/29/19 02:52 68 06/29/19 02:42 68 06/29/19 00:26 97.8 F 72 18 123/57 06/29/19 00:10 18 06/28/19 21:36 68 06/28/19 21:20 64 06/28/19 20:34 97.7 F 61 14 111/51 06/28/19 20:00 18 06/28/19 16:07 76 06/28/19 16:01 75 06/28/19 15:00 60 24 149/70 06/28/19 14:30 67 9 L 141/82 06/28/19 14:00 64 13 139/69 06/28/19 13:44 16 06/28/19 13:30 63 26 H 124/55 06/28/19 13:00 59 L 13 129/55 06/28/19 12:30 27 H 135/67 Pulse Ox 06/29/19 08:07 06/29/19 08:00 06/29/19 07:56 06/29/19 07:00 95 06/29/19 02:52 06/29/19 02:42 06/29/19 00:26 95 06/29/19 00:10 06/28/19 21:36 06/28/19 21:20 98 06/28/19 20:34 06/28/19 20:00 06/28/19 16:07 06/28/19 16:01 06/28/19 15:00 96 06/28/19 14:30 96 06/28/19 14:00 06/28/19 13:44 06/28/19 13:30 06/28/19 13:00 06/28/19 12:30 Intake and Output 06/28/19 06/29/19 06/29/19 22:59 06:59 14:59 Intake Total 500 Output Total 1400 Balance -900 Intake: Oral 100 Hemodialysis 400 Output: Hemodialysis 1400 Other: Voiding Method Diaper Diaper # Voids 0 Weight 111.5 kg Results 06/28/19 12:20 06/28/19 12:20 Cardiac Enzymes 06/28/19 06/28/19 06/28/19 Range/Units 12:20 12:20 19:04 AST 12 L (17-59) U/L Troponin I 0.020 0.017 (0.000-0.034) ng/mL 06/29/19 Range/Units 00:46 AST (17-59) U/L Troponin I 0.012 (0.000-0.034) ng/mL Coagulation 06/28/19 Range/Units 12:20 PT 10.1 (9.0-12.0) sec APTT 25.2 (22.0-30.0) sec CBC 06/28/19 Range/Units 12:20 WBC 3.6 L (3.8-10.6) k/uL RBC 3.76 L (4.30-5.90) m/uL Hgb 11.0 L (13.0-17.5) gm/dL Hct 36.6 L (39.0-53.0) % Plt Count 150 (150-450) k/uL Comprehensive Metabolic Panel 06/28/19 Range/Units 12:20 Sodium 136 L (137-145) mmol/L Potassium 3.7 (3.5-5.1) mmol/L Chloride 94 L (98-107) mmol/L Carbon Dioxide 33 H (22-30) mmol/L BUN 16 (9-20) mg/dL Creatinine 5.23 H (0.66-1.25) mg/dL Glucose 131 H (74-99) mg/dL Calcium 12.3 H (8.4-10.2) mg/dL AST 12 L (17-59) U/L ALT 14 L (21-72) U/L Alkaline Phosphatase 66 (38-126) U/L Total Protein 6.9 (6.3-8.2) g/dL Albumin 3.5 (3.5-5.0) g/dL Current Medications Generic Name Dose Route Start Last Admin Trade Name Freq PRN Reason Stop Dose Admin Acetaminophen 650 mg 06/28/19 15:33 06/28/19 20:00 Tylenol Tab PO 650 mg Q4H PRN Administration MILD Pain Albuterol/Ipratropium 3 ml 06/28/19 20:00 06/29/19 07:55 Duoneb 0.5 Mg-3 Mg/3 Ml Soln INHALATION 3 ml RT-Q6H DARIANA Administration Amlodipine Besylate 10 mg 06/29/19 08:00 06/29/19 08:31 Norvasc PO 10 mg DAILY@0800 DARIANA Administration Aspirin 81 mg 06/29/19 07:00 06/29/19 08:31 Aspirin PO 81 mg DAILY@0700 DARIANA Administration Azithromycin 500 mg 06/29/19 08:00 06/29/19 08:32 Zithromax PO 06/30/19 08:01 500 mg DAILY@0800 [facility] Administration Budesonide 0.5 mg 06/28/19 20:00 06/29/19 07:55 Pulmicort INHALATION 0.5 mg RT-BID DARIANA Administration Calcitriol 1 mcg 06/29/19 07:00 06/29/19 08:32 Rocaltrol PO 1 mcg DAILY@0700 [facility] Administration Calcium Acetate 2,001 mg 06/28/19 17:30 06/29/19 08:30 Phoslo PO 2,001 mg TID-W/MEALS [facility] Administration Calcium Acetate 667 mg 06/28/19 20:00 06/28/19 21:50 Phoslo PO Not Given HS@2000 [facility] Calcium Carbonate 1 each 06/28/19 21:00 06/29/19 08:31 Oscal 500+D PO 1 each BID [facility] Administration Carvedilol 12.5 mg 06/28/19 17:30 06/29/19 08:31 Coreg PO 12.5 mg BID-W/MEALS [facility] Administration Diphenhydramine HCl 25 mg 06/28/19 15:33 Benadryl PO BID PRN Itching Furosemide 40 mg 06/29/19 00:00 06/29/19 08:30 Lasix IV 40 mg Q8HR [facility] Administration Hydralazine HCl 50 mg 06/28/19 16:00 06/29/19 08:31 Apresoline PO 50 mg BID@0800,1600 [facility] Administration Insulin Aspart 0 unit 06/28/19 17:30 06/29/19 08:31 Novolog SQ 1 unit ACHS [facility] Administration Protocol Insulin Detemir 15 unit 06/29/19 07:00 06/29/19 08:31 Levemir SQ 15 unit DAILY@0700 [facility] Administration Lidocaine/Prilocaine 1 applic 06/29/19 09:00 Emla Cream 2.5%/2.5% [facility] Loperamide HCl 4 mg 06/28/19 15:33 Imodium PO QID PRN Diarrhea Methylprednisolone Sodium Succinate 60 mg 06/28/19 18:00 06/29/19 05:21 Solu-Medrol IV 60 mg Q6HR [facility] Administration Midodrine 5 mg 06/29/19 09:00 06/29/19 08:31 Proamatine PO 5 mg MOWEFR [facility] Administration Midodrine 5 mg 06/29/19 09:00 Proamatine PO [facility] Nitroglycerin 0.4 mg 06/28/19 15:33 Nitrostat SUBLINGUAL Q5M PRN Chest Pain Sodium Bicarbonate 650 mg 06/28/19 16:00 06/29/19 08:31 Sodium Bicarbonate Tab PO 650 mg BID@0800,1600 [facility] Administration Tramadol HCl 50 mg 06/28/19 15:33 Ultram PO Q12H PRN MODERATE Pain Intake and Output 06/28/19 06/29/19 06/29/19 22:59 06:59 14:59 Intake Total 500 Output Total 1400 Balance -900 Intake: Oral 100 Hemodialysis 400 Output: Hemodialysis 1400 Other: Voiding Method Diaper Diaper # Voids 0 Weight 111.5 kg 06/28/19 12:20 06/28/19 12:20
--- NOTE | 2019-06-29 16:29 | P.CNPUL ---
History of Present Illness Consult date: 06/29/19 Requesting physician: Phan Torres Reason for consult: dyspnea Chief complaint: Shortness of breath History of present illness: This is a pleasant 74-year-old gentleman who resides in [facility]. He has a history of asthma, congestive heart failure, diabetes brock, hyperlipidemia, hypertension, end-stage renal disease receiving hemodialysis on Tuesday, right low the knee amputee, chronic hypoxic respiratory failure utilizing oxygen at 2 L/m in the outpatient setting. He is a lifelong nonsmoker. He does have a history of anxiety/depression. Visit AV fistula to the right upper arm. He has a temporary hemodialysis catheter in the left thigh. He was transported here with complaints of being very short of breath and hypoxemia. His last dialysis was 06/27/2019. His chest x-ray revealed diffuse bilateral pleuroparenchymal changes correlating with fluid volume overload. He is seen today in consultation on the regular medical floor. He is currently awake and alert in no acute distress. He is maintaining O2 saturations in the mid to upper 90s on 4 L/m per nasal cannula. Temp 99.1. Hemodynamically stable. White count 3.6. Hemoglobin 11.0. Sodium 136. Creatinine 5.23. ProBNP 16,700. Ultrasound of the chest reveals a right pleural effusion pocket size 3.6. Left pleural effusion size 7.4 cm. He is due for hemodialysis today. Review of Systems REVIEW OF SYSTEMS: CONSTITUTIONAL: Denies any recent significant weight loss or weight gain. EYES: Denies change in vision. EARS, NOSE, MOUTH, THROAT: Denies headaches, denies sore throat. CARDIOVASCULAR: Denies chest pain, palpitations or syncopal episodes. RESPIRATORY: Positive for shortness of breath, cough, congestion no hemoptysis. GASTROINTESTINAL: Denies change in appetite, denies abdominal pain GENITOURINARY: Denies hematuria, denies infections. MUSKULOSKELETAL: Denies pain, denies swelling. INTEGUMENTARY: Denies rash, denies eczema. NEUROLOGICAL: Denies recent memory loss, no recent seizure activity. PSYCHIATRIC: Denies anxiety, denies depression. HEMATOLOGIC/LYMPHATIC: Denies anemia, denies enlarged lymph nodes. Past Medical History Past Medical History: Asthma, Heart Failure, Diabetes Mellitus, Hyperlipidemia, Hypertension, Renal Disease, Vascular Disorder Additional Past Medical History / Comment(s): Chronic kidney disease stage V , diabetic neuropathy, PVD, R below the knee amp. Dialysis M-W-F. Wears oxygen at 2 L per nc only with dialysis History of Any Multi-Drug Resistant Organisms: None Reported Additional Past Surgical History / Comment(s): AV FISTULA UPPER RT ARM -pt stated not currently using it "has had some problems with it", november 26 2013 below the knee amputation, hemodialysis catheter Past Anesthesia/Blood Transfusion Reactions: Unable to Obtain Past Psychological History: Anxiety, Depression Additional Psychological History / Comment(s): depression related to of in april 2014. pt currently lives at [facility]. has rt leg prothesis, uses w/c to get around and is able to transfer self. Smoking Status: Never smoker Past Alcohol Use History: None Reported Additional Past Alcohol Use History / Comment(s): PT states he is a lifelong nonsmoker. He denies any medical marijuana, street drug use. He WAS DRINKING 2 12C OUNCE beers daily going to [facility] and more recently-pt stated he consumed 3/4 of a fifth of whiskey and 6 beer between 04-12-18 and 04-16-18 until he got caught. stated he was celebrating his birthday. His passed in April 2014. He has had no recent travel. He worked in the past doing long[employer] to [facility] and [facility]. Currently at [facility]. Past Drug Use History: None Reported - Past Family History Mother Family Medical History: Cancer Brother(s) Family Medical History: Coronary Artery Disease (CAD) Father Family Medical History: Coronary Artery Disease (CAD) Sister(s) Family Medical History: Cancer Additional Family Medical History / Comment(s): stomach Medications and Allergies Home Medications Medication Instructions Recorded Confirmed Type hydrALAZINE HCL [Apresoline] 50 mg PO BID@0800,1600 08/28/14 06/28/19 History Carvedilol 12.5 mg PO BID 08/23/15 06/28/19 History Insulin Glargine [Lantus] 15 unit SQ DAILY@0900 12/19/17 06/28/19 History Loperamide [Imodium] 4 mg PO QID PRN 12/19/17 06/28/19 History Midodrine HCl [ProAmatine] 5 mg PO MOWEFR 12/19/17 06/28/19 History Nitroglycerin Sl Tabs [Nitrostat] 0.4 mg SUBLINGUAL Q5M PRN 12/19/17 06/28/19 History Furosemide [Lasix] 40 mg PO BID@0800,1600 04/17/18 06/28/19 History traMADol HCL [Ultram] 50 - 100 mg PO Q12H PRN #4 tablet 04/19/18 06/28/19 Rx Lidocaine-Prilocaine Cream [Emla 1 applic TOPICAL MOWEFR 08/19/18 06/28/19 History Cream 2.5%/2.5%] Aspirin [[place] Aspirin EC] 81 mg PO DAILY@0700 01/24/19 06/28/19 History Budesonide [Pulmicort] 0.5 mg INHALATION RT-BID 03/21/19 06/28/19 History Acetaminophen Tab [Tylenol Tab] 650 mg PO Q4H PRN 03/22/19 06/28/19 History amLODIPine [Norvasc] 10 mg PO DAILY@0800 03/22/19 06/28/19 History Azithromycin [Zithromax] 500 mg PO DAILY@0800 06/28/19 06/28/19 History Calcitriol 1 mcg PO DAILY@0700 06/28/19 06/28/19 History Calcium Acetate 2,001 mg PO TID-W/MEALS 06/28/19 06/28/19 History Calcium Acetate 667 mg PO HS@2000 06/28/19 06/28/19 History Calcium Carb-Vit D 500Mg-200Un 1 tab PO BID 06/28/19 06/28/19 History [Oscal 500+D] Ipratropium-Albuterol Nebulize 3 ml INHALATION RT-Q6H PRN 06/28/19 06/28/19 History [Duoneb 0.5 mg-3 mg/3 ml Soln] Midodrine [ProAmatine] 5 mg PO MOWEFR 06/28/19 06/28/19 History Sodium Bicarbonate Tab 650 mg PO BID@0800,1600 06/28/19 06/28/19 History diphenhydrAMINE HCL [Benadryl] 25 mg PO BID PRN 06/28/19 06/28/19 History Allergies Allergy/AdvReac Type Severity Reaction Status Date / Time Iodinated Contrast Media Allergy Unknown Verified 06/28/19 12:05 [Iodinated Contrast- Oral and IV Dye] milk Allergy Rash/Hives Verified 06/28/19 12:05 Penicillins Allergy Rash/Hives Verified 06/28/19 12:05 vancomycin Allergy Unknown Verified 06/28/19 12:05 Physical Exam Vitals: Vital Signs Temp Pulse Pulse Pulse Resp BP Pulse Ox 06/29/19 15:00 99.1 F 65 20 148/55 97 06/29/19 13:58 76 06/29/19 13:49 74 06/29/19 08:07 72 06/29/19 08:00 72 20 06/29/19 07:56 72 06/29/19 07:00 98.5 F 72 20 137/57 95 06/29/19 02:52 68 06/29/19 02:42 68 06/29/19 00:26 97.8 F 72 18 123/57 95 06/29/19 00:10 18 06/28/19 21:36 68 06/28/19 21:20 64 98 06/28/19 20:34 97.7 F 61 14 111/51 06/28/19 20:00 18 Intake and Output 06/29/19 06/29/19 06/29/19 06:59 14:59 22:59 Other: Voiding Method Diaper # Voids 0 0 Weight 111.5 kg GENERAL EXAM: Alert, pleasant 74-year-old gentleman, comfortable in no apparent distress. On 4 L nasal cannula. HEAD: Normocephalic. EYES: Normal reaction of pupils, equal size. NOSE: Clear with pink turbinates. THROAT: No erythema or exudates. NECK: No masses, no JVD. CHEST: No chest wall deformity. LUNGS: Equal air entry with crackles in the bilateral posterior bases, left greater than right. CVS: S1 and S2 normal with no audible murmur, regular rhythm. ABDOMEN: No hepatosplenomegaly, normal bowel sounds, no guarding or rigidity. SPINE: No scoliosis or deformity SKIN: No rashes CENTRAL NERVOUS SYSTEM: No focal deficits, tone is normal in all 4 extremities. EXTREMITIES: Right [id number] amputee. There is 1 + peripheral edema. No clubbing, no cyanosis. Peripheral pulses are intact. Results - Laboratory Findings CBC and BMP: 06/28/19 12:20 06/28/19 12:20 PT/INR, D-dimer PT 10.1 sec (9.0-12.0) 06/28/19 12:20 INR 0.9 (<1.2) 06/28/19 12:20 Abnormal lab findings: Abnormal Labs 06/28/19 06/28/19 06/28/19 12:20 12:20 17:08 WBC 3.6 L RBC 3.76 L Hgb 11.0 L Hct 36.6 L MCHC 30.1 L RDW 16.8 H Lymphocytes # 0.7 L Sodium 136 L Chloride 94 L Carbon Dioxide 33 H Creatinine 5.23 H Glucose 131 H POC Glucose (mg/dL) 158 H Calcium 12.3 H AST 12 L ALT 14 L Creatine Kinase 22 L 06/28/19 06/29/19 06/29/19 20:47 07:18 11:58 WBC RBC Hgb Hct MCHC RDW Lymphocytes # Sodium Chloride Carbon Dioxide Creatinine Glucose POC Glucose (mg/dL) 143 H 163 H 198 H Calcium AST ALT Creatine Kinase - Diagnostic Findings Chest x-ray: image reviewed Assessment and Plan Assessment: Impression: #1 Acute on chronic hypoxic respiratory failure secondary to fluid volume overload and bilateral pleural effusions left greater than right. #2 End-stage renal disease receiving hemodialysis Tuesday. As a right upper extremity AV fistula. Temporary catheter in the left lower e xtremity. #3 Bilateral pleural effusions the left pocket 7.4 cm, right pocket 3.6 cm secondary to above. #4 History of asthma. #5 Lifelong nonsmoker. #6 Diabetes mellitus. #7 Hypertension. #9 Hyperlipidemia. #10 Peripheral vascular disease status post right below the knee amputee. #11 History of anxiety/depression. #12 Poor overall functional performance based on the above-mentioned comor bidities. #13 ECF resident. Plan: The patient was seen and evaluated by Dr. Diaz. Chest x-ray, ultrasound and labs all reviewed. He is due for hemodialysis today. We'll continue with IV diuretics. No plans for thoracentesis at this time. We will continue the current treatment plan. We'll continue to follow make further recommendations based on his clinical status. I, the cosigning physician, performed a history & physical examination of the patient. Lungs sounds with bilateral posterior crackles left greater than right. Maintaining good O2 saturations in the 90s on 4 L/m per nasal cannula. I discussed the assessment and plan of care with my nurse practitioner, Krystina Molina. I attest to the above consultation as dictated by her. Time with Patient: Greater than 30
[2019-06-29] MEDS: LIDOCAINE-PRILOCAINE 2.5-2.5% CREAM 5 GM TUBE TOPICAL SCH (17:06)
[2019-06-29 17:31] LABS: Glucose,Whole Blood 157 mg/dL (75-99)
[2019-06-29 20:23] LABS: Glucose,Whole Blood 136 mg/dL (75-99)
--- NOTE | 2019-06-29 21:14 | P.HPIM ---
History of Present Illness H&P Date: 06/29/19 Chief Complaint: Shortness of breath History of presenting complaint: This is a 74-year-old patient, who of Dr. nieves. Resident of [facility]. Chronic stable medical conditions include diabetes mellitus type 2, hyperlipidemia, hypertension, end-stage kidney disease on hemodialysis Tuesday, diabetic peripheral neuropathy, right xeele-wmp-ncly h ypertension, home oxygen 2 L. Patient does have her right extremity AV fistula. Has a right leg prosthesis. Normally uses a wheelchair to get about and is able to transfer himself. Patient states she's been getting progressive short of breath for at least 3 weeks. Has a bowel movement every other day. Decreased appetite. Slight cough. No fever no chills. Checks x-ray showed significant pulmonary edema with pleural effusion. Consultations made to nephrology with a view to hemodialysis today with some element of ultrafiltration. Review of systems: GEN.: Tired EYES: None HEENT: None NECK: None RESPIRATORY: As above CARDIOVASCULAR: [As above GASTROINTESTINAL: None GENITOURINARY: None MUSCULOSKELETAL: Some joint pains LYMPHATICS: None HEMATOLOGICAL: None PSYCHIATRY: None NEUROLOGICAL: Peripheral neuropathy Past medical history to include: Diabetes mellitus type 2, with neuropathy, hyperlipidemia, hypertension, end- stage kidney disease on hemodialysis Tuesday and Tuesday, right below- knee amputation, home oxygen 2 L, peripheral arterial disease Social history: Lives at the [facility], nonsmoker. 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 History of significant alcohol intake. Physical examination: VITAL SIGNS: 97.3, 60, 16, 132/56, 95% on 3 L GENERAL: BMI 33.3, sitting up short of breath. EYES: Pupils equal. Conjunctiva normal. HEENT: External appearance of nose and ears normal, oral cavity grossly normal. NECK: JVD unable to assess; masses not palpable. HEART: First and second heart sounds are normal; some edema. LUNGS: Respiratory rate increased, diminished breath sounds. ABDOMEN: Soft, distended, nontender, liver spleen not palpable, no masses palpable. PSYCH: Alert and oriented x3; mood and affect normal. NEUROLOGICAL: Cranial nerves grossly intact; no facial asymmetry, power and sensation grossly intact. LYMPHATICS: No lymph nodes palpable in the axilla and neck MUSCULOSKELETAL: Right below-knee amputation INVESTIGATIONS, reviewed in the clinical context: White count 3.6 hemoglobin 11 platelets 150 progression 3.7 bun 16 Krishen 5.23 EKG tracing personally reviewed by me-possible junctional rhythm Chest x-ray film personally reviewed by me-bilateral pleural effusion and pulmonary edema 2-D echocardiogram from January of this year shows EF of 55-60% Assessment: -Acute on chronic congestive heart failure exacerbation from diastolic dysfunction EF 55-60% -Diabetes mellitus type 2 -Diabetic peripheral neuropathy -Hyperlipidemia -Hypertensive kidney disease -End-stage kidney disease on hemodialysis Tuesday and Tuesday -Right below-knee amputation -Chronic hypoxic respiratory failure due to liters oxygen at home -Peripheral arterial disease -Anemia of chronic kidney disease Plan: -Consultations made to pulmonary and cardiology and nephrology. Patient will be getting hemodialysis today. Home medications resumed. Care was discussed with the patient. Questions were onset Past Medical History Past Medical History: Asthma, Heart Failure, Diabetes Mellitus, Hyperlipidemia, Hypertension, Renal Disease, Vascular Disorder Additional Past Medical History / Comment(s): Chronic kidney disease stage V , diabetic neuropathy, PVD, R below the knee amp. Dialysis M-W-F. Wears oxygen at 2 L per nc only with dialysis History of Any Multi-Drug Resistant Organisms: None Reported Additional Past Surgical History / Comment(s): AV FISTULA UPPER RT ARM -pt stated not currently using it "has had some problems with it", november 26 2013 below the knee amputation, hemodialysis catheter Past Anesthesia/Blood Transfusion Reactions: Unable to Obtain Past Psychological History: Anxiety, Depression Additional Psychological History / Comment(s): depression related to of in april 2014. pt currently lives at [facility]. has rt leg prothesis, uses w/c to get around and is able to transfer self. Smoking Status: Never smoker Past Alcohol Use History: None Reported Additional Past Alcohol Use History / Comment(s): PT states he is a lifelong nonsmoker. He denies any medical marijuana, street drug use. He WAS DRINKING 2 12C OUNCE beers daily going to [facility] and more recently-pt stated he consumed 3/4 of a fifth of whiskey and 6 beer between 04-12-18 and 04-16-18 until he got caught. stated he was celebrating his birthday. His passed in April 2014. He has had no recent travel. He worked in the past doing [email or web address] to [address] [place] [address] and [facility]. Currently at [facility]. Past Drug Use History: None Reported - Past Family History Mother Family Medical History: Cancer Brother(s) Family Medical History: Coronary Artery Disease (CAD) Father Family Medical History: Coronary Artery Disease (CAD) Sister(s) Family Medical History: Cancer Additional Family Medical History / Comment(s): stomach Medications and Allergies Home Medications Medication Instructions Recorded Confirmed Type hydrALAZINE HCL [Apresoline] 50 mg PO BID@0800,1600 08/28/14 06/28/19 History Carvedilol 12.5 mg PO BID 08/23/15 06/28/19 History Insulin Glargine [Lantus] 15 unit SQ DAILY@0900 12/19/17 06/28/19 History Loperamide [Imodium] 4 mg PO QID PRN 12/19/17 06/28/19 History Midodrine HCl [ProAmatine] 5 mg PO MOWEFR 12/19/17 06/28/19 History Nitroglycerin Sl Tabs [Nitrostat] 0.4 mg SUBLINGUAL Q5M PRN 12/19/17 06/28/19 History Furosemide [Lasix] 40 mg PO BID@0800,1600 04/17/18 06/28/19 History traMADol HCL [Ultram] 50 - 100 mg PO Q12H PRN #4 tablet 04/19/18 06/28/19 Rx Lidocaine-Prilocaine Cream [Emla 1 applic TOPICAL MOWEFR 08/19/18 06/28/19 History Cream 2.5%/2.5%] Aspirin [Eureka Aspirin EC] 81 mg PO DAILY@0700 01/24/19 06/28/19 History Budesonide [Pulmicort] 0.5 mg INHALATION RT-BID 03/21/19 06/28/19 History Acetaminophen Tab [Tylenol Tab] 650 mg PO Q4H PRN 03/22/19 06/28/19 History amLODIPine [Norvasc] 10 mg PO DAILY@0800 03/22/19 06/28/19 History Azithromycin [Zithromax] 500 mg PO DAILY@0800 06/28/19 06/28/19 History Calcitriol 1 mcg PO DAILY@0700 06/28/19 06/28/19 History Calcium Acetate 2,001 mg PO TID-W/MEALS 06/28/19 06/28/19 History Calcium Acetate 667 mg PO HS@2000 06/28/19 06/28/19 History Calcium Carb-Vit D 500Mg-200Un 1 tab PO BID 06/28/19 06/28/19 History [Oscal 500+D] Ipratropium-Albuterol Nebulize 3 ml INHALATION RT-Q6H PRN 06/28/19 06/28/19 History [Duoneb 0.5 mg-3 mg/3 ml Soln] Midodrine [ProAmatine] 5 mg PO MOWEFR 06/28/19 06/28/19 History Sodium Bicarbonate Tab 650 mg PO BID@0800,1600 06/28/19 06/28/19 History diphenhydrAMINE HCL [Benadryl] 25 mg PO BID PRN 06/28/19 06/28/19 History Allergies Allergy/AdvReac Type Severity Reaction Status Date / Time Iodinated Contrast Media Allergy Unknown Verified 06/28/19 12:05 [Iodinated Contrast- Oral and IV Dye] milk Allergy Rash/Hives Verified 06/28/19 12:05 Penicillins Allergy Rash/Hives Verified 06/28/19 12:05 vancomycin Allergy Unknown Verified 06/28/19 12:05 Physical Exam Vitals: Vital Signs Temp Pulse Pulse Pulse Resp BP BP 06/29/19 08:07 72 06/29/19 08:00 72 20 06/29/19 07:56 72 06/29/19 07:00 98.5 F 72 20 137/57 06/29/19 02:52 68 06/29/19 02:42 68 06/29/19 00:26 97.8 F 72 18 123/57 06/29/19 00:10 18 06/28/19 21:36 68 06/28/19 21:20 64 06/28/19 20:34 97.7 F 61 14 111/51 06/28/19 20:00 18 06/28/19 16:07 76 06/28/19 16:01 75 06/28/19 15:00 60 24 149/70 06/28/19 14:30 67 9 L 141/82 06/28/19 14:00 64 13 139/69 06/28/19 13:44 16 06/28/19 13:30 63 26 H 124/55 06/28/19 13:00 59 L 13 129/55 06/28/19 12:30 27 H 135/67 06/28/19 12:00 132/56 06/28/19 11:49 06/28/19 11:46 97.3 F L 60 16 132/56 Pulse Ox 06/29/19 08:07 06/29/19 08:00 06/29/19 07:56 06/29/19 07:00 95 06/29/19 02:52 06/29/19 02:42 06/29/19 00:26 95 06/29/19 00:10 06/28/19 21:36 06/28/19 21:20 98 06/28/19 20:34 06/28/19 20:00 06/28/19 16:07 06/28/19 16:01 06/28/19 15:00 96 06/28/19 14:30 96 06/28/19 14:00 06/28/19 13:44 06/28/19 13:30 06/28/19 13:00 06/28/19 12:30 06/28/19 12:00 94 L 06/28/19 11:49 97 06/28/19 11:46 95 Intake and Output 06/28/19 06/29/19 06/29/19 22:59 06:59 14:59 Intake Total 500 Output Total 1400 Balance -900 Intake: Oral 100 Hemodialysis 400 Output: Hemodialysis 1400 Other: Voiding Method Diaper Diaper # Voids 0 Weight 111.5 kg Results CBC & Chem 7: 06/28/19 12:20 06/28/19 12:20 Labs: Abnormal Lab Results - Last 24 Hours (Table) 06/28/19 06/28/19 06/28/19 Range/Units 12:20 12:20 17:08 WBC 3.6 L (3.8-10.6) k/uL RBC 3.76 L (4.30-5.90) m/uL Hgb 11.0 L (13.0-17.5) gm/dL Hct 36.6 L (39.0-53.0) % MCHC 30.1 L (31.0-37.0) g/dL RDW 16.8 H (11.5-15.5) % Lymphocytes # 0.7 L (1.0-4.8) k/uL Sodium 136 L (137-145) mmol/L Chloride 94 L (98-107) mmol/L Carbon Dioxide 33 H (22-30) mmol/L Creatinine 5.23 H (0.66-1.25) mg/dL Glucose 131 H (74-99) mg/dL POC Glucose (mg/dL) 158 H (75-99) mg/dL Calcium 12.3 H (8.4-10.2) mg/dL AST 12 L (17-59) U/L ALT 14 L (21-72) U/L Creatine Kinase 22 L (55-170) U/L 06/28/19 06/29/19 Range/Units 20:47 07:18 WBC (3.8-10.6) k/uL RBC (4.30-5.90) m/uL Hgb (13.0-17.5) gm/dL Hct (39.0-53.0) % MCHC (31.0-37.0) g/dL RDW (11.5-15.5) % Lymphocytes # (1.0-4.8) k/uL Sodium (137-145) mmol/L Chloride (98-107) mmol/L Carbon Dioxide (22-30) mmol/L Creatinine (0.66-1.25) mg/dL Glucose (74-99) mg/dL POC Glucose (mg/dL) 143 H 163 H (75-99) mg/dL Calcium (8.4-10.2) mg/dL AST (17-59) U/L ALT (21-72) U/L Creatine Kinase (55-170) U/L Thrombosis Risk Factor Assmnt - Choose All That Apply Each Factor Represents 1 point: Obesity (BMI >25), Swollen legs (current) Each Risk Factor Represents 2 Points: Age 61-74 years Thrombosis Risk Factor Assessment Total Risk Factor Score: 4 Thrombosis Risk Factor Assessment Level: Moderate Risk
[2019-06-30] MEDS: methylPREDNISolone SOD SUCCI 125 MG/2 ML VIAL IV SCH ×5 (00:42→23:30)
[2019-06-30] MEDS: FUROSEMIDE 10 MG/ML 4 ML VIAL IV SCH ×4 (00:42→23:37)
[2019-06-30] MEDS: traMADol 50 MG TAB PO PRN (01:33)
[2019-06-30] MEDS: IPRATROPIUM-ALBUTEROL 3 ML NEB INHALATION SCH ×4 (02:33→17:58)
[2019-06-30] MEDS: BUDESONIDE 0.5 MG/2 ML NEBU INHALATION SCH ×2 (07:43→17:58)
[2019-06-30 07:48] LABS: Glucose,Whole Blood 192 mg/dL (75-99)
[2019-06-30] MEDS: SODIUM BICARBONATE TAB 650 MG TAB PO SCH (08:54)
[2019-06-30] MEDS: hydrALAZINE HCL 50 MG TAB PO SCH ×2 (08:54→17:30)
[2019-06-30] MEDS: amLODIPine 10 MG TAB PO SCH (08:55)
[2019-06-30] MEDS: ASPIRIN 81 MG PO SCH (08:55)
[2019-06-30] MEDS: AZITHROMYCIN 500 MG TAB PO SCH (08:55)
[2019-06-30] MEDS: CARVEDILOL 12.5 MG TAB PO SCH ×2 (08:55→17:30)
[2019-06-30] MEDS: CALCIUM ACETATE 667 MG CAP PO SCH ×4 (08:56→22:46)
[2019-06-30] MEDS: INSULIN DETEMIR (LEVEMIR) 100 UNIT/ML SYR SQ SCH (08:58)
[2019-06-30] MEDS: INSULIN ASPART (NovoLOG) 100 UNIT/ML VIAL SQ SCH ×4 (08:58→22:46)
--- NOTE | 2019-06-30 10:52 | P.PN ---
Subjective Progress Note Date: 06/30/19 Seen and examined for the follow-up of ESRD. Sleepy today. Objective - Vital Signs Vital signs: Vital Signs Temp 98.3 F 06/30/19 07:00 Pulse 68 06/30/19 07:58 Resp 20 06/30/19 08:00 BP 181/66 06/30/19 07:00 Pulse Ox 98 06/30/19 07:00 Intake & Output 06/29/19 06/30/19 06/30/19 18:59 06:59 18:59 Intake Total 1380 Output Total 3300 Balance -1920 Weight 111.5 kg Intake: Oral 1080 Hemodialysis 300 Output: Hemodialysis 3300 Other: Voiding Method Diaper Diaper # Voids 0 - Exam No acute distress S1-S2 heard Decreased breath sounds Right forearm aVF. Trace edema. - Labs CBC & Chem 7: 06/28/19 12:20 06/28/19 12:20 Labs: Abnormal Lab Results - Last 24 Hours (Table) 06/29/19 06/29/19 06/29/19 Range/Units 11:58 17:30 20:21 POC Glucose (mg/dL) 198 H 157 H 136 H (75-99) mg/dL 06/30/19 Range/Units 07:37 POC Glucose (mg/dL) 192 H (75-99) mg/dL Microbiology - Last 24 Hours (Table) 06/28/19 12:20 Blood Culture - Preliminary Blood No Growth after 24 hours Assessment and Plan Assessment: #1 ESRD on HD MWF. #2 shortness of breath secondary to volume overload and underlying COPD. #3 hypertension with chronic kidney disease #4 insulin-dependent diabetes #5 metabolic bone disease with ESRD. #6 hypercalcemia. Plan: #1 plan hemodialysis Tuesday as per outpatient schedule. #2 hold midodrine for his hypertension #3 labs in the morning.
--- NOTE | 2019-06-30 11:19 | P.PN ---
Subjective Progress Note Date: 06/30/19 This is a pleasant 74-year-old male past medical history significant for chronic renal failure on hemodialysis, hypertension, dyslipidemia, diabetes mellitus, s/p right BKA, chronic diastolic heart failure and history of alcohol abuse, who follows in the office with Dr. Rome. He is currently admitted with CHF and COPD exacerbation. Chest x-ray reveals diffuse bilateral pleural parenchymal changes and bilateral pleural effusions noted on ultrasound. EKG reveals sinus mechanism heart rate [address] or T-wave abnormalities. Most recent echocardiogram obtained January 2019 reveals preserved LV systolic function with ejection fraction 55-60%. on exam this morning the patient states shortness of breath has improved. He denies any chest discomfort, palpitations, dizziness, or lightheadedness. He is currently resting comfortably in bed on 3 L nasal cannula. He does report being fatigued this morning. GENERAL: Well-appearing, obese, and mildly labored NECK: Supple without JVD or thyromegaly. LUNGS: Breath soundsare diminished bilaterally. Respiration equal and mildly llabored. No wheezes, rales or rhonchi. HEART: Regular rate and rhythm. without murmurs, rubs or gallops. S1 and S2 heard. EXTREMITIES: Normal range of motion, no edema. No clubbing or cyanosis. Peripheral pulses intact and strong. Right [id number] amputation ASSESSMENT 1) Diastolic heart failure, elevated BNP 2) ESRD, fluid overload, on dialysis 3) Bilateral pleural effusion 4) Hypertension 5) Dyslipidemia 6) Diabetes mellitus PLAN Continue current medical regimen, including dialysis per nephrology. Continue current dose of diuretics for bilateral pleural effusions. We'll continue to monitor. Objective - Vital Signs Vital signs: Vital Signs Temp 98.3 F 06/30/19 07:00 Pulse 68 06/30/19 07:58 Resp 20 06/30/19 08:00 BP 181/66 06/30/19 07:00 Pulse Ox 98 06/30/19 07:00 Intake & Output 06/29/19 06/30/19 06/30/19 18:59 06:59 18:59 Intake Total 1380 Output Total 3300 Balance -1920 Weight 111.5 kg Intake: Oral 1080 Hemodialysis 300 Output: Hemodialysis 3300 Other: Voiding Method Diaper Diaper # Voids 0 - Labs CBC & Chem 7: 06/28/19 12:20 06/28/19 12:20 Labs: Abnormal Lab Results - Last 24 Hours (Table) 06/29/19 06/29/19 06/29/19 Range/Units 11:58 17:30 20:21 POC Glucose (mg/dL) 198 H 157 H 136 H (75-99) mg/dL 06/30/19 Range/Units 07:37 POC Glucose (mg/dL) 192 H (75-99) mg/dL Microbiology - Last 24 Hours (Table) 06/28/19 12:20 Blood Culture - Preliminary Blood No Growth after 24 hours
--- NOTE | 2019-06-30 12:32 | P.PN ---
Subjective Progress Note Date: 06/30/19 This is a pleasant 74-year-old gentleman who resides in [facility]. He has a history of asthma, congestive heart failure, diabetes brock, hyperlipidemia, hypertension, end-stage renal disease receiving hemodialysis on Tuesday, right low the knee amputee, chronic hypoxic respiratory failure utilizing oxygen at 2 L/m in the outpatient setting. He is a lifelong nonsmoker. He does have a history of anxiety/depression. Visit AV fistula to the right upper arm. He has a temporary hemodialysis catheter in the left thigh. He was transported here with complaints of being very short of breath and hypoxemia. His last dialysis was 06/27/2019. His chest x-ray revealed diffuse bilateral pleuroparenchymal changes correlating with fluid volume overlo ad. He is seen today in consultation on the regular medical floor. He is currently awake and alert in no acute distress. He is maintaining O2 saturations in the mid to upper 90s on 4 L/m per nasal cannula. Temp 99.1. Hemodynamically stable. White count 3.6. Hemoglobin 11.0. Sodium 136. Crea tinine 5.23. ProBNP 16,700. Ultrasound of the chest reveals a right pleural effusion pocket size 3.6. Left pleural effusion size 7.4 cm. He is due for hemodialysis today. His evaluation of 06/30/2019 the patient is slightly sleepy. He underwent dialysis yesterday and total of 3 L of fluid was removed. Next dialysis is probably going to be done on Tuesday. He was seen by nephrology. His blood pressure is elevated and his midodrine was held. No significant shortness of breath at rest. No cough or sputum production. He is on oxygen at 3.5 his per minute and the patient can be gradually weaned off. He uses home oxygen. Objective - Vital Signs Vital signs: Vital Signs Temp 98.3 F 06/30/19 07:00 Pulse 68 06/30/19 07:58 Resp 20 06/30/19 08:00 BP 181/66 06/30/19 07:00 Pulse Ox 98 06/30/19 07:00 Intake & Output 06/29/19 06/30/19 06/30/19 18:59 06:59 18:59 Intake Total 1380 Output Total 3300 Balance -1920 Weight 111.5 kg Intake: Oral 1080 Hemodialysis 300 Output: Hemodialysis 3300 Other: Voiding Method Diaper Diaper # Voids 0 - Exam GENERAL EXAM: Alert, pleasant 74-year-old gentleman, comfortable in no apparent distress. On 4 L nasal cannula. HEAD: Normocephalic. EYES: Normal reaction of pupils, equal size. NOSE: Clear with pink turbinates. THROAT: No erythema or exudates. NECK: No masses, no JVD. CHEST: No chest wall deformity. LUNGS: Equal air entry with crackles in the bilateral posterior bases, left greater than right. CVS: S1 and S2 normal with no audible murmur, regular rhythm. ABDOMEN: No hepatosplenomegaly, normal bowel sounds, no guarding or rigidity. SPINE: No scoliosis or deformity SKIN: No rashes CENTRAL NERVOUS SYSTEM: No focal deficits, tone is normal in all 4 extremities. EXTREMITIES: Right [id number] amputee. There is 1 + peripheral edema. No clubbing, no cyanosis. Perip - Labs CBC & Chem 7: 06/28/19 12:20 06/28/19 12:20 Labs: Abnormal Lab Results - Last 24 Hours (Table) 06/29/19 06/29/19 06/30/19 Range/Units 17:30 20:21 07:37 POC Glucose (mg/dL) 157 H 136 H 192 H (75-99) mg/dL Microbiology - Last 24 Hours (Table) 06/28/19 12:20 Blood Culture - Preliminary Blood No Growth after 24 hours Assessment and Plan Plan: #1 Acute on chronic hypoxic respiratory failure secondary to fluid volume overload and bilateral pleural effusions left greater than right. #2 End-stage renal disease receiving hemodialysis Tuesday. As a right upper extremity AV fistula. Temporary catheter in the left lower extremity. #3 Bilateral pleural effusions the left pocket 7.4 cm, right pocket 3.6 cm secondary to above. #4 History of asthma. #5 Lifelong nonsmoker. #6 Diabetes mellitus. #7 Hypertension. #9 Hyperlipidemia. #10 Peripheral vascular disease status post right below the knee amputee. #11 History of anxiety/depression. #12 Poor overall functional performance based on the above-mentioned comorbidities. #13 ECF resident. Plan Continue the bronchodilators. Incentive spirometer. Dialysis. No active respiratory issues for now. Wean down oxygen and maintain a saturation above 90%. We'll continue to follow along with aggressive the consultants.
[2019-06-30] MEDS ORDERED: IPRATROPIUM-ALBUTEROL 3 ML NEB INHALATION PRN (12:33)
[2019-06-30 13:05] LABS: Glucose,Whole Blood 243 mg/dL (75-99)
[2019-06-30 17:07] LABS: Glucose,Whole Blood 216 mg/dL (75-99)
--- NOTE | 2019-06-30 18:10 | P.PN ---
Progress Note - Text Progress Note Date: 06/30/19 Chief Complaint: Shortness of breath History of presenting complaint: This is a 74-year-old patient, who of Dr. nieves. Resident of [facility]. 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 Patient does have her right extremity AV fistula. Has a right leg prosthesis. Normally uses a wheelchair to get about and is able to transfer himself. Patient states she's been getting progressive short of breath for at least 3 weeks. Has a bowel movement every other day. Decreased appetite. Slight cough. No fever no chills. Checks x-ray showed significant pulmonary edema with pleural effusion. Consultations made to nephrology with a view to hemodialysis Today-patient feeling a bit better. Had dialysis yesterday. Did tolerate her diet. Review of systems: Was done for constitutional, cardiovascular, GI, pulmonary. relevant finding as above Active Medications Acetaminophen (Tylenol Tab) 650 mg PO Q4H PRN PRN Reason: MILD Pain Last Admin: 06/28/19 20:00 Dose: 650 mg Documented by: Albuterol/Ipratropium (Duoneb 0.5 Mg-3 Mg/3 Ml Soln) 3 ml INHALATION RT-Q6H [facility] Last Admin: 06/30/19 17:58 Dose: 3 ml Documented by: Albuterol/Ipratropium (Duoneb 0.5 Mg-3 Mg/3 Ml Soln) 3 ml INHALATION RT-Q2H PRN PRN Reason: Shortness Of Breath Or Wheezing Amlodipine Besylate (Norvasc) 10 mg PO DAILY@0800 [facility] Last Admin: 06/30/19 08:55 Dose: 10 mg Documented by: Aspirin (Aspirin) 81 mg PO DAILY@0700 [facility] Last Admin: 06/30/19 08:55 Dose: 81 mg Documented by: Budesonide (Pulmicort) 0.5 mg INHALATION RT-BID [facility] Last Admin: 06/30/19 17:58 Dose: 0.5 mg Documented by: Calcium Acetate (Phoslo) 2,001 mg PO TID-W/MEALS [facility] Last Admin: 06/30/19 17:30 Dose: 2,001 mg Documented by: Calcium Acetate (Phoslo) 667 mg PO HS@2000 [facility] Last Admin: 06/29/19 20:42 Dose: 667 mg Documented by: Carvedilol (Coreg) 12.5 mg PO BID-W/MEALS [facility] Last Admin: 06/30/19 17:30 Dose: 12.5 mg Documented by: Diphenhydramine HCl (Benadryl) 25 mg PO BID PRN PRN Reason: Itching Furosemide (Lasix) 40 mg IV Q8HR [facility] Last Admin: 06/30/19 17:31 Dose: 40 mg Documented by: Hydralazine HCl (Apresoline) 50 mg PO BID@0800,1600 [facility] Last Admin: 06/30/19 17:30 Dose: 50 mg Documented by: Insulin Aspart (Novolog) 0 unit SQ [facility]; Protocol Last Admin: 06/30/19 17:32 Dose: 3 unit Documented by: Insulin Detemir (Levemir) 15 unit SQ DAILY@0700 [facility] Last Admin: 06/30/19 08:58 Dose: 15 unit Documented by: Lidocaine/Prilocaine (Emla Cream 2.5%/2.5%) 1 applic TOPICAL MOWEFR [facility] Last Admin: 06/29/19 17:06 Dose: Not Given Documented by: Loperamide HCl (Imodium) 4 mg PO QID PRN PRN Reason: Diarrhea Methylprednisolone Sodium Succinate (Solu-Medrol) 60 mg IV Q6HR [facility] Last Admin: 06/30/19 17:31 Dose: 60 mg Documented by: Nitroglycerin (Nitrostat) 0.4 mg SUBLINGUAL Q5M PRN PRN Reason: Chest Pain Tramadol HCl (Ultram) 50 mg PO Q12H PRN PRN Reason: MODERATE Pain Last Admin: 06/30/19 01:33 Dose: 50 mg Documented by: Physical examination: VITAL SIGNS: 98.3, 72, 20, 148 was 24, 98% on 4 L GENERAL: Sitting up, more comfortable. EYES: Pupils equal. Conjunctiva normal. HEENT: External appearance of nose and ears normal, oral cavity grossly normal. NECK: JVD unable to assess; masses not palpable. HEART: First and second heart sounds are normal; some edema. LUNGS: Respiratory rate increased, diminished breath sounds. ABDOMEN: Soft, distended, nontender, liver spleen not palpable, no masses palpable. PSYCH: Alert and oriented x3; mood and affect normal. MUSCULOSKELETAL: Right below-knee amputation INVESTIGATIONS, reviewed in the clinical context: [id number], [id number], 216, Previous testing White count 3.6 hemoglobin 11 platelets 150 potassium 3.7 bun 16 creatinine 5.23 EKG tracing personally reviewed by me-possible junctional rhythm Chest x-ray film personally reviewed by me-bilateral pleural effusion and pulmonary edema 2-D echocardiogram from January of this year shows EF of 55-60% Assessment: -Acute on chronic congestive heart failure exacerbation from diastolic dysfunction EF 55-60%, improved with hemodialysis -Diabetes mellitus type 2 -Diabetic peripheral neuropathy -Hyperlipidemia -Hypertensive kidney disease -End-stage kidney disease on hemodialysis Tuesday and Tuesday -Right below-knee amputation -Chronic hypoxic respiratory failure due to liters oxygen at home -Peripheral arterial disease -Anemia of chronic kidney disease Plan: Patient doing better after hemodialysis yesterday. Not due for another hemodialysis Tuesday. Patient is on Lasix. Not making any urine. Should be able to get dialyzed on Tuesday and go back to the ECF.
[2019-06-30 21:24] LABS: Glucose,Whole Blood 243 mg/dL (75-99)
[2019-06-30 23:03] LABS: Glucose,Whole Blood 217 mg/dL (75-99)
[2019-07-01] MEDS: IPRATROPIUM-ALBUTEROL 3 ML NEB INHALATION SCH ×4 (01:40→19:33)
[2019-07-01] MEDS: traMADol 50 MG TAB PO PRN (02:13)
[2019-07-01] MEDS: methylPREDNISolone SOD SUCCI 125 MG/2 ML VIAL IV SCH ×3 (05:52→17:07)
[2019-07-01 07:04] LABS: Glucose,Whole Blood 272 mg/dL (75-99)
[2019-07-01] MEDS: BUDESONIDE 0.5 MG/2 ML NEBU INHALATION SCH ×2 (07:17→19:33)
[2019-07-01 07:33] LABS: Calcium 12.5 mg/dL (8.4-10.2); Potassium 4.4 mmol/L (3.5-5.1)
[2019-07-01] MEDS: CALCIUM ACETATE 667 MG CAP PO SCH ×4 (08:11→20:28)
[2019-07-01] MEDS: CARVEDILOL 12.5 MG TAB PO SCH ×2 (08:12→17:03)
[2019-07-01] MEDS: amLODIPine 10 MG TAB PO SCH (08:12)
[2019-07-01] MEDS: ASPIRIN 81 MG PO SCH (08:12)
[2019-07-01] MEDS: FUROSEMIDE 10 MG/ML 4 ML VIAL IV SCH ×2 (08:12→17:07)
[2019-07-01] MEDS: hydrALAZINE HCL 50 MG TAB PO SCH ×2 (08:12→17:03)
[2019-07-01] MEDS: INSULIN ASPART (NovoLOG) 100 UNIT/ML VIAL SQ SCH ×4 (08:12→20:29)
[2019-07-01] MEDS: INSULIN DETEMIR (LEVEMIR) 100 UNIT/ML SYR SQ SCH (08:13)
--- NOTE | 2019-07-01 10:43 | P.PN ---
Subjective Progress Note Date: 07/01/19 Seen and examined for the follow-up of ESRD. Sleepy today. Objective - Vital Signs Vital signs: Vital Signs Temp 98.0 F 07/01/19 07:00 Pulse 64 07/01/19 07:33 Resp 17 07/01/19 07:45 BP 178/78 07/01/19 07:00 Pulse Ox 95 07/01/19 09:40 Intake & Output 06/30/19 07/01/19 07/01/19 18:59 06:59 18:59 Intake Total 50 118 Balance 50 118 Intake: Oral 50 118 Other: Voiding Method Diaper Diaper Diaper # Voids 0 0 - Exam No acute distress S1-S2 heard Decreased breath sounds Right forearm aVF. Trace edema. - Labs CBC & Chem 7: 06/28/19 12:20 07/01/19 06:48 Labs: Abnormal Lab Results - Last 24 Hours (Table) 06/30/19 06/30/19 06/30/19 Range/Units 12:54 16:46 21:08 Sodium (137-145) mmol/L Chloride (98-107) mmol/L BUN (9-20) mg/dL Creatinine (0.66-1.25) mg/dL Glucose (74-99) mg/dL POC Glucose (mg/dL) 243 H 216 H 243 H (75-99) mg/dL Calcium (8.4-10.2) mg/dL 06/30/19 07/01/19 07/01/19 Range/Units 22:39 06:48 07:03 Sodium 132 L (137-145) mmol/L Chloride 93 L (98-107) mmol/L BUN 57 H (9-20) mg/dL Creatinine 5.38 H (0.66-1.25) mg/dL Glucose 266 H (74-99) mg/dL POC Glucose (mg/dL) 217 H 272 H (75-99) mg/dL Calcium 12.5 H (8.4-10.2) mg/dL Microbiology - Last 24 Hours (Table) 06/28/19 12:20 Blood Culture - Preliminary Blood No Growth after 48 hours Assessment and Plan Assessment: #1 ESRD on HD MWF. #2 shortness of breath secondary to volume overload and underlying COPD. #3 hypertension with chronic kidney disease #4 insulin-dependent diabetes #5 metabolic bone disease with ESRD. #6 hypercalcemia. Plan: #1 plan hemodialysis Tuesday as per outpatient schedule. #2 hold midodrine for his hypertension #3 checks labs in the morning including phosphorus, intact PTH and myeloma workup for hypercalcemia.
[2019-07-01 11:34] LABS: Glucose,Whole Blood 274 mg/dL (75-99)
[2019-07-01] MEDS: ACETAMINOPHEN TAB 325 MG TAB PO PRN (12:33)
--- NOTE | 2019-07-01 14:19 | P.PN ---
Subjective Progress Note Date: 07/01/19 This is a pleasant 74-year-old male past medical history significant for chronic renal failure on hemodialysis, hypertension, dyslipidemia, diabetes mellitus, s/p right BKA, chronic diastolic heart failure and history of alcohol abuse, who follows in the office with Dr. Rome. He is currently admitted with CHF and COPD exacerbation. Chest x-ray reveals diffuse bilateral pleural parenchymal changes and bilateral pleural effusions noted on ultrasound. EKG reveals sinus mechanism heart rate [address] or T-wave abnormalities. Most recent echocardiogram obtained January 2019 reveals preserved LV systolic function with ejection fraction 55-60%. 06/30/19 on exam this morning the patient states shortness of breath has improved. He denies any chest discomfort, palpitations, dizziness, or lightheadedness. He is currently resting comfortably in bed on 3 L nasal cannula. He does report being fatigued this morning. No changes in current medical regimen. 07/01/19 Patient states he is having more shortness of breath this morning. He denies any chest pain, chest pressure, palpitations, dizziness, or vertigo. He continues to be an uric despite Lasix 3 times a day. On exam he is mildly tachypnic and the patient is requesting a breathing treatment. Laboratory data show sodium 132, potassium of 4.4, chloride 93, BUN of 57, creatinine 5.3. Blood pressures continue to be well controlled. Patient is satting 95% on 2 L nasal cannula. Objective - Vital Signs Vital signs: Vital Signs Temp 97.6 F 07/01/19 12:37 Pulse 64 07/01/19 12:37 Resp 24 07/01/19 12:37 BP 109/62 07/01/19 12:37 Pulse Ox 99 07/01/19 12:37 Intake & Output 06/30/19 07/01/19 07/01/19 18:59 06:59 18:59 Intake Total 50 318 Balance 50 318 Intake: Oral 50 318 Other: Voiding Method Diaper Diaper Diaper # Voids 0 0 - Exam GENERAL: Well-appearing, obese and in no acute distress. NECK: Supple without JVD or thyromegaly. LUNGS: Breath sounds diminished bilaterally. Respiration equal and mildly labored. No wheezes, rales or rhonchi. HEART: Regular rate and rhythm without murmurs, rubs or gallops. S1 and S2 he jocelynn. EXTREMITIES: Normal range of motion, no edema. No clubbing or cyanosis. Peripheral pulses intact and strong. Right below the knee amputation. - Labs CBC & Chem 7: 06/28/19 12:20 07/01/19 06:48 Labs: Abnormal Lab Results - Last 24 Hours (Table) 06/30/19 06/30/19 06/30/19 Range/Units 16:46 21:08 22:39 Sodium (137-145) mmol/L Chloride (98-107) mmol/L BUN (9-20) mg/dL Creatinine (0.66-1.25) mg/dL Glucose (74-99) mg/dL POC Glucose (mg/dL) 216 H 243 H 217 H (75-99) mg/dL Calcium (8.4-10.2) mg/dL 07/01/19 07/01/19 07/01/19 Range/Units 06:48 07:03 11:33 Sodium 132 L (137-145) mmol/L Chloride 93 L (98-107) mmol/L BUN 57 H (9-20) mg/dL Creatinine 5.38 H (0.66-1.25) mg/dL Glucose 266 H (74-99) mg/dL POC Glucose (mg/dL) 272 H 274 H (75-99) mg/dL Calcium 12.5 H (8.4-10.2) mg/dL Microbiology - Last 24 Hours (Table) 06/28/19 12:20 Blood Culture - Preliminary Blood No Growth after 48 hours Assessment and Plan Assessment: 1) Diastolic heart failure, elevated BNP 2) ESRD, fluid overload, on dialysis 3) Bilateral pleural effusion 4) Hypertension 5) Dyslipidemia 6) Diabetes mellitus Plan: Continue current medication regimen. Continue with breathing treatments when necessary. Nephrology to titrate diuretics as recommended. We will continue to monitor.
[2019-07-01] MEDS ORDERED: LACTULOSE 20 GM/30 ML CUP PO ONE ×2 (14:26→15:30)
--- NOTE | 2019-07-01 15:52 | P.PN ---
Subjective Progress Note Date: 07/01/19 This is a pleasant 74-year-old gentleman who resides in [facility]. He has a history of asthma, congestive heart failure, diabetes brock, hyperlipidemia, hypertension, end-stage renal disease receiving hemodialysis on Tuesday, right low the knee amputee, chronic hypoxic respiratory failure utilizing oxygen at 2 L/m in the outpatient setting. He is a lifelong nonsmoker. He does have a history of anxiety/depression. Visit AV fistula to the right upper arm. He has a temporary hemodialysis catheter in the left thigh. He was transported here with complaints of being very short of breath and hypoxemia. His last dialysis was 06/27/2019. His chest x-ray revealed diffuse bilateral pleuroparenchymal changes correlating with fluid volume overlo ad. He is seen today in consultation on the regular medical floor. He is currently awake and alert in no acute distress. He is maintaining O2 saturations in the mid to upper 90s on 4 L/m per nasal cannula. Temp 99.1. Hemodynamically stable. White count 3.6. Hemoglobin 11.0. Sodium 136. Crea tinine 5.23. ProBNP 16,700. Ultrasound of the chest reveals a right pleural effusion pocket size 3.6. Left pleural effusion size 7.4 cm. He is due for hemodialysis today. His evaluation of 06/30/2019 the patient is slightly sleepy. He underwent dialysis yesterday and total of 3 L of fluid was removed. Next dialysis is probably going to be done on Tuesday. He was seen by nephrology. His blood pressure is elevated and his midodrine was held. No significant shortness of breath at rest. No cough or sputum production. He is on oxygen at 3.5 his per minute and the patient can be gradually weaned off. He uses home oxygen. On 07/01/2019 the patient is on 3 L of oxygen by nasal cannula. No worsening in her oxygenation. Pulse ox 98% on room air. Breath sounds are diminished in the lung bases patient has bilateral pleural effusion. He'll be undergoing dialysis session tomorrow morning. His last dialysis session was on Tuesday.Having any chest pain. No palpitation. No dizziness. Electrodes showed potassium level of 4.4. His creatinine is at 5.3. BP is under good control. Pulse oxing 95%. Objective - Vital Signs Vital signs: Vital Signs Temp 97.6 F 07/01/19 15:00 Pulse 65 07/01/19 15:00 Resp 18 07/01/19 15:00 BP 155/54 07/01/19 15:00 Pulse Ox 97 07/01/19 15:00 Intake & Output 06/30/19 07/01/19 07/01/19 18:59 06:59 18:59 Intake Total 50 318 Balance 50 318 Intake: Oral 50 318 Other: Voiding Method Diaper Diaper Diaper # Voids 0 0 - Exam GENERAL EXAM: Alert, pleasant 74-year-old gentleman, comfortable in no apparent distress. On 4 L nasal cannula. HEAD: Normocephalic. EYES: Normal reaction of pupils, equal size. NOSE: Clear with pink turbinates. THROAT: No erythema or exudates. NECK: No masses, no JVD. CHEST: No chest wall deformity. LUNGS: Equal air entry with crackles in the bilateral posterior bases, left greater than right. CVS: S1 and S2 normal with no audible murmur, regular rhythm. ABDOMEN: No hepatosplenomegaly, normal bowel sounds, no guarding or rigidity. SPINE: No scoliosis or deformity SKIN: No rashes CENTRAL NERVOUS SYSTEM: No focal deficits, tone is normal in all 4 extremities. EXTREMITIES: Right uzaai-[id number]-[id number] amputee. There is 1 + peripheral edema. No clubbing, no cyanosis. Perip - Labs CBC & Chem 7: 06/28/19 12:20 07/01/19 06:48 Labs: Abnormal Lab Results - Last 24 Hours (Table) 06/30/19 06/30/19 06/30/19 Range/Units 16:46 21:08 22:39 Sodium (137-145) mmol/L Chloride (98-107) mmol/L BUN (9-20) mg/dL Creatinine (0.66-1.25) mg/dL Glucose (74-99) mg/dL POC Glucose (mg/dL) 216 H 243 H 217 H (75-99) mg/dL Calcium (8.4-10.2) mg/dL 07/01/19 07/01/19 07/01/19 Range/Units 06:48 07:03 11:33 Sodium 132 L (137-145) mmol/L Chloride 93 L (98-107) mmol/L BUN 57 H (9-20) mg/dL Creatinine 5.38 H (0.66-1.25) mg/dL Glucose 266 H (74-99) mg/dL POC Glucose (mg/dL) 272 H 274 H (75-99) mg/dL Calcium 12.5 H (8.4-10.2) mg/dL Microbiology - Last 24 Hours (Table) 06/28/19 12:20 Blood Culture - Preliminary Blood No Growth after 72 hours Assessment and Plan Plan: #1 Acute on chronic hypoxic respiratory failure secondary to fluid volume overload and bilateral pleural effusions left greater than right. #2 End-stage renal disease receiving hemodialysis Tuesday. As a right upper extremity AV fistula. Temporary catheter in the left lower extremity. #3 Bilateral pleural effusions the left pocket 7.4 cm, right pocket 3.6 cm secondary to above. #4 History of asthma. #5 Lifelong nonsmoker. #6 Diabetes mellitus. #7 Hypertension. #9 Hyperlipidemia. #10 Peripheral vascular disease status post right below the knee amputee. #11 History of anxiety/depression. #12 Poor overall functional performance based on the above-mentioned comorbidities. #13 ECF resident. Plan Continue the bronchodilators. Incentive spirometer. Dialysis in a.m. with ultrafiltration. Anticipate improvement in the volume status. No need for thoracentesis. We'll sign off the case.
[2019-07-01 16:52] LABS: Glucose,Whole Blood 268 mg/dL (75-99)
[2019-07-01] MEDS ORDERED: MAGNESIUM CITRATE 296 ML BOTTLE PO ONE (17:30)
[2019-07-01 20:06] LABS: Glucose,Whole Blood 251 mg/dL (75-99)
--- NOTE | 2019-07-01 23:19 | P.PN ---
Progress Note - Text Progress Note Date: 07/01/19 Chief Complaint: Shortness of breath History of presenting complaint: This is a 74-year-old patient, who of Dr. nieves. Resident of [facility]. Chronic stable medical conditions include diabetes mellitus type 2, hyperlipidemia, hypertension, end-stage kidney disease on hemodialysis Tuesday, diabetic peripheral neuropathy, right sidma-spm-ipaq hypertension, home oxygen 2 L. Patient does have her right extremity AV fistula. Has a right leg prosthesis. Normally uses a wheelchair to get about and is able to transfer himself. Patient states she's been getting progressive short of breath for at least 3 weeks. Has a bowel movement every other day. Decreased appetite. Slight cough. No fever no chills. Checks x-ray showed significant pulmonary edema with pleural effusion. Consultations made to nephrology with a view to hemodialysis Today-no new issues. Breathing Stable. Appetite picking up. Review of systems: Was done for constitutional, cardiovascular, GI, pulmonary. relevant finding as above Active Medications Acetaminophen (Tylenol Tab) 650 mg PO Q4H PRN PRN Reason: MILD Pain Last Admin: 07/01/19 12:33 Dose: 650 mg Documented by: Albuterol/Ipratropium (Duoneb 0.5 Mg-3 Mg/3 Ml Soln) 3 ml INHALATION RT-Q6H [facility] Last Admin: 07/01/19 19:33 Dose: 3 ml Documented by: Albuterol/Ipratropium (Duoneb 0.5 Mg-3 Mg/3 Ml Soln) 3 ml INHALATION RT-Q2H PRN PRN Reason: Shortness Of Breath Or Wheezing Last Admin: 07/01/19 15:47 Dose: 3 ml Documented by: Amlodipine Besylate (Norvasc) 10 mg PO DAILY@0800 [facility] Last Admin: 07/01/19 08:12 Dose: 10 mg Documented by: Aspirin (Aspirin) 81 mg PO DAILY@0700 [facility] Last Admin: 07/01/19 08:12 Dose: 81 mg Documented by: Budesonide (Pulmicort) 0.5 mg INHALATION RT-BID [facility] Last Admin: 07/01/19 19:33 Dose: 0.5 mg Documented by: Calcium Acetate (Phoslo) 2,001 mg PO TID-W/MEALS [facility] Last Admin: 07/01/19 17:03 Dose: 2,001 mg Documented by: Calcium Acetate (Phoslo) 667 mg PO HS@2000 [facility] Last Admin: 07/01/19 20:28 Dose: Not Given Documented by: Carvedilol (Coreg) 12.5 mg PO BID-W/MEALS [facility] Last Admin: 07/01/19 17:03 Dose: 12.5 mg Documented by: Diphenhydramine HCl (Benadryl) 25 mg PO BID PRN PRN Reason: Itching Furosemide (Lasix) 40 mg IV Q8HR [facility] Last Admin: 07/01/19 17:07 Dose: 40 mg Documented by: Hydralazine HCl (Apresoline) 50 mg PO BID@0800,1600 [facility] Last Admin: 07/01/19 17:03 Dose: 50 mg Documented by: Insulin Aspart (Novolog) 0 unit SQ [facility]; Protocol Last Admin: 07/01/19 20:29 Dose: 4 unit Documented by: Insulin Detemir (Levemir) 15 unit SQ DAILY@0700 [facility] Last Admin: 07/01/19 08:13 Dose: 15 unit Documented by: Lidocaine/Prilocaine (Emla Cream 2.5%/2.5%) 1 applic TOPICAL [facility] Last Admin: 06/29/19 17:06 Dose: Not Given Documented by: Loperamide HCl (Imodium) 4 mg PO QID PRN PRN Reason: Diarrhea Methylprednisolone Sodium Succinate (Solu-Medrol) 60 mg IV Q6HR [facility] Last Admin: 07/01/19 17:07 Dose: 60 mg Documented by: Nitroglycerin (Nitrostat) 0.4 mg SUBLINGUAL Q5M PRN PRN Reason: Chest Pain Tramadol HCl (Ultram) 50 mg PO Q12H PRN PRN Reason: MODERATE Pain Last Admin: 07/01/19 02:13 Dose: 50 mg Documented by: Physical examination: VITAL SIGNS: 97.6, 65, 18, 155/54, 97% on 4 L GENERAL: Sitting up, awake. EYES: Pupils equal. Conjunctiva normal. HEENT: External appearance of nose and ears normal, oral cavity grossly normal. NECK: JVD unable to assess; masses not palpable. HEART: First and second heart sounds are normal; some edema. LUNGS: Respiratory rate increased, diminished breath sounds. ABDOMEN: Soft, distended, nontender, liver spleen not palpable, no masses palpable. PSYCH: Alert and oriented x3; mood and affect normal. MUSCULOSKELETAL: Right below-knee amputation INVESTIGATIONS, reviewed in the clinical context: Potassium 4.4 157 crit and 5.38 Accu-Cheks 272, 274, 268 Previous testing White count 3.6 hemoglobin 11 platelets 150 potassium 3.7 bun 16 creatinine 5.23 EKG tracing personally reviewed by me-possible junctional rhythm Chest x-ray film personally reviewed by me-bilateral pleural effusion and pulmonary edema 2-D echocardiogram from January of this year shows EF of 55-60% Assessment: -Acute on chronic congestive heart failure exacerbation from diastolic dysfunction EF 55-60%, improved with hemodialysis -Diabetes mellitus type 2 -Diabetic peripheral neuropathy -Hyperlipidemia -Hypertensive kidney disease -End-stage kidney disease on hemodialysis Tuesday and Tuesday -Right below-knee amputation -Chronic hypoxic respiratory failure due to liters oxygen at home -Peripheral arterial disease -Anemia of chronic kidney disease Plan: Patient for hemodialysis tomorrow. Can go to the F after that.
[2019-07-02] MEDS: methylPREDNISolone SOD SUCCI 125 MG/2 ML VIAL IV SCH ×3 (00:11→12:42)
[2019-07-02] MEDS: FUROSEMIDE 10 MG/ML 4 ML VIAL IV SCH ×3 (00:16→16:17)
[2019-07-02] MEDS: IPRATROPIUM-ALBUTEROL 3 ML NEB INHALATION SCH ×3 (01:08→12:05)
[2019-07-02 06:57] LABS: Glucose,Whole Blood 256 mg/dL (75-99)
[2019-07-02] MEDS: ASPIRIN 81 MG PO SCH (07:27)
[2019-07-02] MEDS: CARVEDILOL 12.5 MG TAB PO SCH (07:27)
[2019-07-02] MEDS: CALCIUM ACETATE 667 MG CAP PO SCH (07:28)
[2019-07-02] MEDS: INSULIN ASPART (NovoLOG) 100 UNIT/ML VIAL SQ SCH ×3 (07:29→17:22)
[2019-07-02] MEDS: INSULIN DETEMIR (LEVEMIR) 100 UNIT/ML SYR SQ SCH (07:29)
[2019-07-02] MEDS: hydrALAZINE HCL 50 MG TAB PO SCH ×2 (08:27→16:17)
[2019-07-02] MEDS: amLODIPine 10 MG TAB PO SCH (08:27)
[2019-07-02] MEDS: LIDOCAINE-PRILOCAINE 2.5-2.5% CREAM 5 GM TUBE TOPICAL SCH (08:27)
[2019-07-02 08:45] LABS: Phosphorus 5.5 mg/dL (2.5-4.5)
[2019-07-02] MEDS: BUDESONIDE 0.5 MG/2 ML NEBU INHALATION SCH (08:54)
[2019-07-02 09:08] LABS: Ionized Calcium 6.2 mg/dL (4.5-5.3)
--- NOTE | 2019-07-02 11:09 | P.PN ---
Subjective Patient is seen in follow-up for end-stage renal disease. He is maintained on hemodialysis on Tuesday schedule. Dyspnea is improving. Denies active chest pain or shortness of breath. Vital signs are stable. General: The patient appeared well nourished and normally developed. HEENT: Head exam is unremarkable. Neck is without jugular venous distension. LUNGS: Lungs are clear to auscultation and percussion. Breath sounds decreased. HEART: Rate and Rhythm are regular. First and second heart sounds normal. No murmurs, rubs or gallops. ABDOMEN: Abdominal exam reveals normal bowel sounds. Non-tender and non- distended. No evidence of peritonitis. EXTREMITITES: No clubbing, cyanosis, or edema. Right sdhct-vwc-gdum amputation noted. Objective - Vital Signs Vital signs: Vital Signs Temp 97.7 F 07/02/19 07:00 Pulse 68 07/02/19 09:06 Resp 18 07/02/19 07:00 BP 165/52 07/02/19 07:00 Pulse Ox 96 07/02/19 07:00 Intake & Output 07/01/19 07/02/19 07/02/19 18:59 06:59 18:59 Intake Total 318 200 Balance 318 200 Weight 109.5 kg Intake: Oral 318 200 Other: Voiding Method Diaper Diaper Diaper # Voids 0 # Bowel Movements 0 - Labs CBC & Chem 7: 06/28/19 12:20 07/01/19 06:48 Labs: Abnormal Lab Results - Last 24 Hours (Table) 07/01/19 07/01/19 07/01/19 Range/Units 11:33 16:51 20:04 POC Glucose (mg/dL) 274 H 268 H 251 H (75-99) mg/dL Ionized Calcium Nasra (4.5-5.3) mg/dL Phosphorus (2.5-4.5) mg/dL 07/02/19 07/02/19 Range/Units 06:55 07:31 POC Glucose (mg/dL) 256 H (75-99) mg/dL Ionized Calcium Nasra 6.2 H* (4.5-5.3) mg/dL Phosphorus 5.5 H (2.5-4.5) mg/dL Microbiology - Last 24 Hours (Table) 06/28/19 12:20 Blood Culture - Preliminary Blood No Growth after 72 hours Assessment and Plan Plan: Assessment: 1. ESRD on HD MWF. 2. Dyspnea secondary to volume overload and COPD exac. Better. 3. HTN with CKD. Controlled. Does receive midodrine prior to HD. 4. IDDM. 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 6. Hypercalcemia secondary to calcium and vit d supplementation. Calcium was low recently outpatient. Plan: HD today. Discontinue PhosLo. Add Renvela with meals. Follow-up workup for hypercalcemia outpatient. Stable to be discharged to [facility] from nephrology standpoint after dialysis today.
[2019-07-02 11:29] LABS: Glucose,Whole Blood 250 mg/dL (75-99)
[2019-07-02] MEDS: traMADol 50 MG TAB PO PRN (12:41)
[2019-07-02] MEDS: SEVELAMER 800 MG TAB PO SCH ×2 (12:42→17:22)
--- NOTE | 2019-07-02 12:53 | P.PN ---
Subjective This is a pleasant 74-year-old male past medical history significant for chronic renal failure on hemodialysis, hypertension, dyslipidemia, diabetes mellitus, s/p right BKA, chronic diastolic heart failure and history of alcohol abuse. He follows in the office with Dr. Rome. We have been asked to see him in consultation for history of CHF. He presented to the hospital yesterday with symptoms of shortness of breath. Per the patient he states he did undergo dialysis treatment yesterday and will likely have treatment today as well, nephrology is consulted. Chest x-ray reveals diffuse bilateral pleural parenchymal changes. On exam he did have dullness to percussion and bilateral chest ultrasound was requested revealing right pleural effusion pocket size 3.6 cm and a left pleural effusion pocket size of 7.4 cm. We have asked pulmonary to evaluate the patient for possible thoracentesis. Laboratory data reviewed, cardiac enzymes negative 3, WBC 3.6, hemoglobin 11, platelets 150, sodium 136, potassium 3.7, creatinine 5.23, magnesium 2.0, proBNP 16,700. EKG reveals sinus mechanism heart rate 62. No acute ST or T-wave abnormalities. He denies chest pain, dizziness, palpitations, cough or congestion. Current daily cardiac medications include aspirin 81 mg daily, amlodipine 10 mg daily, Miodrine 5 mg on days of dialysis MWF, carvedilol 12.5 mg twice a day, Lasix 40 mg by mouth twice a day and hydralazine 50 mg twice a day. Most recent echocardiogram obtained January 2019 reveals preserved LV systolic function with ejection fraction 55-60%. 07/02/2019 Pt seen and examined resting comfortably in bed in no acute distress undergoing dialysis. Overall his breathing is stable with no worsening shortness of breath. He denies chest pain, dizziness or palpitations. GENERAL: This is a 74-year-old male in no apparent distress at the time of my examination. HEENT: Head is atraumatic, normocephalic. Pupils are equal, round. Sclerae anicteric. Conjunctivae are clear. Mucous membranes of the mouth are moist. Neck is supple. There is no jugular venous distention. No carotid bruit is heard. LUNGS: Bibasilar rales, worse on the left with dullness to percussion. No wheezes or rhonci. Diminished bilaterally. No chest wall tenderness is noted on palpation or with deep breathing. HEART: Regular rate and rhythm without murmurs, rubs or gallops. S1 and S2 heard. EXTREMITIES: No evidence of peripheral edema and no calf tenderness noted. ASSESSMENT Dyspnea secondary to fluid overload Acute on chronic diastolic heart failure Bilateral pleural effusion End stage renal failure on hemodialysis Hypertension Dyslipidemia Diabetes mellitus Right below the knee amputation History of alcohol abuse PLAN IV lasix per nephrology. Otherwise continue current regimen. Repeat chest xray for review and improvement of pleural effusions. Follow up with Dr. Rome upon discharge. Nurse Practitioner note has been reviewed, I agree with a documented findings and plan of care. Patient was seen and examined. Objective - Vital Signs Vital signs: Vital Signs Temp 97.7 F 07/02/19 07:00 Pulse 66 07/02/19 12:14 Resp 18 07/02/19 07:00 BP 165/52 07/02/19 07:00 Pulse Ox 96 07/02/19 07:00 Intake & Output 07/01/19 07/02/19 07/02/19 18:59 06:59 18:59 Intake Total 318 200 Balance 318 200 Weight 109.5 kg Intake: Oral 318 200 Other: Voiding Method Diaper Diaper Diaper # Voids 0 # Bowel Movements 0 - Labs CBC & Chem 7: 06/28/19 12:20 07/01/19 06:48 Labs: Abnormal Lab Results - Last 24 Hours (Table) 07/01/19 07/01/19 07/02/19 Range/Units 16:51 20:04 06:55 POC Glucose (mg/dL) 268 H 251 H 256 H (75-99) mg/dL Ionized Calcium Nasra (4.5-5.3) mg/dL Phosphorus (2.5-4.5) mg/dL 07/02/19 07/02/19 Range/Units 07:31 11:28 POC Glucose (mg/dL) 250 H (75-99) mg/dL Ionized Calcium Nasra 6.2 H* (4.5-5.3) mg/dL Phosphorus 5.5 H (2.5-4.5) mg/dL Microbiology - Last 24 Hours (Table) 06/28/19 12:20 Blood Culture - Preliminary Blood No Growth after 72 hours
--- NOTE | 2019-07-02 12:57 | P.DS ---
Providers Date of admission: 06/28/19 15:28 Expected date of discharge: 07/02/19 Attending physician: Phan Torres Consults: 06/28/19 15:28 Consult Physician Routine Consulting Provider: Xavier Rome Consult Reason/Comments: CHF history of renal failure Do you want consulting provider notified?: Yes Consult Physician Stat Consulting Provider: Marycarmen Evans Consult Reason/Comments: Renal failure with pulmonary edema Do you want consulting provider notified?: Already Contacted 06/29/19 12:09 Consult Physician Routine Consulting Provider: Jamaal Diaz Consult Reason/Comments: b/l pleural effusion Do you want consulting provider notified?: Yes 07/02/19 11:12 Consult Physician Urgent Consulting Provider: Arturo Miranda Consult Reason/Comments: Removal of Dialysis Catheter in groin Do you want consulting provider notified?: Yes Primary care physician: Harrison Bolivar [facility] Course: Chief Complaint: Shortness of breath Hospital course: This is a 74-year-old patient, who of Dr. bolivar. Resident of [facility]. Chronic stable medical conditions include diabetes mellitus type 2, hyperlipidemia, hypertension, end-stage kidney disease on hemodialysis Tuesday, diabetic peripheral neuropathy, right ltlic-ocy-dgbv hypertension, home oxygen 2 L. Patient does have her right extremity AV fistula . Has a right leg prosthesis. Normally uses a wheelchair to get about and is able to transfer himself. Patient states she's been getting progressive short of breath for at least 3 weeks. Has a bowel movement every other day. Decreased appetite. Slight cough. No fever no chills. Checks x-ray showed significant pulmonary edema with pleural effusion. Consultations made to nephrology with a view to hemodialysis . Patient was hemodialyzed to get the fluid off lungs. Patient really doesn't make much urine. Patient has a right groin catheter that have to be removed as an outpatient. Otherwise patient tolerated diet. Care was discussed with the patient. PhosLo is being discontinued. Renvela is being added Consultation: Dr. Elliott from nephrology Dr. Diaz from pulmonary Dr. Llamas from cardiology Physical examination: VITAL SIGNS: 97.7, 57, 18, 165/52, 96% on 4 L GENERAL: Propped up in bed, tired EYES: Pupils equal. Conjunctiva normal. HEENT: External appearance of nose and ears normal, oral cavity grossly normal. NECK: JVD unable to assess; masses not palpable. HEART: First and second heart sounds are normal; some edema. LUNGS: Respiratory rate increased, diminished breath sounds. ABDOMEN: Soft, distended, nontender, liver spleen not palpable, no masses palpable. PSYCH: Alert and oriented x3; mood and affect normal. MUSCULOSKELETAL: Right below-knee amputation INVESTIGATIONS, reviewed in the clinical context: Ionized calcium 6.2 phosphorus 5.5 Previous testing White count 3.6 hemoglobin 11 platelets 150 potassium 3.7 bun 16 creatinine 5.23 EKG tracing personally reviewed by me-possible junctional rhythm Chest x-ray film personally reviewed by me-bilateral pleural effusion and pulmonary edema 2-D echocardiogram from January of this year shows EF of 55-60% Discharge diagnosis: -Acute on chronic congestive heart failure exacerbation from diastolic dysfunction EF 55-60%, improved with hemodialysis -Diabetes mellitus type 2 -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 -Diabetic peripheral neuropathy -Hyperlipidemia -Hypertensive kidney disease -End-stage kidney disease on hemodialysis Tuesday and Tuesday -Right below-knee amputation -Chronic hypoxic respiratory failure due to liters oxygen at home -Peripheral arterial disease -Anemia of chronic kidney disease [facility] Patient Condition at Discharge: Stable Plan - Discharge Summary New Discharge Prescriptions: No Action hydrALAZINE HCL [Apresoline] 50 mg PO BID@0800,1600 Carvedilol 12.5 mg PO BID Nitroglycerin Sl Tabs [Nitrostat] 0.4 mg SUBLINGUAL Q5M PRN PRN Reason: Chest Pain Loperamide [Imodium] 4 mg PO QID PRN PRN Reason: Diarrhea Insulin Glargine [Lantus] 15 unit SQ DAILY@0900 Midodrine HCl [ProAmatine] 5 mg PO MOWEFR Furosemide [Lasix] 40 mg PO BID@0800,1600 traMADol HCL [Ultram] 50 - 100 mg PO Q12H PRN #4 tablet PRN Reason: Pain Lidocaine-Prilocaine Cream [Emla Cream 2.5%/2.5%] 1 applic TOPICAL MOWEFR Aspirin [[place] Aspirin EC] 81 mg PO DAILY@0700 Budesonide [Pulmicort] 0.5 mg INHALATION RT-BID amLODIPine [Norvasc] 10 mg PO DAILY@0800 Acetaminophen Tab [Tylenol Tab] 650 mg PO Q4H PRN PRN Reason: Pain Ipratropium-Albuterol Nebulize [Duoneb 0.5 mg-3 mg/3 ml Soln] 3 ml INHALATION RT-Q6H PRN PRN Reason: Shortness Of Breath diphenhydrAMINE HCL [Benadryl] 25 mg PO BID PRN PRN Reason: Itching Calcium Acetate 2,001 mg PO TID-W/MEALS Sodium Bicarbonate Tab 650 mg PO BID@0800,1600 Calcium Carb-Vit D 500Mg-200Un [Oscal 500+D] 1 tab PO BID Midodrine [ProAmatine] 5 mg PO MOWEFR Calcium Acetate 667 mg PO HS@1999 Calcitriol 1 mcg PO DAILY@0700 Azithromycin [Zithromax] 500 mg PO DAILY@0800 Discharge Medication List hydrALAZINE HCL [Apresoline] 50 mg PO BID@0800,1600 08/28/14 [History] Carvedilol 12.5 mg PO BID 08/23/15 [History] Insulin Glargine [Lantus] 15 unit SQ DAILY@0900 12/19/17 [History] Loperamide [Imodium] 4 mg PO QID PRN 12/19/17 [History] Midodrine HCl [ProAmatine] 5 mg PO MOWEFR 12/19/17 [History] Nitroglycerin Sl Tabs [Nitrostat] 0.4 mg SUBLINGUAL Q5M PRN 12/19/17 [History] Furosemide [Lasix] 40 mg PO BID@0800,1600 04/17/18 [History] traMADol HCL [Ultram] 50 - 100 mg PO Q12H PRN #4 tablet 04/19/18 [Rx] Lidocaine-Prilocaine Cream [Emla Cream 2.5%/2.5%] 1 applic TOPICAL MOWEFR 08/19/18 [History] Aspirin [[place] Aspirin EC] 81 mg PO DAILY@0700 01/24/19 [History] Budesonide [Pulmicort] 0.5 mg INHALATION RT-BID 03/21/19 [History] Acetaminophen Tab [Tylenol Tab] 650 mg PO Q4H PRN 03/22/19 [History] amLODIPine [Norvasc] 10 mg PO DAILY@0800 03/22/19 [History] Azithromycin [Zithromax] 500 mg PO DAILY@0800 06/28/19 [History] Calcitriol 1 mcg PO DAILY@0700 06/28/19 [History] Calcium Acetate 2,001 mg PO TID-W/MEALS 06/28/19 [History] Calcium Acetate 667 mg PO HS@2000 06/28/19 [History] Calcium Carb-Vit D 500Mg-200Un [Oscal 500+D] 1 tab PO BID 06/28/19 [History] Ipratropium-Albuterol Nebulize [Duoneb 0.5 mg-3 mg/3 ml Soln] 3 ml INHALATION RT-Q6H PRN 06/28/19 [History] Midodrine [ProAmatine] 5 mg PO MOWEFR 06/28/19 [History] Sodium Bicarbonate Tab 650 mg PO BID@0800,1600 06/28/19 [History] diphenhydrAMINE HCL [Benadryl] 25 mg PO BID PRN 06/28/19 [History] Follow up Appointment(s)/Referral(s): Wayne Martinez, [NON-STAFF] - As Needed Harrison Bolivar MD [Primary Care Provider] - 1-2 days
[2019-07-02 14:52] VITALS: RESP 16; TEMP 97.5
[2019-07-02 16:21] LABS: Vitamin D 25 Hydroxy 26.3 ng/mL (30.0-100.0)
[2019-07-02 16:50] LABS: Glucose,Whole Blood 148 mg/dL (75-99)
[2019-07-02 16:57] VITALS: BP 121/43
[2019-07-02 17:22] VITALS: PULSE 50
--- NOTE | 2019-07-02 17:52 | XR ---
EXAMINATION TYPE: XR chest 2V DATE OF EXAM: 07/02/2019 COMPARISON: 06/28/2019 INDICATION: Sort of breath TECHNIQUE: Frontal and lateral views of the chest are obtained. FINDINGS: The heart size is moderately prominent. The pulmonary vasculature is normal. Small to moderate bilateral pleural effusions are present. This likely is some adjacent compressive a telectasis. IMPRESSION: 1. Multiple moderate bilateral pleural effusions with adjacent atelectasis
[2019-07-02 19:15] LABS: Protein, Total 6.8 g/dL (6.2-8.2)
[2019-07-03] MEDS ORDERED: CARVEDILOL 6.25 MG TAB PO SCH (09:00)
[2019-07-03 11:28] LABS: Free Kappa Lt Chain Qnt, Serum 18.5 mg/dL (0.33-1.94)
[2019-07-03 12:01] LABS: Angiotensin-1 Converting Enz. 35 U/L (8-52)
[2019-07-03 14:36] LABS: Vitamin D, 1, 25-Dihydroxy 27 pg/mL (20 - 79)
[2019-07-03 15:41] LABS: Albumin 3.68 g/dL (3.80-4.90); Gamma Globulin 1.07 g/dL (0.70-1.50)
== END 2019-07-02 18:07 | DRG 291 ==
LOC: EC 11:43 → 4SSUR 15:28
PROVIDERS: ADMIT Hospitalist; ATTEND Hospitalist
PROC: 5A1D70Z Performance of Urinary Filtration, Intermittent, Less than 6 Hours Per Day (ICD-10-PCS; principal; 2019-06-30)
DX: I13.2 Hypertensive heart and chronic kidney disease with heart failure and with stage 5 chronic kidney disease, or end stage renal disease (principal); N18.6 End stage renal disease; J96.21 Acute and chronic respiratory failure with hypoxia; I50.33 Acute on chronic diastolic (congestive) heart failure; J44.1 Chronic obstructive pulmonary disease with (acute) exacerbation; E78.5 Hyperlipidemia, unspecified; E11.22 Type 2 diabetes mellitus with diabetic chronic kidney disease; E11.42 Type 2 diabetes mellitus with diabetic polyneuropathy; D63.1 Anemia in chronic kidney disease; E11.51 Type 2 diabetes mellitus with diabetic peripheral angiopathy without gangrene; F32.9 Major depressive disorder, single episode, unspecified; F41.9 Anxiety disorder, unspecified; I95.89 Other hypotension; T50.3X5A Adverse effect of electrolytic, caloric and water-balance agents, initial encounter; T45.2X5A Adverse effect of vitamins, initial encounter; E66.9 Obesity, unspecified; E88.89 Other specified metabolic disorders; E83.52 Hypercalcemia; Z87.01 Personal history of pneumonia (recurrent); Z99.2 Dependence on renal dialysis; Z79.82 Long term (current) use of aspirin; Z79.4 Long term (current) use of insulin; Z79.899 Other long term (current) drug therapy; Z88.0 Allergy status to penicillin; Z88.1 Allergy status to other antibiotic agents; Z91.041 Radiographic dye allergy status; Z91.011 Allergy to milk products; Z82.49 Family history of ischemic heart disease and other diseases of the circulatory system; Z80.0 Family history of malignant neoplasm of digestive organs; Z97.13 Presence of artificial right leg (complete) (partial); Z89.511 Acquired absence of right leg below knee; Z99.81 Dependence on supplemental oxygen; Z68.32 Body mass index [BMI] 32.0-32.9, adult; Z99.3 Dependence on wheelchair
CPT/HCPCS: 36415; 71046; 76604; 80048; 80053; 82164; 82306; 82330; 82550; 82652; 83735; 83880; 83883; 83970; 84100; 84165; 84484; 85025; 85610; 85730; 86334; 86706; 87040; 87340; 90935; 93005; 94640; 94760; 96374; 96375; 99291

== ENCOUNTER 2019-07-04 14:41 | Emergency (ER) | payer MEDICARE, BC ==
[2019-07-04] MEDS ORDERED: SODIUM CHLORIDE 0.9% 500 ML 500 ML IV STA (14:52)
--- NOTE | 2019-07-04 14:59 | ED ---
Weakness HPI <Puma Gallagher - Last Filed: 07/04/19 19:12> - General Source: patient, EMS Mode of arrival: EMS Limitations: no limitations <Emily Mckenzie - Last Filed: 07/04/19 20:22> - General Chief complaint: Weakness Stated complaint: Weakness,SOB Time Seen by Provider: 07/04/19 14:52 - History of Present Illness Initial comments: 34-year-old male with history of COPD, heart failure chronic hypoxia on 4L outpatient presenting to the ER for generalized weakness, SOB x 1 day. Patient states that he has had some shortness of breath he states he experiences this every day. Caretakers at outside facility stated patient appeared generally more weak than normal. Having more difficulty with daily activities of living, non ambulatory at baseline, uses wheelchair. Patient was recently discharged hospital for CHF exacerbation 2 days prior. Patient denies cough, fevers, chest pain. Patient denies weakness of unilateral extremities, speech changes, sensation deficits. History was confirmed by Dr. Gallagher who contacted facility speaking with nursing stadd. Patient denies any other symptoms. He is alert and responsive on arrival. No signs clinical respiratory distress. Oxygenating well on 4L. (Emily Mckenzie) - Related Data Home Medications Medication Instructions Recorded Confirmed hydrALAZINE HCL [Apresoline] 50 mg PO BID@0800,1600 08/28/14 07/04/19 Insulin Glargine [Lantus] 15 unit SQ DAILY@0900 12/19/17 07/04/19 Loperamide [Imodium] 4 mg PO Q6H PRN 12/19/17 07/04/19 Nitroglycerin Sl Tabs [Nitrostat] 0.4 mg SUBLINGUAL Q5M PRN 12/19/17 07/04/19 Lidocaine-Prilocaine Cream [Emla 1 applic TOPICAL MOWEFR 08/19/18 07/04/19 Cream 2.5%/2.5%] Aspirin [[place] Aspirin EC] 81 mg PO DAILY@0800 01/24/19 07/04/19 Budesonide [Pulmicort] 0.5 mg INHALATION RT-BID 03/21/19 07/04/19 Acetaminophen Tab [Tylenol] 650 mg PO Q4H PRN 03/22/19 07/04/19 amLODIPine [Norvasc] 10 mg PO DAILY@0800 03/22/19 07/04/19 Calcitriol 1 mcg PO DAILY@0800 06/28/19 07/04/19 Ipratropium-Albuterol Nebulize 3 ml INHALATION RT-Q6H PRN 06/28/19 07/04/19 [Duoneb 0.5 mg-3 mg/3 ml Soln] Midodrine [ProAmatine] 5 mg PO MOWEFR 06/28/19 07/04/19 Sodium Bicarbonate Tab 650 mg PO BID@0800,1600 06/28/19 07/04/19 Carvedilol [Coreg] 6.25 mg PO BID@0800,2000 07/04/19 07/04/19 predniSONE See Taper PO DAILY 07/04/19 07/04/19 traMADol HCL [Ultram] 50 - 100 mg PO Q6H PRN 07/04/19 07/04/19 Previous Rx's Medication Instructions Recorded Sevelamer [Renvela] 1,600 mg PO TID-W/MEALS tab 07/02/19 Allergies Allergy/AdvReac Type Severity Reaction Status Date / Time Iodinated Contrast Media Allergy Unknown Verified 07/04/19 15:05 [Iodinated Contrast- Oral and IV Dye] milk Allergy Rash/Hives Verified 07/04/19 15:05 Penicillins Allergy Rash/Hives Verified 07/04/19 15:05 vancomycin Allergy Unknown Verified 07/04/19 15:05 Review of Systems ROS Other: All systems not noted in ROS Statement are negative. <Puma Gallagher D - Last Filed: 07/04/19 19:12> ROS Other: All systems not noted in ROS Statement are negative. <Emily Mckenzie - Last Filed: 07/04/19 20:22> ROS Statement: Those systems with pertinent positive or pertinent negative responses have been documented in the HPI. Past Medical History Past Medical History: Asthma, Heart Failure, Diabetes Mellitus, Hyperlipidemia, Hypertension, Renal Disease, Vascular Disorder Additional Past Medical History / Comment(s): Chronic kidney disease stage V , diabetic neuropathy, PVD, R below the knee amp. Dialysis M-W-F. Wears oxygen at 2 L per nc only with dialysis History of Any Multi-Drug Resistant Organisms: None Reported Additional Past Surgical History / Comment(s): AV FISTULA UPPER RT ARM -pt stated not currently using it "has had some problems with it", november 26 2013 below the knee amputation, hemodialysis catheter Past Anesthesia/Blood Transfusion Reactions: Unable to Obtain Past Psychological History: Anxiety, Depression Smoking Status: Never smoker Past Alcohol Use History: None Reported Past Drug Use History: None Reported - Past Family History Mother Family Medical History: Cancer Brother(s) Family Medical History: Coronary Artery Disease (CAD) Father Family Medical History: Coronary Artery Disease (CAD) Sister(s) Family Medical History: Cancer Additional Family Medical History / Comment(s): stomach <Emily Mckenzie - Last Filed: 07/04/19 20:22> General Exam Limitations: no limitations <Emily Mckenzie - Last Filed: 07/04/19 20:22> - General Exam Comments Initial Comments: General: The patient is awake and alert, in no distress, and does not appear acutely ill. Eye: +3 mm pupils are equal, round and reactive to light, extra-ocular movements are intact. No nystagmus. There is normal conjunctiva bilaterally. No signs of icterus. Ears, nose, mouth and throat: There are moist mucous membranes and no oral lesions. Neck: The neck is supple, there is no tenderness or JVD. Cardiovascular: There is a regular rate and rhythm. No murmur, rub or gallop is appreciated. Respiratory: Respirations are non-labored, breath sounds are equal. Mild e xpiratory wheeze. No stridor, rales, or rhonchi. Gastrointestinal: [Soft, non-distended, non-tender abdomen without masses or organomegaly noted. There is no rebound or guarding present. Musculoskeletal: Normal ROM, no tenderness. Strength 5/5. Sensation intact. Radial pulses and left DP equal bilaterally 2+. Neurological: A&O x 3. CN II-XII intact, There are no obvious motor or sensory deficits. Coordination appears grossly intact. Speech is normal. Skin: Skin is warm and dry and no rashes or lesions are noted. No pitting edema of the left anterior distal tibia. Psychiatric: Cooperative, appropriate mood & affect, normal judgment. (Emily Mckenzie) Course Vital Signs 07/04/19 07/04/19 07/04/19 14:44 14:49 15:00 Temperature 97.7 F Pulse Rate 55 L 53 L Respiratory Rate Blood Pressure 134/54 O2 Sat by Pulse 98 98 Oximetry 07/04/19 07/04/19 07/04/19 16:00 16:30 17:11 Temperature Pulse Rate 53 L 51 L 55 L Respiratory Rate Blood Pressure 126/59 135/68 O2 Sat by Pulse 98 94 L Oximetry 07/04/19 07/04/19 07/04/19 17:22 17:30 18:45 Temperature 98.0 F Pulse Rate 58 L 51 L 58 L Respiratory 18 16 Rate Blood Pressure 129/56 158/74 O2 Sat by Pulse 98 96 Oximetry EKG Findings - EKG Comments: EKG Findings:: Ventricular rate 54 beats per minute, DC interval 188 ms, QRS duration 102 ms, QT/QTC 430/407 ms. Sinus bradycardia no ST elevation or depression. <Emily Mckenzie - Last Filed: 07/04/19 20:22> Medical Decision Making - Lab Data Result diagrams: 07/04/19 15:18 07/04/19 15:18 <Puma Gallagher - Last Filed: 07/04/19 19:12> - Lab Data Result diagrams: 07/04/19 15:18 07/04/19 15:18 <Emily Mckenzie - Last Filed: 07/04/19 20:22> - Medical Decision Making PA attestation: I, Dr. Puma Gallagher, personally saw and examined the patient. I have reviewed and agree with the resident/PA findings, including all diagnostic interpretations and treatment plans as written unless otherwise stated. I was present for the kenyon portions of any procedures performed and inclusive time noted for any critical care statement. Patient was seen and evaluated by myself. custodial was called for more history. Patient believes that he is here in emergency department because he ne eds rehabilitation. Discussed patient case with nurse manager database administration from the group home states that patient was sent to the emergency department for weakness. Patient has been having progressive weakness for the last several weeks. She recently discharged from another hospital. Patient is alert and oriented 4. He is moving all extremities. Patient is responsive and in no acute distress. Laboratory evaluation obtained showing findings that are within patient's usual limits. Patient gets dialysis. Patient's x-ray shows findings to suggest congestive heart failure however patient does not appear to be short of breath at this time. He wears oxygen at home. Patient is not hypoxic with his usual O2 supplementation. Furthermore, patient not showing any signs of respiratory distress. Patient and stable condition for discharge. (Puma Gallagher) - Lab Data Lab Results 07/04/19 07/04/19 07/04/19 Range/Units 15:18 15:18 15:18 WBC 6.7 (3.8-10.6) k/uL RBC 3.79 L (4.30-5.90) m/uL Hgb 11.0 L (13.0-17.5) gm/dL Hct 35.4 L (39.0-53.0) % MCV 93.4 (80.0-100.0) fL MCH 29.0 (25.0-35.0) pg MCHC 31.1 (31.0-37.0) g/dL RDW 17.0 H (11.5-15.5) % Plt Count 140 L (150-450) k/uL Neutrophils % 85 % Lymphocytes % 6 % Monocytes % 6 % Eosinophils % 1 % Basophils % 1 % Neutrophils # 5.7 (1.3-7.7) k/uL Lymphocytes # 0.4 L (1.0-4.8) k/uL Monocytes # 0.4 (0-1.0) k/uL Eosinophils # 0.1 (0-0.7) k/uL Basophils # 0.0 (0-0.2) k/uL Hypochromasia Slight Anisocytosis Slight PT (9.0-12.0) sec INR (<1.2) APTT (22.0-30.0) sec Sodium 133 L (137-145) mmol/L Potassium 4.3 (3.5-5.1) mmol/L Chloride 97 L (98-107) mmol/L Carbon Dioxide 31 H (22-30) mmol/L Anion Gap 5 mmol/L BUN 46 H (9-20) mg/dL Creatinine 3.68 H (0.66-1.25) mg/dL Est GFR (CKD-EPI)AfAm 18 (>60 ml/min/1.73 sqM) Est GFR (CKD-EPI)NonAf 15 (>60 ml/min/1.73 sqM) Glucose 232 H (74-99) mg/dL Calcium 10.3 H (8.4-10.2) mg/dL Total Bilirubin 0.7 (0.2-1.3) mg/dL AST 21 (17-59) U/L ALT 16 L (21-72) U/L Alkaline Phosphatase 49 (38-126) U/L Ammonia (<30) umol/L Troponin I (0.000-0.034) ng/mL NT-Pro-B Natriuret Pep 40457 pg/mL Total Protein 6.4 (6.3-8.2) g/dL Albumin 3.2 L (3.5-5.0) g/dL 07/04/19 07/04/19 07/04/19 Range/Units 15:18 15:18 18:00 WBC (3.8-10.6) k/uL RBC (4.30-5.90) m/uL Hgb (13.0-17.5) gm/dL Hct (39.0-53.0) % MCV (80.0-100.0) fL MCH (25.0-35.0) pg MCHC (31.0-37.0) g/dL RDW (11.5-15.5) % Plt Count (150-450) k/uL Neutrophils % % Lymphocytes % % Monocytes % % Eosinophils % % Basophils % % Neutrophils # (1.3-7.7) k/uL Lymphocytes # (1.0-4.8) k/uL Monocytes # (0-1.0) k/uL Eosinophils # (0-0.7) k/uL Basophils # (0-0.2) k/uL Hypochromasia Anisocytosis PT 10.4 (9.0-12.0) sec INR 1.0 (<1.2) APTT 24.5 (22.0-30.0) sec Sodium (137-145) mmol/L Potassium (3.5-5.1) mmol/L Chloride (98-107) mmol/L Carbon Dioxide (22-30) mmol/L Anion Gap mmol/L BUN (9-20) mg/dL Creatinine (0.66-1.25) mg/dL Est GFR (CKD-EPI)AfAm (>60 ml/min/1.73 sqM) Est GFR (CKD-EPI)NonAf (>60 ml/min/1.73 sqM) Glucose (74-99) mg/dL Calcium (8.4-10.2) mg/dL Total Bilirubin (0.2-1.3) mg/dL AST (17-59) U/L ALT (21-72) U/L Alkaline Phosphatase (38-126) U/L Ammonia <9 (<30) umol/L Troponin I 0.015 (0.000-0.034) ng/mL NT-Pro-B Natriuret Pep pg/mL Total Protein (6.3-8.2) g/dL Albumin (3.5-5.0) g/dL Disposition <Puma Gallagher - Last Filed: 07/04/19 19:12> Is patient prescribed a controlled substance at d/c from ED?: No Time of Disposition: 18:38 <Emliy Mckenzie - Last Filed: 07/04/19 20:22> Clinical Impression: Generalized weakness, Chronic shortness of breath Disposition: HOME SELF-CARE Condition: Good Instructions (If sedation given, give patient instructions): Weakness (ED) Additional Instructions: Please use medication as discussed. Please follow-up with family doctor in the next 2 days. Please return to emergency room if the symptoms increase or worsen or for any other concerns. Referrals: Harrison Bolivar MD [Primary Care Provider] - 1-2 days
[2019-07-04 15:29] LABS: Anisocytosis Slight; Basophils % (A) 1 %; Eosinophils # (A) 0.1 k/uL (0-0.7); Eosinophils % (A) 1 %; HCT 35.4 % (39.0-53.0); Hypochromasia Slight; Lymphocytes # (A) 0.4 k/uL (1.0-4.8); Lymphocytes % (A) 6 %; MCHC 31.1 g/dL (31.0-37.0); MCV 93.4 fL (80.0-100.0); Mean Platelet Volume 7.4; Monocytes # (A) 0.4 k/uL (0-1.0); Monocytes % (A) 6 %; Neutrophils # (A) 5.7 k/uL (1.3-7.7); Neutrophils % (A) 85 %; Platelet Count 140 k/uL (150-450); RBC 3.79 m/uL (4.30-5.90); WBC 6.7 k/uL (3.8-10.6)
[2019-07-04 15:38] LABS: Albumin 3.2 g/dL (3.5-5.0); Calcium 10.3 mg/dL (8.4-10.2); Potassium 4.3 mmol/L (3.5-5.1); Total Bilirubin 0.7 mg/dL (0.2-1.3); Total Protein 6.4 g/dL (6.3-8.2)
[2019-07-04 15:46] LABS: Partial Thromboplastin Time 24.5 sec (22.0-30.0); Prothrombin Time 10.4 sec (9.0-12.0)
--- NOTE | 2019-07-04 16:23 | XR ---
EXAMINATION TYPE: XR chest 2V DATE OF EXAM: 07/04/2019 COMPARISON: Chest x-ray from 2 days ago. HISTORY: Weakness. TECHNIQUE: Frontal and lateral views of the chest are obtained. FINDINGS: There is cardiomegaly with central vascular congestion and small to moderate-sized bilater al pleural effusions. . There is associated bibasilar compressive atelectasis and/or infiltrate. Upp er lungs are clear without pneumothorax. The osseous structures are intact. IMPRESSION: Probable CHF exacerbation. Correlate clinically. No significant change from recent prior .
[2019-07-04] MEDS ORDERED: IPRATROPIUM-ALBUTEROL 3 ML NEB INHALATION STA (16:45)
[2019-07-04] MEDS ORDERED: NALOXONE 0.4 MG/ML 1 ML VIAL IV PRN (17:08)
[2019-07-04] MEDS ORDERED: methylPREDNISolone SOD SUCCI 125 MG/2 ML VIAL IV STA (17:10)
[2019-07-04] MEDS ORDERED: SODIUM CHLORIDE 0.9% 1,000 ML IV SCH (17:15)
[2019-07-04] MEDS ORDERED: IPRATROPIUM-ALBUTEROL 3 ML NEB INHALATION SCH ×2 (17:15→20:00)
[2019-07-04] MEDS ORDERED: IPRATROPIUM-ALBUTEROL 3 ML NEB INHALATION PRN (17:20)
--- NOTE | 2019-07-04 17:58 | CT ---
EXAMINATION TYPE: CT brain wo con DATE OF EXAM: 07/04/2019 COMPARISON: None HISTORY: ams CT DLP: 1106.4 mGycm Automated exposure control for dose reduction was used. FINDINGS: There is patchy hypodensity in the periventricular white matter. There is 3 x 1 cm area of hypodensit y right posterior frontal lobe consistent with an old cortical infarct. There is no mass effect nor m idline shift. There is no sign of intracranial hemorrhage. The calvarium is intact. There is mucosal thickening right mastoid sinuses. IMPRESSION: THERE IS SOME CHRONIC SMALL VESSEL ISCHEMIA. 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 NO ACUTE INTRAC RANIAL ABNORMALITY.
[2019-07-04 18:47] VITALS: BP 158/74; PULSE 58; RESP 16; TEMP 98
== END 2019-07-04 19:17 | disposition home or self-care (01) ==
LOC: EC 14:41
DX: R53.1 Weakness (principal); R06.02 Shortness of breath; R06.2 Wheezing; J44.9 Chronic obstructive pulmonary disease, unspecified; I13.2 Hypertensive heart and chronic kidney disease with heart failure and with stage 5 chronic kidney disease, or end stage renal disease; I50.9 Heart failure, unspecified; N18.5 Chronic kidney disease, stage 5; E11.22 Type 2 diabetes mellitus with diabetic chronic kidney disease; E11.40 Type 2 diabetes mellitus with diabetic neuropathy, unspecified; E11.51 Type 2 diabetes mellitus with diabetic peripheral angiopathy without gangrene; Z88.0 Allergy status to penicillin; Z88.1 Allergy status to other antibiotic agents; Z91.011 Allergy to milk products; Z91.041 Radiographic dye allergy status; Z79.4 Long term (current) use of insulin; Z79.51 Long term (current) use of inhaled steroids; Z79.52 Long term (current) use of systemic steroids; Z79.82 Long term (current) use of aspirin; Z79.899 Other long term (current) drug therapy; Z99.2 Dependence on renal dialysis; Z99.81 Dependence on supplemental oxygen; Z53.8 Procedure and treatment not carried out for other reasons
CPT/HCPCS: 99285; 96374; 96361 ×3; 36415; 94640; 93005; 83880; 80053; 82140; 83605; 84484; 85025; 85610; 85730; 71046; 70450; J2930

== ENCOUNTER 2020-07-17 10:14 | Day surgery (SDC) | payer MEDICARE, BC, OTHER ==
[~2020-07-17 10:14] MED LIST changes: -LACTATED RINGERS 1,000 ML IV SCH; -LIDOCAINE 1% 20 ML VIAL (10MG/ML) FOR IV START INTRADERMA PRN; -ONDANSETRON 4 MG/2 ML VIAL IVP ONE; -ONDANSETRON 4 MG/2 ML VIAL IVP PRN; +SODIUM CHLORIDE 0.9% 500 ML 500 ML in EMPTY BAG 1 BAG IV PRN; -ceFAZolin IN SWFI 2 GM/20 ML SYRINGE IVP ONE
[2020-07-17 10:51] VITALS: TEMP 98.1
[2020-07-17 12:09] VITALS: BP 121/66; PULSE 93; RESP 20
--- NOTE | 2020-07-17 12:42 | P.PCN ---
Date of Procedure: 07/17/20 Preoperative Diagnosis: Left-sided pleural effusion Postoperative Diagnosis: Left-sided pleural effusion Procedure(s) Performed: Thoracentesis Anesthesia: local Surgeon: Jamaal Diaz Estimated Blood Loss (ml): 0 Condition: stable Disposition: same day Operative Findings: A time out was performed and the chest x-ray was reviewed, the appropriate side was confirmed and marked. My hands were washed immediately prior to the procedure. I wore a surgical cap, mask with protective eyewear, sterile gown and sterile gloves throughout the procedure. The patient was prepped and draped in a sterile manner using chlorhexidine scrub after the appropriate level was percussed and confirmed by ultrasound. 1% lidocaine was used to anesthesize the skin, subcutaneous tissue, superior aspect of the rib periosteum and parietal pleura. A finder needle was then introduced over the superior aspect of the rib to locate the pleural fluid; 2colored fluid was aspirated at a depth of approximately 2 cm. A 10-blade scalpel was used to geoff the skin at the insertion site. The [id number]-y-Pohmnipf needle was then introduced through the skin incision into the pleural space using negative aspiration pressure and the red colometric indicator to confirm appropriate positioning of the needle. The thoracentesis catheter was then threaded without difficulty. 1000 ml of turbid colored fluid was removed without difficulty. The catheter was then removed. No immediate complications were noted during the procedure. A post-procedure chest x-ray is pending at the time of this note. The fluid will will be sent for studies. Estimated blood loss is 0cc
--- NOTE | 2020-07-17 13:11 | XR ---
EXAMINATION TYPE: XR chest 1V portable DATE OF EXAM: 07/17/2020 COMPARISON: 07/04/2019 HISTORY: Postthoracentesis TECHNIQUE: Single frontal view of the chest is obtained. FINDINGS: Bilateral consolidation and pleural effusion. No sizable pneumothorax. Heart size stable. Diffuse osteopenia. Interstitial process seen. IMPRESSION: Bilateral infiltrate and pleural effusion correlate for mild CHF. No sizable pneumothora x.
[2020-07-17 22:22] LABS: Appearance,BF Clear; Color,BF Yellow; Nucleated Cells, Body Fluid 320 /uL; RBC, Body Fluid 3375 /uL
[2020-07-17 22:30] LABS: Mononuclear WBC,Body Fluid 92 %; Polynuclear WBC,Body Fluid 2 %
[2020-07-18 01:36] LABS: Total Protein, Body Fluid 2100 mg/dL
[2020-07-18 01:58] LABS: Glucose, BF Source Pleural Fluid; Glucose, Body Fluid 115 mg/dL; LDH, Body Fluid Source Pleural Fluid
== END 2020-07-17 10:20 | disposition home or self-care (01) ==
LOC: PROCWHC3 10:14
PROVIDERS: ATTEND Internal Medicine Critical Care Medicine
DX: J90 Pleural effusion, not elsewhere classified (principal); J44.9 Chronic obstructive pulmonary disease, unspecified; H54.8 Legal blindness, as defined in USA; D64.9 Anemia, unspecified; G62.9 Polyneuropathy, unspecified; E11.9 Type 2 diabetes mellitus without complications; F41.9 Anxiety disorder, unspecified; I13.2 Hypertensive heart and chronic kidney disease with heart failure and with stage 5 chronic kidney disease, or end stage renal disease; L97.509 Non-pressure chronic ulcer of other part of unspecified foot with unspecified severity; K42.9 Umbilical hernia without obstruction or gangrene; N18.6 End stage renal disease; I50.9 Heart failure, unspecified; I73.9 Peripheral vascular disease, unspecified; Z88.0 Allergy status to penicillin; Z79.01 Long term (current) use of anticoagulants; Z79.51 Long term (current) use of inhaled steroids; Z79.4 Long term (current) use of insulin; Z79.899 Other long term (current) drug therapy; Z89.511 Acquired absence of right leg below knee; Z87.01 Personal history of pneumonia (recurrent); Z99.2 Dependence on renal dialysis
CPT/HCPCS: 32554; 71045; 76604; 82945; 83615; 84157; 87116; 87206; 89050

== ENCOUNTER → 2020-07-17 | Outpatient (CLI) | payer MEDICARE, BC, OTHER ==
--- NOTE | 2020-07-17 12:31 | US ---
EXAMINATION TYPE: US chest DATE OF EXAM: 07/17/2020 COMPARISON: Chest x-ray 07/14/2020 CLINICAL HISTORY: J90 Plural effusion. bilateral pleural effusion TECHNIQUE: Targeted ultrasound of the posterior lower bilateral hemithoraces EXAM MEASUREMENTS: Right Pleural Effusion pocket size: 10.4 cm Right skin surface to fluid distance: 2.6 cm Left Pleural Effusion pocket size: 11.0 cm Left skin surface to fluid distance: 3.2 cm Right side marked for possible thoracentesis outside the dept. Left side marked for possible thoracentesis outside the dept. Pulmonologists are able to review the images in the patient?s EMR. IMPRESSIONS: Large bilateral pleural effusions
== END | disposition home or self-care (01) ==
LOC: RADUSWWP 09:25
PROVIDERS: ATTEND Internal Medicine Critical Care Medicine
DX: J90 Pleural effusion, not elsewhere classified (principal)
CPT/HCPCS: 76604